=== PATIENT | female | born 1960 | race Caucasian/White ===

== ENCOUNTER → 2019-09-02 | Outpatient (CLI) | payer SELFPAY | PROVIDERS: Family Provider Family Medicine; Visit Provider Family Medicine | DX: M54.9 Dorsalgia, unspecified (principal); G89.29 Other chronic pain | CPT/HCPCS: 72072; 72100 ==

== ENCOUNTER 2020-05-27 00:10 | Inpatient (IN) | payer MEDICAID, SELFPAY ==
[2020-05-27] VITALS (86 sets, daily range): BP systolic 54–178; BP diastolic 25–129; PULSE 88–132; RESP 14–26; TEMP 36.1–38.9; O2SAT 76–99; BMI 36.6
--- NOTE | 2020-05-27 | XACV_ITS ---
Exam Room: [facility] Ht: 165 cm Wt: 100 kg BSA: 2.18 m2 Gender: Female : 1960 Any Known Allergies: Other Exam Priority: Routine Procedure(s): Procedure Description: Diagnostic procedure Procedure Description: Right Heart Catheterization Procedure Description: Miscellaneous Procedure Description: pVAD Conclusions 1. 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 CPT code 3. :20850 4. Right groin approach was adopted 5. to perform right heart cath and to place Impella device for persistent resistant cardiogenic shock failed to improve on more than 3 pressors and inotropics. Severe LV dysfunction with left ventricle ejection fraction estimated around 15 to 20%. 6. Right heart cathRA 13 mmHgRV 42/4PA mean 25 mm 14 Yemeni Impella peel-away sheath was exchanged with 6 Yemeni right femoral sheath, after crossing aortic valve through right common femoral approach with 0.035 wire into the LV with the help of pigtail catheter wire was exchanged with Impella 0.18 wire was used to insert 3.5 Impella CP device. Good cardiac output was confirmed around 3.2 L. MAP improved to 90 immediately. Patient tolerated procedure well and transferred to ICU after securing the site of insertion. Right groin venous sheath was kept in place for central line. No complication noted at the end of the procedure. 7. . Recommendations * Usual post cath and Impella care. Diagnostic RX Recommendation: medical therapy and/or counseling Pressures Phase:Rest AO : ( 26 ) @ 8:32:00 AM -3 / -8 ( -6 ) @ 9:03:00 AM LV : 120 / -1 / @ 8:56:00 AM 120 / 0 / @ 8:56:00 AM RV : 42 / 4 / @ 8:36:00 AM PA : 29 / ( 24 ) @ 8:34:00 AM 29 / 23 ( 25 ) @ 8:35:00 AM RA : a wave = v wave = mean = 13 @ 8:37:00 AM a wave = v wave = mean = -5 @ 8:43:00 AM O2 Content Phase:Rest PA : O2 Content O2: 62.0 @ 8:32:00 AM Saturations Phase:Rest AO : 95 @ 8:56:00 AM RA : 63 @ 8:56:00 AM RV : 61 @ 9:03:00 AM PA : 62 @ 8:32:00 AM Cardiac Output Phase:Rest Abbey : 3 @ 8:32:00 AM Abbey Cardiac Index: 2 @ 8:32:00 AM Clinical Evaluation EBL: 5mL-10mL Procedural Details Procedure Consent Obtained. Pre-Procedure Time Out. Identified patient by full name and date of as verbalized by the patient/guarantor. Does the consent match the physician's order: Yes. Accurate & Complete Informed Consent: Yes. Inpatient/Outpatient History & Physical on Chart: N/A Emergent; Informed Consent not obtained due to time critical life threat. If H&P is completed, is and addenduem needed: N/A Emergent; Informed Consent not obtained due to time critical life threat; If yes, is the addendum complete: N/A Emergent; Informed Consent not obtained due to time critical life threat. Visualize and Verify Site with Patient/Guarantor: N/A. Relevant Radiology Images available: Yes. PERRLA. Strong, equal hand adult manager bilaterally. Lungs clear x 5 lobes. Physician notified. Baseline sample Acquired. HR: 113 BPM. 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 Anesthesia arrived to sedate patient. Equipment: 6F - Femoral. Ventilator Settings: TV: 350, FI02: 70, Mode: VC/AC, Rate: 20, PEEP: 12. Physician arrived. Physician scrubbed in. Immediate Pre-Procedure Time Out. Correct Patient: Yes; Correct Procedure: Yes; Correct Site: Yes; Correct Patient Position: Yes; Correct Supplies: Yes; Dried Flammable Prep: Yes; Blood Products Available: No;. Procedure started. Venous access obtained with a micropuncture set. [place] MON catheter inserted. 0.25 glidwire inserted. wire out. catheter out. Oximetry samples were obtained. Normal venous range: 60-85%. Normal arterial range: 95-100%. Pressure measurements obtained. [place] out. hand shot right groin. 6Fr sheath out over wire. 8 fr sheath dialator in. 8 fr out. 10 fr dialator in and removed. 12 fr dialator in and removed. 14FR sheath inserted into right femoral artery. wire in. A 5 kyrgyz Angled Pig catheter in over wire. wire out. exchange wire inserted. wire out. EDP Sample taken: LV 120/-2,19; HR: 110 BPM; SpO2: 95%. catheter out. .018 wire inserted. inserting impella CP over wire. IMPELLA:. .018 wire removed. 14Fr peel away impella sheath inserted. .035 wore inserted to verify placement and then removed. impella sutured into position. Post Procedure: Pulses reassessed and unchanged. PERRLA. Strong, equal hand adult manager bilaterally. No VTE prophylaxis required. Medication's Wasted: Heparin = 1000 units. Total IV fluids: 100 mL. Fluoro: 12:40. Complications: none. Estimated blood loss: 5mL-10mL. Procedure completed. Patient transferred by bed to ICU. vitals (BP) monitored through impella. Post-op diagnosis: RF shock cardiomyopathy impella inserted. Vital chart was stopped. Access Site Site: Right Femoral vein Sheath Size: 6 Fr Hemostasis Success: Unsuccessful Procedure Medications Start: 1:55 PM Stop: 1:55 PM Medication: Heparin Amount: 5000 units Route: I.V. I, the attending physician, have reviewed and verified all procedure medications. Yes, all medications given per verbal order History/Risk Factors Hypertension: No Dyslipidemia: No Peripheral Arterial Disease (PAD): No Myocardial Infarction ([place]): No Obesity: No Renal Disease: No Prior Interventions PCI: No CABG: No Valve Surgery: No Report Signatures Finalized by Myra Powell MD on 06/13/2020 05:06 PM
--- NOTE | 2020-05-27 | XACV_ITS ---
Gender: Female : 1960 Any Known Allergies: Other Exam Priority: Routine Procedure(s): Procedure Description: Diagnostic procedure Procedure Description: Left Heart Catheterization Diagnostic Findings * No significant disease noted in the Left Main, LAD, Circumflex, or RCA coronary arteries. * Coronary angiography shows right dominance. PCI Status: Emergency Conclusions 1. Indication for angiogram: Chest pain syncope ST elevation in the inferior leads#1 Left main normal#2 LAD without any significant disease#3 LCx without significant disease#4 RCA has patent proximal stent rest of the vessel is without significant diseaseLeft ventriculography was consistent with severely depressed LV function 20% with anterior apical and inferoapical wall akinesis suggestive of stress-induced cardiomyopathy Takotsubo picture. 2. No significant disease noted in the Left Main, LAD, Circumflex, or RCA coronary arteries. 3. The basal posterior, basal septum, anterobasal, inferobasal marrufo are hypokinetic. 4. The apex, mid posterior, mid septum, anterolateral, mid inferior marrufo are akinetic. 5. Severe left ventricular systolic dysfunction. Ejection fraction of 20%. Recommendations * 1-Return to inpatient for close monitoring and routine cath care 2-Risk factor modification for secondary prevention 3-Statin and aspirin 81 mg life--long, if tolerated 4-Patient was pre-loaded with 600 mg of Plavix, continue Plavix 75mg p.o. daily for at least one year. We will assess at the end of one year again to continue if further or not 5-Continue optimal medical management, if patient does not improve blood pressure advised consider mechanical support 6-Follow up with Dr. Galo in four weeks and your primary care in 10 days. 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 Physician scrubbed in. Identified patient by full name and date of as verbalized by the patient/guarantor. Does the consent match the physician's order: N/A Emergent. Accurate & Complete Informed Consent: N/A Emergent; Informed Consent not obtained due to time critical life threat. Procedure started. right groin was prepped with chloroprep then draped in the usual sterile fashion. Lidocaine 1% infiltrated to the right groin. Arterial access obtained with micropuncture set. A 6 uruguayan JR4 Guide catheter in over wire. Multiple views taken of right coronary artery. Guide removed. CRD 6FR XB 3 GUIDE inserted over the wire. Multiple views of the left coronary system performed. Baseline sample Acquired. HR: 110 BPM. ABG sample taken. Catheter out. A 5 uruguayan Straight Pig catheter in over wire. EDP Sample taken: LV 83/16,31; HR: 112 BPM; SpO2: 85%. LV gram performed in ALVA @ 10 mL/second for a total of 30 mL. EDP Sample taken: LV 82/22,35; HR: 99 BPM; SpO2: 85%. Pullback taken: LV Off; AO Off; Mean: , Peak to Peak: , SEP: ; HR: 109 BPM; SpO2: 85%. Catheter out. A Suture was successful obtaining hemostatsis at the Right Femoral artery insertion site. Arterial sheath flushed and connected to tranducer and pressure bag with heparinized saline. PCI Indication: STEMI. Post-op diagnosis: STEMI. Current diagnosis: STEMI. Complications: NA. Estimated blood loss: 5mL-10mL. Procedure completed. Patient transferred by bed to ICU. [facility] Clinical Fraility Score: 3: Managing Well. Wool Hat Flanger Indications: ACS <= 24 hours. Chest Pain Symptom Assessment: Atypical Angina. Cardiovascular Instability: No. Vital chart was stopped. Access Site Site: Right Femoral artery Sheath Size: 6 Fr Hemostasis Method: Suture Hemostasis Success: Successful Procedure Medications Start: 3:30 AM Stop: 3:30 AM Medication: Heparin Amount: 68122 units Route: I.V. I, the attending physician, have reviewed and verified all procedure medications. Yes, all medications given per verbal order History/Risk Factors Hypertension: No Dyslipidemia: No Peripheral Arterial Disease (PAD): No Myocardial Infarction ([place]): No Obesity: No Renal Disease: No Prior Interventions PCI: No CABG: No Valve Surgery: No Report Signatures Finalized by Myra Powell MD on 06/08/2020 02:06 PM
--- NOTE | 2020-05-27 00:25 | ED_ITS ---
Documented by User: MARIA ELENA Espinosa 05/27/20 00:48 HPI - Fall General: Chief Complaint: Syncope Stated Complaint: FALL Time Seen by Provider: 05/27/20 00:14 History of Present Illness: HPI Narrative: Patient is a 59-year-old female who comes to the ED via EMS after having a fall. Patient was in the bathroom sitting on the toilet having a bowel movement and then woke up on the floor. EMS was called to patient's address to transport here to ED. EMS said patient had a red pruritic rash all over her body when they arrived. They gave patient some Zofran and 50 mg of Benadryl to treat rash before arriving to ED. EMS said that nobody at the house was able to speak to patient's previous health and mental conditions. Patient was currently taking amoxicillin for unknown reason. Review of Systems Narrative: Unable to get review of symptoms due to patient's mental status. [facility] ED PFSH: Medical History (Updated 05/27/20 @ 18:02 by Teresa Gibbs) Atherosclerotic cardiovascular disease CAD (coronary artery disease) COPD (chronic obstructive pulmonary disease) Hyperlipemia Hypertension Morbid obesity SOB (shortness of breath) COPD Surgical History Stented coronary artery PCI right coronary artery 2008 Family History Mother CAD (coronary artery disease) Mother had a coronary artery bypass surgery. Father Stroke Father had a CVA in the 60s Other Diabetes Social History Smoking and tobacco status: current every day smoker Alcohol intake: never Substance/Drug Use: never Household members: family Housing: House Physical Exam HENMT: FACE & SINUS: ecchymosis on the left periorbital and edema on the left periorbital Eye: PERIORBITAL: periorbital findings abnormal positive left periorbital swelling (left) and periorbital ecchymosis (left eye) Resp: COMMON NORMALS: normal respiratory effort, No retractions and No use of accessory muscles AUSCULTATION: wheezes expiratory wheezes and throughout Cardio: COMMON NORMALS: regular rate, regular rhythm, S1 normal heart sound present, S2 normal heart sound present, No gallops present (Cardio), No clicks present (Cardio), No murmurs present (Cardio) and Peripheral pulses 2+ throughout RATE: regular rate RHYTHM: regular rhythm HEART SOUNDS: S1 normal heart sound present and S2 normal heart sound present PERIPHERAL P ULSES: Peripheral pulses 2+ throughout Neuro: CAROL COMA SCALE: document GCS findings Carol coma scale eye opening: None Carol coma scale verbal response: Sounds Carol coma scale motor response: Obey commands [place] coma scale total score: 9 Course Vital Signs: Vital signs: Vital Signs Temperature 102.0 F H 05/27/20 17:00 Pulse Rate 99 05/27/20 17:00 Respiratory Rate 20 H 05/27/20 15:19 Blood Pressure 80/58 05/27/20 17:00 Pulse Oximetry 97 05/27/20 17:00 MDM - Fall MDM Narrative: Medical decision making narrative: Patient is a 59-year-old female is brought into the ED via EMS after having a fall. Upon exam patient's GCS score is 9. She does not open her eyes, obeys commands, only makes sounds. she has some left periorbital edema and ecchymosis. Due to patient's condition I discussed patient case with Dr. Gibbs and he will be taking over care of patient. I ordered all initial lab and imaging work-up. Lab Data: Labs: Lab Results 05/26/20 05/27/20 05/27/20 Range/Units 03:35 01:05 01:40 WBC 14.3 H (4.0-10.0) 10^3/ uL RBC 5.47 H (4.1-5.3) 10^6/u L Hgb 16.2 H (11.5-15.3) g/dL Hct 53.2 H (37.0-47.0) % MCV 97.3 (81-99) fL MCH 29.6 (28.0-34.0) pg MCHC 30.5 (30.0-36.0) g/dL RDW 13.9 (12.1-15.1) % Plt Count 335 (130-400) 10^3/c mm MPV 11.3 H (7.4-10.4) fL Neut % (Auto) 75.7 % Lymph % (Auto) 19.6 % Routt % (Auto) 3.7 % Eos % (Auto) 0.3 % Baso % (Auto) 0.3 % Neut # (Auto) 10.82 H (1.8-7.7) 10^3/u L Lymph # (Auto) 2.8 (0.8-4.8) 10^3/u L Routt # (Auto) 0.5 (0.2-0.9) 10^3/u L Eos # (Auto) 0.0 (0.0-0.8) 10^3/u L Baso # (Auto) 0.0 (0.0-0.1) 10^3/u L Nucleated RBC % (a uto) 0 % Nucleated RBCs # 0.0 /100WBC PT (12.1-14.9) SECO NDS INR (0.8-1.2) APTT (23.9-36.7) SECO NDS Specimen Type Arterial Arterial Sample Site Femoral, right Brachial, left ABG pH 7.20 L 7.31 L (7.35-7.45) ABG pCO2 66.3 H* 45.0 (35-45) mmHg ABG pO2 59.8 L 72.2 L (80.0-100.0) mmH g ABG HCO3 25.8 22.5 (22-26) mmol/L ABG O2 Saturation 83.0 94.2 ABG Base Excess -3.7 L -4.0 L (-2.0-2.0) mmol/ L Jerry Test N/a N/a A-a O2 Gradient 1.3 L 2.9 L (5-10) mmHg Hematocrit 43.4 48.7 H (37-47) % Hgb O2 Saturation 81.3 L 90.2 L (95-100) % Carboxyhemoglobin 1.9 3.6 (0.4-20.1) %THgb Methemoglobin 0.2 L 0.7 (0.4-1.5) % Total Hemoglobin 14.1 15.9 (12-16) g/dL Sodium 147.0 H 144.0 H (131-143) mmol/L Potassium 3.1 L 3.7 (3.5-5.0) mmol/L Glucose 314.0 H 204.0 H (70-115) mg/dL Ionized Calcium 1.0 L 1.3 (1.1-1.4) mmol/L O2 Delivery Device Ambu Nc O2 Liters/Min 3.0 % FiO2 % Specimen Drawn By Feeder Worker Power Unit Operator ASHLEY Molina Blood Gas Notified Time Chloride (98-107) mmol/L Carbon Dioxide (22-29) mmol/L Anion Gap (5-19) BUN (6-20) mg/dL Creatinine (0.5-0.9) mg/dL GFR Calculation (90-130) mL/min POC Glucose (70-110) mg/dL Calculated Osmolal ity (285-295) mOsm/k g Lactic Acid (0.5-2.2) mmol/L Calcium (8.5-10.5) mg/dL Magnesium (1.7-2.3) mg/dL Total Bilirubin (0.15-1.2) mg/dL AST (0-32) U/L ALT (0-33) U/L Alkaline Phosphata se (35-105) IU/L Troponin T Baselin e (0-10) ng/L NT-Pro-B Natriuret Pep (0-125) pg/mL Total Protein (6.6-8.7) g/dL Albumin (3.5-5.2) g/dL Globulin (1.3-4.6) g/dL Lipase (13-60) U/L Ethyl Alcohol (0-10) mg/dL Serum Ketones (Negative) 05/27/20 05/27/20 05/27/20 Range/Units 01:40 01:40 01:40 WBC (4.0-10.0) 10^3/ uL RBC (4.1-5.3) 10^6/u L Hgb (11.5-15.3) g/dL Hct (37.0-47.0) % MCV (81-99) fL MCH (28.0-34.0) pg MCHC (30.0-36.0) g/dL RDW (12.1-15.1) % Plt Count (130-400) 10^3/c mm MPV (7.4-10.4) fL Neut % (Auto) % Lymph % (Auto) % Routt % (Auto) % Eos % (Auto) % Baso % (Auto) % Neut # (Auto) (1.8-7.7) 10^3/u L Lymph # (Auto) (0.8-4.8) 10^3/u L Routt # (Auto) (0.2-0.9) 10^3/u L Eos # (Auto) (0.0-0.8) 10^3/u L Baso # (Auto) (0.0-0.1) 10^3/u L Nucleated RBC % (a uto) % Nucleated RBCs # /100WBC PT 12.80 (12.1-14.9) SECO NDS INR 0.94 (0.8-1.2) APTT 26.5 (23.9-36.7) SECO NDS Specimen Type Sample Site ABG pH (7.35-7.45) ABG pCO2 (35-45) mmHg ABG pO2 (80.0-100.0) mmH g ABG HCO3 (22-26) mmol/L ABG O2 Saturation ABG Base Excess (-2.0-2.0) mmol/ L Jerry Test A-a O2 Gradient (5-10) mmHg Hematocrit (37-47) % Hgb O2 Saturation (95-100) % Carboxyhemoglobin (0.4-20.1) %THgb Methemoglobin (0.4-1.5) % Total Hemoglobin (12-16) g/dL Sodium 145 (131-143) mmol/L Potassium 4.1 (3.5-5.0) mmol/L Glucose 200 H (70-115) mg/dL Ionized Calcium (1.1-1.4) mmol/L O2 Delivery Device O2 Liters/Min % FiO2 % Specimen Drawn By Feeder Worker Power Unit Operator ID Blood Gas Notified Time Chloride 103 (98-107) mmol/L Carbon Dioxide 23 (22-29) mmol/L Anion Gap 23.1 H (5-19) BUN 16 (6-20) mg/dL Creatinine 1.3 H (0.5-0.9) mg/dL GFR Calculation 41.9 L (90-130) mL/min POC Glucose (70-110) mg/dL Calculated Osmolal ity 307 H (285-295) mOsm/k g Lactic Acid (0.5-2.2) mmol/L Calcium 10.0 (8.5-10.5) mg/dL Magnesium 2.3 (1.7-2.3) mg/dL Total Bilirubin 0.3 (0.15-1.2) mg/dL AST 72 H (0-32) U/L ALT 51 H (0-33) U/L Alkaline Phosphata se 78 (35-105) IU/L Troponin T Baselin e 99 H (0-10) ng/L NT-Pro-B Natriuret Pep 92 (0-125) pg/mL Total Protein 6.7 (6.6-8.7) g/dL Albumin 4.0 (3.5-5.2) g/dL Globulin 2.7 (1.3-4.6) g/dL Lipase 18 (13-60) U/L Ethyl Alcohol < 10 (0-10) mg/dL Serum Ketones Negative (Negative) 05/27/20 05/27/20 05/27/20 Range/Units 01:40 03:13 03:34 WBC (4.0-10.0) 10^3/ uL RBC (4.1-5.3) 10^6/u L Hgb (11.5-15.3) g/dL Hct (37.0-47.0) % MCV (81-99) fL MCH (28.0-34.0) pg MCHC (30.0-36.0) g/dL RDW (12.1-15.1) % Plt Count (130-400) 10^3/c mm MPV (7.4-10.4) fL Neut % (Auto) % Lymph % (Auto) % Routt % (Auto) % Eos % (Auto) % Baso % (Auto) % Neut # (Auto) (1.8-7.7) 10^3/u L Lymph # (Auto) (0.8-4.8) 10^3/u L Routt # (Auto) (0.2-0.9) 10^3/u L Eos # (Auto) (0.0-0.8) 10^3/u L Baso # (Auto) (0.0-0.1) 10^3/u L Nucleated RBC % (a uto) % Nucleated RBCs # /100WBC PT (12.1-14.9) SECO NDS INR (0.8-1.2) APTT (23.9-36.7) SECO NDS Specimen Type Arterial Sample Site Right femoral ABG pH 7.19 L (7.35-7.45) ABG pCO2 66.3 H* (35-45) mmHg ABG pO2 59.8 L (80.0-100.0) mmH g ABG HCO3 1.9 L (22-26) mmol/L ABG O2 Saturation ABG Base Excess -3.7 L (-2.0-2.0) mmol/ L Jerry Test N/a A-a O2 Gradient (5-10) mmHg Hematocrit 43.4 (37-47) % Hgb O2 Saturation (95-100) % Carboxyhemoglobin (0.4-20.1) %THgb Methemoglobin (0.4-1.5) % Total Hemoglobin (12-16) g/dL Sodium (131-143) mmol/L Potassium (3.5-5.0) mmol/L Glucose (70-115) mg/dL Ionized Calcium (1.1-1.4) mmol/L O2 Delivery Device Ambu O2 Liters/Min % FiO2 100.0 % Specimen Drawn By [facility] Feeder Worker Power Unit Operator ID Blood Gas Notified Time 0410 Chloride (98-107) mmol/L Carbon Dioxide (22-29) mmol/L Anion Gap (5-19) BUN (6-20) mg/dL Creatinine (0.5-0.9) mg/dL GFR Calculation (90-130) mL/min POC Glucose 147 (70-110) mg/dL Calculated Osmolal ity (285-295) mOsm/k g Lactic Acid 6.4 H* (0.5-2.2) mmol/L Calcium (8.5-10.5) mg/dL Magnesium (1.7-2.3) mg/dL Total Bilirubin (0.15-1.2) mg/dL AST (0-32) U/L ALT (0-33) U/L Alkaline Phosphata se (35-105) IU/L Troponin T Baselin e (0-10) ng/L NT-Pro-B Natriuret Pep (0-125) pg/mL Total Protein (6.6-8.7) g/dL Albumin (3.5-5.2) g/dL Globulin (1.3-4.6) g/dL Lipase (13-60) U/L Ethyl Alcohol (0-10) mg/dL Serum Ketones (Negative) Discharge Plan Discharge Patient Disposition: Admitted As Inpatient Admit Provider: Myra Powell Clinical Impression: Cardiopulmonary arrest with successful resuscitation STEMI (ST elevation myocardial infarction) Qualifiers: Involved coronary artery: unspecified coronary artery Qualified Code(s): I21.3 - ST elevation (STEMI) myocardial infarction of unspecified site Anaphylaxis Qualifiers: Encounter type: initial encounter Qualified Code(s): T78.2XXA - Anaphylactic shock, unspecified, initial encounter Condition: Stable Interventions: ED Discharge Assessment Last Done: 05/27/20 07:31 ED Charges Last Done: 05/27/20 07:31 Discharge Date/Time: 05/27/20 03:45 Sign Out Sign Out Data: Patient Sign Out occurred on 05/27/20 at 00:51. Patient's care was discussed, and care was transferred from to Teresa Gibbs. 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 of Care Code ED Corporate Development Manager for Chg Fwd Exam Detailed Documented by User: Teresa Gibbs 05/27/20 18:05 HPI - Fall General: Chief Complaint: Syncope Stated Complaint: FALL Time Seen by Provider: 05/27/20 00:14 [facility] ED PFSH: Medical History (Updated 05/27/20 @ 18:02 by Teresa Gibbs) Atherosclerotic cardiovascular disease CAD (coronary artery disease) COPD (chronic obstructive pulmonary disease) Hyperlipemia Hypertension Morbid obesity SOB (shortness of breath) COPD Surgical History Stented coronary artery PCI right coronary artery 2008 Family History Mother CAD (coronary artery disease) Mother had a coronary artery bypass surgery. Father Stroke Father had a CVA in the 60s Other Diabetes Social History Smoking and tobacco status: current every day smoker Alcohol intake: never Substance/Drug Use: never Household members: family Housing: House Course Vital Signs: Vital signs: Vital Signs Temperature 102.0 F H 05/27/20 17:00 Pulse Rate 99 05/27/20 17:00 Respiratory Rate 20 H 05/27/20 15:19 Blood Pressure 80/58 05/27/20 17:00 Pulse Oximetry 97 05/27/20 17:00 MDM - Fall MDM Narrative: Medical decision making narrative: 0030 -patient turned over to me from MARIA ELENA Espinosa. Please see his note for his history, physical exam and medical decision-making notes. It is unclear what made the patient have a syncopal spell on the toilet but when EMS arrived she was diffusely red but they did not report any wheezing. Apparently the patient was given 50 of Benadryl and 1 of Ativan. Upon my assessment of the patient she is lethargic, agitated and is not cooperative. It is unclear what could be causing the patient's altered mental status. This could be an anaphylactic reaction, head bleed, acute coronary syndrome, intra-abdominal problem such as ruptured AAA. At this time I have another acutely ill patient in the ER Dr. Carrion has been contacted to come evaluate the patient as well. 0222 -patient had been intubated for anaphylaxis. Please see Dr. Carrion's note. Nurses have noticed a rhythm change and summoned me to the room. EKG shows inferior and lateral ST elevation AK. STEMI alert was called. 0240 - Dr. Powell here to evaluate the patient. He agrees with going ahead with a head CT prior to going to the Delivery Lead to be certain there is no intracranial hemorrhage. 0300 -patient had brief cardiac arrest here in the ER. Please see code note for details. Spontaneous pulse was obtained and the patient was transferred directly to the Delivery Lead. Lab Data: Attestation: I reviewed the patient's lab results. Labs: Lab Results 05/26/20 05/27/20 05/27/20 Range/Units 03:35 01:05 01:40 WBC 14.3 H (4.0-10.0) 10^3/ uL RBC 5.47 H (4.1-5.3) 10^6/u L Hgb 16.2 H (11.5-15.3) g/dL Hct 53.2 H (37.0-47.0) % MCV 97.3 (81-99) fL MCH 29.6 (28.0-34.0) pg MCHC 30.5 (30.0-36.0) g/dL RDW 13.9 (12.1-15.1) % Plt Count 335 (130-400) 10^3/c mm MPV 11.3 H (7.4-10.4) fL Neut % (Auto) 75.7 % Lymph % (Auto) 19.6 % Routt % (Auto) 3.7 % Eos % (Auto) 0.3 % Baso % (Auto) 0.3 % Neut # (Auto) 10.82 H (1.8-7.7) 10^3/u L Lymph # (Auto) 2.8 (0.8-4.8) 10^3/u L Routt # (Auto) 0.5 (0.2-0.9) 10^3/u L Eos # (Auto) 0.0 (0.0-0.8) 10^3/u L Baso # (Auto) 0.0 (0.0-0.1) 10^3/u L Nucleated RBC % (a uto) 0 % Nucleated RBCs # 0.0 /100WBC PT (12.1-14.9) SECO NDS INR (0.8-1.2) APTT (23.9-36.7) SECO NDS Specimen Type Arterial Arterial Sample Site Femoral, right Brachial, left ABG pH 7.20 L 7.31 L (7.35-7.45) ABG pCO2 66.3 H* 45.0 (35-45) mmHg ABG pO2 59.8 L 72.2 L (80.0-100.0) mmH g ABG HCO3 25.8 22.5 (22-26) mmol/L ABG O2 Saturation 83.0 94.2 ABG Base Excess -3.7 L -4.0 L (-2.0-2.0) mmol/ L Jerry Test N/a N/a A-a O2 Gradient 1.3 L 2.9 L (5-10) mmHg Hematocrit 43.4 48.7 H (37-47) % Hgb O2 Saturation 81.3 L 90.2 L (95-100) % Carboxyhemoglobin 1.9 3.6 (0.4-20.1) %THgb Methemoglobin 0.2 L 0.7 (0.4-1.5) % Total Hemoglobin 14.1 15.9 (12-16) g/dL Sodium 147.0 H 144.0 H (131-143) mmol/L Potassium 3.1 L 3.7 (3.5-5.0) mmol/L Glucose 314.0 H 204.0 H (70-115) mg/dL Ionized Calcium 1.0 L 1.3 (1.1-1.4) mmol/L O2 Delivery Device Ambu Nc O2 Liters/Min 3.0 % FiO2 % Specimen Drawn By Feeder Worker Power Unit Operator ASHLEY Molina Blood Gas Notified Time Chloride (98-107) mmol/L Carbon Dioxide (22-29) mmol/L Anion Gap (5-19) BUN (6-20) mg/dL Creatinine (0.5-0.9) mg/dL GFR Calculation (90-130) mL/min POC Glucose (70-110) mg/dL Calculated Osmolal ity (285-295) mOsm/k g Lactic Acid (0.5-2.2) mmol/L Calcium (8.5-10.5) mg/dL Magnesium (1.7-2.3) mg/dL Total Bilirubin (0.15-1.2) mg/dL AST (0-32) U/L ALT (0-33) U/L Alkaline Phosphata se (35-105) IU/L Troponin T Baselin e (0-10) ng/L NT-Pro-B Natriuret Pep (0-125) pg/mL Total Protein (6.6-8.7) g/dL Albumin (3.5-5.2) g/dL Globulin (1.3-4.6) g/dL Lipase (13-60) U/L Ethyl Alcohol (0-10) mg/dL Serum Ketones (Negative) 05/27/20 05/27/20 05/27/20 Range/Units 01:40 01:40 01:40 WBC (4.0-10.0) 10^3/ uL RBC (4.1-5.3) 10^6/u L Hgb (11.5-15.3) g/dL Hct (37.0-47.0) % MCV (81-99) fL MCH (28.0-34.0) pg MCHC (30.0-36.0) g/dL RDW (12.1-15.1) % Plt Count (130-400) 10^3/c mm MPV (7.4-10.4) fL Neut % (Auto) % Lymph % (Auto) % Routt % (Auto) % Eos % (Auto) % Baso % (Auto) % Neut # (Auto) (1.8-7.7) 10^3/u L Lymph # (Auto) (0.8-4.8) 10^3/u L Routt # (Auto) (0.2-0.9) 10^3/u L Eos # (Auto) (0.0-0.8) 10^3/u L Baso # (Auto) (0.0-0.1) 10^3/u L Nucleated RBC % (a uto) % Nucleated RBCs # /100WBC PT 12.80 (12.1-14.9) SECO NDS INR 0.94 (0.8-1.2) APTT 26.5 (23.9-36.7) SECO NDS Specimen Type Sample Site ABG pH (7.35-7.45) ABG pCO2 (35-45) mmHg ABG pO2 (80.0-100.0) mmH g ABG HCO3 (22-26) mmol/L ABG O2 Saturation ABG Base Excess (-2.0-2.0) mmol/ L Jerry Test A-a O2 Gradient (5-10) mmHg Hematocrit (37-47) % Hgb O2 Saturation (95-100) % Carboxyhemoglobin (0.4-20.1) %THgb Methemoglobin (0.4-1.5) % Total Hemoglobin (12-16) g/dL Sodium 145 (131-143) mmol/L Potassium 4.1 (3.5-5.0) mmol/L Glucose 200 H (70-115) mg/dL Ionized Calcium (1.1-1.4) mmol/L O2 Delivery Device O2 Liters/Min % FiO2 % Specimen Drawn By Feeder Worker Power Unit Operator ID Blood Gas Notified Time Chloride 103 (98-107) mmol/L Carbon Dioxide 23 (22-29) mmol/L Anion Gap 23.1 H (5-19) BUN 16 (6-20) mg/dL Creatinine 1.3 H (0.5-0.9) mg/dL GFR Calculation 41.9 L (90-130) mL/min POC Glucose (70-110) mg/dL Calculated Osmolal ity 307 H (285-295) mOsm/k g Lactic Acid (0.5-2.2) mmol/L Calcium 10.0 (8.5-10.5) mg/dL Magnesium 2.3 (1.7-2.3) mg/dL Total Bilirubin 0.3 (0.15-1.2) mg/dL AST 72 H (0-32) U/L ALT 51 H (0-33) U/L Alkaline Phosphata se 78 (35-105) IU/L Troponin T Baselin e 99 H (0-10) ng/L NT-Pro-B Natriuret Pep 92 (0-125) pg/mL Total Protein 6.7 (6.6-8.7) g/dL Albumin 4.0 (3.5-5.2) g/dL Globulin 2.7 (1.3-4.6) g/dL Lipase 18 (13-60) U/L Ethyl Alcohol < 10 (0-10) mg/dL Serum Ketones Negative (Negative) 05/27/20 05/27/20 05/27/20 Range/Units 01:40 03:13 03:34 WBC (4.0-10.0) 10^3/ uL RBC (4.1-5.3) 10^6/u L Hgb (11.5-15.3) g/dL Hct (37.0-47.0) % MCV (81-99) fL MCH (28.0-34.0) pg MCHC (30.0-36.0) g/dL RDW (12.1-15.1) % Plt Count (130-400) 10^3/c mm MPV (7.4-10.4) fL Neut % (Auto) % Lymph % (Auto) % Routt % (Auto) % Eos % (Auto) % Baso % (Auto) % Neut # (Auto) (1.8-7.7) 10^3/u L Lymph # (Auto) (0.8-4.8) 10^3/u L Routt # (Auto) (0.2-0.9) 10^3/u L Eos # (Auto) (0.0-0.8) 10^3/u L Baso # (Auto) (0.0-0.1) 10^3/u L Nucleated RBC % (a uto) % Nucleated RBCs # /100WBC PT (12.1-14.9) SECO NDS INR (0.8-1.2) APTT (23.9-36.7) SECO NDS Specimen Type Arterial Sample Site Right femoral ABG pH 7.19 L (7.35-7.45) ABG pCO2 66.3 H* (35-45) mmHg ABG pO2 59.8 L (80.0-100.0) mmH g ABG HCO3 1.9 L (22-26) mmol/L ABG O2 Saturation ABG Base Excess -3.7 L (-2.0-2.0) mmol/ L Jerry Test N/a A-a O2 Gradient (5-10) mmHg Hematocrit 43.4 (37-47) % Hgb O2 Saturation (95-100) % Carboxyhemoglobin (0.4-20.1) %THgb Methemoglobin (0.4-1.5) % Total Hemoglobin (12-16) g/dL Sodium (131-143) mmol/L Potassium (3.5-5.0) mmol/L Glucose (70-115) mg/dL Ionized Calcium (1.1-1.4) mmol/L O2 Delivery Device Ambu O2 Liters/Min % FiO2 100.0 % Specimen Drawn By [facility] Feeder Worker Power Unit Operator ID Blood Gas Notified Time 0410 Chloride (98-107) mmol/L Carbon Dioxide (22-29) mmol/L Anion Gap (5-19) BUN (6-20) mg/dL Creatinine (0.5-0.9) mg/dL GFR Calculation (90-130) mL/min POC Glucose 147 (70-110) mg/dL Calculated Osmolal ity (285-295) mOsm/k g Lactic Acid 6.4 H* (0.5-2.2) mmol/L Calcium (8.5-10.5) mg/dL Magnesium (1.7-2.3) mg/dL Total Bilirubin (0.15-1.2) mg/dL AST (0-32) U/L ALT (0-33) U/L Alkaline Phosphata se (35-105) IU/L Troponin T Baselin e (0-10) ng/L NT-Pro-B Natriuret Pep (0-125) pg/mL Total Protein (6.6-8.7) g/dL Albumin (3.5-5.2) g/dL Globulin (1.3-4.6) g/dL Lipase (13-60) U/L Ethyl Alcohol (0-10) mg/dL Serum Ketones (Negative) EKG Data^: EKG 1: Attestation: I personally reviewed and interpreted this EKG as follows: EKG interpretation date: 05/27/20 EKG interpretation time: 02:22 Interpretation: Sinus tachycardia at 112 beats a minute, no blocks, normal intervals, ST elevation 2, 3, aVF, V3 through V6. This elation and in 1 as well. Discharge Plan Discharge Patient Disposition: Admitted As Inpatient Admit Provider: Myra Powell Clinical Impression: Cardiopulmonary arrest with successful resuscitation STEMI (ST elevation myocardial infarction) Qualifiers: Involved coronary artery: unspecified coronary artery Qualified Code(s): I21.3 - ST elevation (STEMI) myocardial infarction of unspecified site Anaphylaxis Qualifiers: Encounter type: initial encounter Qualified Code(s): T78.2XXA - Anaphylactic shock, unspecified, initial encounter Condition: Stable Interventions: ED Discharge Assessment Last Done: 05/27/20 07:31 ED Charges Last Done: 05/27/20 07:31 Discharge Date/Time: 05/27/20 03:45 Sign Out Sign Out Data: Patient Sign Out occurred on 05/27/20 at 00:51. Patient's care was discussed, and care was transferred from to Teresa Gibbs. 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 of Care Code ED Corporate Development Manager for Herb Fwd Exam Detailed
--- NOTE | 2020-05-27 00:31 | XR_ITS ---
WS: [id number] Portable AP supine chest, 05/27/2020, 0113 hours. Clinical Data: syncope Comparison: Portable chest, 06/30/2019. Findings: No nodules, masses or effusions are seen. The heart is normal. The pulmonary vascularity is not increased. No pneumonia or pneumothorax is seen. The right diaphragm is slightly elevated. Monit or leads are on the chest wall. XR/XR chest 1V portable [id number] Impression: Negative chest.
[2020-05-27 01:16] LABS: ABG PH Result 7.31 (7.35-7.45); Alveolar-Arterial Oxygen Gradi 2.9 mmHg (5-10); Arterial Blood Gas Hematocrit 48.7 % (37-47); Blood Gas Operator Identificat HARKR; Blood Gas Sample Site Brachial, left; Blood Gas Sample Type Arterial; Carboxyhemoglobin 3.6 %THgb (0.4-20.1); HCO3 ABG 22.5 mmol/L (22-26); HGB O2 Sat 90.2 % (95-100); Ionized Calcium Level - ABG 1.3 mmol/L (1.1-1.4); Methemoglobin 0.7 % (0.4-1.5); Oxygen Device NC; Oxygen Saturation ABG 94.2; PO2 ABG 72.2 mmHg (80.0-100.0); Potassium Level - ABG 3.7 mmol/L (3.5-5.0); Total Hemoglobin 15.9 g/dL (12-16)
--- NOTE | 2020-05-27 01:28 | P.HP_ITS ---
Providers/Chief Complaint Chief Complaint: FALL History of Present Illness Viridiana Corral is a 59 year old female who carries history of coronary disease, PCI right coronary artery 2008 came in after one syncopal event. Apparently patient was having a bowel movement when she had the syncopal event. EMS reported that she had pruritic rash for which she was given Zofran and Benadryl. (She was recently started on amoxicillin). ER physician notified me about the patient when he was intubating another patient who was critical. I evaluated the patient at the bedside, she was arousable to verbal commands, was able to tell me that her PCP started her on amoxicillin and she has been taking that and only 3 tablets are left. Today she was sitting with her friend at the computer when she went to the bathroom to have a bowel movement. Her friend noticed a loud thump sound when he checked Ms. Corral was unconscious on the floor. She was not complaining of chest pain, EMS was called. She had pruritic rash all over her body, skin was blanchable, she was given above-mentioned medications. On arrival to the ER she was not not cooperative for any work-up, she was put on BiPAP. Soon after BiPAP usage she started experiencing emesis, decision was made to intubate her. I intubated the patient at the bedside in ER, etomidate 20 mg was given along pleuritic agent, she was hyperoxygenated, glide scope was used to visualize vocal cords, she had pharyngeal, epiglottic swelling with a lot of upper airway secretions, endotracheal tube 7.5 was passed on first attempt without difficulty after visualization of vocal cords. End-tidal CO2 detected, bilateral breath sounds detected, post intubation she was saturating 94 to 95%, normal hemodynamics. Post intubation EKG was obtained while we are waiting for portable chest x-ray, which showed ST segment elevation NC, STEMI alert was called. I have tried to call her son who has not returned my call. corporate planner notified. Review of Systems General: Reports: ROS unobtainable due to endotracheal tube Medications/Allergies Home Medications Medication Instructions Recorded Confirmed Last Taken Type aspirin 81 mg tablet,delayed 81 mg PO QDAY 09/24/19 09/24/19 Unknown History release atorvastatin 40 mg tablet 40 mg PO QDAY 30 Days #30 tab 09/24/19 09/24/19 Unknown Rx garlic PO DAILY 09/24/19 09/24/19 Unknown History herbal complex no.174 450 mg mg PO DAILY cap 09/24/19 09/24/19 Unknown History capsule isosorbide mononitrate 30 mg 30 mg PO QAM 09/24/19 Unknown History tablet,extended release 24 hr lisinopril 5 mg tablet 5 mg PO QDAY 09/24/19 Unknown History multivitamin 1 tab PO QAM 09/24/19 09/24/19 Unknown History nitroglycerin 0.4 mg sublingual 0.4 mg SUBLINGUAL Q5M PRN 09/24/19 09/24/19 Unkn own History tablet omega-3 acid ethyl esters 1 gram 1 cap PO QDAY 09/24/19 09/24/19 Unknown History capsule red yeast rice 600 mg capsule 1,200 mg PO QDAY 09/24/19 09/24/19 Unknown History Allergies Allergy/AdvReac Type Severity Reaction Status Date / Time amoxicillin Allergy ALGY-Rash Verified 05/27/20 00:25 shellfish derived Allergy swelling Verified 05/27/20 00:25 watermelon Allergy swelling Verified 05/27/20 00:25 PFSH Acute PFSH: Medical History Atherosclerotic cardiovascular disease COPD (chronic obstructive pulmonary disease) Hyperlipemia Hypertension Morbid obesity SOB (shortness of breath) COPD Surgical History Stented coronary artery PCI right coronary artery 2008 Family History Mother CAD (coronary artery disease) Mother had a coronary artery bypass surgery. Father Stroke Father had a CVA in the 60s Other Diabetes Social History Smoking and tobacco status: current every day smoker Alcohol intake: never Substance/Drug Use: never Household members: family Housing: House Vitals/I&O/Wt Last Vital Signs Temp 97.9 F 05/27/20 00:11 Pulse 88 05/27/20 00:47 Resp 24 H 05/27/20 00:47 BP 136/94 05/27/20 00:47 Pulse Ox 94 05/27/20 00:47 Weight last 48 hrs Weight 99.79 kg Physical Exam Narrative: EXAM NARRATIVE: Morbidly obese female Experiencing active emesis Intubated and sedated with propofol Diffuse pruritic morbilliform rash, Patient was keeping her eyes closed, verbally redirectable, noncooperative Abdomen distended Multiple skin excoriation all over extremities, extremely dry skin GCS 11-12 Patient was able to tell me about her antibiotics and brief description about today's event, she was moving all upper extremities, no facial asymmetry, Diffuse swelling of her face including eyes and ears Gleidoscope also revealed pharyngeal edema Assisted breath sounds, upper airway resonance Data : 05/27/20 01:40 05/27/20 01:40 A&P Assessment and plan (1) Syncope and collapse: Status: Acute (2) STEMI (ST elevation myocardial infarction): Status: Acute (3) High anion gap metabolic acidosis: Status: Acute (4) Amoxicillin-induced allergic rash: Status: Acute Additional A&P Information Syncopal event due to STEMI Inferior lead ST segment elevation NC She has history of bare-metal stent placement in RCA Troponin 99 Hemodynamically stable, currently intubated and sedated for airway protection due to decreased consciousness and active emesis Would initiate therapeutic dose of Lovenox, aspirin, Plavix and high-dose statins, corporate planner notified by the ER physician Anaphylactic reaction due to amoxicillin She was not hypotensive on arrival, she was given Benadryl, and steroids Diffuse edema of face, periorbital edema, pharyngeal edema noted during intubation, swollen tongue I would add Benadryl, corticosteroids and famotidine Currently intubated and sedated Respiratory failure requiring mechanical ventilation for airway protection due to decreased consciousness and active emesis Endotracheal tube 7.5 secured at lip by 24 cm, bilateral breath sounds post intubation no complications, hemodynamically stable, saturating well, PRVC vent High anion gap metabolic acidosis due to lactic acidemia Secondary to STEMI, hemodynamically stable, no active cardiogenic shock or anaphylactic shock observed We will keep her on normal saline and keep Levophed on standby if needed in ICU Dental infection Patient was taking amoxicillin for her dental infection, chlorhexidine mouthwash, Protonix 40 IV daily Would use clindamycin for now GLENYS mildly fluid overloaded, high transaminases Would avoid diuretics for now, Follow creatinine on daily BMP, Suspecting cardiorenal etiology Full code N.p.o. No need of DVT prophylaxis currently on therapeutic dose of Lovenox Procedures Intubation Time out performed: Yes Sedative: etomidate Paralytic: vecuronium Laryngoscope: fiber optic video scope ET tube size: 7.5 Tube secured depth (cm): 24 Tube secured location: lips Tube placement confirmation: visualized tube passing through cords Patient tolerated procedure: well Intubation complications: none Attestations Medical Necessity Statement*: Is being seen in the hospital course more than 2 midnights currently need ICU intubated and sedated, STEMI alert Time Spent in Patient Care: (>than 50% of time spent in counselling and/or direct pt care on unit) . 90mins Critical Care Time: Critical Care Time (min): 35 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 of Care Code Acute Head Men'S Golf Coach for Herb Fwd Diagnoses Syncope and collapse R55 STEMI (ST elevation myocardial infarction) I21.3 High anion gap metabolic acidosis E87.2 Amoxicillin-induced allergic rash L27.0; T36.0X5A
[2020-05-27] MEDS: famotidine 20 mg/2 mL INJ 40 MG IVP (01:54)
[2020-05-27 01:57] LABS: Ketone (Acetest) Serum Negative (Negative)
[2020-05-27 01:58] LABS: Basophils % 0.3 %; Eosinophils % 0.3 %; Hematocrit 53.2 % (37.0-47.0); Hemoglobin 16.2 g/dL (11.5-15.3); Lymphocytes # 2.8 10^3/uL (0.8-4.8); Lymphocytes % 19.6 %; Mean Corpuscular HGB Conc 30.5 g/dL (30.0-36.0); Mean Corpuscular Hemoglobin 29.6 pg (28.0-34.0); Mean Corpuscular Volume 97.3 fL (81-99); Mean Platelet Volume 11.3 fL (7.4-10.4); Monocytes # 0.5 10^3/uL (0.2-0.9); Monocytes % 3.7 %; Neutrophils # 10.82 10^3/uL (1.8-7.7); Neutrophils % 75.7 %; Nucleated Red Blood Cells % 0 %; Platelet Count 335 10^3/cmm (130-400); Red Blood Count 5.47 10^6/uL (4.1-5.3); Red Cell Distribution Width 13.9 % (12.1-15.1); White Blood Count 14.3 10^3/uL (4.0-10.0)
[2020-05-27] MEDS: ondansetron 2 mg/ML SDV 2 mL 4 MG IVP (02:01)
[2020-05-27 02:03] LABS: INR 0.94 (0.8-1.2)
[2020-05-27 02:04] LABS: Partial Thromboplastin Time 26.5 SECONDS (23.9-36.7)
[2020-05-27] MEDS: vecuronium 10 mg SDV IVP (02:12)
[2020-05-27] MEDS: succinylcholine 20 mg/mL SDV 10mL 100 MG IVP (02:12)
[2020-05-27 02:13] LABS: Troponin(5th) Baseline 99 ng/L (0-10)
--- NOTE | 2020-05-27 02:13 | PC.NURSE ---
INTUBATED PT AT 0206. ET SIZE 7.5 AND 24 AT THE LIP.
[2020-05-27 02:20] LABS: Lactic Sepsis W/Reflex 6.4 mmol/L (0.5-2.2)
[2020-05-27 02:23] LABS: Alanine Aminotransferase 51 U/L (0-33); Alcohol Level < 10 mg/dL (0-10); Alkaline Phosphatase 78 IU/L (35-105); Anion Gap 23.1 (5-19); Aspartate Amino Transferase 72 U/L (0-32); Blood Urea Nitrogen 16 mg/dL (6-20); Carbon Dioxide 23 mmol/L (22-29); Chloride 103 mmol/L (98-107); Globulin 2.7 g/dL (1.3-4.6); Glomerular Filtration Rate 41.9 mL/min (90-130); Glucose 200 mg/dL (65-115); Lipase 18 U/L (13-60); Magnesium 2.3 mg/dL (1.7-2.3); NT Pro B Type Natriuretic Pept 92 pg/mL (0-125); Osmolality Calculated 307 mOsm/kg (285-295); Potassium 4.1 mmol/L (3.5-5.1); Sodium 145 mmol/L (136-145); Total Bilirubin 0.3 mg/dL (0.15-1.2); Total Protein 6.7 g/dL (6.6-8.7)
--- NOTE | 2020-05-27 02:29 | ECG_ITS ---
[facility] Test Date: 2020-05-27 Pat Name: Viridiana Corral Department: Room: ICU10 Gender: Female Gear Hobber: : 1960 Requested By: Telly Malone Order Number: [id number] Tim MD: Jodie Cardenas M.D. Measurements Intervals [place] Rate: 112 P: 66 MS: 194 QRS: 62 QRSD: 110 T: 81 QT: 329 QTc: 450 Interpretive Statements SINUS TACHYCARDIA LOW QRS VOLTAGE IN PRECORDIAL LEADS MODERATE INTRAVENTRICULAR CONDUCTION DELAY ST ELEVATION, CONSIDER INFERIOR INJURY MARKED ST ELEVATION, CONSIDER ANTEROLATERAL INJURY ACUTE NC Compared to ECG 07/01/2019 14:07:21 Low QRS voltage now present Intraventricular conduction delay now present ST (T wave) deviation now present Myocardial infarct finding now present Sinus bradycardia no longer present Electronically Signed On 05-27-2020 17:15:52 CDT by Jodie Cardenas M.D. [id number]
--- NOTE | 2020-05-27 02:52 | PM.ACPR ---
Procedure/Consent Time out: Time Out Performed: Yes Consent: Consent for Procedure: Emergency procedure Acute Procedures Epistaxis Control: Time out performed: Yes Intubation: Time out performed: Yes Sedative: etomidate Paralytic: vecuronium Laryngoscope: fiber optic video scope ET tube size: 7.5 Tube secured depth (cm): 24 Tube secured location: lips Tube placement confirmation: visualized tube passing through cords Patient tolerated procedure: well Intubation complications: none
--- NOTE | 2020-05-27 02:55 | PM.CONSULT ---
Providers/Reason For Consult Consulting Physican/Specialty*: Cardiology Reason for Consult*: ST elevation NC, shock, cardiac arrest History of Present Illness History of Present Illness Viridiana Corral is a 59 year old female who passed out on a toilet her friend called EMS on arrival they found her to be agitated given Ativan. In the emergency room she was intubated for airway protection as she was fighting and trying to throw up. She did not give any significant history source of history is as per EMS and ER staff. There was also concern regarding anaphylaxis for which she was given Solu-Medrol Pepcid and Benadryl. Since she passed out and was on floor she is going to get CT of the head. Twelve-lead EKG initially did not show any significant ST changes but second EKG was showing inferolateral ST elevation. Initial troponin was in 90s. ST elevation NC was alerted. When I arrived and saw the patient she was intubated and sedated on propofol. Patient had brief episode of V. fib followed by asystole. CPR was performed sinus rhythm was restored. Patient was immediately taken to the Embedded Software Manager. In route she had brief episode of V. fib she was given amiodarone during process of CPR while we were about to shock patient resumed sinus rhythm. She was taken to the Embedded Software Manager emergent left heart cath was performed which showed no significant stenosis of coronary artery. Left ventriculogram was performed which was consistent with severely depressed LV function with estimated ejection fraction of 20% with severe global hypokinesis consistent with stress-induced cardiomyopathy (Takotsubo). Patient was started on Levophed for cardiogenic shock. LVEDP was measured at 35 mmHg. Review of Systems General: Reports: ROS unobtainable due to endotracheal tube Narrative: Unable to get review of symptoms due to patient's mental status. Eyes: Denies: photophobia All/Imm: Denies: acute wheezing Meds/Allergies Home Medications and Allergies Home Medications Medication Instructions Recorded Confirmed Last Taken Type aspirin 81 mg tablet,delayed 81 mg PO DAILY 09/24/19 05/27/20 Unknown History release atorvastatin 40 mg tablet 40 mg PO QDAY 30 Days #30 tab 09/24/19 05/27/20 Unknown Rx herbal complex no.174 450 mg 450 mg PO DAILY cap 09/24/19 05/27/20 Unknown History capsule isosorbide mononitrate 30 mg 30 mg PO QAM 09/24/19 05/27/20 Unknown History tablet,extended release 24 hr lisinopril 5 mg tablet 5 mg PO DAILY 09/24/19 05/27/20 Unknown History multivitamin 1 tab PO QAM 09/24/19 05/27/20 Unknown History nitroglycerin 0.4 mg sublingual 0.4 mg SUBLINGUAL Q5M PRN 09/24/19 05/27/20 Unknown History tablet omega-3 acid ethyl esters 1 gram 1 cap PO DAILY 09/24/19 05/27/20 Unknown History capsule red yeast rice 600 mg capsule 1,200 mg PO DAILY 09/24/19 05/27/20 Unknown History garlic 100 mg PO DAILY 05/27/20 05/27/20 Unknown History Allergies Allergy/AdvReac Type Severity Reaction Status Date / Time amoxicillin Allergy ALGY-Rash Verified 05/27/20 00:25 shellfish derived Allergy swelling Verified 05/27/20 00:25 watermelon Allergy swelling Verified 05/27/20 00:25 PFSH Acute PFSH: Medical History (Updated 05/27/20 @ 19:25 by Chava Benjamin MD) Atherosclerotic cardiovascular disease CAD (coronary artery disease) COPD (chronic obstructive pulmonary disease) Hyperlipemia Hypertension Morbid obesity SOB (shortness of breath) COPD Surgical History Stented coronary artery PCI right coronary artery 2008 Family History Mother CAD (coronary artery disease) Mother had a coronary artery bypass surgery. Father Stroke Father had a CVA in the 60s Other Diabetes Social History Smoking and tobacco status: current every day smoker Alcohol intake: never Substance/Drug Use: never Household members: family Housing: House Vitals/I&O/Wt Last Vital Signs Temp 97.9 F 05/27/20 00:11 Pulse 88 05/27/20 00:47 Resp 14 05/27/20 02:24 BP 136/94 05/27/20 00:47 Pulse Ox 94 05/27/20 00:47 Weight last 48 hrs Weight 220 lb Physical Exam Narrative: EXAM NARRATIVE: GENERAL: Patient is sedated and intubated. NECK: No jugular vein distension. [] HEENT: No cyanosis. No icterus. No pallor. [] HEART: Regular S1 and S2. No murmur, rub or gallop. [] LUNGS: Decreased breath sound bilaterally. [] ABDOMEN: Soft, nontender and nondistended. Positive bowel sounds. No guarding, rebound or tenderness. [] CENTRAL NERVOUS SYSTEM: Grossly nonfocal. [] EXTREMITIES: Lower extremities with edema bilaterally. A&P Assessment and plan (1) Cardiogenic shock: Secondary to stress-induced cardiomyopathy/acute coronary syndrome. We will start patient on pressors. Cannot rule out anaphylaxis therefore she will be continued treating for anaphylaxis Status: Acute (2) Cardiac arrest: Brief be V. fib aborted with amiodarone and CPR. Patient was about to be defibrillated however she converted into sinus rhythm. Most likely due to underlying cardiomyopathy. Continue amiodarone Status: Acute (3) Hyperlipemia: Continue statin Status: Acute Qualifiers: Hyperlipidemia type: mixed hyperlipidemia Qualified Code(s): E78.2 - Mixed hyperlipidemia (4) CAD (coronary artery disease): History of right coronary artery stent continue current regimen Status: Acute Qualifiers: Associated angina: without angina Coronary Disease-Associated Artery/Lesion type: [place] artery [place] vs. transplanted heart: [place] heart Qualified Code(s): I25.10 - Atherosclerotic heart disease of [place] coronary artery without angina pectoris (5) Syncope and collapse: Most likely secondary to cardiac arrest Status: Acute (6) COPD (chronic obstructive pulmonary disease): Intubated, treatment as per medicine Status: Acute Qualifiers: COPD type: chronic bronchitis (7) Cardiomyopathy in disease classified elsewhere: Patient has severely depressed LV function. She appeared to be tachycardic I will start patient on pressor if required may will add dobutamine for now I will avoid it because of tachycardia. I will try to diurese her with IV Lasix once systolic blood pressure is above 100. She is intubated with mixed picture of pulmonary edema and COPD exacerbation. She will be covered with antibiotics at the same time we will try to diurese her as well. She will be ruled out for COVID Status: Acute Consult Attestations Medical Necessity Statement: Patient is critically ill. Prognosis guarded she will be admitted to ICU. I am expecting her stay to cross more than 2 midnights. 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 of Care Code New Pt Acute Barman for Chg Fwd Patient Type New History Comprehensive Exam Comprehensive Medical Decision Making High Complexity Diagnoses Cardiogenic shock R57.0 Cardiac arrest I46.9 Hyperlipemia E78.2 Hyperlipidemia type: mixed hyperlipidemia CAD (coronary artery disease) I25.10 Associated angina: without angina Coronary Disease-Associated Artery/Lesion type: [place] artery [place] vs. transplanted heart: [place] heart Syncope and collapse R55 COPD (chronic obstructive pulmonary disease) J44.9 COPD type: chronic bronchitis Cardiomyopathy in disease classified elsewhere I43
[2020-05-27 03:16] LABS: Glucose Point of Care 147 mg/dL (70-110)
--- NOTE | 2020-05-27 03:35 | XR_ITS ---
WS: [id number] Portable AP supine chest, 05/27/2020, 0225 hours Clinical Data: Post intubation Comparison: Portable chest, 05/27/2020, 0113 hours. Findings: The endotracheal tube has been inserted but the tip is only 1 cm above the judd. There is a nasogastric tube which appears to end within the stomach. There is a patchy opacity in the left gisela ng and minimal opacity in the right lung which may be secondary to poor expansion of the lungs. Monit or leads are on the chest wall. XR/XR chest 1V portable [id number] Impression: 1. Endotracheal tube only 1 cm above the judd. 2. Endogastric tube appears to end in the fundus of the stomach. 3. Poor expansion of the lungs leads to bilateral interstitial opacities.
[2020-05-27 03:41] LABS: Reflex Lactate Order REFLEX LACTIC ORDERD
--- NOTE | 2020-05-27 04:00 | PC.NURSE ---
Admit Note Arrived to unit from tailings dam laborer at this time. Pt is intubated, skin is dusky and gunderson in color. Pt is non-responsive to painful stimuli. PERRL, size 4. Distant heart sounds auscultated, Sinus tachycardia with continued ST elevation on bedside monitor. 6fr sheath remains in place with pressure bag into right groin, arterial line to transducer to assess hemodynamics. Site asymptomatic. Radial pulses weak and thready. Bilateral pedal pulses faint to doppler and intermittent. Skin is cool to touch with > [address] Powell at bedside.
[2020-05-27] MEDS: FUROsemide 10 mg/mL SDV 4mL 40 MG IVP ×2 (04:23→08:51)
--- NOTE | 2020-05-27 04:52 | PC.NURSE ---
upon arrival to ED unit, pt GCS of 10, unable to open eyes or speak. Pt reactive to stimuli only. STEEL ENGRAVER notified of diminished GCS. Pt has a roommate/friend ariving to ED shortly after pt ED arrival. Pt's friend Cameron, states pt was took one dose of amoxicillin around 2100 in the evening and went to the bathroom and heard a noisy thump . When he went to check on her, he found her on the floor of the bathroom. He attempted to move her and when he was unable to called 911. Pt having expiratory wheezing, tachypneic @ 24-28x per min, redness, swelling and skin blanching throughout face, arms, torso and legs. Dr notified of pt's diminished LOC. Upon Dr evaluation, pt acuity level increased with orders obtained for Bipap. After approx 10min of Bipap tx, pt began to vomit approx 500cc of clear emesis noted. Pt suctioned, airway clear of obvious emesis. RSI ordered. Dr Carrion intubated pt without difficulties. OG inserted. During grajeda insertion, ST elevation noted on air sampling and monitoring. 12 lead ECG obtained, Dr Gibbs confirmed anterior wall [place]. Code STEMI called @0219. Prior to pt transfer to flower shop laborer/designer, pt went to v-fib. Compressions started, Code blue called. ROSC achieved. Pt transported to flower shop laborer/designer by Cath team
[2020-05-27] MEDS: clindamycin 300 MG/50 ML PREMIX 100 MG IV (04:58)
[2020-05-27 05:15] LABS: Basophils # 0.1 10^3/uL (0.0-0.1); Basophils % 0.4 %; Eosinophils % 0.1 %; Hematocrit 50.3 % (37.0-47.0); Hemoglobin 14.8 g/dL (11.5-15.3); Lymphocytes # 2.5 10^3/uL (0.8-4.8); Lymphocytes % 13.7 %; Mean Corpuscular HGB Conc 29.4 g/dL (30.0-36.0); Mean Platelet Volume 11.8 fL (7.4-10.4); Monocytes # 1.1 10^3/uL (0.2-0.9); Monocytes % 5.9 %; Neutrophils # 14.16 10^3/uL (1.8-7.7); Neutrophils % 79.2 %; Nucleated Red Blood Cells % 0.1 %; Platelet Count 302 10^3/cmm (130-400); Red Blood Count 4.93 10^6/uL (4.1-5.3); Red Cell Distribution Width 14.1 % (12.1-15.1); White Blood Count 17.9 10^3/uL (4.0-10.0)
[2020-05-27 05:28] LABS: Alveolar-Arterial Oxygen Gradi 1.3 mmHg (5-10); Arterial Blood Gas Hematocrit 43.4 % (37-47); Base Excess ABG -3.7 mmol/L (-2.0-2.0); Blood Gas Sample Site Femoral, right; Blood Gas Sample Type Arterial; Carboxyhemoglobin 1.9 %THgb (0.4-20.1); HCO3 ABG 25.8 mmol/L (22-26); HGB O2 Sat 81.3 % (95-100); Methemoglobin 0.2 % (0.4-1.5); Oxygen Device AMBU; PO2 ABG 59.8 mmHg (80.0-100.0); Potassium Level - ABG 3.1 mmol/L (3.5-5.0); Total Hemoglobin 14.1 g/dL (12-16)
--- NOTE | 2020-05-27 05:30 | PC.NURSE ---
Central Line Dr. Carrion notified of poor peripheral vascular access. Dr. Carrion placed central line into right IJ. Consent not obtained due to emergent nature.
[2020-05-27 05:34] LABS: Lactic Acid level (Lactate) 7.4 mmol/L (0.5-2.2)
[2020-05-27 05:41] LABS: ABG PCO2 66.3 mmHg (35-45); ABG PH Result 7.19 (7.35-7.45); Base Excess ABG -3.7 mmol/L (-2.0-2.0); HCO3 ABG 1.9 mmol/L (22-26); PO2 ABG 59.8 mmHg (80.0-100.0)
[2020-05-27 05:42] LABS: Arterial Blood Gas Hematocrit 43.4 % (37-47); Blood Gas Sample Site RIGHT FEMORAL; Blood Gas Sample Type ARTERIAL; Oxygen Device AMBU
[2020-05-27 05:59] LABS: Bilirubin Urine Neg (Negative); Blood Urine 3+ (Negative); Glucose Urine UA 1+ (Normal); Ketones Urine Negative (Negative); Nitrate Urine Negative (Negative); Protein Urine 1+ (Negative); Urine Appearance Clear (CLEAR); Urine Color Yellow (Yellow); pH Urine 8 (5-7)
[2020-05-27 06:00] LABS: Bacteria Urine 1+ /hpf; Leukocyte Esterase Urine Negative (Negative); RBC Urine 0-4 /hpf (0-2); Squamous Epithelial Cell Urine 0-4 /hpf (0-5); Sulfosalicylic Acid Urine Negative (Negative); Urobilinogen Urine Norm (Negative); WBC Urine 0-4 /hpf (0-5)
[2020-05-27 06:04] LABS: Amphetamines Screen Urine Negative (Negative); Barbiturates Screen Urine Negative (Negative); Benzodiazepines Screen Urine Positive (Negative); Cocaine Screen Urine Negative (Negative); Opiate Screen Urine Negative (Negative); PCP Screen Urine Negative (Negative); THC Screen Urine Negative (Negative)
--- NOTE | 2020-05-27 06:06 | XRR_ITS ---
PROCEDURE INFORMATION: Exam: XR Chest, 1 View Exam date and time: 05/27/2020 6:07 AM Age: 59 years old Clinical indication: Device placement; Ett placement (vent status); Patient HX: Central line placement, et tube placement, og tube placement TECHNIQUE: Imaging protocol: XR of the chest Views: 1 view. COMPARISON: CR XR chest 1V portable [id number] 05/27/2020 2:25 AM FINDINGS: Tubes, catheters and devices: Interval retraction of the ET tube with its tip now about 2.9 cm above the judd. Continued extension of the enteric tube below the diaphragm with its tip not included. Interval appearance of the right IJ catheter with its tip at the cavoatrial junction. Lungs: Interval moderate worsening of the patchy airspace opacities in the right lung, but decrease in the patchy stranding and slight airspace disease in the left lung. Pleural space: Still no apparent pneumothorax. Still no visible pleural fluid. Heart/Mediastinum: Mild cardiomegaly still likely. Bones/joints: No suggestion of interval acute bony disease. Other findings: Interval extrinsic structure over the mediastinum obscuring some detail. XR/XR chest 1V portable [id number] IMPRESSION: 1. Interval retraction of the ET tube into good position. Interval appearance of the right IJ catheter with its tip at the cavoatrial junction. Tip of the enteric tube still below the diaphragm. 2. Interval prominent worsening of the patchy airspace disease in the right lung. Interval improvement of the left lung disease. 3. Mild cardiomegaly still likely.
--- NOTE | 2020-05-27 06:27 | PM.ACPR ---
Procedure/Consent Time out: Time Out Performed: Yes Consent: Consent for Procedure: Emergency procedure Procedure Narrative: Right internal jugular central line placement Patient was sedated on propofol Internal jugular vein located via ultrasound After sterile dressing and prep needle was inserted internal jugular vein, AT was trace via ultrasound, flush of blood noticed in the syringe, Seldinger technique used to place triple-lumen catheter over guidewire, guidewire retracted in presence of 2 nurses in the ICU, all ports had good venous return, Sterile dressing applied Chest x-ray confirmed placement of central line After the procedure she developed a small swelling around the insertion site, we applied pressure for about 5 to 10 minutes for possible hematoma, there is no progression of swelling, no change in hemodynamics Acute Procedures Epistaxis Control: Time out performed: Yes
[2020-05-27 06:28] LABS: Urine Random Sodium 109 mmol/L
[2020-05-27] MEDS: propofol 1,000 MG/100 ML INJ 3 MG IV ×2 (06:28→17:16)
--- NOTE | 2020-05-27 06:29 | ECG_ITS ---
[facility] Test Date: 2020-05-27 Pat Name: Viridiana Corral Department: Room: ICU10 Gender: Female Rvda Master Certified Rv Technician: : 1960 Requested By: Telly Malone Order Number: [id number] Tim MD: Jodie Cardenas M.D. Measurements Intervals [place] Rate: 109 P: -7 [place]: 181 QRS: 2 QRSD: 129 T: 105 QT: 350 QTc: 472 Interpretive Statements SINUS TACHYCARDIA ANTEROLATERAL MYOCARDIAL INFARCTION [40+ ms Q WAVE IN I/aVL/V3-V6], PROBABLY RECENT ST ELEVATION, CONSIDER INFERIOR INJURY [MARKED ST ELEVATION W/O NORMALLY INFLECTED T WAVE IN II/aVF] ACUTE AR Compared to ECG 05/27/2020 02:22:14 Intraventricular conduction delay no longer present Myocardial infarct finding still present ST (T wave) deviation still present Electronically Signed On 05-27-2020 20:35:50 CDT by Jodie Cardenas M.D. [id number]
[2020-05-27 06:36] LABS: Arterial Blood Gas Hematocrit 48.7 % (37-47); Base Excess ABG -7.3 mmol/L (-2.0-2.0); Blood Gas Operator Identificat JB; Blood Gas Sample Type Arterial; Blood Gas Tidal Volume 0.35; HCO3 ABG 22.3 mmol/L (22-26); Oxygen Device VENT
[2020-05-27 06:38] LABS: ABG PCO2 60.5 mmHg (35-45); ABG PH Result 7.17 (7.35-7.45)
[2020-05-27 06:48] LABS: Partial Thromboplastin Time > 250.0 SECONDS (23.9-36.7)
[2020-05-27 07:24] LABS: D Dimer 12.14 ug/mIFEU (0-0.59)
[2020-05-27 07:33] LABS: Alanine Aminotransferase 69 U/L (0-33); Albumin Level 3.4 g/dL (3.5-5.2); Alkaline Phosphatase 68 IU/L (35-105); Anion Gap 23.6 (5-19); Aspartate Amino Transferase 104 U/L (0-32); Blood Urea Nitrogen 17 mg/dL (6-20); Calcium 8.1 mg/dL (8.5-10.5); Carbon Dioxide 20 mmol/L (22-29); Chloride 105 mmol/L (98-107); Globulin 3.4 g/dL (1.3-4.6); Glomerular Filtration Rate 50.8 mL/min (90-130); Glucose 286 mg/dL (65-115); Osmolality Calculated 312 mOsm/kg (285-295); Potassium 3.6 mmol/L (3.5-5.1); Sodium 145 mmol/L (136-145); Thyroid Stimulating Hormone 1.02 uIU/mL (0.27-4.20); Total Bilirubin 0.5 mg/dL (0.15-1.2); Total Protein 6.8 g/dL (6.6-8.7)
[2020-05-27 07:39] LABS: SARS Covid-2 Antigen Negative (Negative)
[2020-05-27 07:44] LABS: Troponin 5 6HR 1024 ng/L (0-10); Troponin 5 6HR Delta 925 ng/L (0-12)
[2020-05-27] MEDS: aspirin 81 mg EC Tablet PO (08:36)
[2020-05-27] MEDS: ALPRAZolam 0.25 mg Tablet PO (08:36)
[2020-05-27] MEDS: atorvastatin 40 mg Tablet 80 MG NG-TUBE (08:36)
[2020-05-27] MEDS: pantoprazole 40 mg SDV IVP (08:37)
[2020-05-27] MEDS: famotidine 20 mg/2 mL INJ IVP (08:37)
--- NOTE | 2020-05-27 09:17 | W.PM.OPSUD ---
Surgery/Procedure H&P Update DATE OF PROCEDURE: May 27, 2020 DATE H&P PERFORMED: 05/27/20 H&P UPDATE INFORMATION: I have reviewed H&P completed within last 30 days, I have examined patient prior to procedure and No changes to prior documentation PREOP DIAGNOSIS: Critical limb ischemia PATIENT REASSESSED PRIOR TO SEDATION, WITH NO CHANGE NOTED: Yes PHYSICAL EXAM: alert, oriented x 3, clear to auscultation bilaterally and regular rate & rhythm AIRWAY EVAL/ANESTHESIA PLAN: ASA II, Risks, benefits & alternatives of sedation and/or procedure discussed and Patient agrees to continue as planned
[2020-05-27] MEDS: acetaminophen 325 mg Tablet 650 MG PO ×2 (09:20→17:50)
[2020-05-27] MEDS: DOBUTamine drip 500 MG/250 ML PREMIX 16.8 MG IV (09:22)
[2020-05-27] MEDS: dexmedetomidine 400 MCG in sodium chloride 0.9% (100 ml) 100 ML 10.4 MCG IV (09:43)
[2020-05-27 11:05] LABS: ABG PCO2 41.5 mmHg (35-45); ABG PH Result 7.27 (7.35-7.45); Alveolar-Arterial Oxygen Gradi 56.1 mmHg (5-10); Arterial Blood Gas Hematocrit 39.7 % (37-47); Base Excess ABG -7.8 mmol/L (-2.0-2.0); Blood Gas Operator Identificat CAK; Blood Gas Sample Site ARTLINE; Blood Gas Sample Type Arterial; Blood Gas Tidal Volume 0.35; Carboxyhemoglobin 0.8 %THgb (0.4-20.1); HCO3 ABG 18.8 mmol/L (22-26); HGB O2 Sat 94.7 % (95-100); Oxygen Device VENT; Oxygen Saturation ABG 96.4; PO2 ABG 85.9 mmHg (80.0-100.0); Potassium Level - ABG 3.4 mmol/L (3.5-5.0); Total Hemoglobin 12.9 g/dL (12-16)
[2020-05-27] MEDS: doxycycline 100 MG in sodium chloride 0.9% (plus) 100 ML IV ×2 (11:05→22:37)
[2020-05-27 11:06] LABS: ABG PCO2 66.3 mmHg (35-45)
[2020-05-27] MEDS: hydrocortisone 100 mg/2 mL SDV IVP (11:26)
[2020-05-27 11:28] LABS: Glucose Point of Care 210 mg/dL (70-110)
--- NOTE | 2020-05-27 11:28 | USCV_ITS ---
Viridiana Corrla Age: 59 Gender: F : 1960 Exam Date: 05/27/2020 11:55 Ordering Phys: Myra Powell MD Technologist: Kimberly Ferraro [place] [facility] [place]: PRE PROCEDURE Risk Factors: Previous Vascular Surgery: RIGHT LEFT BP: 94.00 / 64.00 BP: / Waveform Velocity (cm/s) Velocity (cm/s) Waveform Biphasic 135.7 Iliac Prox 99.5 Biphasic Biphasic 122.2 Iliac Mid 110.0 Biphasic Biphasic 96.5 Iliac Distal 113.5 Biphasic Biphasic 107.1 AIR TUBE RELEASER 90.8 Biphasic Biphasic 84.5 SFA Prox 61.1 Biphasic Biphasic 64.9 SFA Mid 62.9 Triphasic Biphasic SFA Dist Biphasic 53.6 82.1 Biphasic 47.2 POP 66.4 Biphasic Biphasic 32.4 BOTTLE CLEANER 37.0 Biphasic Biphasic 32.5 DPA 37.0 Biphasic 0.6 EDMAR 0.4 FINDINGS RT DPT 55 RT BOTTLE CLEANER 60 LT DPA 40 UNABLE TO DO LT BOTTLE CLEANER Mild diffuse plaques in the iliac and femoral arteries bilaterally Abnormal resting ABIs bilaterally CONCLUSIONS Abnormal resting EDMAR on the right side, suggestive of moderate peripheral artery disease Abnormal resting EDMAR on the left side, suggestive of severe peripheral artery disease. Technically somewhat difficult study Dr Michoacano Galo MD [facility] (Electronically Signed) Final Date: 27 May 2020 19:47 S
--- NOTE | 2020-05-27 11:28 | USCV_ITS ---
Ellis Viridiana Age: 59 Gender: F : 1960 Exam Date: 05/27/2020 11:39 Ordering Phys: Myra Powell MD Technologist: Kimberly Ferraro Exam Location: [facility] – [place] Indication: MN BP: 90 / 65 HR: 112 Rhythm: Sinus Technical Quality: Adequate MEASUREMENTS (Male / Female) Normal Values 2D ECHO LV Diastolic Diameter PLAX 3.6 cm 4.2 - 5.9 / 3.9 - 5.3 cm LV Systolic Diameter PLAX 3.2 cm LV Chamber Size 3.2 cm IVS Diastolic Thickness 1.0 cm 0.6 - 1.0 / 0.6 - 0.9 cm IVS Systolic Thickness 1.3 cm LVPW Diastolic Thickness 1.3 cm 0.6 - 1.0 / 0.6 - 0.9 cm LVPW Systolic Thickness 1.4 cm RV Chamber Size 2.7 cm LVOT Diameter 2.0 cm LV Ejection Fraction 2D Teich 25.0 % LV Ejection Fraction MOD 2C -13.9 % LV Ejection Fraction 2C AL -10.5 % LA Diameter 3.5 cm LA Width 2.3 cm LA Height 4.8 cm RA Width 2.8 cm RA Height 4.4 cm Aorta at Sinotubular Diameter 3.0 cm M-MODE LV Diastolic Diameter MM 5.4 cm 4.2 - 5.9 / 3.9 - 5.3 cm LV Systolic Diameter MM 3.7 cm LV Ejection Fraction MM Teich 58.5 % IVS Diastolic Thickness MM 1.2 cm 0.6 - 1.0 / 0.6 - 0.9 cm IVS Systolic Thickness MM 1.7 cm LVPW Diastolic Thickness MM 1.2 cm 0.6 - 1.0 / 0.6 - 0.9 cm LVPW Systolic Thickness MM 1.6 cm RV Diastolic Diameter MM 1.1 cm Aortic Annulus Diameter 3.3 cm LA Ao Ratio MM 1.1 MV E Point Septal Separation 0.5 cm FINDINGS Left Ventricle Normal left ventricular cavity size. Severely decreased left ventricular systolic function. Global left ventricular hypokinesis with ballooning of apex consistent with stress- induced cardiomyopathy. [place] appears to be akinetic. Left ventricular ejection fraction is estimated at 20 %. Right Ventricle Right Atrium Left Atrium Mitral Valve Aortic Valve Tricuspid Valve Pulmonic Valve Pericardium Aorta CONCLUSIONS 1-Normal left ventricular cavity size. Severely decreased left ventricular systolic function. Global left ventricular hypokinesis with ballooning of apex consistent with stress- induced cardiomyopathy. [place] appears to be akinetic. Left ventricular ejection fraction is estimated at 20 %. 2-There appeared to be opening and closing of the valve without significant stenosis however due to absence of Doppler data cannot comment on his regurgitation. 3-There is no pericardial effusion. 5-Right atrial pressure is around 5 mm of mercury. 6-when compared to the prior echocardiogram dated July 01, 2019 there appeared to be worsening of left ventricle ejection fraction from normal 65% to severely depressed 20% now . Myra Powell MD (Electronically Signed) Final Date: 27 May 2020 19:15 S
--- NOTE | 2020-05-27 11:43 | PM.PN ---
Subjective Subjective: Interval history: Patient continues to remain in shock despite of 3 pressors. Systolic blood pressure around 70s to 80s. She opens her eyes appear to be agitated. She continues to be intubated x-ray chest suspicious for possible aspiration as well. LV gram was consistent with severely depressed LV function of stress-induced cardiomyopathy ejection fraction around 10 to 15% with spontaneous contrast. Vitals/I&O/Wt Last Vital Signs Temp 99.2 F 05/27/20 08:00 Pulse 119 H 05/27/20 08:00 Resp 23 H 05/27/20 10:57 BP 92/66 05/27/20 08:00 Pulse Ox 93 05/27/20 08:00 05/26/20 05/27/20 05/27/20 22:59 06:59 14:59 Intake Total 94.646 / 94.646 Output Total 550 / 550 45 / 45 Balance -550 / -550 49.646 / 49.646 Weight last 48 hrs Weight 220 lb Physical Exam Narrative: EXAM NARRATIVE: GENERAL: Patient is sedated and intubated. NECK: No jugular vein distension. HEENT: No cyanosis. No icterus. No pallor. HEART: Regular S1 and S2. No murmur, rub or gallop. LUNGS: Decreased breath sound bilaterally. ABDOMEN: Soft, nontender and nondistended. Positive bowel sounds. No guarding, rebound or tenderness. CENTRAL NERVOUS SYSTEM: Grossly nonfocal. EXTREMITIES: Lower extremities with edema bilaterally. Const: COMMON NORMALS: alert Resp: COMMON NORMALS: clear to auscultation bilaterally AUSCULTATION: clear to auscultation bilaterally Neuro: SENSORIUM/ORIENTATION: Yes alert Data : 05/27/20 04:25 05/27/20 06:30 Micro: Microbiology 05/27/20 08:20 Gram Stain - Final Sputum - Endotracheal Tube Aspirate 05/27/20 04:25 Blood Culture - Preliminary Blood SPECIMEN COLLECTED A&P Assessment and plan (1) Cardiogenic shock: Mixed picture of cardiogenic and septic shock. Despite of multiple (Levophed, vasopressin, dobutamine) pressors on max dose systolic blood pressure remains within 70s to 80s. Urine output has deteriorated. She is on broad-spectrum antibiotics lactic has increased to 7.0 worsened from 6. At this point we will consider mechanical support such as Impala. I have detailed discussion with Dr. Larsen primary attending and patient's son. Patient's son has been explained by myself in detail all risk benefit and alternative for the procedure over the phone in the presence of Dr. Larsen. Patient has been explained regarding complication from the Impala such as leg ischemia leading to amputation in case of peripheral vascular disease, arrhythmia, stroke, cardiac tamponade, bleed, vascular complication requiring surgery and an extreme case scenarios . Patient son understood it and would like to proceed with it. Status: Acute (2) Cardiac arrest: No more VT noted. Continue to monitor Status: Acute (3) Hyperlipemia: Continue statin Status: Acute Qualifiers: Hyperlipidemia type: mixed hyperlipidemia Qualified Code(s): E78.2 - Mixed hyperlipidemia (4) CAD (coronary artery disease): No significant coronary arteries stenosis noted on the left heart cath. Severely depressed LV function 10 to 15% with severely depressed anterior apical and inferior akinetic marrufo consistent with more of stress-induced cardiomyopathy picture. Consider mechanical support since she has failed to recover over pressor therapy Status: Acute Qualifiers: Coronary Disease-Associated Artery/Lesion type: [place] artery [place] vs. transplanted heart: [place] heart Associated angina: without angina Qualified Code(s): I25.10 - Atherosclerotic heart disease of [place] coronary artery without angina pectoris (5) Syncope and collapse: Most likely secondary to cardiac arrest Status: Acute (6) COPD (chronic obstructive pulmonary disease): Intubated, treatment as per medicine Status: Acute Qualifiers: COPD type: chronic bronchitis (7) Cardiomyopathy in disease classified elsewhere: Severely depressed LV function due to stress-induced cardiomyopathy as above. Despite of multiple pressors patient remained hypotensive and in shock. We will proceed with mechanical support with Impala CP. Status: Acute (8) Sepsis: Treatment as per medicine. Status: Acute Attestations Medical Necessity Statement*: Requires continuation of hospitalization for above defined care. 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 of Care Code Established Pt Acute Refueling Ramp Supervisor for Herb Apple Patient Type Established History Comprehensive Exam Comprehensive Medical Decision Making High Complexity Diagnoses Cardiogenic shock R57.0 Cardiac arrest I46.9 Hyperlipemia E78.2 Hyperlipidemia type: mixed hyperlipidemia CAD (coronary artery disease) I25.10 Coronary Disease-Associated Artery/Lesion type: [place] artery [place] vs. transplanted heart: [place] heart Associated angina: without angina Syncope and collapse R55 COPD (chronic obstructive pulmonary disease) J44.9 COPD type: chronic bronchitis Cardiomyopathy in disease classified elsewhere I43 Sepsis A41.9
--- NOTE | 2020-05-27 12:13 | PC.NURSE ---
Critical lactic acid result received from lab and relayed to primary nurse,
--- NOTE | 2020-05-27 12:56 | W.PM.OPSUD ---
Surgery/Procedure H&P Update DATE OF PROCEDURE: May 27, 2020 DATE H&P PERFORMED: 05/27/20 H&P UPDATE INFORMATION: I have examined patient prior to procedure PREOP DIAGNOSIS: Worsening of shock despite of multiple pressors AIRWAY EVAL/ANESTHESIA PLAN: ASA II, Risks, benefits & alternatives of sedation and/or procedure discussed and Patient agrees to continue as planned ADDITIONAL INFORMATION: See anesthesia note. All risk benefit and alternative for the procedure including detailed explanation for complication such as stroke vascular complication arrhythmia bleeding was explained to patient's son by myself over the phone twice. He is in agreement and would like to proceed with Impella placement.
--- NOTE | 2020-05-27 13:00 | PC.NURSE ---
syrup machine laborer staff on floor to take pt for IMpella placement
--- NOTE | 2020-05-27 13:33 | ANES.PREANE2 ---
Pre-Anesthetic Assessment Pre-Anesthetic Assessment: Height/Weight: Height 1.65 m Weight 99.79 kg Temp Pulse Resp BP Pulse Ox 100.1 F H 106 H 26 H 87/65 96 05/27/20 09:00 05/27/20 12:45 05/27/20 12:38 05/27/20 12:45 05/27/20 12:45 Preop Diagnosis: Worsening of shock despite of multiple pressors Proposed Procedure: impella placement Familial anesthetic complications: unkown Exam: Additional Exam Findings (including area of procedure): inbuated on multiple pressors, coarse breaths ounds Pulmonary: Pulmonary: COPD CV/HEM: CV/HEM: CAD and AR Comments: probable takasubo's s/p arrest X2, w/ EF of 10% on multiple pressors Anesthetic Plan: ASA status: 4 Anesthesia: Nurse-admin mod sedation Other: This patient will not tolerate propofol/anesthetics Risk of > 500 ml blood loss (7ml/kg in children): No Meds/Allergies Current Medications: Current Medications Generic Name Dose Route Start Last Admin Trade Name Freq PRN Reason Stop Dose Admin Acetaminophen 650 mg 05/27/20 04:05 05/27/20 09:20 Tylenol PO 650 mg Q6H PRN Administration MILD PAIN Alprazolam 0.25 mg 05/27/20 04:05 05/27/20 08:36 Xanax PO 0.25 mg TID PRN Administration ANXIETY Aspirin 81 mg 05/27/20 09:00 05/27/20 08:36 Aspirin Ec PO 81 mg DAILY DESTINY Administration Atorvastatin Calci um 80 mg 05/27/20 09:00 05/27/20 08:36 Lipitor NG-TUBE 80 mg DAILY DESTINY Administration Chlorhexidine Gluc jose 15 ml 05/27/20 09:00 05/27/20 08:38 Perigard MUCOUS MEM Not Given DAILY DESTINY Famotidine 20 mg 05/27/20 09:00 05/27/20 08:37 Pepcid Inj IVP 20 mg DAILY DESTINY Administration Propofol 1,000 mg in 100 m ls @ 0 mls/hr 05/27/20 02:15 05/27/20 08:56 Diprivan IV 0 mcg/kg/min .Q0M DESTINY 0 mls/hr Titration Protocol Per Protocol Amiodarone HCl 900 mg/ 518 mls @ 17.267 mls/hr 05/27/20 03:30 05/27/20 04:23 Dextrose/ IV Misce llaneous IV 0.5 mg/min Supplies CONT DESTINY 17.3 mls/hr Administration 0.5 MG/MIN Norepinephrine Bit artrate 4 mg 254 mls @ 0 mls/h r 05/27/20 03:45 05/27/20 12:29 / Dextrose IV Infused .Q0M DESTINY Titration Protocol Per Protocol Imipenem/Cilastati n Sodium 500 100 mls @ 200 mls /hr 05/27/20 08:00 05/27/20 08:35 mg/ Sodium Chlor cecilio IV 200 mls/hr Q6H DESTINY Administration Protocol Dobutamine HCl/Dex trose 500 mg in 250 mls @ 0 mls/hr 05/27/20 09:15 05/27/20 09:22 Dobutamine Drip IV 16.8 mls/hr .Q0M DESTINY Administration Protocol Per Protocol Dexmedetomidine HC l 400 mcg/ 104 mls @ 0 mls/h r 05/27/20 09:15 05/27/20 12:33 Sodium Chloride IV 0.7 mcg/kg/hr .Q0M DESTINY 18.2 mls/hr Titration Protocol Per Protocol Doxycycline Hyclat e 100 mg/ 100 mls @ 100 mls /hr 05/27/20 10:00 05/27/20 11:05 Sodium Chloride IV 100 mls/hr Q12H DESTINY Administration Protocol Vancomycin HCl 1,5 00 mg/ 250 mls @ 166.667 mls/hr 05/27/20 10:00 05/27/20 11:05 Sodium Chloride IV 166.7 mls/hr Q18H DESTINY Administration Pantoprazole Sodiu m 40 mg 05/27/20 09:00 05/27/20 08:37 Protonix IVP 40 mg DAILY DESTINY Administration PFSH Anesthesia PFSH: Medical History (Updated 05/27/20 @ 12:00 by Myra Powell MD) Atherosclerotic cardiovascular disease CAD (coronary artery disease) COPD (chronic obstructive pulmonary disease) Hyperlipemia Hypertension Morbid obesity SOB (shortness of breath) COPD Surgical History Stented coronary artery PCI right coronary artery 2008 Family History Mother CAD (coronary artery disease) Mother had a coronary artery bypass surgery. Father Stroke Father had a CVA in the 60s Other Diabetes Social History Smoking and tobacco status: current every day smoker Alcohol intake: never Substance/Drug Use: never Household members: family Housing: House Data Anesthesia CBC & Chem 7: 05/27/20 04:25 05/27/20 06:30 Other Labs: Laboratory Results - last 48 hr 05/26/20 05/27/20 05/27/20 03:35 01:05 01:40 WBC 14.3 H RBC 5.47 H Hgb 16.2 H Hct 53.2 H MCV 97.3 MCH 29.6 MCHC 30.5 RDW 13.9 Plt Count 335 MPV 11.3 H Neut % (Auto) 75.7 Lymph % (Auto) 19.6 [place] % (Auto) 3.7 Eos % (Auto) 0.3 Baso % (Auto) 0.3 Neut # (Auto) 10.82 H Lymph # (Auto) 2.8 [place] # (Auto) 0.5 Eos # (Auto) 0.0 Baso # (Auto) 0.0 Nucleated RBC % (auto) 0 Nucleated RBCs # 0.0 PT INR APTT D-Dimer Specimen Type Arterial Arterial Sample Site Femoral, right Brachial, left ABG pH 7.20 L 7.31 L ABG pCO2 66.3 H* 45.0 ABG pO2 59.8 L 72.2 L ABG HCO3 25.8 22.5 ABG O2 Saturation 83.0 94.2 ABG Base Excess -3.7 L -4.0 L Jerry Test N/a N/a A-a O2 Gradient 1.3 L 2.9 L Hematocrit 43.4 48.7 H Hgb O2 Saturation 81.3 L 90.2 L Carboxyhemoglobin 1.9 3.6 Methemoglobin 0.2 L 0.7 Total Hemoglobin 14.1 15.9 Sodium 147.0 H 144.0 H Potassium 3.1 L 3.7 Glucose 314.0 H 204.0 H Ionized Calcium 1.0 L 1.3 O2 Delivery Device Ambu Nc O2 Liters/Min 3.0 FiO2 Tidal Volume PEEP Specimen Drawn By Stationary Engineer ID alva Molina Blood Gas Notified Time Chloride Carbon Dioxide Anion Gap BUN Creatinine GFR Calculation POC Glucose Calculated Osmolality Lactic Acid Lactic Acid (Sepsis) Lactate Calcium Magnesium Total Bilirubin AST ALT Alkaline Phosphatase Troponin T Baseline Troponin T 120 Minute Delta Troponin T Troponin T Hi Sens 6Hr Troponin T Hi Sens 6Hr Delta NT-Pro-B Natriuret Pep Total Protein Albumin Globulin Lipase TSH Urine Color Urine Appearance Urine pH Ur Specific [place] Urine Protein Urine Glucose (UA) Urine Ketones Urine Blood Urine Nitrate Urine Bilirubin Prot Sulfosalicylic Acd Urine Urobilinogen Ur Leukocyte Esterase Urine RBC Urine WBC Ur Squamous Epith Cells Amorphous Sediment Urine Bacteria Ur Random Sodium Urine Opiates Screen Ur Barbiturates Screen Ur Phencyclidine Scrn Ur Amphetamines Screen U Benzodiazepines Scrn Urine Cocaine Screen U Marijuana (THC) Screen Ethyl Alcohol Serum Ketones SARS-CoV-2 Ag (Rapid) 05/27/20 05/27/20 05/27/20 01:40 01:40 01:40 WBC RBC Hgb Hct MCV MCH MCHC RDW Plt Count MPV Neut % (Auto) Lymph % (Auto) [place] % (Auto) Eos % (Auto) Baso % (Auto) Neut # (Auto) Lymph # (Auto) [place] # (Auto) Eos # (Auto) Baso # (Auto) Nucleated RBC % (auto) Nucleated RBCs # PT 12.80 INR 0.94 APTT 26.5 D-Dimer Specimen Type Sample Site ABG pH ABG pCO2 ABG pO2 ABG HCO3 ABG O2 Saturation ABG Base Excess Jerry Test A-a O2 Gradient Hematocrit Hgb O2 Saturation Carboxyhemoglobin Methemoglobin Total Hemoglobin Sodium 145 Potassium 4.1 Glucose 200 H Ionized Calcium O2 Delivery Device O2 Liters/Min FiO2 Tidal Volume PEEP Specimen Drawn By Stationary Engineer ID Blood Gas Notified Time Chloride 103 Carbon Dioxide 23 Anion Gap 23.1 H BUN 16 Creatinine 1.3 H GFR Calculation 41.9 L POC Glucose Calculated Osmolality 307 H Lactic Acid Lactic Acid (Sepsis) Lactate Calcium 10.0 Magnesium 2.3 Total Bilirubin 0.3 AST 72 H ALT 51 H Alkaline Phosphatase 78 Troponin T Baseline 99 H Troponin T 120 Minute Delta Troponin T Troponin T Hi Sens 6Hr Troponin T Hi Sens 6Hr Delta NT-Pro-B Natriuret Pep 92 Total Protein 6.7 Albumin 4.0 Globulin 2.7 Lipase 18 TSH Urine Color Urine Appearance Urine pH Ur Specific [place] Urine Protein Urine Glucose (UA) Urine Ketones Urine Blood Urine Nitrate Urine Bilirubin Prot Sulfosalicylic Acd Urine Urobilinogen Ur Leukocyte Esterase Urine RBC Urine WBC Ur Squamous Epith Cells Amorphous Sediment Urine Bacteria Ur Random Sodium Urine Opiates Screen Ur Barbiturates Screen Ur Phencyclidine Scrn Ur Amphetamines Screen U Benzodiazepines Scrn Urine Cocaine Screen U Marijuana (THC) Screen Ethyl Alcohol < 10 Serum Ketones Negative SARS-CoV-2 Ag (Rapid) 05/27/20 05/27/20 05/27/20 01:40 03:13 03:34 WBC RBC Hgb Hct MCV MCH MCHC RDW Plt Count MPV Neut % (Auto) Lymph % (Auto) [place] % (Auto) Eos % (Auto) Baso % (Auto) Neut # (Auto) Lymph # (Auto) [place] # (Auto) Eos # (Auto) Baso # (Auto) Nucleated RBC % (auto) Nucleated RBCs # PT INR APTT D-Dimer Specimen Type Arterial Sample Site Right femoral ABG pH 7.19 L ABG pCO2 66.3 H* ABG pO2 59.8 L ABG HCO3 1.9 L ABG O2 Saturation ABG Base Excess -3.7 L Jerry Test N/a A-a O2 Gradient Hematocrit 43.4 Hgb O2 Saturation Carboxyhemoglobin Methemoglobin Total Hemoglobin Sodium Potassium Glucose Ionized Calcium O2 Delivery Device Ambu O2 Liters/Min FiO2 100.0 Tidal Volume PEEP Specimen Drawn By Tasha Stationary Engineer ID Kh Blood Gas Notified Time 0410 Chloride Carbon Dioxide Anion Gap BUN Creatinine GFR Calculation POC Glucose 147 Calculated Osmolality Lactic Acid 6.4 H* Lactic Acid (Sepsis) Lactate Calcium Magnesium Total Bilirubin AST ALT Alkaline Phosphatase Troponin T Baseline Troponin T 120 Minute Delta Troponin T Troponin T Hi Sens 6Hr Troponin T Hi Sens 6Hr Delta NT-Pro-B Natriuret Pep Total Protein Albumin Globulin Lipase TSH Urine Color Urine Appearance Urine pH Ur Specific [place] Urine Protein Urine Glucose (UA) Urine Ketones Urine Blood Urine Nitrate Urine Bilirubin Prot Sulfosalicylic Acd Urine Urobilinogen Ur Leukocyte Esterase Urine RBC Urine WBC Ur Squamous Epith Cells Amorphous Sediment Urine Bacteria Ur Random Sodium Urine Opiates Screen Ur Barbiturates Screen Ur Phencyclidine Scrn Ur Amphetamines Screen U Benzodiazepines Scrn Urine Cocaine Screen U Marijuana (THC) Screen Ethyl Alcohol Serum Ketones SARS-CoV-2 Ag (Rapid) 05/27/20 05/27/20 05/27/20 04:22 04:25 04:25 WBC RBC Hgb Hct MCV MCH MCHC RDW Plt Count MPV Neut % (Auto) Lymph % (Auto) [place] % (Auto) Eos % (Auto) Baso % (Auto) Neut # (Auto) Lymph # (Auto) [place] # (Auto) Eos # (Auto) Baso # (Auto) Nucleated RBC % (auto) Nucleated RBCs # PT INR APTT D-Dimer Specimen Type Sample Site ABG pH ABG pCO2 ABG pO2 ABG HCO3 ABG O2 Saturation ABG Base Excess Jerry Test A-a O2 Gradient Hematocrit Hgb O2 Saturation Carboxyhemoglobin Methemoglobin Total Hemoglobin Sodium Potassium Glucose Ionized Calcium O2 Delivery Device O2 Liters/Min FiO2 Tidal Volume PEEP Specimen Drawn By Stationary Engineer ID Blood Gas Notified Time Chloride Carbon Dioxide Anion Gap BUN Creatinine GFR Calculation POC Glucose 210 Calculated Osmolality Lactic Acid Lactic Acid (Sepsis) 7.4 H* Lactate Calcium Magnesium Total Bilirubin AST ALT Alkaline Phosphatase Troponin T Baseline Troponin T 120 Minute Cancelled Delta Troponin T Cancelled Troponin T Hi Sens 6Hr Troponin T Hi Sens 6Hr Delta NT-Pro-B Natriuret Pep Total Protein Albumin Globulin Lipase TSH Urine Color Urine Appearance Urine pH Ur Specific [place] Urine Protein Urine Glucose (UA) Urine Ketones Urine Blood Urine Nitrate Urine Bilirubin Prot Sulfosalicylic Acd Urine Urobilinogen Ur Leukocyte Esterase Urine RBC Urine WBC Ur Squamous Epith Cells Amorphous Sediment Urine Bacteria Ur Random Sodium Urine Opiates Screen Ur Barbiturates Screen Ur Phencyclidine Scrn Ur Amphetamines Screen U Benzodiazepines Scrn Urine Cocaine Screen U Marijuana (THC) Screen Ethyl Alcohol Serum Ketones SARS-CoV-2 Ag (Rapid) 05/27/20 05/27/20 05/27/20 04:25 04:25 04:25 WBC 17.9 H RBC 4.93 Hgb 14.8 Hct 50.3 H MCV 102.0 H MCH 30.0 MCHC 29.4 L RDW 14.1 Plt Count 302 MPV 11.8 H Neut % (Auto) 79.2 Lymph % (Auto) 13.7 [place] % (Auto) 5.9 Eos % (Auto) 0.1 Baso % (Auto) 0.4 Neut # (Auto) 14.16 H Lymph # (Auto) 2.5 [place] # (Auto) 1.1 H Eos # (Auto) 0.0 Baso # (Auto) 0.1 Nucleated RBC % (auto) 0.1 Nucleated RBCs # 0.0 PT INR APTT D-Dimer Specimen Type Sample Site ABG pH ABG pCO2 ABG pO2 ABG HCO3 ABG O2 Saturation ABG Base Excess Jerry Test A-a O2 Gradient Hematocrit Hgb O2 Saturation Carboxyhemoglobin Methemoglobin Total Hemoglobin Sodium Cancelled Potassium Cancelled Glucose Cancelled Ionized Calcium O2 Delivery Device O2 Liters/Min FiO2 Tidal Volume PEEP Specimen Drawn By Stationary Engineer ID Blood Gas Notified Time Chloride Cancelled Carbon Dioxide Cancelled Anion Gap Cancelled BUN Cancelled Creatinine Cancelled GFR Calculation Cancelled POC Glucose Calculated Osmolality Cancelled Lactic Acid Lactic Acid (Sepsis) Lactate Calcium Cancelled Magnesium Total Bilirubin Cancelled AST Cancelled ALT Cancelled Alkaline Phosphatase Cancelled Troponin T Baseline Troponin T 120 Minute Delta Troponin T Troponin T Hi Sens 6Hr Troponin T Hi Sens 6Hr Delta NT-Pro-B Natriuret Pep Total Protein Cancelled Albumin Cancelled Globulin Cancelled Lipase TSH Cancelled Urine Color Urine Appearance Urine pH Ur Specific [place] Urine Protein Urine Glucose (UA) Urine Ketones Urine Blood Urine Nitrate Urine Bilirubin Prot Sulfosalicylic Acd Urine Urobilinogen Ur Leukocyte Esterase Urine RBC Urine WBC Ur Squamous Epith Cells Amorphous Sediment Urine Bacteria Ur Random Sodium Urine Opiates Screen Ur Barbiturates Screen Ur Phencyclidine Scrn Ur Amphetamines Screen U Benzodiazepines Scrn Urine Cocaine Screen U Marijuana (THC) Screen Ethyl Alcohol Serum Ketones SARS-CoV-2 Ag (Rapid) 05/27/20 05/27/20 05/27/20 04:25 04:25 04:25 WBC RBC Hgb Hct MCV MCH MCHC RDW Plt Count MPV Neut % (Auto) Lymph % (Auto) [place] % (Auto) Eos % (Auto) Baso % (Auto) Neut # (Auto) Lymph # (Auto) [place] # (Auto) Eos # (Auto) Baso # (Auto) Nucleated RBC % (auto) Nucleated RBCs # PT INR APTT > 250.0 H* D D-Dimer Specimen Type Sample Site ABG pH ABG pCO2 ABG pO2 ABG HCO3 ABG O2 Saturation ABG Base Excess Jerry Test A-a O2 Gradient Hematocrit Hgb O2 Saturation Carboxyhemoglobin Methemoglobin Total Hemoglobin Sodium Potassium Glucose Ionized Calcium O2 Delivery Device O2 Liters/Min FiO2 Tidal Volume PEEP Specimen Drawn By Stationary Engineer ID Blood Gas Notified Time Chloride Carbon Dioxide Anion Gap BUN Creatinine GFR Calculation POC Glucose Calculated Osmolality Lactic Acid Lactic Acid (Sepsis) Lactate Calcium Magnesium Total Bilirubin AST ALT Alkaline Phosphatase Troponin T Baseline Troponin T 120 Minute Delta Troponin T Troponin T Hi Sens 6Hr Troponin T Hi Sens 6Hr Delta NT-Pro-B Natriuret Pep Total Protein Albumin Globulin Lipase TSH Urine Color Yellow Urine Appearance Clear Urine pH 8 H Ur Specific [place] 1.010 Urine Protein 1+ H Urine Glucose (UA) 1+ Urine Ketones Negative Urine Blood 3+ H Urine Nitrate Negative Urine Bilirubin Neg Prot Sulfosalicylic Acd Negative Urine Urobilinogen Norm Ur Leukocyte Esterase Negative Urine RBC 0-4 H Urine WBC 0-4 H Ur Squamous Epith Cells 0-4 H Amorphous Sediment Not Reportable Urine Bacteria 1+ H Ur Random Sodium 109 Urine Opiates Screen Negative Ur Barbiturates Screen Negative Ur Phencyclidine Scrn Negative Ur Amphetamines Screen Negative U Benzodiazepines Scrn Positive H Urine Cocaine Screen Negative U Marijuana (THC) Screen Negative Ethyl Alcohol Serum Ketones SARS-CoV-2 Ag (Rapid) 05/27/20 05/27/20 05/27/20 06:22 06:30 06:30 WBC RBC Hgb Hct MCV MCH MCHC RDW Plt Count MPV Neut % (Auto) Lymph % (Auto) [place] % (Auto) Eos % (Auto) Baso % (Auto) Neut # (Auto) Lymph # (Auto) [place] # (Auto) Eos # (Auto) Baso # (Auto) Nucleated RBC % (auto) Nucleated RBCs # PT INR APTT D-Dimer Specimen Type Arterial Sample Site Not Reportable ABG pH 7.17 L* ABG pCO2 60.5 H* ABG pO2 82.0 ABG HCO3 22.3 ABG O2 Saturation ABG Base Excess -7.3 L Jerry Test N/a A-a O2 Gradient Hematocrit 48.7 H Hgb O2 Saturation Carboxyhemoglobin Methemoglobin Total Hemoglobin Sodium 145 Potassium 3.6 Glucose 286 H Ionized Calcium O2 Delivery Device Vent O2 Liters/Min FiO2 100.0 Tidal Volume 0.35 PEEP 15.0 Specimen Drawn By Stationary Engineer ID Andreas Blood Gas Notified Time Chloride 105 Carbon Dioxide 20 L Anion Gap 23.6 H BUN 17 Creatinine 1.1 H GFR Calculation 50.8 L POC Glucose Calculated Osmolality 312 H Lactic Acid Lactic Acid (Sepsis) Lactate Calcium 8.1 L Magnesium Total Bilirubin 0.5 AST 104 H ALT 69 H Alkaline Phosphatase 68 Troponin T Baseline Troponin T 120 Minute Delta Troponin T Troponin T Hi Sens 6Hr 1024 H Troponin T Hi Sens 6Hr Delta 925 H* NT-Pro-B Natriuret Pep Total Protein 6.8 Albumin 3.4 L Globulin 3.4 Lipase TSH 1.02 Urine Color Urine Appearance Urine pH Ur Specific [place] Urine Protein Urine Glucose (UA) Urine Ketones Urine Blood Urine Nitrate Urine Bilirubin Prot Sulfosalicylic Acd Urine Urobilinogen Ur Leukocyte Esterase Urine RBC Urine WBC Ur Squamous Epith Cells Amorphous Sediment Urine Bacteria Ur Random Sodium Urine Opiates Screen Ur Barbiturates Screen Ur Phencyclidine Scrn Ur Amphetamines Screen U Benzodiazepines Scrn Urine Cocaine Screen U Marijuana (THC) Screen Ethyl Alcohol Serum Ketones SARS-CoV-2 Ag (Rapid) 05/27/20 05/27/20 05/27/20 06:30 06:44 10:53 WBC RBC Hgb Hct MCV MCH MCHC RDW Plt Count MPV Neut % (Auto) Lymph % (Auto) [place] % (Auto) Eos % (Auto) Baso % (Auto) Neut # (Auto) Lymph # (Auto) [place] # (Auto) Eos # (Auto) Baso # (Auto) Nucleated RBC % (auto) Nucleated RBCs # PT INR APTT D-Dimer 12.14 H Specimen Type Arterial Sample Site Artline ABG pH 7.27 L ABG pCO2 41.5 ABG pO2 85.9 ABG HCO3 18.8 L ABG O2 Saturation 96.4 ABG Base Excess -7.8 L Jerry Test N/a A-a O2 Gradient 56.1 H Hematocrit 39.7 Hgb O2 Saturation 94.7 L Carboxyhemoglobin 0.8 Methemoglobin 1.0 Total Hemoglobin 12.9 Sodium 145.0 H Potassium 3.4 L Glucose 213.0 H Ionized Calcium 1.0 L O2 Delivery Device Vent O2 Liters/Min FiO2 80.0 Tidal Volume 0.35 PEEP 12.0 Specimen Drawn By Stationary Engineer ID Cak Blood Gas Notified Time Chloride Carbon Dioxide Anion Gap BUN Creatinine GFR Calculation POC Glucose Calculated Osmolality Lactic Acid Lactic Acid (Sepsis) Lactate Calcium Magnesium Total Bilirubin AST ALT Alkaline Phosphatase Troponin T Baseline Troponin T 120 Minute Delta Troponin T Troponin T Hi Sens 6Hr Troponin T Hi Sens 6Hr Delta NT-Pro-B Natriuret Pep Total Protein Albumin Globulin Lipase TSH Urine Color Urine Appearance Urine pH Ur Specific [place] Urine Protein Urine Glucose (UA) Urine Ketones Urine Blood Urine Nitrate Urine Bilirubin Prot Sulfosalicylic Acd Urine Urobilinogen Ur Leukocyte Esterase Urine RBC Urine WBC Ur Squamous Epith Cells Amorphous Sediment Urine Bacteria Ur Random Sodium Urine Opiates Screen Ur Barbiturates Screen Ur Phencyclidine Scrn Ur Amphetamines Screen U Benzodiazepines Scrn Urine Cocaine Screen U Marijuana (THC) Screen Ethyl Alcohol Serum Ketones SARS-CoV-2 Ag (Rapid) Negative 05/27/20 11:23 WBC RBC Hgb Hct MCV MCH MCHC RDW Plt Count MPV Neut % (Auto) Lymph % (Auto) [place] % (Auto) Eos % (Auto) Baso % (Auto) Neut # (Auto) Lymph # (Auto) [place] # (Auto) Eos # (Auto) Baso # (Auto) Nucleated RBC % (auto) Nucleated RBCs # PT INR APTT D-Dimer Specimen Type Sample Site ABG pH ABG pCO2 ABG pO2 ABG HCO3 ABG O2 Saturation ABG Base Excess Jerry Test A-a O2 Gradient Hematocrit Hgb O2 Saturation Carboxyhemoglobin Methemoglobin Total Hemoglobin Sodium Potassium Glucose Ionized Calcium O2 Delivery Device O2 Liters/Min FiO2 Tidal Volume PEEP Specimen Drawn By Stationary Engineer ID Blood Gas Notified Time Chloride Carbon Dioxide Anion Gap BUN Creatinine GFR Calculation POC Glucose Calculated Osmolality Lactic Acid Lactic Acid (Sepsis) Lactate 7.0 H* Calcium Magnesium Total Bilirubin AST ALT Alkaline Phosphatase Troponin T Baseline Troponin T 120 Minute Delta Troponin T Troponin T Hi Sens 6Hr Troponin T Hi Sens 6Hr Delta NT-Pro-B Natriuret Pep Total Protein Albumin Globulin Lipase TSH Urine Color Urine Appearance Urine pH Ur Specific [place] Urine Protein Urine Glucose (UA) Urine Ketones Urine Blood Urine Nitrate Urine Bilirubin Prot Sulfosalicylic Acd Urine Urobilinogen Ur Leukocyte Esterase Urine RBC Urine WBC Ur Squamous Epith Cells Amorphous Sediment Urine Bacteria Ur Random Sodium Urine Opiates Screen Ur Barbiturates Screen Ur Phencyclidine Scrn Ur Amphetamines Screen U Benzodiazepines Scrn Urine Cocaine Screen U Marijuana (THC) Screen Ethyl Alcohol Serum Ketones SARS-CoV-2 Ag (Rapid) Micro: Microbiology 05/27/20 08:20 Gram Stain - Final Sputum - Endotracheal Tube Aspirate 05/27/20 04:25 Blood Culture - Preliminary Blood SPECIMEN COLLECTED Cardiac Studies: No Data to Display
--- NOTE | 2020-05-27 13:35 | PC.NURSE ---
0910-Pt continues to have low BP, Dr Powell on floor, asked him about BP and new order for Lasix. New orders received, Precedex hung. 1000-Call put into Dr. Powell do to BP not improving, [place] added on. 1100-BP continues to be low. new order to decrease Dobutamine and get pt ready for Impella placement.
--- NOTE | 2020-05-27 15:49 | USCV_ITS ---
Viridiana Corral Age: 59 Gender: F : 1960 Exam Date: 05/27/2020 16:00 Ordering Phys: Chava Benjamin MD Technologist: Jasmeet Bui [place]am Location[place] [facility] [place] Indication: DEVICE PLACEMENT BP: / HR: Rhythm: Sinus Technical Quality: Adequate MEASUREMENTS (Male / Female) Normal Values FINDINGS Left Ventricle Normal left ventricular cavity size. Severely decreased left ventricular systolic function. Left ventricular ejection fraction is estimated at 20 %. There appeared to be global severely hypokinesis and akinesis of left ventricle anterior posterior inferior lateral and apical wall. Impella catheter is sitting in a normal position in the left ventricle through aortic valve. Right Ventricle Right Atrium Left Atrium Mitral Valve Aortic Valve Mild aortic valve calcification. No aortic valve stenosis. Tricuspid Valve Pulmonic Valve Pericardium Aorta CONCLUSIONS Limited echo performed after Impala placement for refractory shock. 1-Normal left ventricular cavity size. Severely decreased left ventricular systolic function. Left ventricular ejection fraction is estimated at 20 %. There appeared to be global severely hypokinesis and akinesis of left ventricle anterior posterior inferior lateral and apical wall. Impella catheter is sitting in a normal position in the left ventricle through aortic valve. 2-There is no pericardial effusion. 3-When compared to the prior echocardiogram performed 05/27/2020 there appeared to be Impella catheter sitting in a normal position in the left ventricle now Myra Powell MD (Electronically Signed) Final Date: 27 May 2020 19:21 S
[2020-05-27 15:52] LABS: ABG PCO2 36.4 mmHg (35-45); Blood Gas Allen Test Pos; Blood Gas Sample Type Arterial; Methemoglobin 0.9 % (0.4-1.5); Oxygen Device VENT
--- NOTE | 2020-05-27 15:58 | P.PN_ITS ---
Subjective Subjective: Interval history: In the last 24-hour, is rapidly declined. Post initial resuscitation in the ER wherein she was intubated and a central line was placed by the hospitalist tonguer. As per the last cardiology note she Patient had brief episode of V. fib followed by asystole. CPR was performed sinus rhythm was restored. Patient was immediately taken to the Employee Benefits Specialist. In route she had brief episode of V. fib she was given amiodarone during process of CPR while about to shock patient resumed the sinus rhythm. Cardiac cath is suggestive of stress cardiomyopathy with clean coronaries. Since this morning patient has required 3 pressors which includes dobutamine, vasopressin, and Levophed. Chest x-ray has progressively worsened likely suggestive aspiration pneumonia progressively deteriorating to septic shock/complicated by cardiogenic shock.Patient was taken to the Employee Benefits Specialist for Impella placement. She is also on ventilator support requiring high PEEP ( 12- 15) and high FiO2 90%. We have covered her with imipenem, vancomycin, doxycycline. Next of kin has been notified. He understands the critical illness of her mother. Vitals/I&O/Wt Last Vital Signs Temp 100.1 F H 05/27/20 09:00 Pulse 106 H 05/27/20 12:45 Resp 20 H 05/27/20 15:19 BP 87/65 05/27/20 12:45 Pulse Ox 96 05/27/20 12:45 05/27/20 05/27/20 05/27/20 06:59 14:59 22:59 Intake Total 301.973 / 301.973 102.76 / 404.733 Output Total 550 / 550 145 / 145 Balance -550 / -550 156.973 / 156.973 102.76 / 259.733 Weight last 48 hrs Weight 99.79 kg Physical Exam Narrative: EXAM NARRATIVE: Currently intubated and sedated. HENMT: COMMON NORMALS: normocephalic and atraumatic HEAD & SCALP: normocephalic and atraumatic Chest: COMMONS NORMALS: normal inspection of the chest Resp: OTHER: Coarse breath sound bilateral. Air entry bilaterally decreased. Basal crepitus appreciated. Cardio: COMMON NORMALS: regular rate, regular rhythm, S1 normal heart sound present, S2 normal heart sound present, No gallops present (Cardio), No murmurs present (Cardio), No rub (Cardio) and Peripheral pulses 2+ throughout RATE: regular rate RHYTHM: regular rhythm HEART SOUNDS: S1 normal heart sound present and S2 normal heart sound present PERIPHERAL PULSES: Peripheral pulses 2+ throughout GI: COMMON NORMALS: Normal to inspection, nondistended, normoactive bowel sounds present, Soft to palpation, non-tender, No hepatosplenomegaly present and no masses AUSCULTATION: Yes normoactive bowel sounds PALPATION: Yes Soft to palpation and Yes No hepatosplenomegaly present RECTAL EXAM: deferred Extremity: COMMON NORMALS: no clubbing, cyanosis or edema and no pedal edema Data : 05/27/20 04:25 05/27/20 06:30 Micro: Microbiology 05/27/20 08:20 Gram Stain - Final Sputum - Endotracheal Tube Aspirate 05/27/20 04:25 Blood Culture - Preliminary Blood SPECIMEN COLLECTED A&P Assessment and plan (1) Septic shock: Post initial resuscitation in the ER wherein she was intubated and a central line was placed by the hospitalist tonguer. As per the last cardiology note she Patient had brief episode of V. fib followed by asystole. CPR was performed sinus rhythm was restored. Patient was immediately taken to the Employee Benefits Specialist. In route she had brief episode of V. fib she was given amiodarone during process of CPR while about to shock patient resumed the sinus rhythm. Cardiac cath is suggestive of stress cardiomyopathy with clean coronaries. Since this morning patient has required 3 pressors which includes dobutamine, vasopressin, and Levophed. Chest x-ray has progressively worsened likely suggestive aspiration pneumonia progressively deteriorating to septic shock/complicated by cardiogenic shock.Patient was taken to the Employee Benefits Specialist for Impella placement. She is also on ventilator support requiring high PEEP ( 12- 15) and high FiO2 90%. We have covered her with imipenem, vancomycin, doxycycline. She is on stress dose hydrocortisone. Next of kin has been notified. He understands the critical illness of her mother. Status: Acute (2) Cardiogenic shock: Currently on Impella. Along with vasopressors. We will clinically assess for the need of Lasix permitting blood pressure. Status: Acute (3) Aspiration pneumonia: Currently on broad-spectrum anti-biotics. 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 Currently she is on aspirin and Plavix. Status: Acute Qualifiers: Involved coronary artery: unspecified coronary artery Qualified Code(s): I21.3 - ST elevation (STEMI) myocardial infarction of unspecified site (6) Anaphylaxis: Has responded to Solu-Medrol and famotidine. Status: Acute Qualifiers: Encounter type: initial encounter Qualified Code(s): T78.2XXA - Anaphylactic shock, unspecified, initial encounter (7) Amoxicillin-induced allergic rash: Has responded to Solu-Medrol and famotidine. Status: Acute (8) Hypertension: Currently hypotensive. Status: Acute Qualifiers: Hypertension type: essential hypertension Qualified Code(s): I10 - Essential (primary) hypertension (9) High anion gap metabolic acidosis: Secondary to sepsis. Management as 1 Status: Acute (10) COPD (chronic obstructive pulmonary disease): As needed nebs. Status: Acute Qualifiers: COPD type: chronic bronchitis (11) Stress-induced cardiomyopathy: Once She is stable. We will start her on ELIZABETH inhibitor as well beta- choco. Status: Acute Additional A&P Information DVT PPX: On Heparin GI prophylaxis: On famotidine. Prognosis: Poor 2D Echo: 1-Normal left ventricular cavity size. Severely decreased left ventricular systolic function. Global left ventricular hypokinesis with ballooning of apex consistent with stress- induced cardiomyopathy. [place] appears to be akinetic. Left ventricular ejection fraction is estimated at 20 %. 2-There appeared to be opening and closing of the valve without significant stenosis however due to absence of Doppler data cannot comment on his regurgitation. 3-There is no pericardial effusion. 5-Right atrial pressure is around 5 mm of mercury. 6-when compared to the prior echocardiogram dated July 01, 2019 there appeared to be worsening of left ventricle ejection fraction from normal 65% to severely depressed 20% now . Attestations Medical Necessity Statement*: Patient needs to be in hospital for the management septic shock, complicated by cardiogenic shock. 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 of Care Code Acute Equipment Or Machinery Cleaner for [facility] Maggie Diagnoses Septic shock A41.9; R65.21 Cardiogenic shock R57.0 Aspiration pneumonia J69.0 Cardiopulmonary arrest with successful resuscitation I46.9 STEMI (ST elevation myocardial infarction) I21.3 Involved coronary artery: unspecified coronary artery Anaphylaxis T78.2XXA Encounter type: initial encounter Amoxicillin-induced allergic rash L27.0; T36.0X5A Hypertension I10 Hypertension type: essential hypertension High anion gap metabolic acidosis E87.2 COPD (chronic obstructive pulmonary disease) J44.9 COPD type: chronic bronchitis Stress-induced cardiomyopathy I51.81
--- NOTE | 2020-05-27 15:58 | PC.NURSE ---
staff decreasing levaphed without difficulty. Order from Dr. Benjamin to go ahead and stop Dobutamine. At that time BP dropped to 63/38 map of 38. Dobutamine restarted. BP recovered nicely. 98/82 map 69. Stat Echo ordered to check placement. Placement was good. Dr. Powell notified.
[2020-05-27 16:25] LABS: Blood Gas Operator Identificat ED; Blood Gas Sample Site Radial, left
[2020-05-27 16:48] LABS: Base Excess ABG -2.1 mmol/L (-2.0-2.0); HCO3 ABG 22.3 mmol/L (22-26); PO2 ABG 96.2 mmHg (80.0-100.0)
[2020-05-27 16:49] LABS: Oxygen Saturation ABG 98.4
[2020-05-27 16:51] LABS: Alveolar-Arterial Oxygen Gradi 345.6 mmHg (5-10)
[2020-05-27 16:52] LABS: Carboxyhemoglobin 0.7 %THgb (0.4-20.1); HGB O2 Sat 96.8 % (95-100)
[2020-05-27 17:00] LABS: Partial Thromboplastin Time 82.8 SECONDS (23.9-36.7)
[2020-05-27] MEDS: hydrocortisone 100 mg/2 mL SDV 50 MG IVP ×2 (17:16→23:05)
--- NOTE | 2020-05-27 18:18 | PC.NURSE ---
Impella settings 106/96(99) flow at 3.3 motor current 810/684 purge flow 10.
--- NOTE | 2020-05-27 18:46 | PC.NURSE ---
Impella settings flow 3.3, 95/83(87), motor 812/694 purge 10.0
--- NOTE | 2020-05-27 19:15 | PC.NURSE ---
Impella settings: P-8 84/70(77), Impella flow 3.4
--- NOTE | 2020-05-27 20:41 | PC.NURSE ---
1949 - Urine light pink in color, P level decreased to P-7 on Impella. Flushed Impella line with NS x 10 seconds. 1999 - Impella Charting: Impella Flow 3.2L/min (limits = max 3.7 min 2.6) Purge Flow: 9.7 mL/hr Purge Pressure: 516 mmHg Placement Signal: 85/69 (74) Motor Current: 740/631 (676) P-level: P-7 Cath Placement: 88 cm at hubb
--- NOTE | 2020-05-27 21:07 | PC.NURSE ---
2100 - Impella Charting: Impella Flow 3.1L/min (limits = max 3.7 min 2.6) Purge Flow: 9.7 mL/hr Purge Pressure: 496 mmHg Placement Signal: 92/76 (81) Motor Current: 743/622 (670) P-level: P-7 Cath Placement: 88 cm at hubb
[2020-05-27 21:10] LABS: Partial Thromboplastin Time 40.2 SECONDS (23.9-36.7)
[2020-05-27] MEDS: dexmedetomidine 400 MCG in sodium chloride 0.9% (100 ml) 100 ML 18.2 MCG IV (21:19)
[2020-05-27] MEDS: heparin drip 25,000 UNIT/500 ML PREMIX 20 UNIT IV (22:25)
--- NOTE | 2020-05-27 23:13 | PC.NURSE ---
2150 - PTT 40.2, notified Dr. Powell of PTT level outside of required range of 50-70 for impella. Order given to start heparin drip per [facility] protocol with no bolus.
[2020-05-27] MEDS: propofol 1,000 MG/100 ML INJ 13.2 MG IV (23:45)
[2020-05-28] VITALS (81 sets, daily range): BP systolic 76–109; BP diastolic 63–88; PULSE 74–98; RESP 16; TEMP 37.9–38.8; O2SAT 94–100
--- NOTE | 2020-05-28 00:08 | PC.NURSE ---
2330 - Knee Immobilizer placed to right leg and right leg restraint removed.
[2020-05-28] MEDS: dexmedetomidine 400 MCG in sodium chloride 0.9% (100 ml) 100 ML 18.2 MCG IV ×3 (03:17→15:30)
[2020-05-28] MEDS: DOBUTamine drip 500 MG/250 ML PREMIX IV (03:17)
[2020-05-28 04:54] LABS: Basophils % 0.2 %; Hematocrit 38.6 % (37.0-47.0); Hemoglobin 12.2 g/dL (11.5-15.3); Lymphocytes # 1.2 10^3/uL (0.8-4.8); Lymphocytes % 7.2 %; Mean Corpuscular HGB Conc 31.6 g/dL (30.0-36.0); Mean Corpuscular Hemoglobin 29.8 pg (28.0-34.0); Mean Corpuscular Volume 94.4 fL (81-99); Mean Platelet Volume 11.3 fL (7.4-10.4); Monocytes # 0.9 10^3/uL (0.2-0.9); Monocytes % 5.3 %; Neutrophils # 14.66 10^3/uL (1.8-7.7); Neutrophils % 86.9 %; Nucleated Red Blood Cells % 0 %; Platelet Count 209 10^3/cmm (130-400); Red Blood Count 4.09 10^6/uL (4.1-5.3); Red Cell Distribution Width 14.6 % (12.1-15.1); White Blood Count 16.9 10^3/uL (4.0-10.0)
[2020-05-28] MEDS: hydrocortisone 100 mg/2 mL SDV 50 MG IVP ×4 (05:01→22:57)
[2020-05-28 05:13] LABS: Blood Urea Nitrogen 22 mg/dL (6-20); Calcium 7.8 mg/dL (8.5-10.5); Carbon Dioxide 26 mmol/L (22-29); Chloride 107 mmol/L (98-107); Glomerular Filtration Rate 50.8 mL/min (90-130); Glucose 169 mg/dL (65-115); Osmolality Calculated 301 mOsm/kg (285-295); Sodium 142 mmol/L (136-145)
[2020-05-28 05:38] LABS: ABG PCO2 36.1 mmHg (35-45); ABG PH Result 7.47 (7.35-7.45); Arterial Blood Gas Hematocrit 41.8 % (37-47); Base Excess ABG 2.7 mmol/L (-2.0-2.0); Blood Gas Allen Test Pos; Blood Gas Operator Identificat Anonymous; Blood Gas Sample Type Arterial; HCO3 ABG 26.2 mmol/L (22-26); PO2 ABG 64.8 mmHg (80.0-100.0)
[2020-05-28 06:11] LABS: Partial Thromboplastin Time 153.2 SECONDS (23.9-36.7)
--- NOTE | 2020-05-28 07:37 | PC.RESP ---
Smoking Cessation and Pulmonary Rehab information sent to patient.
--- NOTE | 2020-05-28 07:38 | ANE.PACU2 ---
Inpatient post-anesthesia follow up: Airway intact: No Vital signs: Temperature 100.9 F Pulse Rate [Apical ] 93 Pulse Rate 91 Respiratory Rate 16 Blood Pressure [Le ft Arm] 136/94 Blood Pressure 93/79 Pulse Oximetry 97 Oxygen Delivery Me thod Mechanical Ventila tion Oxygen Flow Rate 15 Fraction of Inspir ed Oxygen 50 Hydration adequate: Yes Nausea and vomiting: No Pain level: 1 Mental status: Altered Additional Comments: intubated sedated on pressors w/ impella
[2020-05-28] MEDS: sodium chloride 0.9% 1,000 ML 100 ML IV (08:08)
--- NOTE | 2020-05-28 08:35 | XR_ITS ---
WS: [id number] Portable AP semiupright chest, 05/28/2020 Clinical Data: Aspiration PNA and Septic Shock Comparison: Portable chest, 05/27/2020 Findings: The endotracheal tube appears to enter the right main stem bronchus and needs to be retreat ed approximately 4 cm. The nasogastric tube appears to be within the stomach. The right internal jugu lar venous catheter ends in the superior vena cava. Monitor leads are on the chest wall. The heart re yefri enlarged. The patchy opacity in the right lung has cleared and probably represents clearing of pulmonary edema. The pulmonary vascularity is not increased. No pneumonia or pneumothorax is seen. XR/XR chest 1V portable [id number] Impression: 1. Endotracheal tube probably enters right mainstem bronchus and needs to be re treated. 2. Clearing of right pulmonary opacity. 3. Satisfactory position of right internal internal jugular venous catheter and nasogastric tube. 4. Beatris, the ICU nurse was contacted about the position of the endotracheal tube and changing its position.
[2020-05-28] MEDS: aspirin 81 mg EC Tablet PO (09:30)
[2020-05-28] MEDS: chlorhexidine gluconate 0.12% Btl 473 mL 15 ML MUCOUS MEM (09:30)
[2020-05-28] MEDS: famotidine 20 mg/2 mL INJ IVP (09:30)
[2020-05-28] MEDS: atorvastatin 40 mg Tablet 80 MG NG-TUBE (09:30)
[2020-05-28] MEDS: doxycycline 100 MG in sodium chloride 0.9% (plus) 100 ML IV ×2 (09:33→21:50)
--- NOTE | 2020-05-28 09:37 | P.PN_ITS ---
Subjective Subjective: Interval history: Patient remains intubated and sedated on mechanical ventilation and Impella. Current GCS of sedation 11 T. She continues to remain on dobutamine drip at a low dose. ~Labs reviewed, vitals: Reviewed Medications: Reviewed: Yes Vitals/I&O/Wt Last Vital Signs Temp 100.9 F H 05/28/20 08:30 Pulse 93 05/28/20 08:30 Resp 16 05/28/20 08:39 BP 97/70 05/28/20 08:30 Pulse Ox 97 05/28/20 08:30 05/27/20 05/28/20 05/28/20 22:59 06:59 14:59 Intake Total 613.285 / 1365.258 992.718 / 2357.976 Output Total 1355 / 1500 800 / 2300 195 / 195 Balance -741.715 / -134.742 192.718 / 57.976 -195 / -195 Weight last 48 hrs Weight 99.79 kg Physical Exam Narrative: EXAM NARRATIVE: Intubated and sedated. HENMT: COMMON NORMALS: normocephalic and atraumatic HEAD & SCALP: normocephalic and atraumatic Eye: COMMON NORMALS: no scleral icterus GENERAL EYE: appearance normal, both eyes and all related structures Chest: COMMONS NORMALS: normal inspection of the chest Resp: COMMON NORMALS: clear to auscultation bilaterally EFFORT & INSPECTION: Yes symmetric chest movement AUSCULTATION: clear to auscultation bilaterally Cardio: COMMON NORMALS: regular rate, regular rhythm, S1 normal heart sound present, S2 normal heart sound present, No gallops present (Cardio), No murmurs present (Cardio), No rub (Cardio) and Peripheral pulses 2+ throughout RATE: regular rate RHYTHM: regular rhythm HEART SOUNDS: S1 normal heart sound present and S2 normal heart sound present PERIPHERAL PULSES: Peripheral pulses 2+ throughout GI: COMMON NORMALS: Normal to inspection, nondistended, normoactive bowel sounds present, Soft to palpation, non-tender, No hepatosplenomegaly present and no masses AUSCULTATION: Yes normoactive bowel sounds PALPATION: Yes Soft to palpation and Yes No hepatosplenomegaly present RECTAL EXAM: deferred Extremity: COMMON NORMALS: no clubbing, cyanosis or edema and no pedal edema Urinary Catheter Management^: Gandhi: Cath Placed During This Visit: no Reason for Continuing Indwelling Catheter: Accurate Measurement of Urinary Output in Critically Ill Patients Data : 05/28/20 04:37 05/28/20 04:37 Micro: Microbiology 05/27/20 04:25 Blood Culture - Preliminary Blood NEGATIVE TO DATE 05/27/20 08:20 Gram Stain - Final Sputum - Endotracheal Tube Aspirate A&P Assessment and plan (1) Septic shock: Post initial resuscitation in the ER wherein she was intubated and a central line was placed by the hospitalist conductor symphonic orchestra. As per the last cardiology note she Patient had brief episode of V. fib followed by asystole. CPR was performed sinus rhythm was restored. Patient was immediately taken to the User Acceptance Tester. In route she had brief episode of V. fib she was given amiodarone during process of CPR while about to shock patient resumed the sinus rhythm. Cardiac cath is suggestive of stress cardiomyopathy with clean coronaries. Since this morning patient has required 3 pressors which includes dobutamine, vasopressin, and Levophed. Chest x-ray has progressively worsened likely sug gestive aspiration pneumonia progressively deteriorating to septic shock/complicated by cardiogenic shock.Patient was taken to the User Acceptance Tester for Impella placement. She is also on ventilator support requiring high PEEP ( 12- 15) and high FiO2 90%. We have covered her with imipenem, vancomycin, doxycycl ine. She is on stress dose hydrocortisone. Next of kin has been notified. He understands the critical illness of her mother. Status: Acute (2) Cardiogenic shock: Currently on Impella. On low-dose dobutamine Levophed along with vasopressin has been turned of. Status: Acute (3) Aspiration pneumonia: Currently on broad-spectrum anti-biotics. 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 Currently she is on aspirin and Plavix. Status: Acute Qualifiers: Involved coronary artery: unspecified coronary artery Qualified Code(s): I21.3 - ST elevation (STEMI) myocardial infarction of unspecified site (6) Anaphylaxis: Has responded to Solu-Medrol and famotidine. Status: Acute Qualifiers: Encounter type: initial encounter Qualified Code(s): T78.2XXA - Anaphylactic shock, unspecified, initial encounter (7) Amoxicillin-induced allergic rash: Has responded to Solu-Medrol and famotidine. Status: Acute (8) Hypertension: Currently hypotensive. Status: Acute Qualifiers: Hypertension type: essential hypertension Qualified Code(s): I10 - Essential (primary) hypertension (9) High anion gap metabolic acidosis: Secondary to sepsis. Management as 1 Status: Acute (10) COPD (chronic obstructive pulmonary disease): As needed nebs. Status: Acute Qualifiers: COPD type: chronic bronchitis (11) Stress-induced cardiomyopathy: Once She is stable. We will start her on ELIZABETH inhibitor as well beta- choco. Status: Acute Additional A&P Information DVT PPX: On Heparin GI prophylaxis: On on Protonix 40 mg IV daily. Prognosis: Poor 2D Echo: 1-Normal left ventricular cavity size. Severely decreased left ventricular systolic function. Global left ventricular hypokinesis with ballooning of apex consistent with stress- induced cardiomyopathy. [place] appears to be akinetic. Left ventricular ejection fraction is estimated at 20 %. 2-There appeared to be opening and closing of the valve without significant stenosis however due to absence of Doppler data cannot comment on his regurgitation. 3-There is no pericardial effusion. 5-Right atrial pressure is around 5 mm of mercury. 6-when compared to the prior echocardiogram dated July 01, 2019 there appeared to be worsening of left ventricle ejection fraction from normal 65% to severely depressed 20% now . arterial duplex LE BI : Abnormal resting EDMAR on the right side, suggestive of moderate peripheral artery disease Abnormal resting EDMAR on the left side, suggestive of severe peripheral artery disease. Technically somewhat difficult study Attestations Medical Necessity Statement*: Patient needs to be in hospital for management septic shock/cardiogenic shock. 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 of Care Code Acute Floorman for [facility] Fwd Exam Detailed Diagnoses Septic shock A41.9; R65.21 Cardiogenic shock R57.0 Aspiration pneumonia J69.0 Cardiopulmonary arrest with successful resuscitation I46.9 STEMI (ST elevation myocardial infarction) I21.3 Involved coronary artery: unspecified coronary artery Anaphylaxis T78.2XXA Encounter type: initial encounter Amoxicillin-induced allergic rash L27.0; T36.0X5A Hypertension I10 Hypertension type: essential hypertension High anion gap metabolic acidosis E87.2 COPD (chronic obstructive pulmonary disease) J44.9 COPD type: chronic bronchitis Stress-induced cardiomyopathy I51.81
[2020-05-28] MEDS: FUROsemide 10 mg/mL SDV 4mL 40 MG IVP (09:39)
[2020-05-28] MEDS: clopidogrel 75 mg Tablet PO (09:40)
[2020-05-28] MEDS: propofol 1,000 MG/100 ML INJ 13.2 MG IV (10:47)
[2020-05-28 10:51] LABS: Partial Thromboplastin Time 49.3 SECONDS (23.9-36.7)
[2020-05-28 10:57] LABS: Lactic Sepsis W/Reflex 2.7 mmol/L (0.5-2.2)
[2020-05-28 10:58] LABS: Magnesium 1.8 mg/dL (1.7-2.3)
[2020-05-28 11:09] LABS: Lactate Dehydrogenase 1076 U/L (135-214)
[2020-05-28] MEDS: acetaminophen 325 mg Tablet 650 MG PO (12:19)
[2020-05-28 12:21] LABS: Reflex Lactate Order REFLEX LACTIC ORDERD
[2020-05-28] MEDS: magnesium sulfate premix 2 GM/50 ML PIGGYBACK IV (13:19)
[2020-05-28 13:53] LABS: Partial Thromboplastin Time 53.7 SECONDS (23.9-36.7)
[2020-05-28 13:56] LABS: Lactic Acid level (Lactate) 1.9 mmol/L (0.5-2.2)
[2020-05-28 15:58] LABS: Osmolality Urine 404 mOsm/kg (50-1200)
[2020-05-28 15:58] LABS: Osmolality Serum 312 mOsm/kg (278-305)
[2020-05-28] MEDS: propofol 1,000 MG/100 ML INJ 12 MG IV (17:52)
--- NOTE | 2020-05-28 17:59 | P.PN_ITS ---
Subjective Subjective: Interval history: Status post Impella placement for refractory shock. Steadily she has improved as we were able to taper off Levophed and vasopressin. We will continuing her on dobutamine. Patient had episode of brief tachycardia last night with short burst of A. fib she was started back on amiodarone. Remained stable. Medications: Reviewed: Yes Vitals/I&O/Wt Last Vital Signs Temp 101.6 F H 05/28/20 17:30 Pulse 88 05/28/20 17:30 Resp 16 05/28/20 17:30 BP 92/72 05/28/20 17:30 Pulse Ox 97 05/28/20 17:30 05/28/20 05/28/20 05/28/20 06:59 14:59 22:59 Intake Total 992.718 / 2357.976 615.955 / 615.955 255.883 / 871.838 Output Total 800 / 2300 1350 / 1350 175 / 1525 Balance 192.718 / 57.976 -734.045 / -734.045 80.883 / -653.162 Weight last 48 hrs Weight 220 lb Physical Exam 2 Narrative: EXAM NARRATIVE: GENERAL: Patient is sedated and intubated. NECK: No jugular vein distension. HEENT: No cyanosis. No icterus. No pallor. HEART: Regular S1 and S2. No murmur, rub or gallop. LUNGS: Decreased breath sound bilaterally. ABDOMEN: Soft, nontender and nondistended. Positive bowel sounds. No guarding, rebound or tenderness. CENTRAL NERVOUS SYSTEM: Cannot assess completely due to sedation EXTREMITIES: Lower extremities with edema bilaterally. Const: COMMON NORMALS: alert Resp: COMMON NORMALS: clear to auscultation bilaterally AUSCULTATION: clear to auscultation bilaterally Neuro: SENSORIUM/ORIENTATION: Yes alert Urinary Catheter Management^: Gandhi: Cath Placed During This Visit: no Reason for Continuing Indwelling Catheter: Accurate Measurement of Urinary Output in Critically Ill Patients Data : 05/28/20 04:37 05/28/20 04:37 Micro: Microbiology 05/28/20 13:25 Blood Culture - Preliminary Blood SPECIMEN COLLECTED 05/28/20 13:33 Blood Culture - Preliminary Blood SPECIMEN COLLECTED 05/27/20 08:20 Gram Stain - Final Sputum - Endotracheal Tube Aspirate Sputum Culture - Preliminary 05/27/20 04:25 Blood Culture - Preliminary Blood NEGATIVE TO DATE A&P Assessment and plan (1) Cardiogenic shock: Continues to be on mechanical support of Impella, LDH showed slight increase we will continue to monitor. She has been taper off to pressors. Keep map above 65. Patient has good bilateral pulses both feet and legs looks good without any vascular compromise. Status: Acute (2) Cardiac arrest: No more bradycardia noted Status: Acute (3) Hyperlipemia: Continue statin Status: Acute Qualifiers: Hyperlipidemia type: mixed hyperlipidemia Qualified Code(s): E78.2 - Mixed hyperlipidemia (4) CAD (coronary artery disease): Stress-induced cardiomyopathy at this time patient has history of coronary artery disease continue current regimen. Continue Plavix aspirin statin. Once weaned off pressor I may will start Status: Acute Qualifiers: Coronary Disease-Associated Artery/Lesion type: [place] artery [place] vs. transplanted heart: [place] heart Associated angina: without angina Qualified Code(s): I25.10 - Atherosclerotic heart disease of [place] coronary artery without angina pectoris (5) Syncope and collapse: Most likely secondary to cardiac arrest Status: Acute (6) COPD (chronic obstructive pulmonary disease): Intubated, treatment as per medicine Status: Acute Qualifiers: COPD type: chronic bronchitis (7) Cardiomyopathy in disease classified elsewhere: Patient has severely depressed LV function. IV Lasix 40 mg twice daily given. Continue to monitor urine output Status: Acute (8) Sepsis: Continue antibiotics Status: Acute Attestations Medical Necessity Statement*: Patient require continuation hospitalization for above defined care. 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 of Care Code Established Pt Acute Child Advocate for [facility] Patient Type Established History Comprehensive Exam Comprehensive Medical Decision Making High Complexity Diagnoses Cardiogenic shock R57.0 Cardiac arrest I46.9 Hyperlipemia E78.2 Hyperlipidemia type: mixed hyperlipidemia CAD (coronary artery disease) I25.10 Coronary Disease-Associated Artery/Lesion type: [place] artery [place] vs. transplanted heart: [place] heart Associated angina: without angina Syncope and collapse R55 COPD (chronic obstructive pulmonary disease) J44.9 COPD type: chronic bronchitis Cardiomyopathy in disease classified elsewhere I43 Sepsis A41.9 Time Spent (min) 30
[2020-05-28 18:33] LABS: Magnesium 2.5 mg/dL (1.7-2.3)
[2020-05-28 18:36] LABS: Partial Thromboplastin Time 81.2 SECONDS (23.9-36.7)
[2020-05-28 18:51] LABS: Lactate Dehydrogenase 1150 U/L (135-214)
--- NOTE | 2020-05-28 19:18 | PC.NURSE ---
1899 - Notified Dr. Powell of current LDH of 1150. States I am ok with that, just give the rep a call and make sure this is expected . Called Tatyana Leon Rep, notified of Dr. Powell's concerns of LDH continuing to elevate with current level 1150 but urine is clear and not pink or red. Julio reported that that should not be a concern unless the urine starts to turn pink or red. P-level remains at P-7.
[2020-05-28 22:25] LABS: Vancomycin Trough 12.4 ug/mL (10-15)
[2020-05-28] MEDS: dexmedetomidine 400 MCG in sodium chloride 0.9% (100 ml) 100 ML 15.6 MCG IV (22:34)
[2020-05-28 23:37] LABS: Partial Thromboplastin Time 86.3 SECONDS (23.9-36.7)
[2020-05-29] VITALS (102 sets, daily range): BP systolic 79–108; BP diastolic 61–81; PULSE 60–84; RESP 14–16; TEMP 36.2–38.2; O2SAT 95–100
[2020-05-29] MEDS: propofol 1,000 MG/100 ML INJ 12 MG IV ×3 (01:52→17:35)
[2020-05-29 04:09] LABS: Platelet Count 160 10^3/cmm (130-400)
[2020-05-29] MEDS: hydrocortisone 100 mg/2 mL SDV 50 MG IVP ×3 (04:49→13:57)
--- NOTE | 2020-05-29 05:05 | PC.NURSE ---
Hands becoming swollen and rings very tight on fingers. Removed 4 rings from fingers, all 4 rings tarneshed in color. 1 ring has purple colored stone, 1 ring has black colored stone, 1 ring has clear colored stone, 1 ring has dark blue colored stone. Rings placed in bag with patient label on it and placed in patients chart.
[2020-05-29 05:45] LABS: Basophils % 0.2 %; Hematocrit 36.9 % (37.0-47.0); Hemoglobin 11.4 g/dL (11.5-15.3); Lymphocytes # 1.6 10^3/uL (0.8-4.8); Lymphocytes % 8.7 %; Mean Corpuscular HGB Conc 30.9 g/dL (30.0-36.0); Mean Corpuscular Hemoglobin 29.5 pg (28.0-34.0); Mean Corpuscular Volume 95.3 fL (81-99); Monocytes # 0.8 10^3/uL (0.2-0.9); Monocytes % 4.6 %; Neutrophils # 15.54 10^3/uL (1.8-7.7); Neutrophils % 85.9 %; Nucleated Red Blood Cells % 0 %; Platelet Count 170 10^3/cmm (130-400); Red Blood Count 3.87 10^6/uL (4.1-5.3); White Blood Count 18.1 10^3/uL (4.0-10.0)
[2020-05-29 05:53] LABS: Alanine Aminotransferase 44 U/L (0-33); Albumin Level 2.9 g/dL (3.5-5.2); Alkaline Phosphatase 45 IU/L (35-105); Aspartate Amino Transferase 118 U/L (0-32); Blood Urea Nitrogen 21 mg/dL (6-20); Calcium 7.8 mg/dL (8.5-10.5); Carbon Dioxide 25 mmol/L (22-29); Chloride 108 mmol/L (98-107); Globulin 2.4 g/dL (1.3-4.6); Glomerular Filtration Rate 56.7 mL/min (90-130); Glucose 151 mg/dL (65-115); Magnesium 2.3 mg/dL (1.7-2.3); Osmolality Calculated 300 mOsm/kg (285-295); Sodium 142 mmol/L (136-145); Total Bilirubin 0.7 mg/dL (0.15-1.2); Total Protein 5.3 g/dL (6.6-8.7)
[2020-05-29 06:07] LABS: Lactate Dehydrogenase 1029 U/L (135-214)
[2020-05-29] MEDS: dexmedetomidine 400 MCG in sodium chloride 0.9% (100 ml) 100 ML 7.8 MCG IV (06:44)
[2020-05-29] MEDS: sodium chloride 0.9% 1,000 ML 100 ML IV (08:30)
[2020-05-29] MEDS: aspirin 81 mg EC Tablet PO (09:29)
[2020-05-29] MEDS: clopidogrel 75 mg Tablet PO (09:29)
[2020-05-29] MEDS: atorvastatin 40 mg Tablet 80 MG NG-TUBE (09:29)
[2020-05-29] MEDS: pantoprazole 40 mg SDV IVP (09:29)
[2020-05-29] MEDS: chlorhexidine gluconate 0.12% Btl 473 mL 15 ML MUCOUS MEM (09:30)
[2020-05-29] MEDS: doxycycline 100 MG in sodium chloride 0.9% (plus) 100 ML IV ×2 (10:09→21:50)
--- NOTE | 2020-05-29 10:51 | XRR_ITS ---
PROCEDURE INFORMATION: Exam: XR Chest, 1 View Exam date and time: 05/29/2020 10:52 AM Age: 59 years old Clinical indication: Shortness of breath; Additional info: Pna TECHNIQUE: Imaging protocol: XR of the chest Views: 1 view. COMPARISON: OR XR chest 1V portable [id number] 05/28/2020 8:55 AM FINDINGS: The thorax is partially obscured by overlying EKG leads and patch. Tubes, catheters and devices: Endotracheal tube , feeding tube, and central venous catheter. The endotracheal tube terminates 4.8 cm above the judd. Lungs: Mild interstitial prominence. Poorly defined 12 mm nodular density overlying the left lung base. Pleural space: No significant pleural effusion or pneumothorax. Heart/Mediastinum: Borderline cardiomegaly. Bones/joints: Mild degenerative change. XR/XR chest 1V portable [id number] IMPRESSION: 1. Endotracheal tube , feeding tube, and central venous catheter. The endotracheal tube terminates 4.8 cm above the judd. 2. Additional findings as described above.
--- NOTE | 2020-05-29 10:52 | PC.NURSE ---
Pt starting to run recurrent arrhythmias so Amiodorone was rehung and started at 0.5mg/min. Will continue to monitor.
[2020-05-29 11:15] LABS: Partial Thromboplastin Time 61.5 SECONDS (23.9-36.7)
[2020-05-29 11:40] LABS: ABG PCO2 35.7 mmHg (35-45); ABG PH Result 7.46 (7.35-7.45); Arterial Blood Gas Hematocrit 35.3 % (37-47); Base Excess ABG 1.6 mmol/L (-2.0-2.0); Blood Gas Allen Test Pos; Blood Gas Sample Type Arterial; Carboxyhemoglobin 1.9 %THgb (0.4-20.1); HCO3 ABG 25.3 mmol/L (22-26); HGB O2 Sat 91.7 % (95-100); Ionized Calcium Level - ABG 1.1 mmol/L (1.1-1.4); Methemoglobin 1.1 % (0.4-1.5); Oxygen Saturation ABG 94.4; PO2 ABG 67.3 mmHg (80.0-100.0); Potassium Level - ABG 3.5 mmol/L (3.5-5.0); Total Hemoglobin 11.5 g/dL (12-16)
[2020-05-29 11:42] LABS: Alveolar-Arterial Oxygen Gradi 31.7 mmHg (5-10); Blood Gas Operator Identificat GD; Blood Gas Sample Site Radial, right; Oxygen Device VENT
--- NOTE | 2020-05-29 13:19 | P.PN_ITS ---
Subjective Subjective: Interval history: Patient remain intubated and sedated on mechanical ventilation.Current GCS is : 10T off sedation. She has required minimal dobutamine drip support.And has been off all other pressors support ( Levophed and vasopressin ). Am Xray chest : Shows marked improvement in rt sided patchy air space disease (Currently at PEEP of 12) Am ABG : Ph: 7.46,PCO2: 35,PO2: 67 FIO2: 55% P/F : 122 as compared to P/F : 93 yesterday Labs and Vitals have been reviewed Medications: Reviewed: Yes Vitals/I&O/Wt Last Vital Signs Temp 98.4 F 05/29/20 13:00 Pulse 66 05/29/20 13:15 Resp 14 05/29/20 11:54 BP 94/71 05/29/20 13:15 Pulse Ox 100 05/29/20 13:15 05/28/20 05/29/20 05/29/20 22:59 06:59 14:59 Intake Total 1603.983 / 2219.938 878.093 / 3098.031 102.375 / 102.375 Output Total 496 / 1846 352 / 2198 315 / 315 Balance 1107.983 / 373.938 526.093 / 900.031 -212.625 / -212.625 Physical Exam Narrative: EXAM NARRATIVE: Intubated and sedated.Current GCS is 10 T off sedation. HENMT: COMMON NORMALS: normocephalic, atraumatic, hearing grossly normal bilaterally and external ears normal HEAD & SCALP: normocephalic and atraumatic EXTERNAL EAR: Yes external ears normal Eye: COMMON NORMALS: no scleral icterus GENERAL EYE: appearance normal, both eyes and all related structures Chest: COMMONS NORMALS: normal inspection of the chest CHEST: Yes Symmetrical chest wall rise Resp: EFFORT & INSPECTION: Yes symmetric chest movement AUSCULTATION: other OTHER: B/L Basal Crackles present with B/L occasional ronchii Cardio: COMMON NORMALS: regular rate, regular rhythm, S1 normal heart sound present, S2 normal heart sound present, No gallops present (Cardio), No murmurs present (Cardio), No rub (Cardio) and Peripheral pulses 2+ throughout RATE: regular rate RHYTHM: regular rhythm HEART SOUNDS: S1 normal heart sound present and S2 normal heart sound present PERIPHERAL PULSES: Peripheral pulses 2+ throughout GI: COMMON NORMALS: Normal to inspection, nondistended, normoactive bowel sounds present, Soft to palpation, non-tender, No hepatosplenomegaly present and no masses AUSCULTATION: Yes normoactive bowel sounds PALPATION: Yes Soft to palpation and Yes No hepatosplenomegaly present RECTAL EXAM: deferred Extremity: COMMON NORMALS: no clubbing, cyanosis or edema and no pedal edema Urinary Catheter Management^: Gandhi: Cath Placed During This Visit: no Reason for Continuing Indwelling Catheter: Accurate Measurement of Urinary Output in Critically Ill Patients Data : 05/29/20 03:47 05/29/20 03:41 Micro: Microbiology 05/27/20 08:20 Gram Stain - Final Sputum - Endotracheal Tube Aspirate Sputum Culture - Final 05/28/20 13:30 Urine Culture - Preliminary Urine Catheterized 05/28/20 13:25 Blood Culture - Preliminary Blood SPECIMEN COLLECTED 05/28/20 13:33 Blood Culture - Preliminary Blood SPECIMEN COLLECTED A&P Assessment and plan (1) Respiratory failure: Ac Hypoxic R/F multifactorail ( Aspiration PNA,Cardiogenic shock,Sepsis Shock) : Am Xray chest : Shows marked improvement in rt sided patchy air space disease (Currently at PEEP of 12) Am ABG : Ph: 7.46,PCO2: 35,PO2: 67 FIO2: 55% P/F : 122 as compared to P/F : 93 yesterday. Currently Intubated, sedated , on mechanical ventilation. ( Tv: 400,FIO2:50 %,PEEP:12 R/R: 14) Has Received 40 I.V Lasix today. Continue mechanical ventilation.Continue ABx Status: Acute (2) Septic shock: Post initial resuscitation in the ER wherein she was intubated and a central line was placed by the hospitalist organizational development specialist. As per the last cardiology note she Patient had brief episode of V. fib followed by asystole. CPR was performed sinus rhythm was restored. Patient was immediately taken to the [facility]. In route she had brief episode of V. fib she was given amiodarone during process of CPR while about to shock patient resumed the sinus rhythm. Cardiac cath is suggestive of stress cardiomyopathy with clean coronaries. She has required minimal dobutamine drip support today .And has been off all other pressors support ( Levophed and vasopressin ). Cultres : No growth till this date. Hydrocortisone Deescalation. Continue with imipenem, vancomycin, doxycycline. Status: Acute (3) Cardiogenic shock: Currently on Impella. On low-dose dobutamine Levophed along with vasopressin has been turned of. Good Peripheral circulation.Warm Extremities. Received 40 mg I.V lasix * 1 dose Status: Acute (4) Aspiration pneumonia: Currently on broad-spectrum anti-biotics. Xray chest has shown improvement though she is on PEEP of 12. 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 Currently she is on aspirin and Plavix. Cardiology is on board Status: Acute Qualifiers: Involved coronary artery: unspecified coronary artery Qualified Code(s): I21.3 - ST elevation (STEMI) myocardial infarction of unspecified site (6) Cardiopulmonary arrest with successful resuscitation: Status: Acute (7) Anaphylaxis: Has responded to Solu-Medrol and famotidine. Status: Acute Qualifiers: Encounter type: initial encounter Qualified Code(s): T78.2XXA - Anaphylactic shock, unspecified, initial encounter (8) Amoxicillin-induced allergic rash: Has responded to Solu-Medrol and famotidine. Status: Acute (9) Hypertension: Currently hypotensive. Status: Acute Qualifiers: Hypertension type: essential hypertension Qualified Code(s): I10 - Essential (primary) hypertension (10) High anion gap metabolic acidosis: Secondary to sepsis. Management as 1 Status: Acute (11) COPD (chronic obstructive pulmonary disease): As needed nebs. Status: Acute Qualifiers: COPD type: chronic bronchitis (12) Stress-induced cardiomyopathy: Once She is stable. We will start her on ELIZABETH inhibitor as well beta- choco. Status: Acute Additional A&P Information DVT PPX: On Heparin GI prophylaxis: On on Protonix 40 mg IV daily. Prognosis: Poor 2D Echo: 1-Normal left ventricular cavity size. Severely decreased left ventricular systolic function. Global left ventricular hypokinesis with ballooning of apex consistent with stress- induced cardiomyopathy. [place] appears to be akinetic. Left ventricular ejection fraction is estimated at 20 %. 2-There appeared to be opening and closing of the valve without significant stenosis however due to absence of Doppler data cannot comment on his regurgitation. 3-There is no pericardial effusion. 5-Right atrial pressure is around 5 mm of mercury. 6-when compared to the prior echocardiogram dated July 01, 2019 there appeared to be worsening of left ventricle ejection fraction from normal 65% to severely depressed 20% now . arterial duplex LE BI : Abnormal resting EDMAR on the right side, suggestive of moderate peripheral artery disease Abnormal resting EDMAR on the left side, suggestive of severe peripheral artery disease. Technically somewhat difficult study Attestations Medical Necessity Statement*: Patient needs to be hospital for the management of Ac Respiratory failure 2/2 septic/Cardiogenic shock. 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 of Care Code Acute Veterans Employment Representative for [facility] Fwd Exam Detailed Diagnoses Respiratory failure J96.90 Septic shock A41.9; R65.21 Cardiogenic shock R57.0 Aspiration pneumonia J69.0 STEMI (ST elevation myocardial infarction) I21.3 Involved coronary artery: unspecified coronary artery Cardiopulmonary arrest with successful resuscitation I46.9 Anaphylaxis T78.2XXA Encounter type: initial encounter Amoxicillin-induced allergic rash L27.0; T36.0X5A Hypertension I10 Hypertension type: essential hypertension High anion gap metabolic acidosis E87.2 COPD (chronic obstructive pulmonary disease) J44.9 COPD type: chronic bronchitis Stress-induced cardiomyopathy I51.81
[2020-05-29] MEDS: FUROsemide 10 mg/mL SDV 4mL 40 MG IVP ×3 (13:58→19:04)
--- NOTE | 2020-05-29 14:35 | USCV_ITS ---
Viridiana Corral Age: 59 Gender: F : 1960 Exam Date: 05/29/2020 15:04 Ordering Phys: Myra Powell MD ([email or web address]) Technologist: Michelle Lala Exam Location: [facility] [place] Indication: Check heart function at this point of Impella BP: 99 / 72 HR: 65 Rhythm: Sinus Technical Quality: Technically difficult study MEASUREMENTS (Male / Female) Normal Values 2D ECHO LV Diastolic Diameter PLAX 3.6 cm 4.2 - 5.9 / 3.9 - 5.3 cm LV Systolic Diameter PLAX 2.6 cm IVS Diastolic Thickness 1.5 cm 0.6 - 1.0 / 0.6 - 0.9 cm IVS Systolic Thickness 2.1 cm LVPW Diastolic Thickness 1.5 cm 0.6 - 1.0 / 0.6 - 0.9 cm LVPW Systolic Thickness 1.5 cm LV Ejection Fraction 2D Teich 54.6 % M-MODE LV Diastolic Diameter MM 4.9 cm 4.2 - 5.9 / 3.9 - 5.3 cm LV Systolic Diameter MM 3.9 cm LV Ejection Fraction MM Teich 40.8 % IVS Diastolic Thickness MM 1.2 cm 0.6 - 1.0 / 0.6 - 0.9 cm IVS Systolic Thickness MM 1.3 cm LVPW Diastolic Thickness MM 1.0 cm 0.6 - 1.0 / 0.6 - 0.9 cm LVPW Systolic Thickness MM 1.5 cm FINDINGS Left Ventricle Normal left ventricular cavity size. Severely decreased left ventricular systolic function. There appeared to be mid to distal anterior apical and mid to distal inferior wall severe hypokinesis. Estimated ejection fraction is 25% now. There appeared to be Impala device sitting in normal position across the aortic valve into the left ventricle. Right Ventricle Right Atrium Left Atrium Mitral Valve Aortic Valve Tricuspid Valve Pulmonic Valve Pericardium Aorta CONCLUSIONS Please note that this is a limited echo to assess LV function and position of the Impella device 1-Normal left ventricular cavity size. Severely decreased left ventricular systolic function. There appeared to be mid to distal anterior apical and mid to distal inferior wall severe hypokinesis. Estimated ejection fraction is 25 to 30% now. There appeared to be Impala device sitting in normal position across the aortic valve into the left ventricle. 2-There is no pericardial effusion. 3 When compared to the prior echocardiogram dated 05/27/20, left ventricle ejection fraction has slightly improved from 20 to 30% now. There also appear to be some improvement in cavity squeeze.. Myra Powell MD (Electronically Signed) Final Date: 29 May 2020 18:01 S
--- NOTE | 2020-05-29 16:05 | P.PN_ITS ---
Subjective Subjective: Interval history: Continues to remain stable blood pressure map parameters are improving of almost all the drips. LDH remain around thousand Medications: Reviewed: Yes Vitals/I&O/Wt Last Vital Signs Temp 97.9 F 05/29/20 16:00 Pulse 64 05/29/20 16:00 Resp 14 05/29/20 14:21 BP 99/69 05/29/20 16:00 Pulse Ox 97 05/29/20 16:00 05/29/20 05/29/20 05/29/20 06:59 14:59 22:59 Intake Total 878.093 / 3098.031 202.375 / 202.375 Output Total 352 / 2198 753 / 753 560 / 1313 Balance 526.093 / 900.031 -550.625 / -550.625 -560 / -1110.625 Physical Exam Narrative: EXAM NARRATIVE: GENERAL: Patient is sedated and intubated. NECK: No jugular vein distension. HEENT: No cyanosis. No icterus. No pallor. HEART: Regular S1 and S2. No murmur, rub or gallop. LUNGS: Decreased breath sound bilaterally. ABDOMEN: Soft, nontender and nondistended. Positive bowel sounds. No guarding, rebound or tenderness. CENTRAL NERVOUS SYSTEM: Cannot assess completely due to sedation EXTREMITIES: Lower extremities with edema bilaterally. Good anterior posterior tibial palpable pulses in both feet with normal temperature and color without any sign of ischemia Const: COMMON NORMALS: alert Resp: COMMON NORMALS: clear to auscultation bilaterally AUSCULTATION: clear to auscultation bilaterally Neuro: SENSORIUM/ORIENTATION: Yes alert Urinary Catheter Management^: Gandhi: Cath Placed During This Visit: no Reason for Continuing Indwelling Catheter: Accurate Measurement of Urinary Output in Critically Ill Patients Data : 05/29/20 03:47 05/29/20 03:41 Micro: Microbiology 05/28/20 13:33 Blood Culture - Preliminary Blood NEGATIVE TO DATE 05/28/20 13:25 Blood Culture - Preliminary Blood NEGATIVE TO DATE 05/27/20 08:20 Gram Stain - Final Sputum - Endotracheal Tube Aspirate Sputum Culture - Final 05/28/20 13:30 Urine Culture - Preliminary Urine Catheterized A&P Assessment and plan (1) Cardiogenic shock: Patient is stabilizing slowly hopefully in couple of days heart function will further improve so that we can wean her off of Impella, LDH stable no hematuria or bloody urine noted. Patient is off almost all the drips except very low-dose of dobutamine. Continue aspirin statin Plavix and a nticoagulation. PTT in between 50-70. Status: Acute (2) Cardiac arrest: Stable currently on mechanical device for pressure support. Continue offloading ventricle Status: Acute (3) Hyperlipemia: Continue statin Status: Acute Qualifiers: Hyperlipidemia type: mixed hyperlipidemia Qualified Code(s): E78.2 - Mixed hyperlipidemia (4) CAD (coronary artery disease): Stress-induced cardiomyopathy at this time patient has history of coronary artery disease continue current regimen. Continue Plavix aspirin statin. Currently blood pressure is low will not introduce beta-hcoco. Once blood pressure improves will do that Status: Acute Qualifiers: Coronary Disease-Associated Artery/Lesion type: [place] artery [place] vs. transplanted heart: [place] heart Associated angina: without angina Qualified Code(s): I25.10 - Atherosclerotic heart disease of [place] coronary artery without angina pectoris (5) Syncope and collapse: Most likely secondary to cardiac arrest Status: Acute (6) COPD (chronic obstructive pulmonary disease): Intubated, treatment as per medicine Status: Acute Qualifiers: COPD type: chronic bronchitis (7) Cardiomyopathy in disease classified elsewhere: Continue IV Lasix. I will increase it to 40 mg twice daily. Status: Acute (8) Sepsis: Continue antibiotics Status: Acute Attestations Medical Necessity Statement*: Require continuation hospitalization for above defined care 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 of Care Code Established Pt Acute Medium Cycle Salesperson for g Fwd Patient Type Established History Comprehensive Exam Comprehensive Medical Decision Making High Complexity Diagnoses Cardiogenic shock R57.0 Cardiac arrest I46.9 Hyperlipemia E78.2 Hyperlipidemia type: mixed hyperlipidemia CAD (coronary artery disease) I25.10 Coronary Disease-Associated Artery/Lesion type: [place] artery [place] vs. transplanted heart: [place] heart Associated angina: without angina Syncope and collapse R55 COPD (chronic obstructive pulmonary disease) J44.9 COPD type: chronic bronchitis Cardiomyopathy in disease classified elsewhere I43 Sepsis A41.9
[2020-05-29 16:32] LABS: Partial Thromboplastin Time 38.4 SECONDS (23.9-36.7)
[2020-05-29] MEDS: heparin drip 25,000 UNIT/500 ML PREMIX 12 UNIT IV (17:24)
--- NOTE | 2020-05-29 17:27 | PC.NURSE ---
CVP is 13
--- NOTE | 2020-05-29 19:05 | PC.NURSE ---
Lasix 40mg given IVP at 1345 per A. DULCE Streeter. Forgot to scan dose.
--- NOTE | 2020-05-29 19:38 | PC.NURSE ---
Core temp reading 97.3 per rectal probe. Louis temp 97.1. Temp probe bent, unsure of accuracy. Removed temp probe.
[2020-05-29] MEDS: dexmedetomidine 400 MCG in sodium chloride 0.9% (100 ml) 100 ML 5.2 MCG IV (20:13)
[2020-05-29 22:28] LABS: Partial Thromboplastin Time 74.9 SECONDS (23.9-36.7)
[2020-05-30] VITALS (106 sets, daily range): BP systolic 70–141; BP diastolic 48–110; PULSE 57–178; RESP 14–26; TEMP 36.6–37.5; O2SAT 87–100
[2020-05-30] MEDS: hydrocortisone 100 mg/2 mL SDV 50 MG IVP ×2 (00:22→23:19)
[2020-05-30] MEDS: FUROsemide 10 mg/mL SDV 4mL 40 MG IVP (01:46)
[2020-05-30] MEDS: propofol 1,000 MG/100 ML INJ 15 MG IV (02:34)
[2020-05-30 04:37] LABS: Basophils % 0.2 %; Eosinophils % 0.1 %; Hematocrit 34.7 % (37.0-47.0); Hemoglobin 10.8 g/dL (11.5-15.3); Lymphocytes # 1.2 10^3/uL (0.8-4.8); Mean Corpuscular HGB Conc 31.1 g/dL (30.0-36.0); Mean Corpuscular Hemoglobin 29.8 pg (28.0-34.0); Mean Corpuscular Volume 95.6 fL (81-99); Mean Platelet Volume 11.3 fL (7.4-10.4); Monocytes # 0.7 10^3/uL (0.2-0.9); Monocytes % 4.2 %; Neutrophils # 15.02 10^3/uL (1.8-7.7); Neutrophils % 87.3 %; Nucleated Red Blood Cells % 0.1 %; Platelet Count 150 10^3/cmm (130-400); Red Blood Count 3.63 10^6/uL (4.1-5.3); Red Cell Distribution Width 14.7 % (12.1-15.1); White Blood Count 17.2 10^3/uL (4.0-10.0)
[2020-05-30 04:59] LABS: Partial Thromboplastin Time 90.3 SECONDS (23.9-36.7)
[2020-05-30 05:00] LABS: Alanine Aminotransferase 41 U/L (0-33); Alkaline Phosphatase 45 IU/L (35-105); Anion Gap 14.2 (5-19); Aspartate Amino Transferase 88 U/L (0-32); Blood Urea Nitrogen 25 mg/dL (6-20); Carbon Dioxide 26 mmol/L (22-29); Chloride 105 mmol/L (98-107); Globulin 2.4 g/dL (1.3-4.6); Glomerular Filtration Rate 73.4 mL/min (90-130); Glucose 132 mg/dL (65-115); Lactate Dehydrogenase 979 U/L (135-214); Magnesium 2.1 mg/dL (1.7-2.3); Osmolality Calculated 300 mOsm/kg (285-295); Potassium 3.2 mmol/L (3.5-5.1); Sodium 142 mmol/L (136-145); Total Bilirubin 0.6 mg/dL (0.15-1.2); Total Protein 5.4 g/dL (6.6-8.7)
--- NOTE | 2020-05-30 05:05 | PC.NURSE ---
P-level decreased to 6 due to suction alarms.
[2020-05-30] MEDS: DOBUTamine drip 500 MG/250 ML PREMIX IV (05:20)
[2020-05-30] MEDS: propofol 1,000 MG/100 ML INJ 21 MG IV (07:55)
[2020-05-30] MEDS: potassium chloride premix 40 MEQ/100 ML PREMIX 25 MEQ IV (07:56)
--- NOTE | 2020-05-30 08:18 | PC.NURSE ---
monitoring pt labs noted and small amt of black drainage per ng tube Dr caitlin kaur ordered at this time
--- NOTE | 2020-05-30 08:49 | PC.NURSE ---
converted into afib at this time rate of 177 amiodorone restarted at this time
[2020-05-30] MEDS: metoprolol tartrate 1 mg/1 mL SDV 5 mL 5 MG IV (09:13)
[2020-05-30] MEDS: pantoprazole 40 mg SDV IVP ×2 (09:27→22:54)
[2020-05-30] MEDS: atorvastatin 40 mg Tablet 80 MG NG-TUBE (09:27)
[2020-05-30] MEDS: clopidogrel 75 mg Tablet PO (09:28)
[2020-05-30] MEDS: chlorhexidine gluconate 0.12% Btl 473 mL 15 ML MUCOUS MEM (09:40)
[2020-05-30] MEDS: doxycycline 100 MG in sodium chloride 0.9% (plus) 100 ML IV ×2 (10:17→21:34)
[2020-05-30 10:31] LABS: Partial Thromboplastin Time 53.6 SECONDS (23.9-36.7)
[2020-05-30] MEDS: sodium chloride 0.9% 1,000 ML 100 ML IV (12:37)
[2020-05-30] MEDS: sodium chloride 0.9% 500 ML 999 ML IV ×2 (12:37→16:36)
[2020-05-30] MEDS: propofol 1,000 MG/100 ML INJ 6 MG IV (13:01)
--- NOTE | 2020-05-30 13:17 | XRR_ITS ---
PROCEDURE INFORMATION: Exam: XR Chest, 1 View Exam date and time: 05/30/2020 2:23 PM Age: 59 years old Clinical indication: Device placement; Ett placement (vent status); Additional info: Pna TECHNIQUE: Imaging protocol: XR of the chest Views: 1 view. COMPARISON: CR (CHEST, ) 05/29/2020 10:57 AM FINDINGS: Lungs: Unremarkable. No consolidation. Pleural space: Unremarkable. No pleural effusion. No pneumothorax. Heart/Mediastinum: Unremarkable. No cardiomegaly. Bones/joints: Unremarkable. There is a right central line extending into the right atrium Endotracheal tube is in place 5.8 cm above the judd. The NG tube is in the subdiaphragmatic tissues the distal aspect is not visible. XR/XR chest 1V portable [id number] IMPRESSION: 1. Negative for acute abnormality. 2. Right central line is in the right atrium 3. NG tube is subdiaphragmatic the tip is not visible 4. Endotracheal tube is in position as described
--- NOTE | 2020-05-30 13:23 | PC.NURSE ---
heart rate decreased to rate of 30 restless sx ... oral and et.. amio gtt off
[2020-05-30 13:47] LABS: ABG PCO2 39.2 mmHg (35-45); ABG PH Result 7.43 (7.35-7.45); Alveolar-Arterial Oxygen Gradi 31.2 mmHg (5-10); Arterial Blood Gas Hematocrit 31.5 % (37-47); Base Excess ABG 1.7 mmol/L (-2.0-2.0); Blood Gas Allen Test Pos; Blood Gas Operator Identificat GD; Blood Gas Sample Site Radial, right; Blood Gas Sample Type Arterial; Carboxyhemoglobin 0.9 %THgb (0.4-20.1); HCO3 ABG 26.1 mmol/L (22-26); HGB O2 Sat 92.1 % (95-100); Ionized Calcium Level - ABG 1.1 mmol/L (1.1-1.4); Methemoglobin 0.6 % (0.4-1.5); Oxygen Device VENT; Oxygen Saturation ABG 93.5; PO2 ABG 65.1 mmHg (80.0-100.0); Potassium Level - ABG 3.1 mmol/L (3.5-5.0); Total Hemoglobin 10.3 g/dL (12-16)
--- NOTE | 2020-05-30 14:00 | PM.PN ---
Subjective Subjective: Interval history: Patient remains intubated. She has episode of SVT aborted with amiodarone and Lopressor. He remains on very low dobutamine support. Medications: Reviewed: Yes Vitals/I&O/Wt Last Vital Signs Temp 99.5 F 05/30/20 11:34 Pulse 75 05/30/20 13:30 Resp 15 05/30/20 12:15 BP 83/60 05/30/20 13:30 Pulse Ox 93 05/30/20 13:30 05/29/20 05/30/20 05/30/20 22:59 06:59 14:59 Intake Total 928.943 / 1431.318 377.30 / 3162.003 5760.304 / 1188.304 Output Total 1326 / 2079 1416 / 3495 295 / 295 Balance -397.057 / -647.682 -1038.70 / -1686.382 893.304 / 893.304 Physical Exam Narrative: EXAM NARRATIVE: GENERAL: Patient is sedated and intubated. She moves around when reduce sedation NECK: No jugular vein distension. HEENT: No cyanosis. No icterus. No pallor. HEART: Regular S1 and S2. No murmur, rub or gallop. LUNGS: Decreased breath sound bilaterally. ABDOMEN: Soft, nontender and nondistended. Positive bowel sounds. No guarding, rebound or tenderness. CENTRAL NERVOUS SYSTEM: Cannot assess completely due to sedation EXTREMITIES: Lower extremities with edema bilaterally. Good anterior posterior tibial palpable pulses in both feet with normal temperature and color without any sign of ischemia. Both legs looks good no ischemia no discoloration. Const: COMMON NORMALS: alert Resp: COMMON NORMALS: clear to auscultation bilaterally AUSCULTATION: clear to auscultation bilaterally Neuro: SENSORIUM/ORIENTATION: Yes alert Urinary Catheter Management^: Gandhi: Cath Placed During This Visit: no Reason for Continuing Indwelling Catheter: Accurate Measurement of Urinary Output in Critically Ill Patients Data : 05/30/20 04:14 05/30/20 04:14 Micro: Microbiology 05/28/20 13:30 Urine Culture - Final Urine Catheterized 05/28/20 13:33 Blood Culture - Preliminary Blood NEGATIVE TO DATE 05/28/20 13:25 Blood Culture - Preliminary Blood NEGATIVE TO DATE 05/27/20 08:20 Gram Stain - Final Sputum - Endotracheal Tube Aspirate Sputum Culture - Final A&P Assessment and plan (1) Cardiogenic shock: Patient appeared to be dehydrated as evident by reduced urine output physical examination and Impella increased suction alarm. I will give her a fluid challenge 500 mL followed by 100 mL/h of IV normal saline. Continue rest of the treatment as per medicine Status: Acute (2) Cardiac arrest: Stable. No more episode of VT or V. fib Status: Acute (3) Hyperlipemia: Continue statin Status: Acute Qualifiers: Hyperlipidemia type: mixed hyperlipidemia Qualified Code(s): E78.2 - Mixed hyperlipidemia (4) CAD (coronary artery disease): Stress-induced cardiomyopathy. Once stable more blood pressure wiley we may will put her on ELIZABETH inhibitor and beta-choco. Due to minor GI bleed taken off of Plavix and aspirin Status: Acute Qualifiers: Coronary Disease-Associated Artery/Lesion type: [place] artery [place] vs. transplanted heart: [place] heart Associated angina: without angina Qualified Code(s): I25.10 - Atherosclerotic heart disease of [place] coronary artery without angina pectoris (5) Syncope and collapse: Most likely secondary to cardiac arrest Status: Acute (6) COPD (chronic obstructive pulmonary disease): Intubated, treatment as per medicine Status: Acute Qualifiers: COPD type: chronic bronchitis (7) Cardiomyopathy in disease classified elsewhere: Appear to be dry I will hold diuretics for now Status: Acute (8) Sepsis: Continue antibiotics as per medicine colleagues Status: Acute (9) SVT (supraventricular tachycardia): Status: Acute (10) GI bleed: Hold Plavix aspirin increase Protonix to IV twice daily. Continue to monitor hemoglobin. Will ask for LDH. No hemolysis in the urine noted Status: Acute Attestations Medical Necessity Statement*: Require continuation of hospitalization for above defined care. 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 of Care Code Established Pt Acute Analyst Geochemical Prospecting for [employer] Patient Type Established History Comprehensive Exam Comprehensive Medical Decision Making High Complexity Diagnoses Cardiogenic shock R57.0 Cardiac arrest I46.9 Hyperlipemia E78.2 Hyperlipidemia type: mixed hyperlipidemia CAD (coronary artery disease) I25.10 Coronary Disease-Associated Artery/Lesion type: [place] artery [place] vs. transplanted heart: [place] heart Associated angina: without angina Syncope and collapse R55 COPD (chronic obstructive pulmonary disease) J44.9 COPD type: chronic bronchitis Cardiomyopathy in disease classified elsewhere I43 Sepsis A41.9 SVT (supraventricular tachycardia) I47.1 GI bleed K92.2
[2020-05-30 17:16] LABS: Partial Thromboplastin Time 60.4 SECONDS (23.9-36.7)
--- NOTE | 2020-05-30 17:29 | PM.PN ---
Subjective Subjective: Interval history: Patient continues to be on mechanical ventilation and impella.She had episode of SVT which was aborted with metoprolol tartrate and now on amiodrip. GCS:10T. Vitals and labs have been reviewed. Medications: Reviewed: Yes Vitals/I&O/Wt Last Vital Signs Temp 99.0 F 05/30/20 15:00 Pulse 61 05/30/20 17:00 Resp 15 05/30/20 14:05 BP 86/60 05/30/20 17:00 Pulse Ox 96 05/30/20 17:00 05/30/20 05/30/20 05/30/20 06:59 14:59 22:59 Intake Total 377.30 / 2998.596 1888.304 / 1188.304 636.9 / 1825.204 Output Total 1416 / 3495 320 / 320 115 / 435 Balance -1038.70 / -1686.382 868.304 / 868.304 521.9 / 1390.204 Physical Exam HENMT: COMMON NORMALS: normocephalic and atraumatic HEAD & SCALP: normocephalic and atraumatic Eye: COMMON NORMALS: no scleral icterus GENERAL EYE: appearance normal, both eyes and all related structures Chest: COMMONS NORMALS: normal inspection of the chest Resp: COMMON NORMALS: clear to auscultation bilaterally AUSCULTATION: clear to auscultation bilaterally Cardio: COMMON NORMALS: regular rate, regular rhythm, S1 normal heart sound present, S2 normal heart sound present, No gallops present (Cardio), No murmurs present (Cardio), No rub (Cardio) and Peripheral pulses 2+ throughout RATE: regular rate RHYTHM: regular rhythm HEART SOUNDS: S1 normal heart sound present and S2 normal heart sound present PERIPHERAL PULSES: Peripheral pulses 2+ throughout GI: COMMON NORMALS: Normal to inspection, nondistended, normoactive bowel sounds present, Soft to palpation, non-tender, No hepatosplenomegaly present and no masses AUSCULTATION: Yes normoactive bowel sounds PALPATION: Yes Soft to palpation and Yes No hepatosplenomegaly present RECTAL EXAM: deferred Extremity: COMMON NORMALS: no clubbing, cyanosis or edema and no pedal edema Urinary Catheter Management^: Gandhi: Cath Placed During This Visit: no Reason for Continuing Indwelling Catheter: Accurate Measurement of Urinary Output in Critically Ill Patients Data : 05/30/20 04:14 05/30/20 04:14 Micro: Microbiology 05/28/20 13:30 Urine Culture - Final Urine Catheterized 05/28/20 13:33 Blood Culture - Preliminary Blood NEGATIVE TO DATE 05/28/20 13:25 Blood Culture - Preliminary Blood NEGATIVE TO DATE A&P Assessment and plan (1) Respiratory failure: Ac Hypoxic R/F multifactorail ( Aspiration PNA,Cardiogenic shock,Sepsis Shock) : Am Xray chest : Shows marked improvement in rt sided patchy air space disease (Currently at PEEP of 12) Am ABG : Ph: 7.43,PCO2: 39,PO2: 65 FIO2: 60% P/F : 108 as compared to P/F : 112 yesterday. Currently Intubated, sedated , on mechanical ventilation. ( Tv: 400,FIO2:60 %,PEEP:10 R/R: 14) Lasix was discontinued today as the patient was hypotensive and clinically dehydarted. Continue mechanical ventilation.Continue to monitor ABG and xray chest. Continue ABX. Status: Acute (2) Septic shock: Post initial resuscitation in the ER wherein she was intubated and a central line was placed by the hospitalist hydraulic elevator constructor. As per the last cardiology note she Patient had brief episode of V. fib followed by asystole. CPR was performed sinus rhythm was restored. Patient was immediately taken to the Workers Compensation Consultant. In route she had brief episode of V. fib she was given amiodarone during process of CPR while about to shock patient resumed the sinus rhythm. Cardiac cath is suggestive of stress cardiomyopathy with clean coronaries. She has required minimal dobutamine drip support today .And has been off all other pressors support ( Levophed and vasopressin ). Cultres : No growth till this date. Hydrocortisone Deescalation. Continue with imipenem, vancomycin, doxycycline. Status: Acute (3) Cardiogenic shock: Currently on Impella. On low-dose dobutamine Levophed along with vasopressin has been turned of. Good Peripheral circulation.Warm Extremities. Received 40 mg I.V lasix * 1 dose Status: Acute (4) Aspiration pneumonia: Currently on broad-spectrum anti-biotics. Xray chest has shown improvement though she is on PEEP of 12. Status: Acute (5) SVT (supraventricular tachycardia): A.fib aborted today with Metoprolol tartrate, and now on amio drip. Status: Acute (6) GI bleed: Likely UGIB.N.G Aspirate is coffee ground . H/H Stable.Continue to monitor CBC. On protonix 40 mg I.V Daily. 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 Currently she is on aspirin and Plavix. Cardiology is on board Status: Acute Qualifiers: Involved coronary artery: unspecified coronary artery Qualified Code(s): I21.3 - ST elevation (STEMI) myocardial infarction of unspecified site (8) Cardiopulmonary arrest with successful resuscitation: Status: Acute (9) Hypertension: Currently hypotensive. Status: Acute Qualifiers: Hypertension type: essential hypertension Qualified Code(s): I10 - Essential (primary) hypertension (10) Anaphylaxis: Has responded to Solu-Medrol and famotidine. Status: Acute Qualifiers: Encounter type: initial encounter Qualified Code(s): T78.2XXA - Anaphylactic shock, unspecified, initial encounter (11) Amoxicillin-induced allergic rash: Has responded to Solu-Medrol and famotidine. Status: Acute (12) High anion gap metabolic acidosis: Secondary to sepsis. Management as 1 Status: Acute (13) COPD (chronic obstructive pulmonary disease): As needed nebs. Status: Acute Qualifiers: COPD type: chronic bronchitis (14) Stress-induced cardiomyopathy: Once She is stable. We will start her on ELIZABETH inhibitor as well beta-choco. Status: Acute Additional A&P Information DVT PPX: On Heparin GI prophylaxis: On on Protonix 40 mg IV daily. Prognosis: Poor 2D Echo: 1-Normal left ventricular cavity size. Severely decreased left ventricular systolic function. Global left ventricular hypokinesis with ballooning of apex consistent with stress- induced cardiomyopathy. [place] appears to be akinetic. Left ventricular ejection fraction is estimated at 20 %. 2-There appeared to be opening and closing of the valve without significant stenosis however due to absence of Doppler data cannot comment on his regurgitation. 3-There is no pericardial effusion. 5-Right atrial pressure is around 5 mm of mercury. 6-when compared to the prior echocardiogram dated July 01, 2019 there appeared to be worsening of left ventricle ejection fraction from normal 65% to severely depressed 20% now . arterial duplex LE BI : Abnormal resting EDMAR on the right side, suggestive of moderate peripheral artery disease Abnormal resting EDMAR on the left side, suggestive of severe peripheral artery disease. Technically somewhat difficult study Attestations Medical Necessity Statement*: She needs to stay in hospital for management of Cardiogenic/septic shock 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 of Care Code Acute Integration Engineer for Herb Fwd Diagnoses Respiratory failure J96.90 Septic shock A41.9; R65.21 Cardiogenic shock R57.0 Aspiration pneumonia J69.0 SVT (supraventricular tachycardia) I47.1 GI bleed K92.2 STEMI (ST elevation myocardial infarction) I21.3 Involved coronary artery: unspecified coronary artery Cardiopulmonary arrest with successful resuscitation I46.9 Hypertension I10 Hypertension type: essential hypertension Anaphylaxis T78.2XXA Encounter type: initial encounter Amoxicillin-induced allergic rash L27.0; T36.0X5A High anion gap metabolic acidosis E87.2 COPD (chronic obstructive pulmonary disease) J44.9 COPD type: chronic bronchitis Stress-induced cardiomyopathy I51.81
[2020-05-30] MEDS: propofol 1,000 MG/100 ML INJ 18 MG IV (20:14)
[2020-05-30] MEDS: dexmedetomidine 400 MCG in sodium chloride 0.9% (100 ml) 100 ML 5.2 MCG IV (21:53)
[2020-05-31] VITALS (107 sets, daily range): BP systolic 84–131; BP diastolic 61–104; PULSE 51–77; RESP 14–20; TEMP 36.7–37.4; O2SAT 89–100
[2020-05-31 01:07] LABS: Partial Thromboplastin Time 67.1 SECONDS (23.9-36.7)
[2020-05-31] MEDS: sodium chloride 0.9% 1,000 ML 100 ML IV ×4 (03:10→23:04)
[2020-05-31] MEDS: propofol 1,000 MG/100 ML INJ 21 MG IV ×3 (03:14→11:40)
[2020-05-31 03:47] LABS: Basophils % 0.3 %; Eosinophils # 0.1 10^3/uL (0.0-0.8); Eosinophils % 0.8 %; Hematocrit 31.4 % (37.0-47.0); Hemoglobin 9.6 g/dL (11.5-15.3); Lymphocytes # 1.3 10^3/uL (0.8-4.8); Lymphocytes % 11.1 %; Mean Corpuscular HGB Conc 30.6 g/dL (30.0-36.0); Mean Corpuscular Hemoglobin 29.7 pg (28.0-34.0); Mean Corpuscular Volume 97.2 fL (81-99); Mean Platelet Volume 12.3 fL (7.4-10.4); Monocytes # 0.6 10^3/uL (0.2-0.9); Monocytes % 5.3 %; Neutrophils # 9.65 10^3/uL (1.8-7.7); Neutrophils % 81.2 %; Nucleated Red Blood Cells % 0.3 %; Platelet Count 117 10^3/cmm (130-400); Red Blood Count 3.23 10^6/uL (4.1-5.3); White Blood Count 11.9 10^3/uL (4.0-10.0)
[2020-05-31 04:09] LABS: Anion Gap 11.4 (5-19); Blood Urea Nitrogen 22 mg/dL (6-20); Calcium 7.9 mg/dL (8.5-10.5); Carbon Dioxide 24 mmol/L (22-29); Chloride 109 mmol/L (98-107); Glomerular Filtration Rate 73.4 mL/min (90-130); Glucose 112 mg/dL (65-115); Osmolality Calculated 296 mOsm/kg (285-295); Potassium 3.4 mmol/L (3.5-5.1); Sodium 141 mmol/L (136-145)
[2020-05-31 05:13] LABS: Vancomycin Trough 15.5 ug/mL (10-15)
[2020-05-31 07:20] LABS: Partial Thromboplastin Time 132.4 SECONDS (23.9-36.7)
--- NOTE | 2020-05-31 09:05 | PC.NURSE ---
spoke to Dr. Johnson regarding hypobowel sounds and need for nutrition. States he will speak with cardiology and get back with typewriters functional tester.
[2020-05-31] MEDS: potassium chloride oral liq 20 mEq/15 mL UDC 40 MEQ OG-TUBE (09:31)
[2020-05-31] MEDS: doxycycline 100 MG in sodium chloride 0.9% (plus) 100 ML IV ×2 (09:32→21:12)
[2020-05-31] MEDS: atorvastatin 40 mg Tablet 80 MG NG-TUBE (09:32)
[2020-05-31] MEDS: chlorhexidine gluconate 0.12% Btl 473 mL 15 ML MUCOUS MEM (09:32)
[2020-05-31] MEDS: pantoprazole 40 mg SDV IVP ×2 (09:33→21:13)
--- NOTE | 2020-05-31 09:56 | PC.NURSE ---
Dr. Powell in room assessing pt. Dobutamine stopped and Impella decreased to P4. Will continue to monitor.
--- NOTE | 2020-05-31 11:30 | PM.PN ---
Subjective Subjective: Interval history: Sedated on ventilator. History and physical reviewed. Medications: Reviewed: Yes Vitals/I&O/Wt Last Vital Signs Temp 98.2 F 05/31/20 11:00 Pulse 55 L 05/31/20 11:00 Resp 14 05/31/20 11:09 BP 106/68 05/31/20 11:00 Pulse Ox 97 05/31/20 11:00 05/30/20 05/31/20 05/31/20 22:59 06:59 14:59 Intake Total 979.794 / 2168.098 166.857 / 2334.955 327.807 / 327.807 Output Total 375 / 695 395 / 1090 256 / 256 Balance 604.794 / 1473.098 -228.143 / 1244.955 71.807 / 71.807 Physical Exam Narrative: EXAM NARRATIVE: General exam is a sedated female. Cardiovascular regular rate and rhythm Lungs clear Abdomen is soft, positive bowel sounds, Impella device right groin Extremities no cyanosis clubbing or edema. Palpable pulse right lower extremity Urinary Catheter Management^: Gandhi: Cath Placed During This Visit: no Reason for Continuing Indwelling Catheter: Accurate Measurement of Urinary Output in Critically Ill Patients Data : 05/31/20 03:15 05/31/20 03:15 Micro: Microbiology 05/28/20 13:30 Urine Culture - Final Urine Catheterized A&P Assessment and plan (1) Respiratory failure: Acute hypoxic respiratory failure, multifactorial. Concerns were aspiration, cardiogenic shock, sepsis, anaphylaxis. This required resuscitation in the emergency department, where a brief episode of ventricular fibrillation, asystole and CPR was performed ABG not performed today but appears to be oxygenating well. Continue current ventilator settings, while Impella device is in.. No plans to wean today. Status: Acute (2) Septic shock: Currently off all pressors but is still on dobutamine. Currently on Primaxin, vancomycin, and doxycycline Hydrocortisone was added secondary to profound hypotension and currently at 50 mg IV every 24 hours Status: Acute (3) Cardiogenic shock: Currently on Impella, low-dose dobutamine. Angiogram did not demonstrate flow-limiting coronary stenosis Significant reduction in EF was noted, approximately 20%. Thought to have stress-induced cardiomyopathy Received diuresis with IV Lasix but currently on hold secondary to hypotension Status: Acute (4) Aspiration pneumonia: Continue Primaxin, vancomycin Status: Acute (5) SVT (supraventricular tachycardia): Intermittently with SVT. Has intermittently required metoprolol, amiodarone drip. Cardiology following. Status: Acute (6) GI bleed: Continue Protonix 40 mg IV every 12 hours Plavix discontinued. Still currently on a heparin drip which she is tolerating. Hemoglobin is likely stable considering the fluid she is receiving. Status: Acute (7) STEMI (ST elevation myocardial infarction): Cardiology following. Angiogram did not demonstrate significant coronary plaque. Thought to have stress-induced cardiomyopathy Status: Acute Qualifiers: Involved coronary artery: unspecified coronary artery Qualified Code(s): I21.3 - ST elevation (STEMI) myocardial infarction of unspecified site (8) Cardiopulmonary arrest with successful resuscitation: Status: Acute (9) Hypertension: Status: Acute Qualifiers: Hypertension type: essential hypertension Qualified Code(s): I10 - Essential (primary) hypertension (10) Anaphylaxis: Initially appeared to have anaphylaxis. Currently no signs of anaphylaxis. Still on hydrocortisone for hypotension. Status: Acute Qualifiers: Encounter type: initial encounter Qualified Code(s): T78.2XXA - Anaphylactic shock, unspecified, initial encounter (11) Amoxicillin-induced allergic rash: Resolved Status: Acute (12) High anion gap metabolic acidosis: Secondary to sepsis. Resolved Status: Acute (13) COPD (chronic obstructive pulmonary disease): No evidence of exacerbation Status: Acute Qualifiers: COPD type: chronic bronchitis (14) Stress-induced cardiomyopathy: Consider beta-choco, ELIZABETH inhibitor if blood pressure stabilizes Status: Acute Additional A&P Information Peripheral vascular disease DVT prophylaxis with heparin Full code Attestations Medical Necessity Statement*: Needs continued hospitalization, for close follow-up with respiratory failure requiring ventilatory support, sepsis, cardiogenic shock with markedly low EF. Critical Care Time: 54 minutes of time spent in critical care, reviewing ventilator settings, previous notes, visiting with nursing and subspecialists in this patient with multiple comorbidities with high risk of decompensation. 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 of Care Code Acute Environment Coordinator for Herb Apple Diagnoses Respiratory failure J96.90 Septic shock A41.9; R65.21 Cardiogenic shock R57.0 Aspiration pneumonia J69.0 SVT (supraventricular tachycardia) I47.1 GI bleed K92.2 STEMI (ST elevation myocardial infarction) I21.3 Involved coronary artery: unspecified coronary artery Cardiopulmonary arrest with successful resuscitation I46.9 Hypertension I10 Hypertension type: essential hypertension Anaphylaxis T78.2XXA Encounter type: initial encounter Amoxicillin-induced allergic rash L27.0; T36.0X5A High anion gap metabolic acidosis E87.2 COPD (chronic obstructive pulmonary disease) J44.9 COPD type: chronic bronchitis Stress-induced cardiomyopathy I51.81
--- NOTE | 2020-05-31 12:26 | USCV_ITS ---
Viridiana Corral Age: 59 Gender: F : 1960 Exam Date: 05/31/2020 12:52 Ordering Phys: Myra Powell MD ([email or web address]) Technologist: Jasmeet Bui Exam Location: [facility] [place] Indication: IMPELLA PLACEMENT BP: / HR: Rhythm: Sinus Technical Quality: Fair MEASUREMENTS (Male / Female) Normal Values 2D ECHO LV Diastolic Diameter PLAX 3.8 cm 4.2 - 5.9 / 3.9 - 5.3 cm LV Systolic Diameter PLAX 2.8 cm IVS Diastolic Thickness 1.1 cm 0.6 - 1.0 / 0.6 - 0.9 cm IVS Systolic Thickness 1.4 cm LVPW Diastolic Thickness 1.2 cm 0.6 - 1.0 / 0.6 - 0.9 cm LVPW Systolic Thickness 1.6 cm LV Ejection Fraction 2D Teich 50.8 % LV Ejection Fraction MOD 2C 49.1 % LV Ejection Fraction 2C AL 49.3 % FINDINGS Left Ventricle Normal left ventricular cavity size. Moderately decreased left ventricular systolic function. Global left ventricular hypokinesis with apical akinesis.left ventricular ejection fraction is estimated at 40 %. Right Ventricle Right Atrium Left Atrium Mitral Valve Aortic Valve Tricuspid Valve Pulmonic Valve Pericardium Aorta CONCLUSIONS Please note that this is a limited echo to assess LV function and Impella placement 1-Normal left ventricular cavity size. Moderately decreased left ventricular systolic function. Global left ventricular hypokinesis with apical akinesis.left ventricular ejection fraction is estimated at 40 %. Impella catheter is stitting in normal position across the Aortic valve in to the left ventricle. 2-There is no pericardial effusion. 3-When compared to the prior echocardiogram dated 05/29/2020 left ventricle ejection fraction has improved from severely depressed 25% to moderately reduced 40% now Myra Powell MD (Electronically Signed) Final Date: 01 June 2020 19:37 S
--- NOTE | 2020-05-31 13:35 | PC.NURSE ---
Labs drawn for Heparin drip.
[2020-05-31 14:12] LABS: Partial Thromboplastin Time 50.9 SECONDS (23.9-36.7)
[2020-05-31] MEDS: fentaNYL 50 mcg/mL INJ 2mL 25 MCG IVP ×2 (15:36→21:53)
[2020-05-31] MEDS: magnesium hydroxide 30 mL UDC PO (15:37)
[2020-05-31 16:15] LABS: Hematocrit 30.3 % (37.0-47.0); Hemoglobin 9.1 g/dL (11.5-15.3)
--- NOTE | 2020-05-31 16:19 | PC.NURSE ---
blood noted in OG tube, Dr. sumner Ordered H&H and stated to hold the tube feed for now. Bowels are getting harder to hear so staff administered Milk of Mag a per PRN medication. also aware of this.
--- NOTE | 2020-05-31 16:22 | PC.NURSE ---
Passive ROM performed on bilat arms and feet, also on left leg. Pt tolerated well.
[2020-05-31] MEDS: propofol 1,000 MG/100 ML INJ 18 MG IV (17:22)
[2020-05-31 20:19] LABS: Partial Thromboplastin Time 45.7 SECONDS (23.9-36.7)
[2020-05-31] MEDS: propofol 1,000 MG/100 ML INJ 29.9 MG IV (22:01)
[2020-05-31] MEDS: hydrocortisone 100 mg/2 mL SDV 50 MG IVP (23:03)
[2020-06-01] VITALS (100 sets, daily range): BP systolic 80–136; BP diastolic 43–94; PULSE 49–101; RESP 14–21; TEMP 36.6–37.1; O2SAT 89–100
--- NOTE | 2020-06-01 | XACV_ITS ---
Exam Room: [facility] Ht: 165 cm Wt: 100 kg BSA: 2.18 m2 Gender: Female : 1960 Any Known Allergies: Other Exam Priority: Routine Procedure(s): Procedure Description: Diagnostic procedure Diagnostic Cath Status: Urgent Conclusions 1. Indication for Flight Engineer visit: Removal of Impella device after improvement of refractory cardiogenic shockCPT code:[id number] side-port of the sheath Perclose device was deployed [id number] shutting down Impella following protocol over the wire Impella catheter was taken out of Impella sheath. Both Perclose remain unsuccessful bleeding was noted manual pressure was held for more than an hour. After confirming good hemostasis patient was then transferred back to ICU in a stable vital and condition.. Recommendations * 1-Return to inpatient for close monitoring and routine cath care 2-Risk factor modification for secondary prevention 3-Statin and aspirin 81 mg life--long, if tolerated 4-Continue Plavix 75mg p.o. daily for at least one year. We will assess at the end of one year again to continue if further or not 5-Continue optimal medical management 6-Follow up with Dr. Galo in four weeks and your primary care in 10 days. * a. Diagnostic RX Recommendation: medical therapy and/or counseling Pressures Phase:Rest AO : 129 / 64 ( 85 ) @ 7:49:00 AM 120 / 58 ( 81 ) @ 8:06:00 AM Clinical Evaluation EBL: 40mL-50mL Procedural Details Procedure Consent Obtained. Hemodynamic formulas in Rest were re-calculated based on hemoglobin value from 06/01/2020 8:29:00 AM. Pre-Procedure Time Out. Identified patient by full name and date of as verbalized by the patient/guarantor. Does the consent match the physician's order: Yes. Accurate & Complete Informed Consent: Yes. Inpatient/Outpatient History & Physical on Chart: Yes. If H&P is completed, is and addenduem needed: No; If yes, is the addendum complete: N/A. Visualize and Verify Site with Patient/Guarantor: N/A. Relevant Radiology Images available: N/A. Pre-op teaching completed and patient verbalized understanding. Rep not present. Will wait for Rep to arrive. Procedure postponed at this time. Impella Rep has arrived. We will bring patient to labor standards director soon. Procedure started. Correct patient, site and procedure confirmed by cath team. PERRLA. Strong, equal hand crinkling machine operator bilaterally. Lungs clear x 5 lobes. Patient arrived to labor standards director on a ventilator and will be managed by respiratiory. Physician arrived. Pt arrived with Propofol drip of 21 ml/hr with NS at 50ml/hr. ICU nurse María present for procedure to monitor sedation. bilateral groins was prepped with chloroprep then draped in the usual sterile fashion. Pt arrived with IMPELLA through right groin access with 14 Fr sheath. Pt arrived with grajeda catheter in place. Propofol increased to 24 ml/hr. Physician scrubbed in. Immediate Pre-Procedure Time Out. Correct Patient: Yes; Correct Procedure: Yes; Correct Site: Yes; Correct Patient Position: Yes; Correct Supplies: Yes; Dried Flammable Prep: Yes; Blood Products Available: N/A;. Dr Sorenson scrubbed in to assist. Pt arrived with venous sheath in right groin also. Lidocaine 1% infiltrated to the left groin. Arterial access obtained with micropuncture set. Propofol increased to 27 ml/hr. Wire inserted through Impella sheath on right femoral. Impella pulled back across the valve. Impella Rep turned off Impella. Impella and 14 fr sheath removed over wire. Wire inserted through sheath. Sheath removed over wire. PerClose loaded on wire. Glidewire inserted. Sheath removed over wire. A second PerClose inserted over wire. A third PerClose inserted over wire. Glidewire out. Glidewire inserted. Glidewire out. Manual pressure being held by Dr. Powell. Doppled pulses to right foot. Periodically flushing 4 fr sheath in left femoral to maintain patency. Periodically flushing 4 fr sheath in left femoral to maintain patency. Dr. Sorenson scrubbed out. Side port of sheath attached to Normal Saline flush at KVO to maintain patency. Sheath upsized to a 5 Fr. Physician scrubbed out. A Suture was successful obtaining hemostatsis at the Left Femoral artery insertion site. A Perclose (Ramos) was successful obtaining hemostatsis at the Right Femoral artery insertion site. A Perclose (Valcon) was successful obtaining hemostatsis at the Right Femoral artery insertion site. Sheath(s) sutured into position with 2-0 silk and sterile 4x4's and Op-site applied over the site. No oozing or signs and symptoms of hematoma noted. Post Procedure: Pulses reassessed and unchanged. PERRLA. Strong, equal hand crinkling machine operator bilaterally. No VTE prophylaxis required. Medication's Wasted: Heparin = 1000 units. Post-op diagnosis: Impella removal. Complications: none. Estimated blood loss: 40mL-50mL. Procedure completed. Patient transferred by bed to ICU. Vital chart was stopped. Pt moved from labor standards director table to ICU bed. Pt began bleeding at access site right femoral. Manual pressure being held by Dr Powell. Site redressed. Pt taken to ICU. a. Access Site Site: Left Femoral artery Sheath Size: 4 Fr Hemostasis Method: Suture Hemostasis Success: Successful Site: Right Femoral artery Sheath Size: 7 Fr Hemostasis Method: Perclose (Valcon) Hemostasis Success: Successful Site: Right Femoral artery Sheath Size: 7 Fr Hemostasis Method: Perclose (Ramos) Hemostasis Success: Successful I, the attending physician, have reviewed and verified all procedure medications. Yes, all medications given per verbal order History/Risk Factors Hypertension: No Dyslipidemia: No Peripheral Arterial Disease (PAD): No Myocardial Infarction (PR): No Obesity: No Renal Disease: No Prior Interventions PCI: No CABG: No Valve Surgery: No Report Signatures Finalized by Myra Powell MD on 06/13/2020 05:11 PM
[2020-06-01] MEDS: sodium chloride 0.9% 1,000 ML 100 ML IV ×5 (00:18→15:09)
[2020-06-01] MEDS: propofol 1,000 MG/100 ML INJ 24 MG IV ×3 (01:08→09:55)
[2020-06-01 02:16] LABS: ABG PCO2 44.8 mmHg (35-45); ABG PH Result 7.32 (7.35-7.45); Arterial Blood Gas Hematocrit 33.4 % (37-47); Base Excess ABG -3.1 mmol/L (-2.0-2.0); Blood Gas Allen Test Pos; Blood Gas Sample Type Arterial; Carboxyhemoglobin 0.9 %THgb (0.4-20.1); HGB O2 Sat 84.8 % (95-100); Ionized Calcium Level - ABG 1.2 mmol/L (1.1-1.4); Methemoglobin 1.1 % (0.4-1.5); Oxygen Saturation ABG 86.6; PO2 ABG 55.9 mmHg (80.0-100.0); Potassium Level - ABG 3.9 mmol/L (3.5-5.0); Total Hemoglobin 10.9 g/dL (12-16)
[2020-06-01 02:17] LABS: Blood Gas Sample Site Radial, right; Oxygen Device VENT
[2020-06-01] MEDS: fentaNYL 50 mcg/mL INJ 2mL 25 MCG IVP ×2 (02:27→21:01)
[2020-06-01 04:33] LABS: Partial Thromboplastin Time 59.5 SECONDS (23.9-36.7)
--- NOTE | 2020-06-01 07:00 | XR_ITS ---
WS: [id number] PORTABLE CHEST HISTORY: Follow-up pneumonia COMPARISON: 05/30/2020 RIGHT jugular central line with tip in the distal SVC. Endotracheal tube and nasogastric tubes are in good position. Increasing consolidation in the LEFT lower lung field partially obscuring the LEFT diaphragm. Small L EFT pleural effusion. Cardiac size: Mildly enlarged cardiac silhouette. Mediastinum/Aorta: Normal mediastinum. No osseous abnormality seen. XR/XR chest 1V portable [id number] IMPRESSION: 1. Nasogastric tube and endotracheal tubes are in good position. 2. LEFT lower lobe pneumonia.
[2020-06-01] MEDS: atorvastatin 40 mg Tablet 80 MG NG-TUBE (08:47)
[2020-06-01 08:51] LABS: Basophils # 0.1 10^3/uL (0.0-0.1); Basophils % 0.4 %; Eosinophils # 0.2 10^3/uL (0.0-0.8); Eosinophils % 1.4 %; Hematocrit 30.6 % (37.0-47.0); Lymphocytes # 1.7 10^3/uL (0.8-4.8); Lymphocytes % 13.2 %; Mean Corpuscular HGB Conc 29.4 g/dL (30.0-36.0); Mean Corpuscular Hemoglobin 29.9 pg (28.0-34.0); Mean Corpuscular Volume 101.7 fL (81-99); Mean Platelet Volume 12.4 fL (7.4-10.4); Monocytes # 0.7 10^3/uL (0.2-0.9); Monocytes % 5.9 %; Neutrophils # 9.72 10^3/uL (1.8-7.7); Neutrophils % 77.4 %; Nucleated Red Blood Cells # 0.1 /100WBC; Nucleated Red Blood Cells % 0.5 %; Platelet Count 110 10^3/cmm (130-400); Red Blood Count 3.01 10^6/uL (4.1-5.3); Red Cell Distribution Width 15.5 % (12.1-15.1); White Blood Count 12.6 10^3/uL (4.0-10.0)
[2020-06-01 09:00] LABS: Partial Thromboplastin Time 51.5 SECONDS (23.9-36.7)
[2020-06-01] MEDS: dextrose 5 % 500 ML IV (09:07)
[2020-06-01] MEDS: chlorhexidine gluconate 0.12% Btl 473 mL 15 ML MUCOUS MEM (09:07)
[2020-06-01 09:12] LABS: Alanine Aminotransferase 45 U/L (0-33); Albumin Level 2.6 g/dL (3.5-5.2); Alkaline Phosphatase 41 IU/L (35-105); Anion Gap 10.8 (5-19); Aspartate Amino Transferase 80 U/L (0-32); Blood Urea Nitrogen 16 mg/dL (6-20); Calcium 7.9 mg/dL (8.5-10.5); Carbon Dioxide 22 mmol/L (22-29); Chloride 115 mmol/L (98-107); Globulin 2.4 g/dL (1.3-4.6); Glomerular Filtration Rate 126.3 mL/min (90-130); Glucose 101 mg/dL (65-115); Osmolality Calculated 299 mOsm/kg (285-295); Potassium 3.8 mmol/L (3.5-5.1); Sodium 144 mmol/L (136-145); Total Bilirubin 0.5 mg/dL (0.15-1.2)
--- NOTE | 2020-06-01 09:45 | PC.NURSE ---
Pt BP trending slightly down, systolic remaining in low 100's. HR 48-50, Dr. Powell on floor and aware. labs and chest xray reviewed.
--- NOTE | 2020-06-01 10:37 | PC.NURSE ---
staff called Dr. Powell to let him know that the pt was running 45 consistently. He states to restart Dobutamine at 5 mcg
--- NOTE | 2020-06-01 10:42 | PC.NURSE ---
Heart throwing multiple PVC's decreased Dobutamine to 3 mcg
--- NOTE | 2020-06-01 11:04 | P.PN_ITS ---
Subjective Subjective: Interval history: Viridiana is sedated on the ventilator. Medications: Reviewed: Yes Vitals/I&O/Wt Last Vital Signs Temp 98.6 F 06/01/20 08:00 Pulse 58 L 06/01/20 10:00 Resp 14 06/01/20 09:57 BP 107/66 06/01/20 10:00 Pulse Ox 98 06/01/20 10:00 05/31/20 06/01/20 06/01/20 22:59 06:59 14:59 Intake Total 690.8 / 2395.607 2442.401 / 4838.008 110.40 / 110.40 Output Total 711 / 1087 438 / 1525 82 / 82 Balance -20.2 / 5270.214 9602.401 / 3313.008 28.40 / 28.40 Physical Exam Narrative: EXAM NARRATIVE: General exam is a sedated female. Heart rates are noted to be in the mid 40s Cardiovascular regular rate and rhythm Lungs clear Abdomen is soft, positive bowel sounds, Impella device right groin Extremities no cyanosis clubbing or edema. Palpable pulse right lower extremity Urinary Catheter Management^: Gandhi: Cath Placed During This Visit: no Reason for Continuing Indwelling Catheter: Accurate Measurement of Urinary Output in Critically Ill Patients Data : 06/01/20 08:29 06/01/20 08:29 Micro: Microbiology 05/27/20 04:25 Blood Culture - Final Blood NO GROWTH AFTER 5 DAYS A&P Assessment and plan (1) Respiratory failure: Acute hypoxic respiratory failure, multifactorial. Concerns were aspiration, cardiogenic shock, sepsis, anaphylaxis. This required resuscitation in the emergency department, where a brief episode of ventricular fibrillation, asystole and CPR was performed Reducing PEEP slightly today, after reviewing ABG, vital signs. Hopefully can wean ventilator after Impella device is out. Cardiology is considering removing this today. Status: Acute (2) Septic shock: Currently off all pressors but is still on dobutamine. Currently on Primaxin, vancomycin, and doxycycline Hydrocortisone was added secondary to profound hypotension and currently at 50 mg IV every 24 hours. Continue this currently. Status: Acute (3) Cardiogenic shock: Currently on Impella, low-dose dobutamine. Angiogram did not demonstrate flow-limiting coronary stenosis Significant reduction in EF was noted, approximately 20%. Thought to have stress-induced cardiomyopathy Received diuresis with IV Lasix but currently on hold secondary to hypotension. Cardiology will review and make determination of further Lasix as needed. Re duce IV fluid rate to 50 cc an hour Status: Acute (4) Aspiration pneumonia: Continue Primaxin, vancomycin Status: Acute (5) SVT (supraventricular tachycardia): Intermittently with SVT. Has intermittently required metoprolol, a miodarone drip. Cardiology following. Status: Acute (6) GI bleed: Continue Protonix 40 mg IV every 12 hours Plavix discontinued. Holding heparin, with thought that Impella may be removed today Hemoglobin appears stable today Status: Acute (7) STEMI (ST elevation myocardial infarction): Cardiology following. Angiogram did not demonstrate significant coronary plaque. Thought to have stress-induced cardiomyopathy Status: Acute Qualifiers: Involved coronary artery: unspecified coronary artery Qualified Code(s): I21.3 - ST elevation (STEMI) myocardial infarction of unspecified site (8) Cardiopulmonary arrest with successful resuscitation: Status: Acute (9) Hypertension: Currently borderline hypotensive Status: Acute Qualifiers: Hypertension type: essential hypertension Qualified Code(s): I10 - Essential (primary) hypertension (10) Anaphylaxis: Initially appeared to have anaphylaxis. Currently no signs of anaphylaxis. Still on hydrocortisone for hypotension. Status: Acute Qualifiers: Encounter type: initial encounter Qualified Code(s): T78.2XXA - Anaphylactic shock, unspecified, initial encounter (11) Amoxicillin-induced allergic rash: Resolved Status: Acute (12) High anion gap metabolic acidosis: Secondary to sepsis. Resolved Status: Acute (13) COPD (chronic obstructive pulmonary disease): No evidence of exacerbation Status: Acute Qualifiers: COPD type: chronic bronchitis (14) Stress-induced cardiomyopathy: Consider beta-choco, ELIZABETH inhibitor if blood pressure stabilizes Status: Acute Additional A&P Information Peripheral vascular disease DVT prophylaxis with heparin, but currently on hold with hopes to pull Impella device today. Full code Attestations Medical Necessity Statement*: Needs continued hospitalization, for respiratory failure requiring mechanical ventilation. Time Spent in Patient Care: Greater than 35 minutes Critical Care Time: 42 minutes spent in critical care reviewing ventilator settings, laboratory, examining patient, discussing with nursing and subspecialists overall plan in this critically ill patient with hypotension, anaphylaxis, respiratory failure with high risk of decompensation. 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 of Care Code Acute Patient Relations Coordinator for Herb Apple Diagnoses Respiratory failure J96.90 Septic shock A41.9; R65.21 Cardiogenic shock R57.0 Aspiration pneumonia J69.0 SVT (supraventricular tachycardia) I47.1 GI bleed K92.2 STEMI (ST elevation myocardial infarction) I21.3 Involved coronary artery: unspecified coronary artery Cardiopulmonary arrest with successful resuscitation I46.9 Hypertension I10 Hypertension type: essential hypertension Anaphylaxis T78.2XXA Encounter type: initial encounter Amoxicillin-induced allergic rash L27.0; T36.0X5A High anion gap metabolic acidosis E87.2 COPD (chronic obstructive pulmonary disease) J44.9 COPD type: chronic bronchitis Stress-induced cardiomyopathy I51.81
--- NOTE | 2020-06-01 11:10 | PC.NURSE ---
PT awake, able to wiggle her toes, and answer yes or no questions.
[2020-06-01 13:46] LABS: Basophils # 0.1 10^3/uL (0.0-0.1); Basophils % 0.4 %; Eosinophils # 0.4 10^3/uL (0.0-0.8); Eosinophils % 2.6 %; Hematocrit 29.8 % (37.0-47.0); Hemoglobin 9.1 g/dL (11.5-15.3); Lymphocytes # 2.1 10^3/uL (0.8-4.8); Lymphocytes % 14.7 %; Mean Corpuscular HGB Conc 30.5 g/dL (30.0-36.0); Mean Corpuscular Hemoglobin 29.8 pg (28.0-34.0); Mean Corpuscular Volume 97.7 fL (81-99); Mean Platelet Volume 12.4 fL (7.4-10.4); Monocytes # 0.9 10^3/uL (0.2-0.9); Monocytes % 6.5 %; Neutrophils # 10.59 10^3/uL (1.8-7.7); Neutrophils % 73.4 %; Nucleated Red Blood Cells # 0.1 /100WBC; Nucleated Red Blood Cells % 0.5 %; Platelet Count 126 10^3/cmm (130-400); Red Blood Count 3.05 10^6/uL (4.1-5.3); Red Cell Distribution Width 15.5 % (12.1-15.1); White Blood Count 14.4 10^3/uL (4.0-10.0)
--- NOTE | 2020-06-01 14:42 | PC.NURSE ---
verse writer went with pt to cardiac cath lab radiology technologist to have Impella removed to help maintain vent and sedation. 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
--- NOTE | 2020-06-01 14:58 | PC.NURSE ---
medical writer sitting at bedside with pt as per one on one orders. Instructed by Dr. Powell to sit and bedside and monitor bilat groin sites, keep pt sedated enough for minimal movement or coughing. Will continue to monitor.
[2020-06-01] MEDS: doxycycline 100 MG in sodium chloride 0.9% (plus) 100 ML IV ×2 (15:10→23:01)
[2020-06-01] MEDS: propofol 1,000 MG/100 ML INJ 21 MG IV (15:11)
[2020-06-01] MEDS: pantoprazole 40 mg SDV IVP ×2 (15:12→23:01)
[2020-06-01] MEDS: propofol 1,000 MG/100 ML INJ 26.9 MG IV ×2 (16:59→20:19)
--- NOTE | 2020-06-01 17:59 | PC.NURSE ---
Called Dr Powell to update. REquests that the left art line be pulled at this time and that she continue to be a one on one until approx 2100 this evening.
--- NOTE | 2020-06-01 19:01 | PC.NURSE ---
left Art line pulled. Pressure held for 15 min. will continue to monitor
--- NOTE | 2020-06-01 19:13 | PM.PN ---
Subjective Subjective: Interval history: please note that this is a note from yesterday which I forgot to register. Patient remained stable on vent. Blood pressure has improved she is off of all drips Medications: Reviewed: Yes Vitals/I&O/Wt Last Vital Signs Temp 98.2 F 06/01/20 17:30 Pulse 59 L 06/01/20 18:45 Resp 14 06/01/20 18:44 BP 91/56 06/01/20 18:45 Pulse Ox 96 06/01/20 18:45 06/01/20 06/01/20 06/01/20 06:59 14:59 22:59 Intake Total 2442.401 / 5188.008 2302.333 / 2302.333 37.8 / 2340.133 Output Total 438 / 1525 262 / 262 310 / 572 Balance 2004.401 / 3663.008 2040.333 / 2040.333 -272.2 / 1768.133 Physical Exam Narrative: EXAM NARRATIVE: GENERAL: Patient is sedated and intubated NECK: No jugular vein distension. HEENT: No cyanosis. No icterus. No pallor. HEART: Regular S1 and S2. No murmur, rub or gallop. LUNGS: Clear to auscultate bilaterally. ABDOMEN: Soft, nontender and nondistended. Positive bowel sounds. CENTRAL NERVOUS SYSTEM: Cannot assess due to sedation EXTREMITIES: Lower extremities without edema bilaterally. Pulses palpable in the lower extremities, both dorsalis pedis and posterior tibial. Const: COMMON NORMALS: alert Resp: COMMON NORMALS: clear to auscultation bilaterally AUSCULTATION: clear to auscultation bilaterally Neuro: SENSORIUM/ORIENTATION: Yes alert Urinary Catheter Management^: Gandhi: Cath Placed During This Visit: no Reason for Continuing Indwelling Catheter: Accurate Measurement of Urinary Output in Critically Ill Patients Data : 06/01/20 13:40 06/01/20 08:29 Micro: Microbiology 05/27/20 04:25 Blood Culture - Final Blood NO GROWTH AFTER 5 DAYS A&P Assessment and plan (1) GI bleed: Continue current regimen continue Protonix Status: Acute Qualifiers: Gastritis type: other gastritis (2) SVT (supraventricular tachycardia): stable off amiodarone Status: Acute (3) Stress-induced cardiomyopathy: Stable doing fine from a cardiovascular perspective we will try to wean off Impala. She is off of all drips. Status: Acute (4) Cardiogenic shock: Patient stable on Impella will wean her off Status: Acute (5) CAD (coronary artery disease): Stress-induced cardiomyopathy. Once stable more blood pressure wiley we may will put her on ELIZABETH inhibitor and beta-choco. Due to minor GI bleed taken off of Plavix and aspirin Status: Acute Qualifiers: Coronary Disease-Associated Artery/Lesion type: [place] artery [place] vs. transplanted heart: [place] heart Associated angina: without angina Qualified Code(s): I25.10 - Atherosclerotic heart disease of [place] coronary artery without angina pectoris (6) Syncope and collapse: Most likely secondary to cardiac arrest Status: Acute (7) COPD (chronic obstructive pulmonary disease): Intubated, treatment as per medicine Status: Acute Qualifiers: COPD type: chronic bronchitis Chronic bronchitis type: unspecified Qualified Code(s): J42 - Unspecified chronic bronchitis (8) Cardiomyopathy in disease classified elsewhere: Appear to be dry I will hold diuretics for now Status: Acute (9) Sepsis: Continue antibiotics as per medicine colleagues Status: Acute Qualifiers: Severe sepsis shock status: unspecified Attestations Medical Necessity Statement*: Patient require continuation hospitalization for above defined care. 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 of Care Code Established Pt Acute Personal Caregiver for Bridgettg Fwd Patient Type Established History Comprehensive Exam Comprehensive Medical Decision Making High Complexity Diagnoses GI bleed K92.2 Gastritis type: other gastritis SVT (supraventricular tachycardia) I47.1 Stress-induced cardiomyopathy I51.81 Cardiogenic shock R57.0 CAD (coronary artery disease) I25.10 Coronary Disease-Associated Artery/Lesion type: [place] artery [place] vs. transplanted heart: [place] heart Associated angina: without angina Syncope and collapse R55 COPD (chronic obstructive pulmonary disease) J42 COPD type: chronic bronchitis Chronic bronchitis type: unspecified Cardiomyopathy in disease classified elsewhere I43 Sepsis A41.9 Severe sepsis shock status: unspecified
--- NOTE | 2020-06-01 19:22 | PM.PN ---
Subjective Medications: Reviewed: Yes Vitals/I&O/Wt Last Vital Signs Temp 98.2 F 06/01/20 17:30 Pulse 59 L 06/01/20 18:45 Resp 14 06/01/20 18:44 BP 91/56 06/01/20 18:45 Pulse Ox 96 06/01/20 18:45 06/01/20 06/01/20 06/01/20 06:59 14:59 22:59 Intake Total 2442.401 / 5188.008 2302.333 / 2302.333 37.8 / 2340.133 Output Total 438 / 1525 262 / 262 310 / 572 Balance 2004.401 / 3663.008 2040.333 / 2040.333 -272.2 / 1768.133 Physical Exam Narrative: EXAM NARRATIVE: GENERAL: Patient is sedated and intubated NECK: No jugular vein distension. HEENT: No cyanosis. No icterus. No pallor. HEART: Regular S1 and S2. No murmur, rub or gallop. LUNGS: Clear to auscultate bilaterally. ABDOMEN: Soft, nontender and nondistended. Positive bowel sounds. CENTRAL NERVOUS SYSTEM: Cannot assess due to sedation EXTREMITIES: Lower extremities without edema bilaterally. Pulses palpable in the lower extremities, both dorsalis pedis and posterior tibial. Const: COMMON NORMALS: alert Resp: COMMON NORMALS: clear to auscultation bilaterally AUSCULTATION: clear to auscultation bilaterally Neuro: SENSORIUM/ORIENTATION: Yes alert Urinary Catheter Management^: Gandhi: Cath Placed During This Visit: no Reason for Continuing Indwelling Catheter: Accurate Measurement of Urinary Output in Critically Ill Patients Data : 06/01/20 13:40 06/01/20 08:29 Micro: Microbiology 05/27/20 04:25 Blood Culture - Final Blood NO GROWTH AFTER 5 DAYS A&P Assessment and plan (1) GI bleed: Continue current regimen continue Protonix Status: Acute Qualifiers: Gastritis type: other gastritis (2) SVT (supraventricular tachycardia): stable off amiodarone Status: Acute (3) Stress-induced cardiomyopathy: Impella was weaned off and removed. Currently stable continue to monitor patient had some bleeding issue after the removal of Impella manual compression was performed. Currently stable no hematoma Status: Acute (4) Cardiogenic shock: Resolved Status: Acute (5) CAD (coronary artery disease): Stress-induced cardiomyopathy. will add beta choco and ELIZABETH inhibitor Status: Acute Qualifiers: Coronary Disease-Associated Artery/Lesion type: [place] artery [place] vs. transplanted heart: [place] heart Associated angina: without angina Qualified Code(s): I25.10 - Atherosclerotic heart disease of [place] coronary artery without angina pectoris (6) Syncope and collapse: Most likely secondary to cardiac arrest Status: Acute (7) COPD (chronic obstructive pulmonary disease): Intubated, treatment as per medicine Status: Acute Qualifiers: COPD type: chronic bronchitis Chronic bronchitis type: unspecified Qualified Code(s): J42 - Unspecified chronic bronchitis (8) Cardiomyopathy in disease classified elsewhere: continue to improve Status: Acute (9) Sepsis: Continue antibiotics as per medicine colleagues Status: Acute Qualifiers: Severe sepsis shock status: unspecified Attestations Medical Necessity Statement*: Patient require continuation hospitalization for above defined care. 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 of Care Code Established Pt Acute Pet Care Assistant for Bridgettg Fwd Patient Type Established History Detailed Exam Detailed Medical Decision Making Moderate Complexity Diagnoses GI bleed K92.2 Gastritis type: other gastritis SVT (supraventricular tachycardia) I47.1 Stress-induced cardiomyopathy I51.81 Cardiogenic shock R57.0 CAD (coronary artery disease) I25.10 Coronary Disease-Associated Artery/Lesion type: [place] artery [place] vs. transplanted heart: habemat[place]l heart Associated angina: without angina Syncope and collapse R55 COPD (chronic obstructive pulmonary disease) J42 COPD type: chronic bronchitis Chronic bronchitis type: unspecified Cardiomyopathy in disease classified elsewhere I43 Sepsis A41.9 Severe sepsis shock status: unspecified
[2020-06-01 21:08] LABS: Hematocrit 27.7 % (37.0-47.0); Hemoglobin 8.2 g/dL (11.5-15.3)
--- NOTE | 2020-06-01 21:32 | PC.NURSE ---
Contacted Dr. Powell re: hypotension, bradycardia. Order for vasopressin and either dopamine or dobutamine received. Stat H&H ordered to monitor for acute blood loss from sheath removal.
--- NOTE | 2020-06-01 21:34 | PC.NURSE ---
Dr. Powell notified re: H&H results, order for 1U PRBC to be transfused.
[2020-06-01] MEDS: propofol 1,000 MG/100 ML INJ 29.9 MG IV (23:42)
[2020-06-02] VITALS (103 sets, daily range): BP systolic 84–146; BP diastolic 51–83; PULSE 45–93; RESP 14–25; TEMP 36.3–37.6; O2SAT 91–100
[2020-06-02] MEDS: hydrocortisone 100 mg/2 mL SDV 50 MG IVP ×2 (01:06→23:02)
[2020-06-02] MEDS: sodium chloride 0.9% (100 ml) 100 ML 150 ML (01:07)
--- NOTE | 2020-06-02 01:59 | PC.PHAR ---
Patient is significantly improved. Ejection fraction is increased and creatinine clearance has gone from 54.52 to 141.75. Vancomycin dosage is increased from 1500mg IVPB every 18 hours to 1250mg IVPB every 8 hours to produce a predicted trough level of 16.46 (population based pharmacokinetic analysis). We will continually closely monitor Vancomycin trough levels with a goal of trough levels between 15 and 20. A trough level has been ordered to be obtained by the lab before the third 1250mg IVPB every 8 hour dose.
[2020-06-02] MEDS: propofol 1,000 MG/100 ML INJ 26.9 MG IV ×4 (02:46→21:27)
[2020-06-02 03:37] LABS: Basophils # 0.1 10^3/uL (0.0-0.1); Basophils % 0.4 %; Eosinophils # 0.4 10^3/uL (0.0-0.8); Eosinophils % 3.5 %; Hematocrit 30.4 % (37.0-47.0); Hemoglobin 9.3 g/dL (11.5-15.3); Mean Corpuscular HGB Conc 30.6 g/dL (30.0-36.0); Mean Corpuscular Hemoglobin 29.6 pg (28.0-34.0); Mean Corpuscular Volume 96.8 fL (81-99); Mean Platelet Volume 12.1 fL (7.4-10.4); Monocytes # 0.7 10^3/uL (0.2-0.9); Monocytes % 5.8 %; Neutrophils # 9.21 10^3/uL (1.8-7.7); Neutrophils % 79.6 %; Nucleated Red Blood Cells # 0.1 /100WBC; Nucleated Red Blood Cells % 0.4 %; Platelet Count 105 10^3/cmm (130-400); Red Blood Count 3.14 10^6/uL (4.1-5.3); Red Cell Distribution Width 16.2 % (12.1-15.1); White Blood Count 11.6 10^3/uL (4.0-10.0)
[2020-06-02 04:01] LABS: Alanine Aminotransferase 47 U/L (0-33); Albumin Level 2.5 g/dL (3.5-5.2); Alkaline Phosphatase 39 IU/L (35-105); Anion Gap 10.4 (5-19); Aspartate Amino Transferase 77 U/L (0-32); Blood Urea Nitrogen 14 mg/dL (6-20); Calcium 7.9 mg/dL (8.5-10.5); Carbon Dioxide 22 mmol/L (22-29); Chloride 116 mmol/L (98-107); Globulin 2.1 g/dL (1.3-4.6); Glomerular Filtration Rate 102.3 mL/min (90-130); Glucose 92 mg/dL (65-115); Magnesium 2.1 mg/dL (1.7-2.3); Osmolality Calculated 300 mOsm/kg (285-295); Potassium 3.4 mmol/L (3.5-5.1); Sodium 145 mmol/L (136-145); Total Bilirubin 0.6 mg/dL (0.15-1.2); Total Protein 4.6 g/dL (6.6-8.7)
--- NOTE | 2020-06-02 06:04 | PC.NURSE ---
Contacted Dr. Powell re: AM labs, morning medication (imdur). Order received for 40 K+ IVPB, 1 unit PRBC, and to hold imdur AM dose.
[2020-06-02] MEDS: potassium chloride premix 40 MEQ/100 ML PREMIX 25 MEQ IV (06:19)
[2020-06-02] MEDS: sodium chloride 0.9% (100 ml) 100 ML 25 ML (06:44)
--- NOTE | 2020-06-02 07:50 | XRR_ITS ---
PROCEDURE INFORMATION: Exam: XR Chest, 1 View Exam date and time: 06/02/2020 8:13 AM Age: 59 years old Clinical indication: Condition or disease; Lung condition and disease; Respiratory failure; Status not specified; Additional info: Resp failure TECHNIQUE: Imaging protocol: XR of the chest Views: 1 view. COMPARISON: CR XR chest 1V portable [id number] 06/01/2020 5:43 AM FINDINGS: The thorax is partially obscured by overlying EKG leads. Tubes, catheters and devices: Endotracheal tube, feeding tube, and central venous catheter. The endotracheal tube terminates 2.2 cm above the judd. Lungs: Worsening left basilar airspace/pleural disease without obscuration of the left hemidiaphragm. Mild right suprahilar airspace disease. Heart/Mediastinum: Borderline cardiomegaly. Bones/joints: Unremarkable. XR/XR chest 1V portable [id number] IMPRESSION: 1. Worsening left basilar airspace/pleural disease without obscuration of the left hemidiaphragm. 2. Mild right suprahilar airspace disease.
[2020-06-02 08:20] LABS: ABG PCO2 30.5 mmHg (35-45); ABG PH Result 7.43 (7.35-7.45); Arterial Blood Gas Hematocrit 32.5 % (37-47); Base Excess ABG -3.1 mmol/L (-2.0-2.0); Blood Gas Allen Test Pos; Blood Gas Operator Identificat CAK; Blood Gas Sample Site Brachial, left; Blood Gas Sample Type Arterial; HCO3 ABG 20.4 mmol/L (22-26); Oxygen Device VENT
[2020-06-02] MEDS: aspirin 81 mg EC Tablet PO (08:39)
[2020-06-02] MEDS: FUROsemide 10 mg/mL SDV 4mL 40 MG IVP ×2 (08:39→21:17)
[2020-06-02] MEDS: atorvastatin 40 mg Tablet 80 MG NG-TUBE (08:39)
[2020-06-02] MEDS: clopidogrel 75 mg Tablet PO (08:39)
[2020-06-02] MEDS: chlorhexidine gluconate 0.12% Btl 473 mL 15 ML MUCOUS MEM (09:23)
--- NOTE | 2020-06-02 09:41 | PC.NURSE ---
left femoral vein sheath pulled. light pressure held do to the perclosures that were put in yesterday and this line being venous. 2x2 dresssing applied and covered with tegaderm. Staff at bedside monitoring at this time.
[2020-06-02] MEDS: doxycycline 100 MG in sodium chloride 0.9% (plus) 100 ML IV (10:00)
[2020-06-02] MEDS: pantoprazole 40 mg SDV IVP ×2 (10:02→21:17)
[2020-06-02 12:30] LABS: Basophils # 0.1 10^3/uL (0.0-0.1); Basophils % 0.6 %; Eosinophils # 0.3 10^3/uL (0.0-0.8); Eosinophils % 2.5 %; Hematocrit 34.7 % (37.0-47.0); Hemoglobin 10.9 g/dL (11.5-15.3); Lymphocytes # 1.8 10^3/uL (0.8-4.8); Lymphocytes % 13.5 %; Mean Corpuscular HGB Conc 31.4 g/dL (30.0-36.0); Mean Corpuscular Hemoglobin 29.1 pg (28.0-34.0); Mean Corpuscular Volume 92.8 fL (81-99); Mean Platelet Volume 12.4 fL (7.4-10.4); Monocytes # 0.7 10^3/uL (0.2-0.9); Monocytes % 5.2 %; Neutrophils # 9.93 10^3/uL (1.8-7.7); Neutrophils % 75.7 %; Nucleated Red Blood Cells # 0.1 /100WBC; Nucleated Red Blood Cells % 0.6 %; Platelet Count 112 10^3/cmm (130-400); Red Blood Count 3.74 10^6/uL (4.1-5.3); White Blood Count 13.1 10^3/uL (4.0-10.0)
[2020-06-02 12:50] LABS: Anion Gap 10.6 (5-19); Blood Urea Nitrogen 14 mg/dL (6-20); Calcium 8.3 mg/dL (8.5-10.5); Carbon Dioxide 23 mmol/L (22-29); Chloride 115 mmol/L (98-107); Glomerular Filtration Rate 102.3 mL/min (90-130); Glucose 94 mg/dL (65-115); Osmolality Calculated 300 mOsm/kg (285-295); Potassium 3.6 mmol/L (3.5-5.1); Sodium 145 mmol/L (136-145)
--- NOTE | 2020-06-02 13:05 | USCV_ITS ---
Viridiana Corral Age: 59 Gender: F : 1960 Exam Date: 06/02/2020 13:48 Ordering Phys: Myra Powell MD ([email or web address]) Technologist: Richa Back Exam Location: [facility] [place] Indication: PULSES DIMINISHED, TOES DISCOLORED Risk Factors: Previous Vascular Surgery: RIGHT LEFT Waveform Velocity (cm/s) Velocity (cm/s) Waveform Iliac Prox 216.5 140.7 165.5 Iliac Mid 131.5 161.6 Iliac Distal 135.4 69.2 BOARDING SPECIALIST 140.7 80.3 SFA Prox 90.7 65.3 SFA Mid 98.6 89.3 SFA Dist 63.3 Biphasic 55.2 POP 60.6 Biphasic 16.3 SALVAGE CUTTER 61.5 Biphasic 38.1 DPA 46.1 0.9 EDMAR 0.9 FINDINGS right DPA 140, right SALVAGE CUTTER 138 left DPA 118, left SALVAGE CUTTER 98 Borderline low resting EDMAR of 0.9 bilaterally CONCLUSIONS Borderline low EDMAR, suggestive of peripheral artery disease involving the distal vessels, possibly mild Dr Michoacano Galo MD FACC (Electronically Signed) Final Date: 03 June 2020 15:09 S
--- NOTE | 2020-06-02 14:06 | PC.NURSE ---
Started sedation vacation. gradually reduced propofol to zero. Patient is appears to be resting comfortably, can follow command of squeezing fingers. Reorientated patient to place, time, and situation.
--- NOTE | 2020-06-02 14:31 | P.PN_ITS ---
Subjective Subjective: Interval history: Viridiana is sedated on the ventilator. Cardiology pulled her Impella yesterday, and she had some bleeding. Secondary to concerns for this and lower hemoglobin and blood pressure she was transfused 1 unit of blood. Sedation has been lessened and she is moving her extremities. Medications: Reviewed: Yes Vitals/I&O/Wt Last Vital Signs Temp 97.7 F 06/02/20 12:00 Pulse 75 06/02/20 14:15 Resp 23 H 06/02/20 13:02 BP 124/75 06/02/20 14:15 Pulse Ox 93 06/02/20 14:15 06/01/20 06/02/20 06/02/20 22:59 06:59 14:59 Intake Total 427.467 / 2729.800 722.820 / 3452.620 300 / 300 Output Total 860 / 1122 345 / 1467 3280 / 3280 Balance -432.533 / 1607.800 377.820 / 1985.620 -2980 / -2980 Physical Exam Narrative: EXAM NARRATIVE: General exam intubated female, who tries to open her eyes to verbal stimuli Cardiovascular regular rate and rhythm Lungs clear Abdomen is soft, positive bowel sound Extremities no cyanosis clubbing. Extremities cool. Arterial ultrasound being done at the instruction of cardiology. Urinary Catheter Management^: Gandhi: Cath Placed During This Visit: no Reason for Continuing Indwelling Catheter: Accurate Measurement of Urinary Output in Critically Ill Patients Data : 06/02/20 12:15 06/02/20 12:15 Micro: Microbiology 05/28/20 13:33 Blood Culture - Final Blood NO GROWTH AFTER 5 DAYS 05/28/20 13:25 Blood Culture - Final Blood NO GROWTH AFTER 5 DAYS A&P Assessment and plan (1) Respiratory failure: Acute hypoxic respiratory failure, multifactorial. Concerns were aspiration, cardiogenic shock, sepsis, anaphylaxis. This required resuscitation in the emergency department, where a brief episode of ventricular fibrillation, asystole and CPR was performed She has getting quite a bit of fluid and up from admission. I ordered 40 mg of Lasix IV, following her unit of blood and she has had a good response. Discontinue IV fluids All of the above, in hopes that she can be extubated tomorrow Status: Acute (2) Septic shock: Currently on Primaxin, vancomycin, and doxycycline. Discontinue doxycycline Hydrocortisone was added secondary to profound hypotension and currently at 50 mg IV every 24 hours. Continue this currently until she is extubated Status: Acute (3) Cardiogenic shock: Significantly improved. Impella has been discontinued Angiogram did not demonstrate flow-limiting coronary stenosis Significant reduction in EF was noted, approximately 20%. Thought to have stress-induced cardiomyopathy Discontinue IV fluids Lasix 40 mg IV today following blood transfusion Status: Acute (4) Aspiration pneumonia: Continue Primaxin, vancomycin Status: Acute (5) SVT (supraventricular tachycardia): Intermittently with SVT. Has intermittently required metoprolol, amiodarone drip. Cardiology following. Status: Acute (6) GI bleed: Continue Protonix 40 mg IV every 12 hours Plavix and aspirin have been restarted No significant GI bleeding currently Trophic feeds initiated Status: Acute Qualifiers: Gastritis type: other gastritis (7) STEMI (ST elevation myocardial infarction): Cardiology following. Angiogram did not demonstrate significant coronary plaque. Thought to have stress-induced cardiomyopathy Status: Acute Qualifiers: Involved coronary artery: unspecified coronary artery Qualified Code(s): I21.3 - ST elevation (STEMI) myocardial infarction of unspecified site (8) Cardiopulmonary arrest with successful resuscitation: Status: Acute (9) Hypertension: Blood pressure now improved. Hypotension has resolved. Status: Acute Qualifiers: Hypertension type: essential hypertension Qualified Code(s): I10 - Essential (primary) hypertension (10) Anaphylaxis: Initially appeared to have anaphylaxis. Currently no signs of anaphylaxis. Still on hydrocortisone for hypotension. Status: Acute Qualifiers: Encounter type: initial encounter Qualified Code(s): T78.2XXA - Anaphylactic shock, unspecified, initial encounter (11) Amoxicillin-induced allergic rash: Resolved Status: Acute (12) High anion gap metabolic acidosis: Secondary to sepsis. Resolved Status: Acute (13) COPD (chronic obstructive pulmonary disease): No evidence of exacerbation Status: Acute Qualifiers: COPD type: chronic bronchitis Chronic bronchitis type: unspecified Qualified Code(s): J42 - Unspecified chronic bronchitis (14) Stress-induced cardiomyopathy: Consider beta-choco, ELIZABETH inhibitor if blood pressure stabilizes Status: Acute Additional A&P Information Acute postoperative blood loss associated with removal of Impella and groin lines. She was transfused 1 unit packed red blood cells peripheral vascular disease DVT prophylaxis held secondary to GI bleeding. SCDs not placed secondary to concern of vascular blood flow to feet Full code Attestations Medical Necessity Statement*: Needs continued hospital stay in this intubated patient requiring mechanical ventilation Critical Care Time: 36 minutes spent in critical care time at bedside discussing patient with subspecialist, nursing, examining patient, reviewing lab in this patient with respiratory failure, pneumonia, anaphylaxis, acute blood loss with high risk of decompensation/morbidity and mortality 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 of Care Code Acute Guardian Ad Litem for g Fwd Diagnoses Respiratory failure J96.90 Septic shock A41.9; R65.21 Cardiogenic shock R57.0 Aspiration pneumonia J69.0 SVT (supraventricular tachycardia) I47.1 GI bleed K92.2 Gastritis type: other gastritis STEMI (ST elevation myocardial infarction) I21.3 Involved coronary artery: unspecified coronary artery Cardiopulmonary arrest with successful resuscitation I46.9 Hypertension I10 Hypertension type: essential hypertension Anaphylaxis T78.2XXA Encounter type: initial encounter Amoxicillin-induced allergic rash L27.0; T36.0X5A High anion gap metabolic acidosis E87.2 COPD (chronic obstructive pulmonary disease) J42 COPD type: chronic bronchitis Chronic bronchitis type: unspecified Stress-induced cardiomyopathy I51.81
--- NOTE | 2020-06-02 16:53 | PC.NURSE ---
Late note - At 1400 changed patients linens and provided bed bath. Redressed left and right femoral line puncture sites.
--- NOTE | 2020-06-02 18:09 | PM.PN ---
Subjective Subjective: Interval history: Continues to improve. Status post 2 packed red blood cell transfusion due to GI bleed and groin bleed. IV Lasix was given after that she diuresed well. Medications: Reviewed: Yes Vitals/I&O/Wt Last Vital Signs Temp 99.2 F 06/02/20 16:00 Pulse 63 06/02/20 17:15 Resp 14 06/02/20 16:00 BP 127/70 06/02/20 17:15 Pulse Ox 96 06/02/20 17:15 06/02/20 06/02/20 06/02/20 06:59 14:59 22:59 Intake Total 722.820 / 3452.620 550 / 550 100 / 650 Output Total 345 / 1467 3280 / 3280 460 / 3740 Balance 377.820 / 1985.620 -2730 / -2730 -360 / -3090 Physical Exam Narrative: EXAM NARRATIVE: GENERAL: Patient is sedated NECK: No jugular vein distension. HEENT: No cyanosis. No icterus. No pallor. HEART: Regular S1 and S2. No murmur, rub or gallop. LUNGS: Clear to auscultate bilaterally. ABDOMEN: Soft, nontender and nondistended. Positive bowel sounds. CENTRAL NERVOUS SYSTEM: sedated EXTREMITIES: Lower extremities without edema bilaterally.Right groin looks bruised but no hematoma,good dopplerable pulses in both feet Const: COMMON NORMALS: alert Resp: COMMON NORMALS: clear to auscultation bilaterally AUSCULTATION: clear to auscultation bilaterally Neuro: SENSORIUM/ORIENTATION: Yes alert Urinary Catheter Management^: Gandhi: Cath Placed During This Visit: no Reason for Continuing Indwelling Catheter: Accurate Measurement of Urinary Output in Critically Ill Patients Data : 06/02/20 12:15 06/02/20 12:15 Micro: Microbiology 05/28/20 13:33 Blood Culture - Final Blood NO GROWTH AFTER 5 DAYS 05/28/20 13:25 Blood Culture - Final Blood NO GROWTH AFTER 5 DAYS A&P Assessment and plan (1) GI bleed: Post transfusion stable now , continue medication Status: Acute Qualifiers: Gastritis type: other gastritis (2) SVT (supraventricular tachycardia): Resolved Status: Acute (3) Stress-induced cardiomyopathy: Patient is off Impella and all the drips. Blood pressure is stable. Overall heart function has improved as per echocardiogram. I will add beta-choco but due to bradycardia we will hold for it. We will continue to diurese her with IV Lasix. Status: Acute (4) Cardiogenic shock: Resolved, will plan to extubate tomorrow Status: Acute (5) CAD (coronary artery disease): stable continue meds Status: Acute Qualifiers: Coronary Disease-Associated Artery/Lesion type: [place] artery [place] vs. transplanted heart: [place] heart Associated angina: without angina Qualified Code(s): I25.10 - Atherosclerotic heart disease of [place] coronary artery without angina pectoris (6) Syncope and collapse: Most likely secondary to cardiac arrest Status: Acute (7) COPD (chronic obstructive pulmonary disease): Intubated, treatment as per medicine Status: Acute Qualifiers: COPD type: chronic bronchitis Chronic bronchitis type: unspecified Qualified Code(s): J42 - Unspecified chronic bronchitis (8) Cardiomyopathy in disease classified elsewhere: Appear to be dry I will hold diuretics for now Status: Acute (9) Sepsis: Resolved continue meds Status: Acute Qualifiers: Severe sepsis shock status: unspecified (10) GI bleed: Status: Acute Attestations Medical Necessity Statement*: Require continuation hospitalization for above defined care 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 of Care Code Established 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 transplanted heart: [place] heart Associated angina: without angina Syncope and collapse R55 COPD (chronic obstructive pulmonary disease) J42 COPD type: chronic bronchitis Chronic bronchitis type: unspecified Cardiomyopathy in disease classified elsewhere I43 Sepsis A41.9 Severe sepsis shock status: unspecified GI bleed K92.2
--- NOTE | 2020-06-02 18:58 | PC.NURSE ---
Nurse change central line dressing for right IJ. cleansed with chloraprep, central lline dressing kit used. Site was asymptomatic.
[2020-06-02] MEDS: potassium chloride oral liq 20 mEq/15 mL UDC 40 MEQ PO (21:16)
[2020-06-03] VITALS (63 sets, daily range): BP systolic 85–166; BP diastolic 25–85; PULSE 56–84; RESP 14–27; TEMP 37.2–37.8; O2SAT 88–100
[2020-06-03] MEDS: propofol 1,000 MG/100 ML INJ 26.9 MG IV ×2 (01:14→04:33)
[2020-06-03 02:54] LABS: Vancomycin Trough 32.8 ug/mL (10-15)
--- NOTE | 2020-06-03 03:01 | PC.PHAR ---
Vancomycin trough is 32.8. Hold Vancomycin and repeat trough level in 24 hours.
--- NOTE | 2020-06-03 03:04 | PC.PHAR ---
Vancomycin trough is 32.8. Hold and repeat trough in 24 hours.
[2020-06-03 04:15] LABS: Basophils # 0.1 10^3/uL (0.0-0.1); Basophils % 0.6 %; Eosinophils # 0.3 10^3/uL (0.0-0.8); Eosinophils % 2.5 %; Hematocrit 34.7 % (37.0-47.0); Lymphocytes # 0.9 10^3/uL (0.8-4.8); Lymphocytes % 7.5 %; Mean Corpuscular HGB Conc 31.7 g/dL (30.0-36.0); Mean Corpuscular Hemoglobin 29.2 pg (28.0-34.0); Mean Platelet Volume 12.7 fL (7.4-10.4); Monocytes # 0.6 10^3/uL (0.2-0.9); Monocytes % 5.3 %; Neutrophils # 10.08 10^3/uL (1.8-7.7); Neutrophils % 82.5 %; Nucleated Red Blood Cells # 0.1 /100WBC; Nucleated Red Blood Cells % 0.4 %; Platelet Count 131 10^3/cmm (130-400); Red Blood Count 3.77 10^6/uL (4.1-5.3); Red Cell Distribution Width 17.4 % (12.1-15.1); White Blood Count 12.2 10^3/uL (4.0-10.0)
[2020-06-03 04:47] LABS: Alanine Aminotransferase 46 U/L (0-33); Albumin Level 2.6 g/dL (3.5-5.2); Alkaline Phosphatase 55 IU/L (35-105); Anion Gap 10.7 (5-19); Aspartate Amino Transferase 89 U/L (0-32); Blood Urea Nitrogen 14 mg/dL (6-20); Calcium 8.4 mg/dL (8.5-10.5); Carbon Dioxide 24 mmol/L (22-29); Chloride 115 mmol/L (98-107); Creatinine Clr Calc Pharmacy 101.2478; Globulin 2.3 g/dL (1.3-4.6); Glomerular Filtration Rate 85.6 mL/min (90-130); Glucose 131 mg/dL (65-115); Osmolality Calculated 304 mOsm/kg (285-295); Potassium 3.7 mmol/L (3.5-5.1); Sodium 146 mmol/L (136-145); Total Bilirubin 0.5 mg/dL (0.15-1.2); Total Protein 4.9 g/dL (6.6-8.7)
[2020-06-03 06:15] LABS: ABG PH Result 7.46 (7.35-7.45); HCO3 ABG 2.7 mmol/L (22-26)
[2020-06-03 06:16] LABS: Arterial Blood Gas Hematocrit 34.5 % (37-47); Blood Gas Drawn By VOSSA; Oxygen Device VENT
--- NOTE | 2020-06-03 07:00 | XR_ITS ---
WS: [id number] Portable AP upright chest, 06/03/2020 Clinical Data: Respiratory failure Comparison: Normal chest, 06/02/2020 Findings: The endotracheal tube, nasogastric tube and right internal jugular venous catheter remain i n the same position. The heart is enlarged. There are bilateral patchy opacities in both lungs which probably represent atelectasis and/or minimal pneumonia. No nodules or masses are seen. The pulmonary vascularity is not increased. Monitor leads are on the chest wall. XR/XR chest 1V portable [id number] Impression: No change from yesterday's chest x-ray.
[2020-06-03] MEDS: propofol 1,000 MG/100 ML INJ 21 MG IV (07:30)
[2020-06-03] MEDS: aspirin 81 mg EC Tablet PO (08:53)
[2020-06-03] MEDS: FUROsemide 10 mg/mL SDV 2mL 20 MG IVP (08:53)
[2020-06-03] MEDS: pantoprazole 40 mg SDV IVP ×2 (08:53→21:07)
[2020-06-03] MEDS: clopidogrel 75 mg Tablet PO (08:54)
[2020-06-03] MEDS: atorvastatin 40 mg Tablet 80 MG NG-TUBE (08:54)
[2020-06-03] MEDS: chlorhexidine gluconate 0.12% Btl 473 mL 15 ML MUCOUS MEM (08:55)
[2020-06-03 10:19] LABS: Blood Gas Operator Identificat Anonymous; Blood Gas Sample Type CalVer
[2020-06-03 10:20] LABS: ABG PCO2 37.2 mmHg (35-45)
--- NOTE | 2020-06-03 11:43 | PC.PT ---
Physical therapy note: Therapy attempted examinaton but patient was still on hold via physicians request via intubation. I attempted examination prior to 10:20 AM and she was still intubated.
--- NOTE | 2020-06-03 12:02 | P.PN_ITS ---
Subjective Subjective: Interval history: Patient remains intubated but stable Medications: Reviewed: Yes Vitals/I&O/Wt Last Vital Signs Temp 99.2 F 06/03/20 07:00 Pulse 57 L 06/03/20 11:45 Resp 19 H 06/03/20 10:08 BP 138/67 06/03/20 11:45 Pulse Ox 96 06/03/20 11:45 06/02/20 06/03/20 06/03/20 22:59 06:59 14:59 Intake Total 369.768 / 919.768 289.218 / 1208.986 107.355 / 107.355 Output Total 660 / 3940 3250 / 7190 1000 / 1000 Balance -290.232 / -3020.232 -2960.782 / -5981.014 -892.645 / -892.645 Physical Exam Narrative: EXAM NARRATIVE: GENERAL: Patient is sedated NECK: No jugular vein distension. HEENT: No cyanosis. No icterus. No pallor. HEART: Regular S1 and S2. No murmur, rub or gallop. LUNGS: Clear to auscultate bilaterally. ABDOMEN: Soft, nontender and nondistended. Positive bowel sounds. CENTRAL NERVOUS SYSTEM: sedated EXTREMITIES: Lower extremities without edema bilaterally.Right groin looks bruised but no hematoma,good dopplerable pulses in both feet Const: COMMON NORMALS: alert Resp: COMMON NORMALS: clear to auscultation bilaterally AUSCULTATION: clear to auscultation bilaterally Neuro: SENSORIUM/ORIENTATION: Yes alert Urinary Catheter Management^: Gandhi: Cath Placed During This Visit: no Reason for Continuing Indwelling Catheter: Accurate Measurement of Urinary Output in Critically Ill Patients Data : 06/03/20 03:50 06/03/20 03:50 Micro: Microbiology 05/28/20 13:33 Blood Culture - Final Blood NO GROWTH AFTER 5 DAYS 05/28/20 13:25 Blood Culture - Final Blood NO GROWTH AFTER 5 DAYS A&P Assessment and plan (1) GI bleed: Stable. Continue current regimen Status: Acute Qualifiers: Gastritis type: other gastritis (2) SVT (supraventricular tachycardia): Resolved Status: Acute (3) Stress-induced cardiomyopathy: Off mechanical support. Continue current regimen will add beta-choco once more stable blood pressure wiley. Continue rest of the medicine aspirin Plavix is on hold because of GI bleed. Anticoagulation is on hold because of GI bleed we will slowly resume it Status: Acute (4) Cardiogenic shock: Resolve planning to extubate today. Status: Acute (5) CAD (coronary artery disease): stable continue meds Status: Acute Qualifiers: Coronary Disease-Associated Artery/Lesion type: [place] artery [place] vs. transplanted heart: [place] heart Associated angina: without angina Qualified Code(s): I25.10 - Atherosclerotic heart disease of [place] coronary artery without angina pectoris (6) Syncope and collapse: Most likely secondary to cardiac arrest Status: Acute (7) COPD (chronic obstructive pulmonary disease): Intubated, treatment as per medicine Status: Acute Qualifiers: COPD type: chronic bronchitis Chronic bronchitis type: unspecified Qualified Code(s): J42 - Unspecified chronic bronchitis (8) Cardiomyopathy in disease classified elsewhere: Appear to be euvolemic. Status: Acute (9) Sepsis: Resolved continue meds Status: Acute Qualifiers: Severe sepsis shock status: unspecified Attestations Medical Necessity Statement*: Require continuation hospitalization for above defined care. 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 transplanted heart: [place] heart Associated angina: without angina Syncope and collapse R55 COPD (chronic obstructive pulmonary disease) J42 COPD type: chronic bronchitis Chronic bronchitis type: unspecified Cardiomyopathy in disease classified elsewhere I43 Sepsis A41.9 Severe sepsis shock status: unspecified
--- NOTE | 2020-06-03 13:55 | P.PN_ITS ---
Subjective Subjective: Interval history: Sedated on ventilator. No events noted overnight. Medications: Reviewed: Yes Vitals/I&O/Wt Last Vital Signs Temp 99.2 F 06/03/20 07:00 Pulse 65 06/03/20 13:00 Resp 16 06/03/20 12:55 BP 127/78 06/03/20 13:00 Pulse Ox 93 06/03/20 13:00 06/02/20 06/03/20 06/03/20 22:59 06:59 14:59 Intake Total 369.768 / 919.768 289.218 / 1208.986 107.355 / 107.355 Output Total 660 / 3940 3250 / 7190 1000 / 1000 Balance -290.232 / -3020.232 -2960.782 / -5981.014 -892.645 / -892.645 Physical Exam Narrative: EXAM NARRATIVE: General exam intubated female, sedated Cardiovascular regular rate and rhythm Lungs clear Abdomen is soft, positive bowel sound Extremities no cyanosis clubbing. Extremities cool. Urinary Catheter Management^: Gandhi: Cath Placed During This Visit: no Reason for Continuing Indwelling Catheter: Accurate Measurement of Urinary Output in Critically Ill Patients Data : 06/03/20 03:50 06/03/20 03:50 Micro: Microbiology 05/28/20 13:33 Blood Culture - Final Blood NO GROWTH AFTER 5 DAYS 05/28/20 13:25 Blood Culture - Final Blood NO GROWTH AFTER 5 DAYS Other data: I personally reviewed her chest x-ray which demonstrates bibasilar atelectasis or infiltrate. A&P Assessment and plan (1) Respiratory failure: Acute hypoxic respiratory failure, multifactorial. Concerns were aspiration, cardiogenic shock, sepsis, anaphylaxis. This required resuscitation in the emergency department, where a brief episode of ventricular fibrillation, asystole and CPR was performed She is diuresed nicely. Pressure support trial today, and hopefully extubate Status: Acute (2) Septic shock: Currently on Primaxin, vancomycin Hydrocortisone was added secondary to profound hypotension and currently at 50 mg IV every 24 hours. Continue this currently until she is extubated Status: Acute (3) Cardiogenic shock: Significantly improved. Impella has been discontinued Angiogram did not demonstrate flow-limiting coronary stenosis Significant reduction in EF was noted, approximately 20%. Thought to have stress-induced cardiomyopathy. This appears to have improved on follow-up echocardiogram Holding fluids Lasix 20 mg IV today to hopefully facilitate extubation Status: Acute (4) Aspiration pneumonia: Continue Primaxin, vancomycin Status: Acute (5) SVT (supraventricular tachycardia): Intermittently with SVT. Has intermittently required metoprolol, amiodarone drip. Cardiology following. Status: Acute (6) GI bleed: Continue Protonix 40 mg IV every 12 hours Plavix and aspirin have been restarted No significant GI bleeding currently Trophic feeds initiated, but holding pending possible extubation Status: Acute Qualifiers: Gastritis type: other gastritis (7) STEMI (ST elevation myocardial infarction): Cardiology following. Angiogram did not demonstrate significant coronary plaque. Thought to have stress-induced cardiomyopathy Status: Acute Qualifiers: Involved coronary artery: unspecified coronary artery Qualified Code(s): I21.3 - ST elevation (STEMI) myocardial infarction of unspecified site (8) Cardiopulmonary arrest with successful resuscitation: Status: Acute (9) Hypertension: Blood pressure now improved. Hypotension has resolved. Status: Acute Qualifiers: Hypertension type: essential hypertension Qualified Code(s): I10 - Essential (primary) hypertension (10) Anaphylaxis: Initially appeared to have anaphylaxis. Currently no signs of anaphylaxis. Still on hydrocortisone for hypotension. Status: Acute Qualifiers: Encounter type: initial encounter Qualified Code(s): T78.2XXA - Anaphylactic shock, unspecified, initial encounter (11) Amoxicillin-induced allergic rash: Resolved Status: Acute (12) High anion gap metabolic acidosis: Secondary to sepsis. Resolved Status: Acute (13) COPD (chronic obstructive pulmonary disease): No evidence of exacerbation Status: Acute Qualifiers: COPD type: chronic bronchitis Chronic bronchitis type: unspecified Qualified Code(s): J42 - Unspecified chronic bronchitis (14) Stress-induced cardiomyopathy: Consider beta-choco, ELIZABETH inhibitor if blood pressure stabilizes Status: Acute Additional A&P Information Acute postoperative blood loss associated with removal of Impella and groin lines. She was transfused 1 unit packed red blood cells June 02. Hemoglobin is very stable currently at 11 Peripheral vascular disease DVT prophylaxis held secondary to GI bleeding. SCDs not placed secondary to concern of vascular blood flow to feet Full code Attestations Medical Necessity Statement*: Needs continued hospitalization for IV antibiotics secondary to pneumonia, and ICU stay secondary to respiratory failure requiring mechanical ventilation Critical Care Time: 36 minutes spent in critical care time at bedside assessing ventilator settings, possible extubation today, IV antibiotics, discussion with nurse, examination of the patient, review of laboratory in this patient with high risk of morbidity and mortality and worsening condition. 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 Respiratory failure J96.90 Septic shock A41.9; R65.21 Cardiogenic shock R57.0 Aspiration pneumonia J69.0 SVT (supraventricular tachycardia) I47.1 GI bleed K92.2 Gastritis type: other gastritis STEMI (ST elevation myocardial infarction) I21.3 Involved coronary artery: unspecified coronary artery Cardiopulmonary arrest with successful resuscitation I46.9 Hypertension I10 Hypertension type: essential hypertension Anaphylaxis T78.2XXA Encounter type: initial encounter Amoxicillin-induced allergic rash L27.0; T36.0X5A High anion gap metabolic acidosis E87.2 COPD (chronic obstructive pulmonary disease) J42 COPD type: chronic bronchitis Chronic bronchitis type: unspecified Stress-induced cardiomyopathy I51.81
--- NOTE | 2020-06-03 14:39 | PC.OT ---
OT EVALUATION HELD PATIENT IS STILL SEDATED ON VENTILATOR. WILL ATTEMPT AGAIN AT A LATER TIME.
--- NOTE | 2020-06-03 19:02 | PC.NURSE ---
Pt extubated at 14:47 and placed on oxygen via nasal cannula @ 3L/min. No complications noted; pt tolerated procedure well. Pt asked for a Narciso Yello to drink about 15 minutes later; Dr. Johnson approved her for ice chips while she is sitting completely upright, and if she tolerates the ice chips w/o signs of aspiration, she may be advanced to clear liquids. Pt verbalized understanding. Son came to visit this afternoon; all of his questions were answered.
[2020-06-03] MEDS: acetaminophen 325 mg Tablet 650 MG PO (21:07)
[2020-06-04] VITALS (27 sets, daily range): BP systolic 101–160; BP diastolic 48–91; PULSE 55–87; RESP 16–40; TEMP 36.7–37.1; O2SAT 90–100
[2020-06-04] MEDS: hydrocortisone 100 mg/2 mL SDV 50 MG IVP (01:01)
[2020-06-04 02:13] LABS: Basophils # 0.1 10^3/uL (0.0-0.1); Basophils % 0.6 %; Eosinophils # 0.3 10^3/uL (0.0-0.8); Eosinophils % 3.3 %; Hematocrit 35.2 % (37.0-47.0); Hemoglobin 10.8 g/dL (11.5-15.3); Lymphocytes # 1.2 10^3/uL (0.8-4.8); Lymphocytes % 11.9 %; Mean Corpuscular HGB Conc 30.7 g/dL (30.0-36.0); Mean Corpuscular Volume 94.4 fL (81-99); Monocytes # 0.8 10^3/uL (0.2-0.9); Monocytes % 7.4 %; Neutrophils # 7.82 10^3/uL (1.8-7.7); Neutrophils % 75.8 %; Nucleated Red Blood Cells % 0 %; Platelet Count 166 10^3/cmm (130-400); Red Blood Count 3.73 10^6/uL (4.1-5.3); Red Cell Distribution Width 17.2 % (12.1-15.1); White Blood Count 10.3 10^3/uL (4.0-10.0)
[2020-06-04] MEDS: acetaminophen 325 mg Tablet 650 MG PO ×2 (02:25→17:15)
[2020-06-04 02:39] LABS: Alanine Aminotransferase 44 U/L (0-33); Albumin Level 2.8 g/dL (3.5-5.2); Alkaline Phosphatase 54 IU/L (35-105); Anion Gap 9.4 (5-19); Aspartate Amino Transferase 65 U/L (0-32); Blood Urea Nitrogen 14 mg/dL (6-20); Calcium 8.2 mg/dL (8.5-10.5); Carbon Dioxide 28 mmol/L (22-29); Chloride 111 mmol/L (98-107); Globulin 2.3 g/dL (1.3-4.6); Glomerular Filtration Rate 102.3 mL/min (90-130); Glucose 113 mg/dL (65-115); Osmolality Calculated 301 mOsm/kg (285-295); Potassium 3.4 mmol/L (3.5-5.1); Sodium 145 mmol/L (136-145); Total Bilirubin 0.6 mg/dL (0.15-1.2); Total Protein 5.1 g/dL (6.6-8.7)
[2020-06-04 02:58] LABS: Vancomycin Trough 11.7 ug/mL (10-15)
[2020-06-04 05:05] LABS: Phosphorus 3.8 mg/dL (2.5-4.5)
[2020-06-04] MEDS: isosorbide mononitrate ER 30 mg Tablet PO (06:04)
[2020-06-04] MEDS: potassium chloride ER 10 mEq Tablet 40 MEQ PO ×2 (06:04→13:02)
--- NOTE | 2020-06-04 08:32 | CT_ITS ---
WS: [id number] CT HEAD TECHNIQUE: Noncontrast CT of the head obtained from the skullbase to the vertex. CLINICAL INFORMATION: confusion COMPARISON: None. DLP: 769.[address] scans at [facility] use at least one of these dose optimization techniques: automat ed exposure control; mA and/or kV adjustment per patient size (includes targeted exams where dose is matched to clinical indication); or iterative reconstruction. FINDINGS: No evidence of intracranial hemorrhage or mass effect. Ventricular system and basal cisterns are vaz nt. Mild small vessel changes with moderate parenchymal volume loss. Tiny chronic lacunar infarct rig ht thalamus. No extra-axial fluid collections. No evidence of mass or mass effect. Normal clark-white differentiation. Small amount of fluid in the sphenoid sinus. Mastoid air cells are well aerated. CT/CT head wo con* [id number] IMPRESSION: 1. No evidence of intracranial hemorrhage or mass effect. 2. Mild small vessel changes. Moderate parenchymal volume loss. 3. Small amount of fluid in the sphenoid sinus. 4. No acute intracranial findings.
[2020-06-04] MEDS: aspirin 81 mg EC Tablet PO (09:06)
[2020-06-04] MEDS: atorvastatin 40 mg Tablet 80 MG NG-TUBE (09:06)
[2020-06-04] MEDS: pantoprazole 40 mg SDV IVP (09:06)
[2020-06-04] MEDS: clopidogrel 75 mg Tablet PO (09:06)
[2020-06-04] MEDS: FUROsemide 10 mg/mL SDV 4mL 40 MG IVP (09:06)
--- NOTE | 2020-06-04 15:13 | PM.PN ---
Subjective Subjective: Interval history: Viridiana reports she is doing okay. She seems somewhat slow to respond however. CIWA complaints. Medications: Reviewed: Yes Vitals/I&O/Wt Last Vital Signs Temp 98.2 F 06/04/20 07:00 Pulse 87 06/04/20 13:00 Resp 40 H 06/04/20 13:00 BP 114/74 06/04/20 13:00 Pulse Ox 100 06/04/20 13:00 06/04/20 06/04/20 06/04/20 06:59 14:59 22:59 Intake Total 100 / 008.224 2142 / 1590 Output Total 750 / 2200 1550 / 1550 Balance -650 / -1631.145 40 / 40 Physical Exam Narrative: EXAM NARRATIVE: General exam awake, on 2 L of oxygen Cardiovascular regular rate and rhythm Lungs clear Abdomen is soft, positive bowel sound Extremities no cyanosis clubbing. Extremities cool. 1+ edema Urinary Catheter Management^: Gandhi: Cath Placed During This Visit: no Reason for Continuing Indwelling Catheter: Accurate Measurement of Urinary Output in Critically Ill Patients Data : 06/04/20 02:10 06/04/20 02:10 A&P Assessment and plan (1) Respiratory failure: Extubated June 03. Appears to be doing well. Acute hypoxic respiratory failure, multifactorial. Concerns were aspiration, cardiogenic shock, sepsis, anaphylaxis. This required resuscitation in the emergency department, where a brief episode of ventricular fibrillation, asystole and CPR was performed Status: Acute (2) Septic shock: Currently on Primaxin, vancomycin Status: Acute (3) Cardiogenic shock: Significantly improved. Impella has been discontinued Angiogram did not demonstrate flow-limiting coronary stenosis Significant reduction in EF was noted, approximately 20%. Thought to have stress-induced cardiomyopathy. This appears to have improved on follow-up echocardiogram Holding fluids Lasix 40 mg IV this morning secondary to fluid overload Status: Acute (4) Aspiration pneumonia: Continue Primaxin, vancomycin Check MRSA PCR. If negative consider de-escalating antibiotics to Primaxin alone Status: Acute (5) SVT (supraventricular tachycardia): Intermittently with SVT. Has intermittently required metoprolol, amiodarone drip. Cardiology following. Status: Acute (6) GI bleed: Changed to Protonix by mouth Plavix and aspirin have been restarted No significant GI bleeding currently Taking p.o. Status: Acute Qualifiers: Gastritis type: other gastritis (7) STEMI (ST elevation myocardial infarction): Cardiology following. Angiogram did not demonstrate significant coronary plaque. Thought to have stress-induced cardiomyopathy Status: Acute Qualifiers: Involved coronary artery: unspecified coronary artery Qualified Code(s): I21.3 - ST elevation (STEMI) myocardial infarction of unspecified site (8) Cardiopulmonary arrest with successful resuscitation: Status: Acute (9) Hypertension: Blood pressure now improved. Hypotension has resolved. Status: Acute Qualifiers: Hypertension type: essential hypertension Qualified Code(s): I10 - Essential (primary) hypertension (10) Anaphylaxis: Initially appeared to have anaphylaxis. Currently no signs of anaphylaxis. Steroids have been discontinued Status: Acute Qualifiers: Encounter type: initial encounter Qualified Code(s): T78.2XXA - Anaphylactic shock, unspecified, initial encounter (11) Amoxicillin-induced allergic rash: Resolved Status: Acute (12) High anion gap metabolic acidosis: Secondary to sepsis. Resolved Status: Acute (13) COPD (chronic obstructive pulmonary disease): No evidence of exacerbation Status: Acute Qualifiers: COPD type: chronic bronchitis Chronic bronchitis type: unspecified Qualified Code(s): J42 - Unspecified chronic bronchitis (14) Stress-induced cardiomyopathy: Consider beta-choco, ELIZABETH inhibitor if blood pressure stabilizes Status: Acute Additional A&P Information Mild hypokalemia, supplement Acute postoperative blood loss associated with removal of Impella and groin lines. She was transfused 1 unit packed red blood cells June 02. Hemoglobin is very stable currently. Peripheral vascular disease DVT prophylaxis held secondary to GI bleeding. At this point she appears stable and will resume DVT prophylaxis, heparin subcutaneous Full code May transfer to [facility] May need rehabilitation PT evaluation Attestations Medical Necessity Statement*: To need hospital stay for IV antibiotics secondary to aspiration pneumonitis, treatment of cardiomyopathy, etc. 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 Respiratory failure J96.90 Septic shock A41.9; R65.21 Cardiogenic shock R57.0 Aspiration pneumonia J69.0 SVT (supraventricular tachycardia) I47.1 GI bleed K92.2 Gastritis type: other gastritis STEMI (ST elevation myocardial infarction) I21.3 Involved coronary artery: unspecified coronary artery Cardiopulmonary arrest with successful resuscitation I46.9 Hypertension I10 Hypertension type: essential hypertension Anaphylaxis T78.2XXA Encounter type: initial encounter Amoxicillin-induced allergic rash L27.0; T36.0X5A High anion gap metabolic acidosis E87.2 COPD (chronic obstructive pulmonary disease) J42 COPD type: chronic bronchitis Chronic bronchitis type: unspecified Stress-induced cardiomyopathy I51.81
[2020-06-04] MEDS: heparin 5,000 unit/mL INJ 1 mL 5000 UNIT SUBCUT (17:04)
--- NOTE | 2020-06-04 17:44 | PM.PN ---
Subjective Subjective: Interval history: Patient was extubated. She is sitting by bedside and eating breakfast. She has done much better. Medications: Reviewed: Yes Vitals/I&O/Wt Last Vital Signs Temp 98.2 F 06/04/20 07:00 Pulse 76 06/04/20 17:00 Resp 28 H 06/04/20 17:00 BP 127/70 06/04/20 17:00 Pulse Ox 90 06/04/20 17:00 06/04/20 06/04/20 06/04/20 06:59 14:59 22:59 Intake Total 100 / 003.828 8830 / 1690 500 / 2190 Output Total 750 / 2200 1550 / 1550 500 / 2050 Balance -650 / -1631.145 140 / 140 0 / 140 Physical Exam Narrative: EXAM NARRATIVE: GENERAL: Patient is alert, awake and oriented x3. NECK: No jugular vein distension. HEENT: No cyanosis. No icterus. No pallor. HEART: Regular S1 and S2. No murmur, rub or gallop. LUNGS: Clear to auscultate bilaterally. ABDOMEN: Soft, nontender and nondistended. Positive bowel sounds. No guarding, rebound or tenderness. CENTRAL NERVOUS SYSTEM: Grossly nonfocal. EXTREMITIES: Lower extremities with 1+ edema bilaterally. Const: COMMON NORMALS: alert Resp: COMMON NORMALS: clear to auscultation bilaterally AUSCULTATION: clear to auscultation bilaterally Neuro: SENSORIUM/ORIENTATION: Yes alert Urinary Catheter Management^: Gandhi: Cath Placed During This Visit: no Reason for Continuing Indwelling Catheter: Accurate Measurement of Urinary Output in Critically Ill Patients Data : 06/04/20 02:10 06/04/20 02:10 A&P Assessment and plan (1) Stress-induced cardiomyopathy: I will optimize medicine I will start patient on Coreg and ELIZABETH inhibitor. Aspirin is on hold due to GI bleed. Status: Acute (2) Cardiogenic shock: Resolved Status: Acute (3) CAD (coronary artery disease): Stable doing fine from a coronary disease perspective history of stents in the RCA. Since he is out of shock and extubated we will slowly put her back current meds. Status: Acute Qualifiers: Coronary Disease-Associated Artery/Lesion type: [place] artery [place] vs. transplanted heart: [place] heart Associated angina: without angina Qualified Code(s): I25.10 - Atherosclerotic heart disease of [place] coronary artery without angina pectoris (4) Syncope and collapse: Most likely secondary to cardiac arrest Status: Acute (5) COPD (chronic obstructive pulmonary disease): Intubated, treatment as per medicine Status: Acute Qualifiers: COPD type: chronic bronchitis Chronic bronchitis type: unspecified Qualified Code(s): J42 - Unspecified chronic bronchitis (6) Sepsis: Resolved continue meds as per medicine Status: Acute Qualifiers: Severe sepsis shock status: unspecified Severe sepsis acute organ dysfunction type: acute respiratory failure (7) GI bleed: Resolved. Continue Protonix Status: Acute Qualifiers: Gastritis type: other gastritis (8) SVT (supraventricular tachycardia): Resolved Status: Acute Attestations Medical Necessity Statement*: Require continuation hospitalization for above defined care. 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 transplanted heart: [place] heart Associated angina: without angina Syncope and collapse R55 COPD (chronic obstructive pulmonary disease) J42 COPD type: chronic bronchitis Chronic bronchitis type: unspecified Sepsis A41.9 Severe sepsis shock status: unspecified Severe sepsis acute organ dysfunction type: acute respiratory failure GI bleed K92.2 Gastritis type: other gastritis SVT (supraventricular tachycardia) I47.1
--- NOTE | 2020-06-04 18:56 | PC.NURSE ---
Pt had a good day overall. She remains alert and oriented x4. She worked with PT and OT this morning and sat in the chair all day. She is tolerating a cardiac soft diet. She was given Tylenol for a headache this afternoon, for which she verbalized some relief. She is now on room air. Her son came to visit during visiting hours. She was transferred to [facility] room 112-1. Report given to receiving nurse; all questions answered. She requires 2 staff members to assist her while transferring from bed to chair.
[2020-06-04] MEDS: carvedilol 3.125 mg Tablet PO (19:30)
[2020-06-04] MEDS: pantoprazole DR 40 mg Tablet PO (20:34)
[2020-06-05] VITALS (15 sets, daily range): BP systolic 105–133; BP diastolic 57–75; PULSE 56–74; RESP 16–25; TEMP 36.6–37.2; O2SAT 91–99
[2020-06-05 02:31] LABS: ABG PCO2 53.8 mmHg (35-45); ABG PH Result 7.37 (7.35-7.45); Arterial Blood Gas Hematocrit 31.9 % (37-47); Base Excess ABG 4.4 mmol/L (-2.0-2.0); Blood Gas Operator Identificat HARKR; Blood Gas Sample Site Brachial, left; Blood Gas Sample Type Arterial; HCO3 ABG 30.7 mmol/L (22-26); Oxygen Device NC; PO2 ABG 86.4 mmHg (80.0-100.0)
[2020-06-05] MEDS: heparin 5,000 unit/mL INJ 1 mL 5000 UNIT SUBCUT ×2 (03:05→16:13)
[2020-06-05] MEDS: acetaminophen 325 mg Tablet 650 MG PO ×2 (03:15→11:09)
[2020-06-05] MEDS: ipratropium-albuterol 3 mL Neb INHALATION ×3 (03:25→15:04)
[2020-06-05 04:31] LABS: Basophils # 0.1 10^3/uL (0.0-0.1); Basophils % 0.8 %; Eosinophils # 0.4 10^3/uL (0.0-0.8); Eosinophils % 4.9 %; Hematocrit 31.8 % (37.0-47.0); Hemoglobin 9.7 g/dL (11.5-15.3); Lymphocytes # 1.6 10^3/uL (0.8-4.8); Lymphocytes % 19.4 %; Mean Corpuscular HGB Conc 30.5 g/dL (30.0-36.0); Mean Corpuscular Hemoglobin 29.2 pg (28.0-34.0); Mean Corpuscular Volume 95.8 fL (81-99); Mean Platelet Volume 12.2 fL (7.4-10.4); Monocytes # 0.6 10^3/uL (0.2-0.9); Monocytes % 7.2 %; Neutrophils # 5.57 10^3/uL (1.8-7.7); Neutrophils % 67.1 %; Nucleated Red Blood Cells % 0 %; Platelet Count 177 10^3/cmm (130-400); Red Blood Count 3.32 10^6/uL (4.1-5.3); Red Cell Distribution Width 16.7 % (12.1-15.1); White Blood Count 8.3 10^3/uL (4.0-10.0)
[2020-06-05 05:05] LABS: Anion Gap 8.8 (5-19); Blood Urea Nitrogen 15 mg/dL (6-20); Calcium 8.6 mg/dL (8.5-10.5); Carbon Dioxide 29 mmol/L (22-29); Chloride 112 mmol/L (98-107); Glomerular Filtration Rate 126.3 mL/min (90-130); Glucose 103 mg/dL (65-115); Osmolality Calculated 303 mOsm/kg (285-295); Potassium 3.8 mmol/L (3.5-5.1); Sodium 146 mmol/L (136-145)
[2020-06-05] MEDS: isosorbide mononitrate ER 30 mg Tablet PO (06:25)
[2020-06-05] MEDS: aspirin 81 mg EC Tablet PO (08:32)
[2020-06-05] MEDS: pantoprazole DR 40 mg Tablet PO ×2 (08:32→18:34)
[2020-06-05] MEDS: atorvastatin 40 mg Tablet 80 MG NG-TUBE (08:32)
[2020-06-05] MEDS: lisinopril 2.5 mg Tablet PO (08:32)
[2020-06-05] MEDS: clopidogrel 75 mg Tablet PO (08:32)
[2020-06-05] MEDS: carvedilol 3.125 mg Tablet PO ×2 (08:32→18:34)
--- NOTE | 2020-06-05 12:10 | PM.PN ---
Subjective Subjective: Interval history: Viridiana reports she is doing okay. No specific concerns today. Acknowledges she is weak and needs rehabilitation. Medications: Reviewed: Yes Vitals/I&O/Wt Last Vital Signs Temp 97.8 F 06/05/20 10:51 Pulse 71 06/05/20 10:51 Resp 24 H 06/05/20 10:51 BP 117/59 06/05/20 10:51 Pulse Ox 92 06/05/20 10:51 06/04/20 06/05/20 06/05/20 22:59 06:59 14:59 Intake Total 840 / 2530 100 / 2630 460 / 460 Output Total 500 / 2050 275 / 2325 Balance 340 / 480 -175 / 305 460 / 460 Physical Exam Narrative: EXAM NARRATIVE: General exam awake, on 2 L of oxygen Cardiovascular regular rate and rhythm Lungs clear Abdomen is soft, positive bowel sound Extremities no cyanosis clubbing. Extremities cool. Trace edema Urinary Catheter Management^: Gandhi: Cath Placed During This Visit: no Reason for Continuing Indwelling Catheter: Accurate Measurement of Urinary Output in Critically Ill Patients Data : 06/05/20 04:15 06/05/20 04:15 Micro: Microbiology 06/04/20 16:43 MRSA Culture - Final Nose A&P Assessment and plan (1) Respiratory failure: Extubated June 03. Appears to be doing well. Acute hypoxic respiratory failure, multifactorial. Concerns were aspiration, cardiogenic shock, sepsis, anaphylaxis. This required resuscitation in the emergency department, where a brief episode of ventricular fibrillation, asystole and CPR was performed Status: Acute (2) Septic shock: Currently on Primaxin, vancomycin MRSA PCR negative so we will discontinue vancomycin Status: Acute (3) Cardiogenic shock: Significantly improved. Impella has been discontinued Angiogram did not demonstrate flow-limiting coronary stenosis Significant reduction in EF was noted, approximately 20%. Thought to have stress-induced cardiomyopathy. This appears to have improved on follow-up echocardiogram Holding fluids Heart failure compensated currently. No plans for Lasix today Beta-choco and ELIZABETH inhibitor initiated by cardiology Status: Acute (4) Aspiration pneumonia: Continue Primaxin, vancomycin Discontinue vancomycin as MRSA PCR negative Status: Acute (5) SVT (supraventricular tachycardia): Intermittently with SVT. Has intermittently required metoprolol, amiodarone drip. Cardiology following. Status: Acute (6) GI bleed: Changed to Protonix by mouth Plavix, aspirin has been restarted No significant GI bleeding currently Taking p.o. Status: Acute Qualifiers: Gastritis type: other gastritis (7) STEMI (ST elevation myocardial infarction): Cardiology following. Angiogram did not demonstrate significant coronary plaque. Thought to have stress-induced cardiomyopathy Status: Acute Qualifiers: Involved coronary artery: unspecified coronary artery Qualified Code(s): I21.3 - ST elevation (STEMI) myocardial infarction of unspecified site (8) Cardiopulmonary arrest with successful resuscitation: Status: Acute (9) Hypertension: Blood pressure now improved. Hypotension has resolved. Status: Acute Qualifiers: Hypertension type: essential hypertension Qualified Code(s): I10 - Essential (primary) hypertension (10) Anaphylaxis: Initially appeared to have anaphylaxis. Currently no signs of anaphylaxis. Steroids have been discontinued Status: Acute Qualifiers: Encounter type: initial encounter Qualified Code(s): T78.2XXA - Anaphylactic shock, unspecified, initial encounter (11) Amoxicillin-induced allergic rash: Resolved Status: Acute (12) High anion gap metabolic acidosis: Secondary to sepsis. Resolved Status: Acute (13) COPD (chronic obstructive pulmonary disease): No evidence of exacerbation Status: Acute Qualifiers: COPD type: chronic bronchitis Chronic bronchitis type: unspecified Qualified Code(s): J42 - Unspecified chronic bronchitis (14) Stress-induced cardiomyopathy: Beta-choco and ELIZABETH inhibitor have been initiated Status: Acute Additional A&P Information Mild hypokalemia, resolved Acute postoperative blood loss associated with removal of Impella and groin lines. She was transfused 1 unit packed red blood cells June 02. Hemoglobin is stable currently. Peripheral vascular disease Heparin subcutaneous for DVT prophylaxis Full code Continue physical therapy Will need rehabilitation Laboratory holiday tomorrow Attestations Medical Necessity Statement*: Needs continued hospitalization for IV antibiotics secondary to pneumonia, adjustment of medications for cardiomyopathy. 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 of Care Code Acute Certified Histologic Technician for [facility] Diagnoses Respiratory failure J96.90 Septic shock A41.9; R65.21 Cardiogenic shock R57.0 Aspiration pneumonia J69.0 SVT (supraventricular tachycardia) I47.1 GI bleed K92.2 Gastritis type: other gastritis STEMI (ST elevation myocardial infarction) I21.3 Involved coronary artery: unspecified coronary artery Cardiopulmonary arrest with successful resuscitation I46.9 Hypertension I10 Hypertension type: essential hypertension Anaphylaxis T78.2XXA Encounter type: initial encounter Amoxicillin-induced allergic rash L27.0; T36.0X5A High anion gap metabolic acidosis E87.2 COPD (chronic obstructive pulmonary disease) J42 COPD type: chronic bronchitis Chronic bronchitis type: unspecified Stress-induced cardiomyopathy I51.81
--- NOTE | 2020-06-05 16:47 | PM.PN ---
Subjective Subjective: Interval history: Patient is doing well. Denies any complaints of shortness of breath or palpitations. Says at times feels pain in the ribs. Vitals/I&O/Wt Last Vital Signs Temp 97.9 F 06/05/20 14:48 Pulse 61 06/05/20 16:25 Resp 20 H 06/05/20 15:05 BP 119/63 06/05/20 14:48 Pulse Ox 96 06/05/20 16:25 06/05/20 06/05/20 06/05/20 06:59 14:59 22:59 Intake Total 100 / 2630 800 / 800 Output Total 275 / 2325 Balance -175 / 305 800 / 800 Physical Exam Narrative: EXAM NARRATIVE: GENERAL: Patient is alert, awake and oriented x3. NECK: No jugular vein distension. HEENT: No cyanosis. No icterus. No pallor. HEART: Regular S1 and S2. No murmur, rub or gallop. LUNGS: Clear to auscultate bilaterally. ABDOMEN: Soft, nontender and nondistended. Positive bowel sounds. No guarding, rebound or tenderness. CENTRAL NERVOUS SYSTEM: Grossly nonfocal. EXTREMITIES: Lower extremities with 1+ edema bilaterally. Const COMMON NORMALS: alert Resp COMMON NORMALS: clear to auscultation bilaterally AUSCULTATION: clear to auscultation bilaterally Neuro SENSORIUM/ORIENTATION: Yes alert Urinary Catheter Management^: Gandhi: Cath Placed During This Visit: no Reason for Continuing Indwelling Catheter: Accurate Measurement of Urinary Output in Critically Ill Patients Data : 06/05/20 04:15 06/05/20 04:15 Micro: Microbiology 06/04/20 16:43 MRSA Culture - Final Nose A&P Assessment and plan (1) Stress-induced cardiomyopathy: Patient started on Coreg and ELIZABETH inhibitor. Can uptitrate lisinopril to 5 mg daily. Continue aspirin. Status: Acute (2) Cardiogenic shock: Resolved Status: Acute (3) CAD (coronary artery disease): Stable doing fine from a coronary disease perspective history of stents in the RCA. Since he is out of shock and extubated we will slowly put her back current meds. Status: Acute Qualifiers: Coronary Disease-Associated Artery/Lesion type: [place] artery [place] vs. transplanted heart: [place] heart Associated angina: without angina Qualified Code(s): I25.10 - Atherosclerotic heart disease of [place] coronary artery without angina pectoris (4) Syncope and collapse: Most likely secondary to cardiac arrest Status: Acute (5) COPD (chronic obstructive pulmonary disease): Intubated, treatment as per medicine Status: Acute Qualifiers: COPD type: chronic bronchitis Chronic bronchitis type: unspecified Qualified Code(s): J42 - Unspecified chronic bronchitis (6) Sepsis: Resolved continue meds as per medicine Status: Acute Qualifiers: Severe sepsis acute organ dysfunction type: acute respiratory failure Severe sepsis shock status: unspecified (7) GI bleed: Resolved. Continue Protonix Status: Acute Qualifiers: Gastritis type: other gastritis (8) SVT (supraventricular tachycardia): Resolved Status: Acute Attestations Medical Necessity Statement*: Care expected to cross 2 midnights. 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 transplanted heart: [place] heart Associated angina: without angina Syncope and collapse R55 COPD (chronic obstructive pulmonary disease) J42 COPD type: chronic bronchitis Chronic bronchitis type: unspecified Sepsis A41.9 Severe sepsis acute organ dysfunction type: acute respiratory failure Severe sepsis shock status: unspecified GI bleed K92.2 Gastritis type: other gastritis SVT (supraventricular tachycardia) I47.1
[2020-06-06] VITALS (11 sets, daily range): BP systolic 109–140; BP diastolic 56–79; PULSE 52–68; RESP 12–21; TEMP 36.5–37.1; O2SAT 94–99
[2020-06-06] MEDS: heparin 5,000 unit/mL INJ 1 mL 5000 UNIT SUBCUT ×2 (02:44→15:43)
--- NOTE | 2020-06-06 03:02 | PC.NURSE ---
Patient does not like to wear bipap at night, but nursing staff educated patient on the importance of complying with bipap machine to prevent CO2 levels from rising. Patient has wore bipap all of the night so far but stated at breakfast time im taking this off. Patient has a grajeda in place and it is draining dark tea colored urine. Patient also is receiving IV antibiotics and has a central IJ line in place; dressing is dry and intact. Continue care.
[2020-06-06] MEDS: isosorbide mononitrate ER 30 mg Tablet PO (05:18)
--- NOTE | 2020-06-06 05:48 | PC.NURSE ---
Patient up in high fowlers position watching TV at this time. Patient did wear bipap mask all night until apporximately 0540. Patient educated on the importance of using incentive spirometer to decrease chances of more infection and increase lung capacity. Patient trying to use spirometer at this time. Continue care.
--- NOTE | 2020-06-06 05:50 | PC.NURSE ---
Patient does present with a productive cough, but patient is to weak to properly expel phlegm, but maintains O2 saturations on O2 NC or bipap. Patient is much more alert and talkative so far thus shift, and is aware of surroundings and situations. Gandhi is in place and draining tea colored urine. Continue care.
--- NOTE | 2020-06-06 07:22 | PC.NURSE ---
Initial Rounding Pt is alert, awake, oriented. On 3 L/min NC. spo2 of 93-97%.
[2020-06-06] MEDS: pantoprazole DR 40 mg Tablet PO ×2 (08:05→17:26)
[2020-06-06] MEDS: lisinopril 2.5 mg Tablet PO (08:05)
[2020-06-06] MEDS: atorvastatin 40 mg Tablet 80 MG NG-TUBE (08:05)
[2020-06-06] MEDS: carvedilol 3.125 mg Tablet PO ×2 (08:05→17:26)
[2020-06-06] MEDS: clopidogrel 75 mg Tablet PO (08:05)
[2020-06-06] MEDS: aspirin 81 mg EC Tablet PO (08:05)
--- NOTE | 2020-06-06 08:09 | PC.NURSE ---
pressure sore on left buttock Assisted pt to transfer with 2 person assist from bed to chair. Noted pressure sore like skin tears on left buttock. Pt verbalizes, I had that sore in my bottom before i came in. Dr. Johnson at bedside and is aware.
[2020-06-06] MEDS: ipratropium-albuterol 3 mL Neb INHALATION ×2 (10:35→20:37)
--- NOTE | 2020-06-06 10:48 | PM.PN ---
Subjective Subjective: Interval history: Patient is doing well. Denies any complaints of chest pain or shortness of breath. She is sitting in the chair today. Vitals/I&O/Wt Last Vital Signs Temp 97.7 F 06/06/20 07:00 Pulse 68 06/06/20 10:40 Resp 18 06/06/20 10:35 BP 109/61 06/06/20 07:00 Pulse Ox 97 06/06/20 10:35 06/05/20 06/06/20 06/06/20 22:59 06:59 14:59 Intake Total 130 / 1030 100 / 1130 360 / 360 Output Total 550 / 550 500 / 1050 Balance -420 / 480 -400 / 80 360 / 360 Physical Exam Narrative: EXAM NARRATIVE: GENERAL: Patient is alert, awake and oriented x3. NECK: No jugular vein distension. HEENT: No cyanosis. No icterus. No pallor. HEART: Regular S1 and S2. No murmur, rub or gallop. LUNGS: Clear to auscultate bilaterally. ABDOMEN: Soft, nontender and nondistended. Positive bowel sounds. No guarding, rebound or tenderness. CENTRAL NERVOUS SYSTEM: Grossly nonfocal. EXTREMITIES: Lower extremities with 1+ edema bilaterally. Const COMMON NORMALS: alert Resp COMMON NORMALS: clear to auscultation bilaterally AUSCULTATION: clear to auscultation bilaterally Neuro SENSORIUM/ORIENTATION: Yes alert Urinary Catheter Management^: Gandhi: Cath Placed During This Visit: no Reason for Continuing Indwelling Catheter: Acute Urinary Retention or Obstruction Data : 06/05/20 04:15 06/05/20 04:15 Micro: Microbiology 06/04/20 16:43 MRSA Culture - Final Nose A&P Assessment and plan (1) Stress-induced cardiomyopathy: Patient started on Coreg and ELIZABETH inhibitor. Can uptitrate lisinopril to 5 mg daily. Continue aspirin and plavix. Patient is stable to be discharged from cardiology standpoint with follow up with Dr Galo as outpatient. Status: Acute (2) Cardiogenic shock: Resolved Status: Acute (3) CAD (coronary artery disease): Stable doing fine from a coronary disease perspective history of stents in the RCA. Since he is out of shock and extubated we will slowly put her back current meds. Status: Acute Qualifiers: Coronary Disease-Associated Artery/Lesion type: [place] artery [place] vs. transplanted heart: [place] heart Associated angina: without angina Qualified Code(s): I25.10 - Atherosclerotic heart disease of [place] coronary artery without angina pectoris (4) Syncope and collapse: Most likely secondary to cardiac arrest Status: Acute (5) COPD (chronic obstructive pulmonary disease): Intubated, treatment as per medicine Status: Acute Qualifiers: COPD type: chronic bronchitis Chronic bronchitis type: unspecified Qualified Code(s): J42 - Unspecified chronic bronchitis (6) Sepsis: Resolved continue meds as per medicine Status: Acute Qualifiers: Severe sepsis acute organ dysfunction type: acute respiratory failure Severe sepsis shock status: unspecified (7) GI bleed: Resolved. 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 transplanted heart: [place] heart Associated angina: without angina Syncope and collapse R55 COPD (chronic obstructive pulmonary disease) J42 COPD type: chronic bronchitis Chronic bronchitis type: unspecified Sepsis A41.9 Severe sepsis acute organ dysfunction type: acute respiratory failure Severe sepsis shock status: unspecified GI bleed K92.2 Gastritis type: other gastritis SVT (supraventricular tachycardia) I47.1
--- NOTE | 2020-06-06 12:41 | PM.PN ---
Subjective Subjective: Interval history: Viridiana reports she is doing okay. She is very weak and acknowledges this. Medications: Reviewed: Yes Vitals/I&O/Wt Last Vital Signs Temp 97.9 F 06/06/20 10:50 Pulse 64 06/06/20 10:50 Resp 20 H 06/06/20 10:50 BP 126/56 06/06/20 10:50 Pulse Ox 97 06/06/20 10:50 06/05/20 06/06/20 06/06/20 22:59 06:59 14:59 Intake Total 130 / 1030 100 / 1130 700 / 700 Output Total 550 / 550 500 / 1050 500 / 500 Balance -420 / 480 -400 / 80 200 / 200 Physical Exam Narrative: EXAM NARRATIVE: General exam no apparent distress Cardiovascular regular rate and rhythm Lungs few bilateral wheezes Abdomen is soft, positive bowel sound Extremities no cyanosis clubbing. Extremities cool. Trace edema Urinary Catheter Management^: Gandhi: Cath Placed During This Visit: yes, but has since been removed by the nurse Reason for Continuing Indwelling Catheter: Decision to DC Catheter Date Urinary Catheter Removed: 06/06/20 Time Urinary Catheter Discontinued: 12:00 Data : 06/05/20 04:15 06/05/20 04:15 Micro: Microbiology 06/04/20 16:43 MRSA Culture - Final Nose A&P Assessment and plan (1) Respiratory failure: Extubated June 03. Appears to be doing well. Acute hypoxic respiratory failure, multifactorial. Concerns were aspiration, cardiogenic shock, sepsis, anaphylaxis. This required resuscitation in the emergency department, where a brief episode of ventricular fibrillation, asystole and CPR was performed Status: Acute (2) Septic shock: She has completed an adequate course of IV antibiotics. Discontinue Primaxin today. MRSA PCR negative so vancomycin was discontinued Status: Acute (3) Cardiogenic shock: Significantly improved. Impella has been discontinued Angiogram did not demonstrate flow-limiting coronary stenosis Significant reduction in EF was noted, approximately 20%. Thought to have stress-induced cardiomyopathy. This appears to have improved on follow-up echocardiogram Holding fluids Heart failure compensated currently. Continue to monitor for need for diuretic Beta-choco and ELIZABETH inhibitor initiated by cardiology Her cumulative ins and outs are balanced over her hospital stay. Status: Acute (4) Aspiration pneumonia: She has completed an adequate oral course of IV antibiotics. Discontinue Primaxin today. Status: Acute (5) SVT (supraventricular tachycardia): Intermittently with SVT. Had intermittently required metoprolol, amiodarone drip. Cardiology following. No recent episodes Status: Acute (6) GI bleed: Changed to Protonix by mouth Plavix, aspirin has been restarted No significant GI bleeding currently Taking p.o. Status: Acute Qualifiers: Gastritis type: other gastritis (7) STEMI (ST elevation myocardial infarction): Cardiology following. Angiogram did not demonstrate significant coronary plaque. Thought to have stress-induced cardiomyopathy Status: Acute Qualifiers: Involved coronary artery: unspecified coronary artery Qualified Code(s): I21.3 - ST elevation (STEMI) myocardial infarction of unspecified site (8) Cardiopulmonary arrest with successful resuscitation: Status: Acute (9) Hypertension: Blood pressure now improved. Hypotension has resolved. Status: Acute Qualifiers: Hypertension type: essential hypertension Qualified Code(s): I10 - Essential (primary) hypertension (10) Anaphylaxis: Initially appeared to have anaphylaxis. Currently no signs of anaphylaxis. Steroids have been discontinued Status: Acute Qualifiers: Encounter type: initial encounter Qualified Code(s): T78.2XXA - Anaphylactic shock, unspecified, initial encounter (11) Amoxicillin-induced allergic rash: Resolved Status: Acute (12) High anion gap metabolic acidosis: Secondary to sepsis. Resolved Status: Acute (13) COPD (chronic obstructive pulmonary disease): Some wheezing noted today. Continue pulmonary toilet. Status: Acute Qualifiers: COPD type: chronic bronchitis Chronic bronchitis type: unspecified Qualified Code(s): J42 - Unspecified chronic bronchitis (14) Stress-induced cardiomyopathy: Beta-choco and ELIZABETH inhibitor have been initiated Status: Acute Additional A&P Information Mild hypokalemia, resolved Acute postoperative blood loss associated with removal of Impella and groin lines. She was transfused 1 unit packed red blood cells June 02. Hemoglobin is stable currently. Peripheral vascular disease Heparin subcutaneous for DVT prophylaxis Full code Continue physical therapy Will need rehabilitation. 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 Diagnoses Respiratory failure J96.90 Septic shock A41.9; R65.21 Cardiogenic shock R57.0 Aspiration pneumonia J69.0 SVT (supraventricular tachycardia) I47.1 GI bleed K92.2 Gastritis type: other gastritis STEMI (ST elevation myocardial infarction) I21.3 Involved coronary artery: unspecified coronary artery Cardiopulmonary arrest with successful resuscitation I46.9 Hypertension I10 Hypertension type: essential hypertension Anaphylaxis T78.2XXA Encounter type: initial encounter Amoxicillin-induced allergic rash L27.0; T36.0X5A High anion gap metabolic acidosis E87.2 COPD (chronic obstructive pulmonary disease) J42 COPD type: chronic bronchitis Chronic bronchitis type: unspecified Stress-induced cardiomyopathy I51.81
--- NOTE | 2020-06-06 13:00 | PC.NURSE ---
Pt sat in the chair from 8 am to 1 pm. Tolerated the activity well. Then decided to go back to bed.
--- NOTE | 2020-06-06 13:11 | PC.NURSE ---
Pt assisted transfer from BSC to bed Pt had 1 lg BM and voided post grajeda catheter removal. Pt transferred fairly from bsc to bed w/ use of walker and w/ 2 person standby assist. Assisted pt back in bed. HOB 30degrees. repositioned pt on her right side.
[2020-06-06] MEDS: acetaminophen 325 mg Tablet 650 MG PO (13:19)
[2020-06-06] MEDS: capsaicin 0.025% cream 60 gm 1 APPLIC TOPICAL (13:25)
--- NOTE | 2020-06-06 13:48 | PC.NURSE ---
Spo2 of 95% on 3 L/min per nasal cannula
--- NOTE | 2020-06-06 15:08 | PC.NURSE ---
Pt is alert, awake, oriented spo2-95% on 1.5 L/min NC
--- NOTE | 2020-06-06 21:57 | PC.NURSE ---
PT RESTING IN BED ON BIPAP. PT DENIES PAIN. WILL CONTINUE TO MONITOR.
[2020-06-07] VITALS (12 sets, daily range): BP systolic 112–155; BP diastolic 54–87; PULSE 52–74; RESP 14–23; TEMP 36.5–36.7; O2SAT 91–98
[2020-06-07] MEDS: acetaminophen 325 mg Tablet 650 MG PO ×4 (01:51→22:57)
[2020-06-07] MEDS: ipratropium-albuterol 3 mL Neb INHALATION ×4 (02:26→20:30)
[2020-06-07] MEDS: heparin 5,000 unit/mL INJ 1 mL 5000 UNIT SUBCUT ×2 (04:04→16:03)
[2020-06-07 04:12] LABS: Basophils # 0.1 10^3/uL (0.0-0.1); Basophils % 0.7 %; Eosinophils # 0.4 10^3/uL (0.0-0.8); Eosinophils % 4.2 %; Hematocrit 33.5 % (37.0-47.0); Lymphocytes # 1.7 10^3/uL (0.8-4.8); Lymphocytes % 20.4 %; Mean Corpuscular HGB Conc 29.9 g/dL (30.0-36.0); Mean Corpuscular Hemoglobin 29.2 pg (28.0-34.0); Mean Platelet Volume 12.1 fL (7.4-10.4); Monocytes # 0.6 10^3/uL (0.2-0.9); Monocytes % 7.2 %; Neutrophils # 5.58 10^3/uL (1.8-7.7); Neutrophils % 67.1 %; Nucleated Red Blood Cells % 0 %; Platelet Count 183 10^3/cmm (130-400); Red Blood Count 3.42 10^6/uL (4.1-5.3); Red Cell Distribution Width 15.7 % (12.1-15.1); White Blood Count 8.3 10^3/uL (4.0-10.0)
[2020-06-07 04:34] LABS: Alanine Aminotransferase 27 U/L (0-33); Albumin Level 2.7 g/dL (3.5-5.2); Alkaline Phosphatase 59 IU/L (35-105); Aspartate Amino Transferase 34 U/L (0-32); Blood Urea Nitrogen 12 mg/dL (6-20); Calcium 8.9 mg/dL (8.5-10.5); Carbon Dioxide 29 mmol/L (22-29); Chloride 108 mmol/L (98-107); Globulin 2.6 g/dL (1.3-4.6); Glomerular Filtration Rate 126.3 mL/min (90-130); Glucose 104 mg/dL (65-115); Osmolality Calculated 298 mOsm/kg (285-295); Sodium 144 mmol/L (136-145); Total Bilirubin 0.5 mg/dL (0.15-1.2); Total Protein 5.3 g/dL (6.6-8.7)
[2020-06-07 04:41] LABS: Anion Gap 10.9 (5-19); Potassium 3.9 mmol/L (3.5-5.1)
[2020-06-07] MEDS: isosorbide mononitrate ER 30 mg Tablet PO (05:48)
--- NOTE | 2020-06-07 07:00 | XR_ITS ---
WS: [id number] Portable AP supine chest, 06/07/2020 Clinical Data: follow-up respiratory failure, pneumonia Comparison: Portable chest, 06/03/2020. Findings: The bilateral patchy opacities have diminished and there is a small residual. The heart is slightly enlarged. The endotracheal tube and enteric tube have been removed. The right internal jugul ar venous catheter remains. No pneumonia or pneumothorax is present. The aortic arch and descending a juanpablo show tortuosity. There is a monitor lead over the upper abdomen. XR/XR chest 1V portable [id number] Impression: 1. Significant clearing of bilateral patchy opacities. 2. Removal of endotracheal tube and enteric tube. 3. Cardiomegaly and atherosclerosis.
[2020-06-07] MEDS: aspirin 81 mg EC Tablet PO (08:02)
[2020-06-07] MEDS: carvedilol 3.125 mg Tablet PO ×2 (08:02→18:58)
[2020-06-07] MEDS: atorvastatin 40 mg Tablet 80 MG NG-TUBE (08:02)
[2020-06-07] MEDS: clopidogrel 75 mg Tablet PO (08:03)
[2020-06-07] MEDS: pantoprazole DR 40 mg Tablet PO ×2 (08:03→18:58)
[2020-06-07] MEDS: lisinopril 2.5 mg Tablet PO (08:03)
--- NOTE | 2020-06-07 18:35 | P.PN_ITS ---
Subjective Subjective: Interval history: She says she is doing all right, but does get sore in her ribs, especially when she is turned/repositioned at night. Has been trying to work with incentive spirometry. Working with PT and OT. Feels that her legs are swollen. Requests that she will ask a family member to bring in some nail clippers for her fingernails to be trimmed. Vitals/I&O/Wt Last Vital Signs Temp 98.0 F 06/07/20 10:43 Pulse 63 06/07/20 16:16 Resp 23 H 06/07/20 16:16 BP 124/73 06/07/20 16:16 Pulse Ox 91 06/07/20 16:16 06/07/20 06/07/20 06/07/20 06:59 14:59 22:59 Intake Total 120 / 1180 238 / 238 240 / 478 Output Total 400 / 1550 Balance -280 / -370 238 / 238 240 / 478 Physical Exam Const: COMMON NORMALS: no acute distress and patient oriented x3 NUTRITIONAL APPEARANCE: obese OTHER: Son is at bedside, visiting her. HENMT: COMMON NORMALS: oropharynx normal Neck/C-Spine: COMMON NORMALS: no JVD Resp: COMMON NORMALS: normal respiratory effort and clear to auscultation bilaterally AUSCULTATION: clear to auscultation bilaterally Cardio: COMMON NORMALS: no JVD, regular rhythm, S1 normal heart sound present, S2 normal heart sound present and No murmurs present (Cardio) RHYTHM: regular rhythm HEART SOUNDS: S1 normal heart sound present and S2 normal heart sound present GI: COMMON NORMALS: Normal to inspection, nondistended, normoactive bowel sounds present, Soft to palpation and non-tender PALPATION: Yes Soft to palpation Extremity: COMMON NORMALS: no joint enlargement GENERAL: Yes edema (Mostly nonpitting edema, trace pitting edema.) Neuro: COMMON NORMALS: patient oriented x3 and moves all extremities Skin: COMMON NORMALS: no rashes or lesions noted GENERAL SKIN EXAM: no rashes or lesions noted Urinary Catheter Management^: Gandhi: Cath Placed During This Visit: yes, but has since been removed by the nurse Reason for Continuing Indwelling Catheter: Decision to DC Catheter Date Urinary Catheter Removed: 06/06/20 Time Urinary Catheter Discontinued: 12:00 Data : 06/07/20 03:43 06/07/20 03:43 A&P Assessment and plan (1) Respiratory failure: She is doing all right. Gets sore with deep breaths and repositioning from chest wall pain. Will try lidocaine patch. She understands that requires repositioning to prevent pressure sores, will communicate if this can be done gently. Continue incentive furniture. PT, OT. Extubated June 03. Appears to be doing well. Acute hypoxic respiratory failure, multifactorial. Concerns were aspiration, cardiogenic shock, sepsis, anaphylaxis. This required resuscitation in the emergency department, where a brief episode of ventricular fibrillation, asystole and CPR was performed Care coordination working on discharge planning. Status: Acute (2) Stress-induced cardiomyopathy: Beta-choco and ELIZABETH inhibitor have been initiated. Lisinopril dose was increased to 5 mg. Continue aspirin and Plavix. Okay for discharge from cardiology perspective, follow-up with Dr. Galo in office. Status: Acute (3) Septic shock: She has completed an adequate course of IV antibiotics. Primaxin was discontinued. MRSA PCR negative, vancomycin was discontinued Status: Acute (4) Cardiogenic shock: Significantly improved. Transiently with Impella support Angiogram did not demonstrate flow-limiting coronary stenosis Significant reduction in EF was noted, approximately 20%. Thought to have stress-induced cardiomyopathy. This appears to have improved on follow-up echo cardiogram Holding fluids Heart failure compensated currently. Continue to monitor for need for diuretic Beta-choco and ELIZABETH inhibitor initiated by cardiology Her cumulative ins and outs are balanced over her hospital stay. Status: Acute (5) Aspiration pneumonia: She has completed an adequate oral course of IV antibiotics. Primaxin was discontinued. Status: Acute (6) SVT (supraventricular tachycardia): Intermittently with SVT. Had intermittently required metoprolol, amiodarone drip. Cardiology following. No recent episodes Status: Acute (7) GI bleed: Changed to Protonix by mouth Plavix, aspirin has been restarted No significant GI bleeding currently Taking p.o. Status: Acute Qualifiers: Gastritis type: other gastritis (8) STEMI (ST elevation myocardial infarction): Cardiology following. Angiogram did not demonstrate significant coronary plaque. Thought to have stress-induced cardiomyopathy Status: Acute Qualifiers: Involved coronary artery: unspecified coronary artery Qualified Code(s): I21.3 - ST elevation (STEMI) myocardial infarction of unspecified site (9) Cardiopulmonary arrest with successful resuscitation: Status: Acute (10) Hypertension: Blood pressure now improved. Hypotension has resolved. Status: Acute Qualifiers: Hypertension type: essential hypertension Qualified Code(s): I10 - Essential (primary) hypertension (11) Anaphylaxis: Initially appeared to have anaphylaxis. Resolved. Steroids have been discontinued Status: Acute Qualifiers: Encounter type: initial encounter Qualified Code(s): T78.2XXA - Anaphylactic shock, unspecified, initial encounter (12) Amoxicillin-induced allergic rash: Resolved Status: Acute (13) High anion gap metabolic acidosis: Secondary to sepsis. Resolved Status: Acute (14) COPD (chronic obstructive pulmonary disease): No wheezing. Continue pulmonary toilet. Breathing treatments. Status: Acute Qualifiers: COPD type: chronic bronchitis Chronic bronchitis type: unspecified Qualified Code(s): J42 - Unspecified chronic bronchitis Additional A&P Information Mild hypokalemia, resolved Acute postoperative blood loss associated with removal of Impella and groin lines. She was transfused 1 unit packed red blood cells June 02. Hemoglobin is stable currently. Peripheral vascular disease Heparin subcutaneous for DVT prophylaxis Full code Continue physical therapy Will need rehabilitation. Discharge planning is working on this Attestations Medical Necessity Statement*: Continue admission for assessment following cardiogenic shock, stress-induced cardiomyopathy, after anaphylactic shock, chest wall pain after CPR, disposition arrangements for placement for rehabilitation. 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 of Care Code Acute Military Education Coordinator for [facility] Diagnoses Respiratory failure J96.90 Stress-induced cardiomyopathy I51.81 Septic shock A41.9; R65.21 Cardiogenic shock R57.0 Aspiration pneumonia J69.0 SVT (supraventricular tachycardia) I47.1 GI bleed K92.2 Gastritis type: other gastritis STEMI (ST elevation myocardial infarction) I21.3 Involved coronary artery: unspecified coronary artery Cardiopulmonary arrest with successful resuscitation I46.9 Hypertension I10 Hypertension type: essential hypertension Anaphylaxis T78.2XXA Encounter type: initial encounter Amoxicillin-induced allergic rash L27.0; T36.0X5A High anion gap metabolic acidosis E87.2 COPD (chronic obstructive pulmonary disease) J42 COPD type: chronic bronchitis Chronic bronchitis type: unspecified
[2020-06-07] MEDS: lidocaine 5% Patch 1 PATCH TOPICAL (21:00)
[2020-06-07] MEDS: capsaicin 0.025% cream 60 gm 1 APPLIC TOPICAL (23:01)
--- NOTE | 2020-06-07 23:48 | PM.PN ---
Subjective Subjective: Interval history: Patient is doing well. No chest pain, shortness of breath or palpitations. Medications: Reviewed: Yes Vitals/I&O/Wt Last Vital Signs Temp 97.9 F 06/07/20 20:10 Pulse 53 L 06/07/20 20:30 Resp 20 H 06/07/20 20:10 BP 155/87 06/07/20 20:10 Pulse Ox 95 06/07/20 20:30 06/07/20 06/07/20 06/08/20 14:59 22:59 06:59 Intake Total 238 / 238 610 / 848 Output Total Balance 238 / 238 609 / 847 Physical Exam Narrative: EXAM NARRATIVE: GENERAL: Patient is alert, awake and oriented x3. NECK: No jugular vein distension. HEENT: No cyanosis. No icterus. No pallor. HEART: Regular S1 and S2. No murmur, rub or gallop. LUNGS: Clear to auscultate bilaterally. ABDOMEN: Soft, nontender and nondistended. Positive bowel sounds. No guarding, rebound or tenderness. CENTRAL NERVOUS SYSTEM: Grossly nonfocal. EXTREMITIES: Lower extremities with 1+ edema bilaterally. Const COMMON NORMALS: alert Resp COMMON NORMALS: clear to auscultation bilaterally AUSCULTATION: clear to auscultation bilaterally Neuro SENSORIUM/ORIENTATION: Yes alert Urinary Catheter Management^: Gandhi: Cath Placed During This Visit: yes, but has since been removed by the nurse Reason for Continuing Indwelling Catheter: Decision to DC Catheter Date Urinary Catheter Removed: 06/06/20 Time Urinary Catheter Discontinued: 12:00 Data : 06/07/20 03:43 06/07/20 03:43 A&P Assessment and plan (1) Stress-induced cardiomyopathy: Patient started on Coreg and ELIZABETH inhibitor. Continue aspirin and plavix. Patient is stable to be discharged from cardiology standpoint with follow up with Dr Galo as outpatient. Status: Acute (2) Cardiogenic shock: Resolved Status: Acute (3) CAD (coronary artery disease): Stable doing fine from a coronary disease perspective history of stents in the RCA. Since he is out of shock and extubated we will slowly put her back current meds. Status: Acute Qualifiers: Coronary Disease-Associated Artery/Lesion type: [place] artery [place] vs. transplanted heart: [place] heart Associated angina: without angina Qualified Code(s): I25.10 - Atherosclerotic heart disease of [place] coronary artery without angina pectoris (4) Syncope and collapse: Most likely secondary to cardiac arrest Status: Acute (5) COPD (chronic obstructive pulmonary disease): Intubated, treatment as per medicine Status: Acute Qualifiers: COPD type: chronic bronchitis Chronic bronchitis type: unspecified Qualified Code(s): J42 - Unspecified chronic bronchitis (6) Sepsis: Resolved continue meds as per medicine Status: Acute Qualifiers: Severe sepsis acute organ dysfunction type: acute respiratory failure Severe sepsis shock status: unspecified (7) GI bleed: Resolved. Continue Protonix Status: Acute Qualifiers: Gastritis type: other gastritis (8) SVT (supraventricular tachycardia): Resolved Status: Acute Attestations Medical Necessity Statement*: Care expected to cross 2 midnights. 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 of Care Code Acute Shaft Sinker for [facility] Diagnoses Stress-induced cardiomyopathy I51.81 Cardiogenic shock R57.0 CAD (coronary artery disease) I25.10 Coronary Disease-Associated Artery/Lesion type: [place] artery [place] vs. transplanted heart: [place] heart Associated angina: without angina Syncope and collapse R55 COPD (chronic obstructive pulmonary disease) J42 COPD type: chronic bronchitis Chronic bronchitis type: unspecified Sepsis A41.9 Severe sepsis acute organ dysfunction type: acute respiratory failure Severe sepsis shock status: unspecified GI bleed K92.2 Gastritis type: other gastritis SVT (supraventricular tachycardia) I47.1
[2020-06-08] VITALS (12 sets, daily range): BP systolic 122–167; BP diastolic 70–95; PULSE 59–83; RESP 16–26; TEMP 36.3–36.8; O2SAT 89–96
[2020-06-08] MEDS: ipratropium-albuterol 3 mL Neb INHALATION ×3 (02:27→20:58)
[2020-06-08] MEDS: heparin 5,000 unit/mL INJ 1 mL 5000 UNIT SUBCUT ×2 (03:00→16:11)
[2020-06-08] MEDS: isosorbide mononitrate ER 30 mg Tablet PO (05:30)
--- NOTE | 2020-06-08 07:00 | PC.NURSE ---
pt resting in bed. assessment performed. pt then wanted to use restroom. assisted to bed side commode with stand by assist. urinated, and wanted to go back to bed. pt transferred self back to bed and was sitting up waiting for breakfast to come. call light within reach, will continue to monitor.
--- NOTE | 2020-06-08 08:30 | PC.NURSE ---
pt assisted to bedside commode. expressed concern of it burning when she pees. dr notified. orders put in for urinalysis. call light within reach. will continue to monitor.
[2020-06-08] MEDS: carvedilol 3.125 mg Tablet PO ×2 (08:56→17:16)
[2020-06-08] MEDS: pantoprazole DR 40 mg Tablet PO ×2 (08:56→17:16)
[2020-06-08] MEDS: aspirin 81 mg EC Tablet PO (08:56)
[2020-06-08] MEDS: lisinopril 2.5 mg Tablet PO (08:56)
[2020-06-08] MEDS: clopidogrel 75 mg Tablet PO (08:56)
[2020-06-08] MEDS: lidocaine 5% Patch 1 PATCH TOPICAL (08:57)
--- NOTE | 2020-06-08 09:44 | PC.CHAP ---
Pastoral Care Encounter/Spiritual Assessment Type of Contact [] Declined washing machine repairer visit [] Patient/Family/Request visit [] Outpatient visit [] Follow-up visit [] Physician referral [] Code/Alert [x] Routine visit [] Staff referral [] Actively dying [] Patient sleeping [] Family support [] [] Out of room [] Palliative care [] [] Receiving care in room [] Pre-surgical visit [] Trauma [] Long length of stay [] ICU visit [] Other: Relational/Emotional Strength [x] Patient feels connected with others/family/visitors/staff [] Distress [] Loneliness/isolation [] Abandonment Spirituality of Patient [] Person of Aura [] Attends Anabaptist of their Aura [] Believes in Prayer [] Reads Bible or Temple materials [] There are Spiritual issues to be addressed Deliverer Pharmacy Interventions [x] Prayer [x] Active listening [x] Non-anxious presence [x] Spiritual/emotional support [] Crisis/trauma care [] Spiritual counseling [] Bereavement support [] Provided bereavement packet [] Provided Bible/devotional materials [] Provided toy/stuffed animal, coloring book to patient or family member [] Provided Communion [] Anointing/[place] [] Salvation [x] Completed spiritual assessment [] Other: Impact on Illness or Injury [] Angry [] Fearful [] Anxious [] Often cries [] Exhaustion [] Unable to work [] Unable to attend episcopalian [] Unable to walk/stand [] Unable to read [] Unable to drive [] Unable to eat/drink [] Unable to sleep [] Unable to be with family [] Patient intubated [] Other: Summary patient not feeling uplifted. Son visits. broken ribs- Time spent with patient 15 min
[2020-06-08 15:01] LABS: Add Urine Microscopic? YES; Bilirubin Urine Neg (Negative); Blood Urine 3+ (Negative); Glucose Urine UA Norm (Normal); Ketones Urine Negative (Negative); Leukocyte Esterase Urine Trace (Negative); Nitrate Urine Negative (Negative); Protein Urine Neg (Negative); Specific Gravity, Urine 1.015 (1.005-1.030); Urine Appearance Hazy (CLEAR); Urine Color Yellow (Yellow); Urobilinogen Urine Norm (Negative); pH Urine 7 (5-7)
[2020-06-08 15:04] LABS: Add Urine Culture? Yes; Bacteria Urine 1+ /hpf; RBC Urine 40-50 /hpf (0-2); Transitional Epi Cells Urine 0-4 /hpf
[2020-06-08] MEDS: acetaminophen 325 mg Tablet 650 MG PO (17:15)
--- NOTE | 2020-06-08 20:00 | PC.NURSE ---
pt sat in chair most of the afternoon. ot worked with pt. pt tranferred to bedside commode with stand by assisted. after supper pt transferred self bed with stand by assist. call light within reach, will continue to monitor.
--- NOTE | 2020-06-08 20:46 | PM.PN ---
Subjective Subjective: Interval history: She is doing all right today. Working with physical and occupational therapy. To the nurse reported having some burning with urination. Vitals/I&O/Wt Last Vital Signs Temp 98.2 F 06/08/20 17:00 Pulse 65 06/08/20 20:43 Resp 17 06/08/20 20:43 BP 122/70 06/08/20 20:43 Pulse Ox 96 06/08/20 20:43 06/08/20 06/08/20 06/08/20 06:59 14:59 22:59 Intake Total 585 / 585 240 / 825 Output Total 500 / 500 700 / 1200 Balance 85 / 85 -460 / -375 Physical Exam Const: COMMON NORMALS: no acute distress and patient oriented x3 NUTRITIONAL APPEARANCE: obese OTHER: Sitting up in chair. Working with PT. Conversant. In good spirits. HENMT: COMMON NORMALS: oropharynx normal Neck/C-Spine: COMMON NORMALS: no JVD Resp: COMMON NORMALS: normal respiratory effort and clear to auscultation bilaterally AUSCULTATION: clear to auscultation bilaterally Cardio: COMMON NORMALS: no JVD, regular rhythm, S1 normal heart sound present, S2 normal heart sound present and No murmurs present (Cardio) RHYTHM: regular rhythm HEART SOUNDS: S1 normal heart sound present and S2 normal heart sound present GI: COMMON NORMALS: Normal to inspection, nondistended, normoactive bowel sounds present, Soft to palpation and non-tender PALPATION: Yes Soft to palpation Extremity: COMMON NORMALS: no joint enlargement GENERAL: Yes edema (Mostly nonpitting edema, trace pitting edema.) Neuro: COMMON NORMALS: patient oriented x3 and moves all extremities Skin: COMMON NORMALS: no rashes or lesions noted GENERAL SKIN EXAM: no rashes or lesions noted Urinary Catheter Management^: Gandhi: Cath Placed During This Visit: yes, but has since been removed by the nurse Reason for Continuing Indwelling Catheter: Decision to DC Catheter Date Urinary Catheter Removed: 06/06/20 Time Urinary Catheter Discontinued: 12:00 Data : 06/07/20 03:43 06/07/20 03:43 A&P Assessment and plan (1) Respiratory failure: Stable oxygenation. At night wears BiPAP, does say her mouth gets somewhat dry. Otherwise no changes, making some slow but steady progress with PT and OT. Still having pain in her rib cage with repositioning. Will try lidocaine patch still for today, otherwise if not effective may discontinue. Encouraged her again to use incentive spirometer. Continue PT, OT. Extubated June 03. Appears to be doing well. Continue attempts to mobilize. Acute hypoxic respiratory failure, multifactorial. Concerns were aspiration, cardiogenic shock, sepsis, anaphylaxis. This required resuscitation in the emergency department, where a brief episode of ventricular fibrillation, asystole and CPR was performed Care coordination working on discharge planning and placement for rehabilitation. Status: Acute (2) Stress-induced cardiomyopathy: Beta-choco and ELIAZBETH inhibitor have been initiated. Lisinopril dose was increased to 5 mg. Continue aspirin and Plavix. Okay for discharge from cardiology perspective, follow-up with Dr. Galo in office. Status: Acute (3) Septic shock: She has completed an adequate course of IV antibiotics. Primaxin was discontinued. MRSA PCR negative, vancomycin was discontinued Status: Acute (4) Cardiogenic shock: Significantly improved. Transiently with Impella support Angiogram did not demonstrate flow-limiting coronary stenosis Significant reduction in EF was noted, approximately 20%. Thought to have stress-induced cardiomyopathy. This appears to have improved on follow-up echocardiogram Holding fluids Heart failure compensated currently. Continue to monitor for need for diuretic Beta-choco and ELIZABETH inhibitor initiated by cardiology Her cumulative ins and outs are balanced over her hospital stay. Status: Acute (5) Aspiration pneumonia: She has completed an adequate oral course of IV antibiotics. Primaxin was discontinued. Status: Acute (6) SVT (supraventricular tachycardia): Intermittently with SVT. Had intermittently required metoprolol, amiodarone drip. Cardiology following. No recent episodes Status: Acute (7) GI bleed: Changed to Protonix by mouth Plavix, aspirin has been restarted No significant GI bleeding currently Taking p.o. Status: Acute Qualifiers: Gastritis type: other gastritis (8) STEMI (ST elevation myocardial infarction): Cardiology following. Angiogram did not demonstrate significant coronary plaque. Thought to have stress-induced cardiomyopathy Status: Acute Qualifiers: Involved coronary artery: unspecified coronary artery Qualified Code(s): I21.3 - ST elevation (STEMI) myocardial infarction of unspecified site (9) Cardiopulmonary arrest with successful resuscitation: Status: Acute (10) Hypertension: Blood pressure now improved. Hypotension has resolved. Status: Acute Qualifiers: Hypertension type: essential hypertension Qualified Code(s): I10 - Essential (primary) hypertension (11) Anaphylaxis: Initially appeared to have anaphylaxis. Resolved. Steroids have been discontinued Status: Acute Qualifiers: Encounter type: initial encounter Qualified Code(s): T78.2XXA - Anaphylactic shock, unspecified, initial encounter (12) Amoxicillin-induced allergic rash: Resolved Status: Acute (13) High anion gap metabolic acidosis: Secondary to sepsis. Resolved Status: Acute (14) COPD (chronic obstructive pulmonary disease): No wheezing. Continue pulmonary toilet. Breathing treatments. Status: Acute Qualifiers: COPD type: chronic bronchitis Chronic bronchitis type: unspecified Qualified Code(s): J42 - Unspecified chronic bronchitis Additional A&P Information Mild hypokalemia, resolved Acute postoperative blood loss associated with removal of Impella and groin lines. She was transfused 1 unit packed red blood cells June 02. Hemoglobin is stable currently. Peripheral vascular disease Heparin subcutaneous for DVT prophylaxis Full code Continue physical therapy Will need rehabilitation. Discharge planning is working on this Attestations Medical Necessity Statement*: Continue assessment and care following cardiac arrest, cardiomyopathy, septic shock, pneumonia, with other comorbidities, requiring extensive rehabilitation. Disposition arrangements. 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 of Care Code Acute Search Marketing Specialist for [facility] Diagnoses Respiratory failure J96.90 Stress-induced cardiomyopathy I51.81 Septic shock A41.9; R65.21 Cardiogenic shock R57.0 Aspiration pneumonia J69.0 SVT (supraventricular tachycardia) I47.1 GI bleed K92.2 Gastritis type: other gastritis STEMI (ST elevation myocardial infarction) I21.3 Involved coronary artery: unspecified coronary artery Cardiopulmonary arrest with successful resuscitation I46.9 Hypertension I10 Hypertension type: essential hypertension Anaphylaxis T78.2XXA Encounter type: initial encounter Amoxicillin-induced allergic rash L27.0; T36.0X5A High anion gap metabolic acidosis E87.2 COPD (chronic obstructive pulmonary disease) J42 COPD type: chronic bronchitis Chronic bronchitis type: unspecified
[2020-06-08] MEDS: atorvastatin 40 mg Tablet 80 MG PO (20:47)
--- NOTE | 2020-06-08 21:10 | PC.NURSE ---
Patient has no complaints at this time. Patient was assisted to bedside commode and back to bed. Patient is currently on Bipap. Will monitor.
[2020-06-09] VITALS (15 sets, daily range): BP systolic 127–157; BP diastolic 73–93; PULSE 50–78; RESP 14–20; TEMP 36.4–37.1; O2SAT 91–100
[2020-06-09] MEDS: heparin 5,000 unit/mL INJ 1 mL 5000 UNIT SUBCUT ×2 (03:12→14:46)
[2020-06-09] MEDS: ipratropium-albuterol 3 mL Neb INHALATION ×4 (03:40→21:45)
[2020-06-09] MEDS: isosorbide mononitrate ER 30 mg Tablet PO (04:54)
--- NOTE | 2020-06-09 05:01 | PC.NURSE ---
Patient wore Bipap for most of the night. Patient has no complaints at this time and is currently on 2L NC. Patient was assisted to BSC several times throughout night with standy-by assist.
[2020-06-09] MEDS: lidocaine 5% Patch 1 PATCH TOPICAL (09:05)
[2020-06-09] MEDS: clopidogrel 75 mg Tablet PO (09:06)
[2020-06-09] MEDS: pantoprazole DR 40 mg Tablet PO ×2 (09:06→17:50)
[2020-06-09] MEDS: lisinopril 2.5 mg Tablet PO (09:06)
[2020-06-09] MEDS: carvedilol 3.125 mg Tablet PO ×2 (09:06→17:50)
[2020-06-09] MEDS: aspirin 81 mg EC Tablet PO (09:06)
[2020-06-09] MEDS: acetaminophen 325 mg Tablet 650 MG PO (12:15)
--- NOTE | 2020-06-09 19:38 | P.PN_ITS ---
Subjective Subjective: Interval history: Says she is doing well. Working on filling out some paperwork. Has been working with OT and PT. Vitals/I&O/Wt Last Vital Signs Temp 98.3 F 06/09/20 15:50 Pulse 63 06/09/20 15:50 Resp 18 06/09/20 15:50 BP 157/93 06/09/20 15:50 Pulse Ox 94 06/09/20 15:50 06/09/20 06/09/20 06/09/20 06:59 14:59 22:59 Intake Total 400 / 1225 720 / 720 480 / 1200 Output Total 800 / 800 Balance 400 / 25 -80 / -80 480 / 400 Physical Exam Const: COMMON NORMALS: no acute distress and patient oriented x3 N UTRITIONAL APPEARANCE: obese OTHER: Sitting up in chair. Working with PT. Conversant. In good spirits. HENMT: COMMON NORMALS: oropharynx normal Neck/C-Spine: COMMON NORMALS: no JVD Resp: COMMON NORMALS: normal respiratory effort and clear to auscultation bilaterally AUSCULTATION: clear to auscultation bilaterally Cardio: COMMON NORMALS: no JVD, regular rhythm, S1 normal heart sound present, S2 normal heart sound present and No murmurs present (Cardio) RHYTHM: regular rhythm HEART SOUNDS: S1 normal heart sound present and S2 normal heart sound present GI: COMMON NORMALS: Normal to inspection, nondistended, normoactive bowel sounds present, Soft to palpation and non-tender PALPATION: Yes Soft to palpation Extremity: COMMON NORMALS: no joint enlargement GENERAL: Yes edema (Unchanged. Mostly nonpitting edema, trace pitting edema.) Neuro: COMMON NORMALS: patient oriented x3 and moves all extremities Skin: COMMON NORMALS: no rashes or lesions noted GENERAL SKIN EXAM: no rashes or lesions noted Urinary Catheter Management^: Gandhi: Cath Placed During This Visit: yes, but has since been removed by the nurse Reason for Continuing Indwelling Catheter: Decision to DC Catheter Date Urinary Catheter Removed: 06/06/20 Time Urinary Catheter Discontinued: 12:00 Data : 06/07/20 03:43 06/07/20 03:43 Micro: Microbiology 06/08/20 14:04 Urine Culture - Preliminary Urine,Clean Catch Gram Negative Rods Gram Negative Rods#2 A&P Assessment and plan (1) Respiratory failure: Stable oxygenation on 2 L nasal cannula. At night wears BiPAP, does say her mouth gets somewhat dry. Otherwise no changes, making some slow but steady progress with PT and OT. Still having pain in her rib cage with repositioning, but this appears to be improving. Try lidocaine patch. Encouraged her again to use incentive spirometer. Continue PT, OT. Extubated June 03. Appears to be doing well. Continue attempts to mobilize. Acute hypoxic respiratory failure, multifactorial. Concerns were aspiration, ca rdiogenic shock, sepsis, anaphylaxis. This required resuscitation in the emergency department, where a brief episode of ventricular fibrillation, asystole and CPR was performed Care coordination working on discharge planning and placement for rehabilitation. At home she sleeps on a mattress on the floor. He would be difficult for her to try to rise to get up to a walker. Discussed with case coordination. Continue placement at times. Continue working with PT and OT. Status: Acute (2) Stress-induced cardiomyopathy: She appears to be compensated. Does have some trace pitting edema, but mostly nonpitting in the lower extremity. Oxygenation has been stable. Beta-choco and ELIZABETH inhibitor have been initiated. Lisinopril dose was increased to 5 mg. Continue aspirin and Plavix. Okay for discharge from cardiology perspective, follow-up with Dr. Galo in office. Status: Acute (3) Septic shock: She has completed an adequate course of IV antibiotics. Primaxin was discontinued. MRSA PCR negative, vancomycin was discontinued Status: Acute (4) Cardiogenic shock: Significantly improved. Transiently with Impella support Angiogram did not demonstrate flow-limiting coronary stenosis Significant reduction in EF was noted, approximately 20%. Thought to have stress-induced cardiomyopathy. This appears to have improved on follow-up echocardiogram Holding fluids Heart failure compensated currently. Continue to monitor for need for diuretic Beta-choco and ELIZABETH inhibitor initiated by cardiology Her cumulative ins and outs are balanced over her hospital stay. Status: Acute (5) Aspiration pneumonia: She has completed an adequate oral course of IV antibiotics. Primaxin was discontinued. Status: Acute (6) SVT (supraventricular tachycardia): Intermittently with SVT. Had intermittently required metoprolol, amiodarone drip. Cardiology following. No recent episodes Status: Acute (7) GI bleed: Changed to Protonix by mouth Plavix, aspirin has been restarted No significant GI bleeding currently Taking p.o. Status: Acute Qualifiers: Gastritis type: other gastritis (8) STEMI (ST elevation myocardial infarction): Cardiology following. Angiogram did not demonstrate significant coronary plaque. Thought to have stress-induced cardiomyopathy Status: Acute Qualifiers: Involved coronary artery: unspecified coronary artery Qualified Code (s): I21.3 - ST elevation (STEMI) myocardial infarction of unspecified site (9) Cardiopulmonary arrest with successful resuscitation: Status: Acute (10) Hypertension: Blood pressure now improved. Hypotension has resolved. Status: Acute Qualifiers: Hypertension type: essential hypertension Qualified Code(s): I10 - Essential (primary) hypertension (11) Anaphylaxis: Initially appeared to have anaphylaxis. Resolved. Steroids have been discontinued Status: Acute Qualifiers: Encounter type: initial encounter Qualified Code(s): T78.2XXA - Anaphylactic shock, unspecified, initial encounter (12) Amoxicillin-induced allergic rash: Resolved Status: Acute (13) High anion gap metabolic acidosis: Secondary to sepsis. Resolved Status: Acute (14) COPD (chronic obstructive pulmonary disease): No wheezing. Continue pulmonary toilet. Breathing treatments. Status: Acute Qualifiers: COPD type: chronic bronchitis Chronic bronchitis type: unspecified Qualified Code(s): J42 - Unspecified chronic bronchitis Additional A&P Information Mild hypokalemia, resolved Acute postoperative blood loss associated with removal of Impella and groin lines. She was transfused 1 unit packed red blood cells June 02. Hemoglobin is stable currently. Peripheral vascular disease Heparin subcutaneous for DVT prophylaxis Full code Continue physical therapy Will need rehabilitation. Discharge planning is working on this Attestations Medical Necessity Statement*: Continue admission for optimization and monitoring following cardiopulmonary arrest, with cardiomyopathy. Disposition arrangements. 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 of Care Code Acute Advertising Display Rotator for [facility] Fwd Diagnoses Respiratory failure J96.90 Stress-induced cardiomyopathy I51.81 Septic shock A41.9; R65.21 Cardiogenic shock R57.0 Aspiration pneumonia J69.0 SVT (supraventricular tachycardia) I47.1 GI bleed K92.2 Gastritis type: other gastritis STEMI (ST elevation myocardial infarction) I21.3 Involved coronary artery: unspecified coronary artery Cardiopulmonary arrest with successful resuscitation I46.9 Hypertension I10 Hypertension type: essential hypertension Anaphylaxis T78.2XXA Encounter type: initial encounter Amoxicillin-induced allergic rash L27.0; T36.0X5A High anion gap metabolic acidosis E87.2 COPD (chronic obstructive pulmonary disease) J42 COPD type: chronic bronchitis Chronic bronchitis type: unspecified
[2020-06-09] MEDS: atorvastatin 40 mg Tablet 80 MG PO (21:18)
--- NOTE | 2020-06-09 22:37 | PC.NURSE ---
Patient has no complaints at this time. Patient is currently on Bipap. Will monitor.
[2020-06-10] VITALS (16 sets, daily range): BP systolic 119–149; BP diastolic 71–96; PULSE 52–102; RESP 14–25; TEMP 36.3–37.1; O2SAT 90–98
--- NOTE | 2020-06-10 00:36 | ECG_ITS ---
[facility] Test Date: 2020-06-10 Pat Name: Viridiana Corral Department: Room: 112 Gender: Female Investigations Director: : [id number] Requested By: Oz Hebert Order Number: [id number] Meeta MD: Michoacano Galo M.D. Measurements Intervals [place] Rate: 57 P: 15 [place]: 224 QRS: 33 QRSD: 110 T: 192 QT: 471 QTc: 461 Interpretive Statements SINUS BRADYCARDIA WITH FIRST DEGREE AV BLOCK POSSIBLE ANTERIOR MYOCARDIAL INFARCTION [30 ms Q WAVE IN V3/V4, OR R < 0.2 mV IN V4], OF INDETERMINATE AGE MODERATE T-WAVE ABNORMALITY, CONSIDER LATERAL ISCHEMIA [-0.1+ mV T WAVE IN I/aVL/V5/V6] MODERATE T-WAVE ABNORMALITY, CONSIDER INFERIOR ISCHEMIA [-0.1+ mV T WAVE IN II/aVF] Compared to ECG 05/27/2020 06:23:38 First degree AV block now present T-wave abnormality now present Possible ischemia now present Sinus tachycardia no longer present ST (T wave) deviation no longer present Myocardial infarct finding still present Electronically Signed On 06-10-2020 21:33:53 CDT by Michoacano Galo M.D. [id number]
--- NOTE | 2020-06-10 00:49 | PC.NURSE ---
Patient complaints of pain in rib/chest area. Patient was educated that we would get an EKG and give her nitro. Patient states I don't want nitro, I want Tylenol, it's not my heart, it's my lungs and ribs. Patient is refusing nitro. EKG will still be taken and PRN Tylenol will be given per patient request.
[2020-06-10] MEDS: acetaminophen 325 mg Tablet 650 MG PO ×2 (00:51→13:54)
--- NOTE | 2020-06-10 00:53 | PC.NURSE ---
Patient states When I get to coughing my ribs and lungs hurt.
--- NOTE | 2020-06-10 02:49 | PC.NURSE ---
Patient appears to be resting comfortably with eyes closed. Will monitor.
[2020-06-10] MEDS: heparin 5,000 unit/mL INJ 1 mL 5000 UNIT SUBCUT ×2 (02:54→16:35)
[2020-06-10] MEDS: ipratropium-albuterol 3 mL Neb INHALATION ×4 (03:25→21:48)
[2020-06-10] MEDS: isosorbide mononitrate ER 30 mg Tablet PO (04:45)
--- NOTE | 2020-06-10 06:00 | PC.NURSE ---
Patient has been assisted to the bedside commode several times throughout the night. Patient has no complaints at this time.
[2020-06-10] MEDS: lisinopril 2.5 mg Tablet PO (08:47)
[2020-06-10] MEDS: aspirin 81 mg EC Tablet PO (08:47)
[2020-06-10] MEDS: pantoprazole DR 40 mg Tablet PO ×2 (08:47→18:00)
[2020-06-10] MEDS: clopidogrel 75 mg Tablet PO (08:47)
[2020-06-10] MEDS: carvedilol 3.125 mg Tablet PO ×2 (08:47→18:00)
[2020-06-10] MEDS: lidocaine 5% Patch 1 PATCH TOPICAL (08:47)
--- NOTE | 2020-06-10 20:08 | P.PN_ITS ---
Subjective Subjective: Interval history: Denies any chest pain or pressure. Denies any shortness of breath at rest, and continues to work and improve with therapy. Today was prior to announce that she walked out all the way past the nursing station and return to hold awaiting her bed without a break. That is probably about 40 feet (she estimated to be about 80). Chest wall pain continue to improve. Vitals/I&O/Wt Last Vital Signs Temp 98.0 F 06/10/20 19:21 Pulse 70 06/10/20 19:21 Resp 18 06/10/20 19:21 BP 146/87 06/10/20 19:21 Pulse Ox 95 06/10/20 19:21 06/10/20 06/10/20 06/10/20 06:59 14:59 22:59 Intake Total 150 / 1350 360 / 360 240 / 600 Balance 150 / 550 360 / 360 240 / 600 Physical Exam Const: COMMON NORMALS: no acute distress and patient oriented x3 NUTRITIONAL APPEARANCE: obese OTHER: Sitting up in chair. Working with PT. Conversant. In good spirits. HENMT: COMMON NORMALS: oropharynx normal Neck/C-Spine: COMMON NORMALS: no JVD Resp: COMMON NORMALS: normal respiratory effort and clear to auscultation bilaterally AUSCULTATION: clear to auscultation bilaterally Cardio: COMMON NORMALS: no JVD, regular rhythm, S1 normal heart sound present, S2 normal heart sound present and No murmurs present (Cardio) RHYTHM: regular rhythm HEART SOUNDS: S1 normal heart sound present and S2 normal heart sound present GI: COMMON NORMALS: Normal to inspection, nondistended, normoactive bowel sounds present, Soft to palpation and non-tender PALPATION: Yes Soft to palpation Extremity: COMMON NORMALS: no joint enlargement GENERAL: Yes edema (Unchanged. Mostly nonpitting edema, trace pitting edema.) Neuro: COMMON NORMALS: patient oriented x3 and moves all extremities Skin: COMMON NORMALS: no rashes or lesions noted GENERAL SKIN EXAM: no rashes or lesions noted Urinary Catheter Management^: Gandhi: Cath Placed During This Visit: yes, but has since been removed by the nurse Reason for Continuing Indwelling Catheter: Decision to DC Catheter Date Urinary Catheter Removed: 06/06/20 Time Urinary Catheter Discontinued: 12:00 Data : 06/07/20 03:43 06/07/20 03:43 Micro: Microbiology 06/08/20 14:04 Urine Culture - Final Urine,Clean Catch Klebsiella pneumoniae Proteus mirabilis A&P Assessment and plan (1) Respiratory failure: Is continuing to improve, occasionally coming down to room air. Today walked out past nursing station. Stable oxygenation on 2 L nasal cannula. At night wears BiPAP, does say her mariano th gets somewhat dry. Otherwise no changes, making some slow but steady progress with PT and OT. Still having pain in her rib cage with repositioning, but this appears to be improving. Try lidocaine patch. Encouraged her again to use incentive spirometer. Continue PT, OT. Extubated June 03. Appears to be doing well. Continue attempts to mobilize. Acute hypoxic respiratory failure, multifactorial. Concerns were aspiration, cardiogenic shock, sepsis, anaphylaxis. This required resuscitation in the emergency department, where a brief episode of ventricular fibrillation, asystole and CPR was performed As she has been improving care coordination is working on setting up home health for her so she may return home as she is preferring at this time. States that the mattress at home is at least 3 feet tall (at least as high as the hospital bed currently). She is going to get a walker from her friend. Status: Acute (2) Stress-induced cardiomyopathy: She appears to be compensated. Does have some trace pitting edema, but mostly nonpitting in the lower extremity. Oxygenation has been stable. Beta-choco and ELIZABETH inhibitor have been initiated. Lisinopril dose was increased to 5 mg. Continue aspirin and Plavix. Okay for discharge from cardiology perspective, follow-up with Dr. Galo in office. Status: Acute (3) Septic shock: She has completed an adequate course of IV antibiotics. Primaxin was discontinued. MRSA PCR negative, vancomycin was discontinued Status: Acute (4) Cardiogenic shock: Significantly improved. Transiently with Impella support Angiogram did not demonstrate flow-limiting coronary stenosis Significant reduction in EF was noted, approximately 20%. Thought to have stress-induced cardiomyopathy. This appears to have improved on follow-up echocardiogram Holding fluids Heart failure compensated currently. Continue to monitor for need for diuretic Beta-choco and ELIZABETH inhibitor initiated by cardiology Her cumulative ins and outs are balanced over her hospital stay. Status: Acute (5) Aspiration pneumonia: She has completed an adequate oral course of IV antibiotics. Primaxin was discontinued. Status: Acute (6) SVT (supraventricular tachycardia): Intermittently with SVT. Had intermittently required metoprolol, am iodarone drip. Cardiology following. No recent episodes Status: Acute (7) GI bleed: Changed to Protonix by mouth Plavix, aspirin has been restarted No significant GI bleeding currently Taking p.o. Status: Acute Qualifiers: Gastritis type: other gastritis (8) STEMI (ST elevation myocardial infarction): Cardiology following. Angiogram did not demonstrate significant coronary plaque. Thought to have stress-induced cardiomyopathy Status: Acute Qualifiers: Involved coronary artery: unspecified coronary artery Qualified Code(s): I21.3 - ST elevation (STEMI) myocardial infarction of unspecified site (9) Cardiopulmonary arrest with successful resuscitation: Status: Acute (10) Hypertension: Blood pressure now improved. Hypotension has resolved. Status: Acute Qualifiers: Hypertension type: essential hypertension Qualified Code(s): I10 - Essential (primary) hypertension (11) Anaphylaxis: Initially appeared to have anaphylaxis. Resolved. Steroids have been discontinued Status: Acute Qualifiers: Encounter type: initial encounter Qualified Code(s): T78.2XXA - Anaphylactic shock, unspecified, initial encounter (12) Amoxicillin-induced allergic rash: Resolved Status: Acute (13) High anion gap metabolic acidosis: Secondary to sepsis. Resolved Status: Acute (14) COPD (chronic obstructive pulmonary disease): No wheezing. Continue pulmonary toilet. Breathing treatments. Status: Acute Qualifiers: COPD type: chronic bronchitis Chronic bronchitis type: unspecified Qualified Code(s): J42 - Unspecified chronic bronchitis Additional A&P Information Mild hypokalemia, resolved Acute postoperative blood loss associated with removal of Impella and groin lines. She was transfused 1 unit packed red blood cells June 02. Hemoglobin is stable currently. Peripheral vascular disease Heparin subcutaneous for DVT prophylaxis Full code Attestations Medical Necessity Statement*: Continue weaning off oxygen monitoring following cardiac arrest, with cardiomyopathy, disposition arrangements. 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 [employer] Diagnoses Respiratory failure J96.90 Stress-induced cardiomyopathy I51.81 Septic shock A41.9; R65.21 Cardiogenic shock R57.0 Aspiration pneumonia J69.0 SVT (supraventricular tachycardia) I47.1 GI bleed K92.2 Gastritis type: other gastritis STEMI (ST elevation myocardial infarction) I21.3 Involved coronary artery: unspecified coronary artery Cardiopulmonary arrest with successful resuscitation I46.9 Hypertension I10 Hypertension type: essential hypertension Anaphylaxis T78.2XXA Encounter type: initial encounter Amoxicillin-induced allergic rash L27.0; T36.0X5A High anion gap metabolic acidosis E87.2 COPD (chronic obstructive pulmonary disease) J42 COPD type: chronic bronchitis Chronic bronchitis type: unspecified
[2020-06-10] MEDS: atorvastatin 40 mg Tablet 80 MG PO (21:16)
--- NOTE | 2020-06-10 22:13 | PC.NURSE ---
Patient assisted to bedside commode and back to bed. Patient is currently on Bipap. Will monitor.
[2020-06-11] VITALS (9 sets, daily range): BP systolic 128–155; BP diastolic 68–92; PULSE 51–80; RESP 16–23; TEMP 36.4–36.8; O2SAT 90–99
[2020-06-11] MEDS: heparin 5,000 unit/mL INJ 1 mL 5000 UNIT SUBCUT ×2 (02:57→15:45)
[2020-06-11] MEDS: acetaminophen 325 mg Tablet 650 MG PO (03:35)
[2020-06-11] MEDS: isosorbide mononitrate ER 30 mg Tablet PO (05:58)
--- NOTE | 2020-06-11 07:30 | PC.NURSE ---
pt resting quietly. no s/s of acute distress noted. call light with in reach. will continue to monitor and provide support and safety.
[2020-06-11] MEDS: ipratropium-albuterol 3 mL Neb INHALATION ×2 (08:29→15:13)
[2020-06-11] MEDS: lidocaine 5% Patch 1 PATCH TOPICAL (08:31)
[2020-06-11] MEDS: lisinopril 2.5 mg Tablet PO (08:32)
[2020-06-11] MEDS: aspirin 81 mg EC Tablet PO (08:32)
[2020-06-11] MEDS: pantoprazole DR 40 mg Tablet PO (08:32)
[2020-06-11] MEDS: carvedilol 3.125 mg Tablet PO (08:32)
[2020-06-11] MEDS: clopidogrel 75 mg Tablet PO (08:32)
--- NOTE | 2020-06-11 10:00 | PC.NURSE ---
pt sitting up on side of bed, no s/s of acute distress noted. call light with in reach, will continue to monitor and provide support and safety.
--- NOTE | 2020-06-11 11:00 | PC.NURSE ---
physical therapy at bedside. pt ambulates with p[place]ra with walker. no acute distress noted.
--- NOTE | 2020-06-11 13:29 | PM.DCS ---
Discharge Providers Date of Admission: 05/27/20 04:00 Date of Discharge: June 11, 2020 Attending Provider at Admission: Myra Powell MD Attending Provider at Discharge: Oz Hebert Diagnoses at Discharge Discharge Diagnosis (1) Respiratory failure: Status: Acute (2) Stress-induced cardiomyopathy: Status: Acute (3) Septic shock: Status: Acute (4) Cardiogenic shock: Status: Acute (5) Aspiration pneumonia: Status: Acute (6) SVT (supraventricular tachycardia): Status: Acute (7) GI bleed: Status: Acute Qualifiers: Gastritis type: other gastritis (8) STEMI (ST elevation myocardial infarction): Status: Acute Qualifiers: Involved coronary artery: unspecified coronary artery Qualified Code(s): I21.3 - ST elevation (STEMI) myocardial infarction of unspecified site (9) Cardiopulmonary arrest with successful resuscitation: Status: Acute (10) Hypertension: Status: Acute Qualifiers: Hypertension type: essential hypertension Qualified Code(s): I10 - Essential (primary) hypertension (11) Anaphylaxis: Status: Acute Qualifiers: Encounter type: initial encounter Qualified Code(s): T78.2XXA - Anaphylactic shock, unspecified, initial encounter (12) Amoxicillin-induced allergic rash: Status: Acute (13) High anion gap metabolic acidosis: Status: Acute (14) COPD (chronic obstructive pulmonary disease): Status: Acute Qualifiers: COPD type: chronic bronchitis Chronic bronchitis type: unspecified Qualified Code(s): J42 - Unspecified chronic bronchitis Reason for Visit Reason for Visit: FALL Hospital Course Discharge Summary: 59-year-old lady with history of CAD, stenting, COPD, HTN, HLD, morbid obesity, recently due to dental infection was started on amoxicillin, at home prior to admission suffered an episode of syncope while on the toilet, was noted to have a rash. In ER somewhat lethargic with noted vomiting, was intubated for airway protection. With noted troponin elevation concerning for STEMI was started on medical treatment for STEMI. Cardiology was consulted. Due to suspected anaphylactic reaction was given steroids, Benadryl, famotidine. During intubation was noted to have edema of face, periorbital edema, pharyngeal edema including swollen tongue. On presentation also with noted acute kidney injury. Mild fluid overload. Antibiotic was switched to clindamycin for dental infection. She subsequently had a brief episode of V. fib followed by a systole. Received CPR. Achieved ROSC. Was started on amiodarone due to again recurrent brief episode of V. fib. No significant coronary artery disease was found on angiographic evaluation. Left ventriculogram showed severely decreased ejection fraction of 20% with severe global hypokinesis secondary to stress-induced cardiomyopathy (Takotsubo). She required pressor support with up to 3 pressors due to shock. EF assessed to be around 10-15%. Received broad-spectrum antibiotics with imipenem, vancomycin, doxycycline for sepsis, aspiration pneumonia. Received stress dose steroids. Due to severe cardiogenic shock received temporary support with Impella device. With this was able to wean down pressors, dobutamine. Weaned off Impella device, subsequently dobutamine. Due to noted GI bleeding we will started on twice daily PPI. Plavix was temporarily held. This had resolved, subsequently tolerating antiplatelet medication as well. She weaned off sedation well with good recovery of her faculties and motor function, but profoundly deconditioned. Extubated uneventfully. Completed antibiotic course for infection and these have been discontinued. She has been working with physical therapy and Occupational Therapy. Has been improving in terms of functioning, and has been walking increasing distances with a walker. Given she has been improving, and it has not been possible to set [facility] she is elected to instead return home. She will have a visit by home health to reassess how she is doing arranged by case coordination. She is assessed for oxygen requirement on discharge, although for the most part has weaned down and has been ambulating without oxygen. Heart failure has remained compensated. Once she is out of acute episode of illness please consider referral for additional assessment of GI bleeding given smoking history to rule out any underlying malignancy. She is encouraged to return for follow-up visit with dentistry for dental infection, avoid amoxicillin. She is referred for follow-up with cardiology with regards to cardiomyopathy. Please assist her with quitting smoking. Physical Exam Const: COMMON NORMALS: no acute distress and patient oriented x3 NUTRITIONAL APPEARANCE: obese OTHER: Sitting up in bed. In good spirits. Requesting to go home. HENMT: COMMON NORMALS: oropharynx normal Neck/C-Spine: COMMON NORMALS: no JVD Resp: COMMON NORMALS: normal respiratory effort and clear to auscultation bilaterally AUSCULTATION: clear to auscultation bilaterally Cardio: COMMON NORMALS: no JVD, regular rhythm, S1 normal heart sound present, S2 normal heart sound present and No murmurs present (Cardio) RHYTHM: regular rhythm HEART SOUNDS: S1 normal heart sound present and S2 normal heart sound present GI: COMMON NORMALS: Normal to inspection, nondistended, normoactive bowel sounds present, Soft to palpation and non-tender PALPATION: Yes Soft to palpation Extremity: COMMON NORMALS: no joint enlargement GENERAL: Yes edema (Unchanged. Mostly nonpitting edema, trace pitting edema.) Neuro: COMMON NORMALS: patient oriented x3 and moves all extremities Skin: COMMON NORMALS: no rashes or lesions noted GENERAL SKIN EXAM: no rashes or lesions noted Urinary Catheter Management^: Gandhi: Cath Placed During This Visit: yes, but has since been removed by the nurse Reason for Continuing Indwelling Catheter: Decision to DC Catheter Date Urinary Catheter Removed: 06/06/20 Time Urinary Catheter Discontinued: 12:00 Discharge Data Data Completed and Pending: Completed Studies During Hospitalization Category Date Time Status CT head wo con* 7 0450 Routine Cat Scan 06/04/20 08:32 Completed PLANNER SCHEDULER request for service Routin e Exams 05/27/20 Completed XR chest 1V celso ble [id number] Routine Exams 06/01/20 07:00 Completed XR chest 1V celso ble [id number] Routine Exams 06/02/20 07:50 Completed XR chest 1V celso ble [id number] Routine Exams 06/03/20 07:00 Completed XR chest 1V celso ble [id number] Routine Exams 06/07/20 07:00 Completed XR chest 1V celso ble [id number] Stat Exams 05/27/20 00:31 Completed XR chest 1V celso ble [id number] Stat Exams 05/27/20 03:35 Completed XR chest 1V celso ble [id number] Stat Exams 05/27/20 06:06 Completed XR chest 1V celso ble [id number] Stat Exams 05/28/20 08:35 Completed XR chest 1V celso ble [id number] Stat Exams 05/29/20 10:51 Completed XR chest 1V celso ble 74099 Stat Exams 05/30/20 13:17 [place] [id number] Rout ine Ultrasound 06/02/20 13:05 [place] [id number] Stat Ultrasound 05/27/20 11:28 Completed CV echo limited 9 3308 Stat Ultrasound 05/27/20 11:28 Completed CV echo limited 9 3308 Stat Ultrasound 05/27/20 15:49 Completed US echo limited [ CV echo limited 93 308] Routine Ultrasound 05/29/20 14:35 Completed US echo limited [ CV echo limited 93 308] Routine Ultrasound 05/31/20 12:26 Completed Pending at discharge Category Date Time Status PLANNER SCHEDULER request for service Routin e Exams 05/27/20 Taken PLANNER SCHEDULER request for service Routin e Exams 06/01/20 Taken ABG ONLY [Arteria l Blood Gas W/O Co ox] Routine Lab 05/28/20 05:27 Results Arterial Blood Ga s W/O Coox AM LABS Lab 06/01/20 04:00 Ordered Vitals: Last Vital Signs Temp 98.2 F 06/11/20 11:39 Pulse 75 06/11/20 11:39 Resp 20 H 06/11/20 11:39 BP 155/87 06/11/20 11:39 Pulse Ox 96 06/11/20 11:39 Discharge Plan Discharge Patient Disposition: Home Condition: Stable Prescriptions: New clopidogrel 75 mg Tablet 75 mg PO DAILY Qty: 30 RF: 0 carvedilol 3.125 mg Tablet 3.125 mg PO BID Qty: 60 RF: 0 pantoprazole 40 mg Tablet,Delayed Release (Dr/Ec) 40 mg PO BID Qty: 60 RF: 0 Continued isosorbide mononitrate 30 mg tablet extended release 24 hr 30 mg PO QAM RF: 0 lisinopril 5 mg tablet 5 mg PO DAILY RF: 0 nitroglycerin [Nitrostat] 0.4 mg tablet, sublingual 0.4 mg SUBLINGUAL Q5M PRN (Reason: Chest Pain) RF: 0 aspirin 81 mg tablet,delayed release (DR/EC) 81 mg PO DAILY RF: 0 multivitamin [Multiple Vitamins] Tablet 1 tab PO QAM RF: 0 omega-3 acid ethyl esters [Lovaza] 1 gram capsule 1 cap PO DAILY RF: 0 Changed Lipitor 40 mg tablet 80 mg PO QDAY 30 Days Qty: 30 RF: 5 Discontinued red yeast rice 600 mg capsule 1,200 mg PO DAILY RF: 0 Echinacea and Goldenseal 450 mg capsule 450 mg PO DAILY RF: 0 garlic 100 mg Tablet 100 mg PO DAILY RF: 0 Discharge Orders: Discharge Order (Routine); Ordered 06/11/20 Ordered By: Oz Hebert Referrals: Your, PCP [Other] Michoacano Galo MD [Physician] - (You will have a Cardiology appointment with Iraj within 6 weeks. [facility] will be calling you with an appointment date and time. Call them if you don't hear from them by Sunday. ) BREA LU FNP [Referring] - 06/17/20 9:30 am (You have a follow up appointment with Brea Lu on June 17, at 9:30am. If you have any questions or concerns please call the office. ) Lilliana Babb MD [Hospitalist] - 4-7 days (You will have a follow up with Dr. Babb soon. Please call the office if you don't hear from them by Sunday please call the office. ) Carlene Armando FNP [Nurse Practitioner] - 1 week (You will have a hospital follow up with Carlene Armando at [facility] within one week. They should be calling you with an appointment date and time. If you don't hear from them by Sunday, please call the office. ) Discharge Diet: Cardiac and Soft Mechanical Discharge Activity: Increase activity as tolerated and As per PT/OT instructions Patient Instructions: Carvedilol (By mouth), Clopidogrel (By mouth), Pantoprazole (By mouth), Myocardial Infarction (DC), Aspiration Pneumonia (GEN), Post Heart Attack Stoplight Activity Restrictions/Additional Instructions: Avoid amoxicillin. For now which will hold additional supplements apart from prescribed medications. Please follow-up with dentistry with regards to prior infection in your tooth. Please stop smoking as this risks of progression of coronary disease, heart attack, stroke and other complications, as well as worsening of COPD, leading to worsening of your respiratory condition, disability and . Please never smoked anywhere near oxygen as it is also a severe fire hazard risking airway cruz and . Please follow-up with your primary care doctor and vice president quality assurance regarding coronary artery disease, cardiomyopathy with heart failure. Please avoid any NSAIDs like ibuprofen, Aleve, etc. to reduce risk of gastrointestinal bleeding. Please discuss consideration of additional evaluation of GI bleeding with endoscopy with your primary care doctor to ensure resolution of bleeding, and to follow-up to exclude any malignant causes. If you experience any lightheadedness, fainting, any chest pain or pressure, any shortness of breath, fever, bleeding, any other abnormal symptoms, please seek medical attention immediately. 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 [employer] Fwd Exam Comprehensive Diagnoses Respiratory failure J96.90 Stress-induced cardiomyopathy I51.81 Septic shock A41.9; R65.21 Cardiogenic shock R57.0 Aspiration pneumonia J69.0 SVT (supraventricular tachycardia) I47.1 GI bleed K92.2 Gastritis type: other gastritis STEMI (ST elevation myocardial infarction) I21.3 Involved coronary artery: unspecified coronary artery Cardiopulmonary arrest with successful resuscitation I46.9 Hypertension I10 Hypertension type: essential hypertension Anaphylaxis T78.2XXA Encounter type: initial encounter Amoxicillin-induced allergic rash L27.0; T36.0X5A High anion gap metabolic acidosis E87.2 COPD (chronic obstructive pulmonary disease) J42 COPD type: chronic bronchitis Chronic bronchitis type: unspecified
--- NOTE | 2020-06-11 14:41 | PC.CHAP ---
Pastoral Care Encounter/Spiritual Assessment Type of Contact [] Declined sign language teacher visit [] Patient/Family/Request visit [] Outpatient visit [] Follow-up visit [] Physician referral [] Code/Alert [x] Routine visit [] Staff referral [] Actively dying [] Patient sleeping [] Family support [] [] Out of room [] Palliative care [] [] Receiving care in room [] Pre-surgical visit [] Trauma [x] Long length of stay [] ICU visit [] Other: Relational/Emotional Strength [x] Patient feels connected with others/family/visitors/staff [] Distress [x] Loneliness/isolation [] Abandonment Spirituality of Patient [x] Person of Aura [] Attends Taoism of their Aura [x] Believes in Prayer [] Reads Bible or Protestant materials [] There are Spiritual issues to be addressed Crystal Report Developer Interventions [x] Prayer [x] Active listening [x] Non-anxious presence [x] Spiritual/emotional support [] Crisis/trauma care [] Spiritual counseling [] Bereavement support [] Provided bereavement packet [] Provided Bible/devotional materials [] Provided toy/stuffed animal, coloring book to patient or family member [] Provided Communion [] Anointing/[place] [] Salvation [x] Completed spiritual assessment [] Other: Impact on Illness or Injury [] Angry [] Fearful [x] Anxious [] Often cries [] Exhaustion [x] Unable to work [] Unable to attend rastafarian [] Unable to walk/stand [] Unable to read [] Unable to drive [] Unable to eat/drink [] Unable to sleep [x] Unable to be with family [] Patient intubated [] Other: Summary Patient stated she was anxious to go home. Visited about her medical issues and prayed with her. Patient visited by Crystal Report Developer Bandar Goodson. Time spent with patient 25 minutes
--- NOTE | 2020-06-11 14:45 | PC.NURSE ---
resp at bedside for o2 evaluation. ambulating in [place]. no s/s of acute distress noted.
--- NOTE | 2020-06-11 15:34 | PC.NURSE ---
pt being d/c'd home. pt on phone calling for ride/clothes.
== END 2020-06-11 18:05 | disposition home or self-care (01) | DRG 853 ==
LOC: ER 02:51 → CCL 03:21 → ICU 04:14 → CSU 06-04 18:26
PROVIDERS: Emergency Medicine; Hospitalist; Internal Medicine; Physician Assistant; Admitting Provider Internal Medicine Cardiovascular Disease; Visit Provider Internal Medicine
PROC: 02HA3RZ Insertion of Short-term External Heart Assist System into Heart, Percutaneous Approach (ICD-10-PCS; principal; 2020-05-27 02:30)
PROC: 02PA3RZ Removal of Short-term External Heart Assist System from Heart, Percutaneous Approach (ICD-10-PCS; principal; 2020-06-01 08:30)
DX: A41.9 Sepsis, unspecified organism (principal); I21.3 ST elevation (STEMI) myocardial infarction of unspecified site; R57.0 Cardiogenic shock; J69.0 Pneumonitis due to inhalation of food and vomit; R65.21 Severe sepsis with septic shock; I46.9 Cardiac arrest, cause unspecified; J96.01 Acute respiratory failure with hypoxia; I51.81 Takotsubo syndrome; I47.1 Supraventricular tachycardia; K92.2 Gastrointestinal hemorrhage, unspecified; E87.2 Acidosis; T78.2XXA Anaphylactic shock, unspecified, initial encounter; N17.9 Acute kidney failure, unspecified; D62 Acute posthemorrhagic anemia; J44.9 Chronic obstructive pulmonary disease, unspecified; I10 Essential (primary) hypertension; Y69 Unspecified misadventure during surgical and medical care; Y92.230 Patient room in hospital as the place of occurrence of the external cause; E78.5 Hyperlipidemia, unspecified; E66.01 Morbid (severe) obesity due to excess calories; I25.10 Atherosclerotic heart disease of native coronary artery without angina pectoris; Z95.5 Presence of coronary angioplasty implant and graft; Z68.36 Body mass index [BMI] 36.0-36.9, adult; T36.0X5A Adverse effect of penicillins, initial encounter; K04.7 Periapical abscess without sinus; Y92.009 Unspecified place in unspecified non-institutional (private) residence as the place of occurrence of the external cause; Z79.82 Long term (current) use of aspirin; E87.6 Hypokalemia; I73.9 Peripheral vascular disease, unspecified; F17.210 Nicotine dependence, cigarettes, uncomplicated
CPT/HCPCS: 12345; 33975; 33992; 36415; 36416; 36430; 36592; 36600; 51702; 70450; 71045; 80048; 80051; 80053; 80202; 80306; 80307; 81001; 82009; 82803; 82810; 82962; 83605; 83615; 83690; 83735; 83880; 83930; 83935; 83986; 84100; 84300; 84443; 84484; 85014; 85018; 85025; 85049; 85378; 85610; 85730; 86850; 86900; 86920; 87040; 87070; 87077; 87086; 87186; 87205; 87426; 87641; 93005; 93306; 93308; 93451; 93452; 93925; 94002; 94003; 94640; 94660; 94799; 96372; 96375; 97110; 97116; 97162; 97166; 97530; 97535; 99281; A4570; C1751; C1760; C1769; C1887; C1894; C9113; J0153; J0171; J0282; J0330; J0743; J1250; J1644; J1720; J1940; J2250; J2405; J2704; J2930; J3010; J3370; J3475; J3480; J3490; J7030; J7040; J7050; J7060; P9016; Q9967

== ENCOUNTER → 2020-06-21 11:08 | Outpatient (BNVA) | payer MEDICAID, SELFPAY | PROVIDERS: PCP Nurse Practitioner Family; Visit Provider Nurse Practitioner Family | DX: I51.81 Takotsubo syndrome (principal); Z09 Encounter for follow-up examination after completed treatment for conditions other than malignant neoplasm | CPT/HCPCS: 80048 ==

== ENCOUNTER 2020-08-16 14:09 | Outpatient (CLI) | payer MEDICAID, SELFPAY ==
--- NOTE | 2020-08-16 14:15 | USCV_ITS ---
Viridiana Corral Age: 59 Gender: F : 1960 Exam Date: 08/16/2020 14:53 Ordering Phys: Michoacano Galo MD ([email or web address]) Technologist: Jasmeet Bui Exam Location: [facility] [place] Indication: OTHER CHEST PAIN BP: 135 / 75 HR: 76 Rhythm: Sinus Technical Quality: Fair MEASUREMENTS (Male / Female) Normal Values 2D ECHO LV Diastolic Diameter PLAX 4.2 cm 4.2 - 5.9 / 3.9 - 5.3 cm LV Systolic Diameter PLAX 2.8 cm IVS Diastolic Thickness 1.5 cm 0.6 - 1.0 / 0.6 - 0.9 cm IVS Systolic Thickness 2.3 cm LVPW Diastolic Thickness 1.7 cm 0.6 - 1.0 / 0.6 - 0.9 cm LVPW Systolic Thickness 2.1 cm LVOT Diameter 2.0 cm LV Ejection Fraction 2D Teich 61.9 % LV Ejection Fraction MOD 2C 59.8 % LV Ejection Fraction 2C AL 60.3 % LA Diameter 3.4 cm LA Width 2.8 cm LA Height 4.5 cm RA Width 1.6 cm RA Height 3.2 cm Aorta at Sinotubular Diameter 2.5 cm M-MODE LV Diastolic Diameter MM 2.6 cm 4.2 - 5.9 / 3.9 - 5.3 cm LV Systolic Diameter MM 2.1 cm LV Ejection Fraction MM Teich 40.0 % IVS Diastolic Thickness MM 1.1 cm 0.6 - 1.0 / 0.6 - 0.9 cm IVS Systolic Thickness MM 1.6 cm LVPW Diastolic Thickness MM 1.4 cm 0.6 - 1.0 / 0.6 - 0.9 cm LVPW Systolic Thickness MM 2.1 cm Aortic Annulus Diameter 3.6 cm LA Ao Ratio MM 1.0 MV E Point Septal Separation 0.6 cm DOPPLER AV Peak Velocity 141.0 cm/s LVOT Peak Velocity 107.0 cm/s AV Area Cont Eq vti 3.0 cm squared AV Area Cont Eq pk 2.4 cm squared MV Area PHT 2.7 cm squared Mitral E to A Ratio 0.8 MV E' Velocity 49.0 cm/s Mitral E to MV E' Ratio 8.4 Mitral E to LV E' Lateral Ratio 8.4 Mitral E to LV E' Septal Ratio 8.3 TR Peak Velocity 119.7 cm/s TR Peak Gradient 5.7 mmHg TV Peak E Velocity 77.0 cm/s Right Atrial Pressure 8.0 mmHg Pulmonary Artery Systolic Pressu 13.7 mmHg FINDINGS Left Ventricle Normal left ventricular size and systolic function, EF 66 %. Mild to moderate left ventricular hypertrophy. No regional wall motion abnormalities. Grade I/IV diastolic dysfunction (abnormal relaxation filling pattern), normal to mildly elevated filling pressures. Right Ventricle The right ventricle is normal in size and function. Right Atrium The right atrium is normal in size. Left Atrium The left atrium is normal in size. Mitral Valve No gross abnormalities noted . Aortic Valve Trace aortic valve regurgitation. Tricuspid Valve No gross abnormalities noted Pulmonic Valve Pulmonic valve not well visualized. Pericardium No pericardial effusion. Aorta Normal ascending aorta dimension. CONCLUSIONS Normal left ventricular size and systolic function, EF 66 %. Mild to moderate left ventricular hypertrophy. No regional wall motion abnormalities. Grade I/IV diastolic dysfunction (abnormal relaxation filling pattern), normal to mildly elevated filling pressures. Trace aortic valve regurgitation. There is no pericardial effusion. There are no intracardiac masses. Compared to the study from 05/31/2020, there is significant improvement of the LV action fraction Dr Michoacano Galo MD FACC (Electronically Signed) Final Date: 16 August 2020 17:39 S
== END 2020-08-16 14:10 | disposition home or self-care (01) ==
PROVIDERS: PCP Nurse Practitioner Family; Visit Provider Internal Medicine Cardiovascular Disease
DX: R07.89 Other chest pain (principal); I43 Cardiomyopathy in diseases classified elsewhere; I35.1 Nonrheumatic aortic (valve) insufficiency
CPT/HCPCS: 93306

== ENCOUNTER → 2020-09-20 13:36 | Outpatient (BNVA) | payer MEDICAID, SELFPAY | PROVIDERS: PCP Nurse Practitioner Family; Referring Provider Nurse Practitioner Family; Visit Provider Orthopaedic Surgery | DX: M25.512 Pain in left shoulder (principal); M19.012 Primary osteoarthritis, left shoulder | CPT/HCPCS: 73030 ==

== ENCOUNTER 2021-10-02 | Emergency (ER) | payer MEDICAID, SELFPAY ==
--- NOTE | 2021-10-02 00:06 | XRR_ITS ---
PROCEDURE INFORMATION: Exam: XR Left Hand Exam date and time: 10/02/2021 12:06 AM Age: 60 years old Clinical indication: Injury or trauma; Fall; Blunt trauma (contusions or hematomas); Wrist; Left; Additional info: Injury w/pain TECHNIQUE: Imaging protocol: XR Left hand. Views: 3 or more views. COMPARISON: CR Hand 3 views, LEFT* [id number] 05/23/2019 5:07 PM FINDINGS: Bones/joints: There is a subtle, oblique, mildly displaced fracture of the proximal aspect of the proximal phalanx of the left 5th finger. About 1 mm of radial displacement of the distal fragment. I suspect that a fracture line extends into the metacarpophalangeal joint surface. No other significant acute bone or joint abnormality. Soft tissues: No significant acute finding. XR/XR hand LT min 3V* [id number] IMPRESSION: 1. Mildly displaced fracture involving the proximal aspect of the proximal phalanx of the left 5th finger. 2. Other details discussed above.
--- NOTE | 2021-10-02 00:06 | XRR_ITS ---
PROCEDURE INFORMATION: Exam: XR Left Wrist Exam date and time: 10/02/2021 12:06 AM Age: 60 years old Clinical indication: Injury or trauma; Fall; Blunt trauma (contusions or hematomas); Wrist; Left; Additional info: Injury w/ pain TECHNIQUE: Imaging protocol: XR Left wrist. Views: 3 or more views. COMPARISON: CR Forearm LEFT [id number] 05/23/2019 5:07 PM FINDINGS: Bones/joints: There is no acute fracture or dislocation of the wrist. If symptoms persist, follow-up imaging in several days may be useful to exclude an occult fracture. Soft tissues: No significant acute finding. XR/XR wrist LT min 3V* [id number] IMPRESSION: No acute fracture or dislocation of the wrist.
[2021-10-02 00:14] VITALS: BP 149/92; PULSE 80; RESP 18; TEMP 36.8; O2SAT 96; BMI 39.1
--- NOTE | 2021-10-02 01:54 | W.ED.EXTPRO ---
HPI - Extremity Problem General: Chief complaint: Extremity Injury, Upper Stated complaint: L wrist an hand injury Time Seen by Provider: 10/02/21 01:31 History of Present Illness: Patient is a 60-year-old female comes to the ED with left hand and left wrist injury. Patient says just prior to arrival she was walking outside and tripped. She fell landing on left arm. Denies any loss of consciousness, headache or head trauma. Since fall she has pain at the base of her fifth digit of the left hand along with some pain and swelling to hand and wrist. She says it hurts whenever she moves her wrist or if she moves her fifth digit. She has not taken any thing for pain before coming to the ED. Associated symptoms: Deny chest pain, fever(s) or rash Review of Systems Const: Denies: fever(s), chills or fatigue Eyes: Denies: change in vision or eye discomfort ENMT: Denies: throat pain, odynophagia, nasal discharge or nasal congestion Card: Denies: chest pain, palpitations, edema, swelling of feet/ankles, dyspnea on exertion or orthopnea Resp: Denies: dyspnea, productive cough or non-productive cough GI: Denies: abdominal pain, nausea, vomiting, diarrhea, constipation or hematochezia : Denies: flank pain, dysuria or hematuria Musc: Reports: extremity pain (left hand and wrist), extremity swelling (left hand and wrist) and limited range of motion (in wrist and 5th digit due to pain); Denies: neck pain or back pain Skin/Breast: Denies: rash or new lesions Neuro: Denies: headache(s) [facility] ED PFSH: Medical History Amoxicillin-induced allergic rash Anaphylaxis Atherosclerotic cardiovascular disease CAD (coronary artery disease) Cardiac arrest Cardiogenic shock Cardiopulmonary arrest with successful resuscitation COPD (chronic obstructive pulmonary disease) GI bleed GI bleed History of ventricular fibrillation Apparently the patient developed ventricular fibrillation with cardiogenic shock, severe LV systolic dysfunction along with the Takotsubo syndrome. Hyperlipemia Hypertension Morbid obesity Septic shock SOB (shortness of breath) COPD SVT (supraventricular tachycardia) Syncope and collapse Surgical History Stented coronary artery PCI right coronary artery 2007 Family History Mother CAD (coronary artery disease) Mother had a coronary artery bypass surgery. Father CAD (coronary artery disease) Cancer Denies family history of Diabetes Clotting disorder Dementia Chronic kidney disease (CKD) Suicide Anesthesia complication Bleeding disorder Lung disease Stroke Social History Smoking and tobacco status: current every day smoker Alcohol intake: never Household members: family Housing: House Physical Exam Const: COMMON NORMALS: no acute distress, patient oriented x3 and alert GENERAL APPEARANCE: cooperative and comfortable NUTRITIONAL APPEARANCE: obese HENMT: COMMON NORMALS: normocephalic HEAD & SCALP: normocephalic MOUTH: Normal oral and palatal mucosa present THROAT: posterior oropharynx normal and uvula midline Neck/C-Spine: COMMON NORMALS: supple GENERAL: Yes normal visual inspection Resp: COMMON NORMALS: normal respiratory effort, No retractions, No use of accessory muscles and clear to auscultation bilaterally AUSCULTATION: clear to auscultation bilaterally Cardio: COMMON NORMALS: regular rate, regular rhythm, S1 normal heart sound present, S2 normal heart sound present, No gallops present (Cardio), No clicks present (Cardio), No murmurs present (Cardio) and Peripheral pulses 2+ throughout RATE: regular rate RHYTHM: regular rhythm HEART SOUNDS: S1 normal heart sound present and S2 normal heart sound present PERIPHERAL PULSES: Peripheral pulses 2+ throughout GI: COMMON NORMALS: Normal to inspection, nondistended, normoactive bowel sounds present, Soft to palpation, non-tender and no masses PALPATION: Yes Soft to palpation : COMMON NORMALS: Yes no CVA tenderness BLADDER/KIDNEY EXAM: Yes no CVA tenderness Back/Pelvis: COMMON NORMALS: no CVA tenderness Extremity: LEFT UPPER EXTREMITY: Yes wrist Left wrist: Yes inspection (mild swelling), Yes palpation (tenderness over ulnar and radial aspect of wrist), Yes ROM (full ROM but with pain) and Yes neurovascular exam (intact) and Yes hand & digits Left hand and digits: Yes inspection (swelling around proximal aspect of 5th digit), Yes palpation (tenderness over proximal aspect of 5th digit), Yes ROM (5th digit due to pain) and Yes neurovascular exam (intact) OTHER: No visible deformity seen on left hand or wrist. Neuro: COMMON NORMALS: patient oriented x3 and moves all extremities SENSORIUM/ORIENTATION: Yes alert Skin: GENERAL SKIN EXAM: dry skin Course Vital Signs: Vital signs: Vital Signs Temperature 98.1 F 10/02/21 01:55 Pulse Rate 74 10/02/21 01:55 Respiratory Rate 17 10/02/21 01:55 Blood Pressure 145/78 10/02/21 01:55 Pulse Oximetry 97 10/02/21 01:55 MDM - Extremity (Nontraumatic) Medical Decision Making Patient is a 60-year-old female who comes to the ED with left wrist and left hand injury. Injury occurred just prior to arrival where she fell landing on left arm. Denies any head trauma or loss of consciousness. Vitals stable. Exam shows a left hand that is neurovascular intact. She has some tenderness at the proximal aspect of fifth digit along with some swelling. She also has some tenderness over her left wrist along with some swelling. No visible deformity seen. X-ray left wrist shows no acute fractures or dislocations. X-ray of left hand shows a mildly displaced fracture involving the proximal aspect of the proximal phalanx of fifth digit. Patient diagnosed with a proximal phalanx fracture left hand and a left wrist sprain. Patient was put in a finger splint and I placed an order with case management for patient be referred to Ortho for follow-up. Patient did not want any narcotic pain meds and was fine with taking Tylenol for pain at home. She was given return to ED precautions and told to limit activity with left hand until cleared by Ortho. Patient understood and agreed with plan. Lab Data Radiology Impressions Hand X-Ray 10/02/21 00:06 IMPRESSION: 1. Mildly displaced fracture involving the proximal aspect of the proximal phalanx of the left 5th finger. 2. Other details discussed above. Wrist X-Ray 10/02/21 00:06 IMPRESSION: No acute fracture or dislocation of the wrist. Discharge Plan Discharge Patient Disposition: Home Clinical Impression: Fracture of proximal phalanx of digit of left hand Qualifiers: Encounter type: initial encounter Fracture type: closed Qualified Code(s): S62.619A - Displaced fracture of proximal phalanx of unspecified finger, initial encounter for closed fracture Left wrist sprain Qualifiers: Encounter type: initial encounter Qualified Code(s): S63.502A - Unspecified sprain of left wrist, initial encounter Condition: Stable Prescriptions: No Action aspirin 81 mg tablet,delayed release (DR/EC) 81 mg PO DAILY 0RF Rx Instructions: (pt unable to verify due to intubation) multivitamin [Multiple Vitamins] Tablet 1 tab PO QAM 0RF Rx Instructions: (pt unable to verify due to intubation) omega-3 acid ethyl esters [Lovaza] 1 gram capsule 1 cap PO DAILY 0RF Rx Instructions: (pt unable to verify due to intubation) ascorbate calcium (vitamin C) 500 mg tablet 500 mg PO DAILY 0RF Lipitor 40 mg tablet 40 mg PO QDAY 0RF Rx Instructions: (pt unable to verify due to intubation-filled at [facility]) nitroglycerin [Nitrostat] 0.4 mg tablet, sublingual 0.4 mg SUBLINGUAL Q5M PRN (Reason: Chest Pain) Qty: 30 3RF Rx Instructions: (pt unable to verify due to intubation) carvedilol 3.125 mg tablet 3.125 mg PO BID Qty: 60 0RF isosorbide mononitrate 30 mg tablet extended release 24 hr 30 mg PO QAM 90 Days Qty: 90 3RF Rx Instructions: (pt unable to verify due to intubation) lisinopril 5 mg tablet 5 mg PO DAILY Qty: 90 3RF Rx Instructions: (pt unable to verify due to intubation-filled at [facility]) pantoprazole 40 mg tablet,delayed release (DR/EC) 40 mg PO BID Qty: 180 0RF Discharge Orders: Discharge ED (Routine); Ordered 10/02/21 Ordered By: Telly Malone Referrals: Maryam Arango, [employer] [Primary Care Provider] - Discharge Diet: Regular Discharge Activity: Limit activity as instructed Patient Instructions: Fractures - Phalanx (Finger), Wrist Injury (ED), Wrist Sprain (ED) Activity Restrictions/Additional Instructions: Follow-up with medical provider as directed. Case management should be contacting you in the next several days to set up an appointment with orthopedic for follow-up. Continue taking all home medications as previously prescribed. Take [id number] Tylenol for pain. Keep splint on and limit activity with left hand until cleared by Ortho. Return to the ER or your medical provider if condition worsens. Please read and understand discharge instructions. Thank you for choosing [facility] for your healthcare needs today. Please realize this is an emergency room and that we are providing you with a medical screening exam and this may not be complete and all inclusive of all the testing and or work up that you may need to determine your ailment or severity of your illness. It is very important that you follow up as instructed or that you return to the Emergency Department should you have concerns or if your condition changes or worsens in any way. 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 of Care Code ED Investigation Division Lieutenant for Herb Fwd Exam Comprehensive
[2021-10-02 01:55] VITALS: BP 145/78; PULSE 74; RESP 17; TEMP 36.7; O2SAT 97
--- NOTE | 2021-10-03 09:35 | DCPLANNER ---
Addendum entered by Virginia George 10/28/21 09:36: Patient had a follow up appointment scheduled for 10.13.[address] Viera at ortho - patient did attend appointment. Addendum entered by Virginia George 10/07/21 13:22: Patient has a follow up appointment scheduled for October at 11:00 at ortho with David ARREDONDO. Clinic will call patient with appointment information. Original Note: analysis manager had message to schedule a follow up appointment for patient with ortho. analysis manager called the ortho clinic, spoke with Lilliana, gave clinic patients information. analysis manager was told that patients information would be printed and reviewed. Clinic will call patient with appointment information.
== END 2021-10-02 02:09 | disposition home or self-care (01) ==
PROVIDERS: Emergency Provider Physician Assistant; PCP Nurse Practitioner Family
DX: S63.502A Unspecified sprain of left wrist, initial encounter (principal); S62.617A Displaced fracture of proximal phalanx of left little finger, initial encounter for closed fracture; Z79.82 Long term (current) use of aspirin; I25.10 Atherosclerotic heart disease of native coronary artery without angina pectoris; J44.9 Chronic obstructive pulmonary disease, unspecified; E78.5 Hyperlipidemia, unspecified; I10 Essential (primary) hypertension; F17.210 Nicotine dependence, cigarettes, uncomplicated; W01.0XXA Fall on same level from slipping, tripping and stumbling without subsequent striking against object, initial encounter
CPT/HCPCS: 73110; 73130; 99283

== ENCOUNTER → 2021-10-13 11:04 | Outpatient (BNVA) | payer MEDICAID, SELFPAY | PROVIDERS: PCP Nurse Practitioner Family; Referring Provider Nurse Practitioner Family; Visit Provider Physician Assistant | DX: S62.619A Displaced fracture of proximal phalanx of unspecified finger, initial encounter for closed fracture (principal); X58.XXXA Exposure to other specified factors, initial encounter | CPT/HCPCS: 73120 ==

== ENCOUNTER → 2021-11-03 10:49 | Outpatient (BNVA) | payer MEDICAID, SELFPAY | PROVIDERS: PCP Nurse Practitioner Family; Visit Provider Physician Assistant | DX: S62.617A Displaced fracture of proximal phalanx of left little finger, initial encounter for closed fracture (principal); X58.XXXA Exposure to other specified factors, initial encounter | CPT/HCPCS: 73130 ==

== ENCOUNTER → 2021-11-08 08:42 | Outpatient (BNVA) | payer MEDICAID, SELFPAY | PROVIDERS: PCP Nurse Practitioner Family; Visit Provider Physician Assistant | DX: M47.897 Other spondylosis, lumbosacral region (principal); M54.50 Low back pain, unspecified | CPT/HCPCS: 72110 ==

== ENCOUNTER → 2022-01-05 11:10 | Outpatient (BNVA) | payer MEDICAID, SELFPAY | PROVIDERS: PCP Nurse Practitioner Family; Visit Provider Internal Medicine Cardiovascular Disease | DX: I25.10 Atherosclerotic heart disease of native coronary artery without angina pectoris (principal); I43 Cardiomyopathy in diseases classified elsewhere; Z86.79 Personal history of other diseases of the circulatory system; E78.2 Mixed hyperlipidemia; F17.200 Nicotine dependence, unspecified, uncomplicated; I10 Essential (primary) hypertension | CPT/HCPCS: 99214 ==

== ENCOUNTER → 2022-01-24 10:57 | Outpatient (BNVA) | payer MEDICAID, SELFPAY | PROVIDERS: PCP Nurse Practitioner Family; Visit Provider Physician Assistant | DX: M53.3 Sacrococcygeal disorders, not elsewhere classified (principal); M47.816 Spondylosis without myelopathy or radiculopathy, lumbar region; M51.37 Other intervertebral disc degeneration, lumbosacral region | CPT/HCPCS: 99213 ==

== ENCOUNTER → 2022-02-07 08:07 | Outpatient (BNVA) | payer MEDICAID, SELFPAY | PROVIDERS: PCP Nurse Practitioner Family; Visit Provider Anesthesiology Pain Medicine | DX: M47.816 Spondylosis without myelopathy or radiculopathy, lumbar region (principal); M51.37 Other intervertebral disc degeneration, lumbosacral region; M53.3 Sacrococcygeal disorders, not elsewhere classified; M79.604 Pain in right leg; M79.605 Pain in left leg; F17.210 Nicotine dependence, cigarettes, uncomplicated | CPT/HCPCS: 99204 ==

== ENCOUNTER → 2022-02-20 14:36 | Outpatient (BNVA) | payer MEDICAID, SELFPAY | PROVIDERS: PCP Nurse Practitioner Family; Visit Provider Anesthesiology Pain Medicine | DX: F17.210 Nicotine dependence, cigarettes, uncomplicated (principal); M54.16 Radiculopathy, lumbar region | CPT/HCPCS: 62323; J1040; J3490 ==

== ENCOUNTER → 2022-03-02 14:06 | Outpatient (BNVA) | payer MEDICAID, SELFPAY | PROVIDERS: PCP Nurse Practitioner Family; Visit Provider Anesthesiology Pain Medicine | DX: M51.17 Intervertebral disc disorders with radiculopathy, lumbosacral region (principal); M53.3 Sacrococcygeal disorders, not elsewhere classified; M47.816 Spondylosis without myelopathy or radiculopathy, lumbar region; M51.37 Other intervertebral disc degeneration, lumbosacral region; M16.0 Bilateral primary osteoarthritis of hip; F17.210 Nicotine dependence, cigarettes, uncomplicated | CPT/HCPCS: 73522; 99214 ==

== ENCOUNTER → 2022-03-30 13:01 | Outpatient (BNVA) | payer MEDICAID, SELFPAY | PROVIDERS: PCP Nurse Practitioner Family; Visit Provider Anesthesiology Pain Medicine | DX: M16.0 Bilateral primary osteoarthritis of hip (principal); F17.210 Nicotine dependence, cigarettes, uncomplicated; M51.17 Intervertebral disc disorders with radiculopathy, lumbosacral region; M53.3 Sacrococcygeal disorders, not elsewhere classified; M47.816 Spondylosis without myelopathy or radiculopathy, lumbar region; M51.37 Other intervertebral disc degeneration, lumbosacral region | CPT/HCPCS: 99214 ==

== ENCOUNTER 2022-04-14 12:56 | Outpatient (CLI) | payer MEDICAID, SELFPAY ==
--- NOTE | 2022-04-14 13:08 | CT_ITS ---
WS: [id number] LDCT LUNG CANCER SCREENING HISTORY: NICOTINE Dependence, cigarettes TECHNIQUE: Axial imaging performed from the apices to 1 cm below the costophrenic angles. Coronal and sagittal reformats are submitted with axial MIP series. All CT scans at [facility] use at least one of these dose optimization techniques: automated exposure control; mA and/or kV adjustment per patient size (includes targeted exams where dose is matched to clinical indication); or iterativ e reconstruction. DLP: 67.93 mGy.cm DIvol: Mean CTDIvol: 1.60 (mGy) COMPARISON: None available. Diagnostic quality: Satisfactory. Mildly limited by patient's body habitus. Lung Nodules: No pulmonary nodule or endobronchial lesion. No pneumonia. Heart: Normal size heart. No pericardial effusion. Scattered calcifications in the LEFT anterior desc ending coronary artery. Other findings: Mildly enlarged thyroid extends substernal. Slightly greater extension on the LEFT. N o mediastinal or hilar adenopathy. CT/CT lung screening [id number] IMPRESSION: LUNG-RADS: 1-Negative FOLLOW UP: 12 Month: Continue annual screening with LDCT OTHER FINDINGS (S MODIFIER): None.
== END 2022-04-14 12:57 | disposition home or self-care (01) ==
PROVIDERS: PCP Nurse Practitioner Family; Visit Provider Nurse Practitioner Family
DX: Z12.2 Encounter for screening for malignant neoplasm of respiratory organs (principal); F17.210 Nicotine dependence, cigarettes, uncomplicated
CPT/HCPCS: 71271

== ENCOUNTER → 2022-04-25 13:36 | Outpatient (BNVA) | payer MEDICAID, SELFPAY | PROVIDERS: PCP Nurse Practitioner Family; Visit Provider Anesthesiology Pain Medicine | DX: F17.210 Nicotine dependence, cigarettes, uncomplicated (principal); M54.16 Radiculopathy, lumbar region | CPT/HCPCS: 62323; J1040; J3490 ==

== ENCOUNTER → 2022-05-10 09:22 | Outpatient (BNVA) | payer MEDICAID, SELFPAY | PROVIDERS: PCP Nurse Practitioner Family; Visit Provider Anesthesiology Pain Medicine | DX: M47.816 Spondylosis without myelopathy or radiculopathy, lumbar region (principal); M51.37 Other intervertebral disc degeneration, lumbosacral region; M53.3 Sacrococcygeal disorders, not elsewhere classified; M16.0 Bilateral primary osteoarthritis of hip; F17.210 Nicotine dependence, cigarettes, uncomplicated | CPT/HCPCS: 99213 ==

== ENCOUNTER 2022-05-22 13:15 | Outpatient (CLI) | payer MEDICAID, SELFPAY ==
--- NOTE | 2022-05-22 13:44 | US_ITS ---
WS: [id number] THYROID ULTRASOUND HISTORY: ENLARGED THYROID COMPARISON: None available. Right lobe: 1.7 cm x 1.5 cm x 3.8 cm (w x ap x l). Volume: 5.2 cm3. Mildly enlarged very heterogeneous thyroid. No discrete mass or increased vascularity. Very coarsened echotexture. No echogenic foci. Left lobe: 2.0 cm x 2.3 cm x 4.0 cm (w x ap x l). Volume: 9.6 cm3. Enlarged heterogeneous gland. There is a low-attenuation nodule measuring 7 x 6 x 7 mm in the inferio r pole. Very nonspecific. No increased vascularity. Isthmus: 0.9 cm. US/US thyroid [id number] IMPRESSION: 1. Heterogeneous mildly enlarged thyroid most consistent with a goiter. 2. There are no suspicious nodules for which biopsy is to be recommended at th is time.
== END 2022-05-22 13:16 | disposition home or self-care (01) ==
LOC: RAD 13:16
PROVIDERS: PCP Nurse Practitioner Family; Visit Provider Nurse Practitioner Family
DX: E04.9 Nontoxic goiter, unspecified (principal)
CPT/HCPCS: 76536

== ENCOUNTER → 2022-07-20 10:41 | Outpatient (BNVA) | payer MEDICAID, SELFPAY | PROVIDERS: PCP Nurse Practitioner Family; Visit Provider Internal Medicine Cardiovascular Disease | DX: I25.10 Atherosclerotic heart disease of native coronary artery without angina pectoris (principal); E78.2 Mixed hyperlipidemia; I10 Essential (primary) hypertension; F17.210 Nicotine dependence, cigarettes, uncomplicated | CPT/HCPCS: 99214 ==

== ENCOUNTER → 2022-08-07 09:24 | Outpatient (BNVA) | payer MEDICAID, SELFPAY | PROVIDERS: PCP Nurse Practitioner Family; Visit Provider Anesthesiology Pain Medicine | DX: M47.816 Spondylosis without myelopathy or radiculopathy, lumbar region (principal); M51.37 Other intervertebral disc degeneration, lumbosacral region; M53.3 Sacrococcygeal disorders, not elsewhere classified; M16.0 Bilateral primary osteoarthritis of hip; M54.12 Radiculopathy, cervical region; M79.604 Pain in right leg; M79.605 Pain in left leg; F17.210 Nicotine dependence, cigarettes, uncomplicated | CPT/HCPCS: 72072; 99214 ==

== ENCOUNTER 2022-08-11 22:11 | Emergency (ER) | payer MEDICAID, SELFPAY ==
[2022-08-11 22:14] VITALS: BP 92/55; PULSE 81; RESP 24; TEMP 36.4; O2SAT 89; BMI 36.2
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
[2022-08-11 22:37] LABS: Basophils # 0.1 10^3/uL (0.0-0.1); Basophils % 0.6 %; Eosinophils # 0.2 10^3/uL (0.0-0.8); Eosinophils % 1.1 %; Hemoglobin 12.6 g/dL (11.5-15.3); Lymphocytes # 3.5 10^3/uL (0.8-4.8); Lymphocytes % 24.3 %; Mean Corpuscular HGB Conc 30.7 g/dL (30.0-36.0); Mean Corpuscular Hemoglobin 29.9 pg (28.0-34.0); Mean Corpuscular Volume 97.4 fl (81-99); Mean Platelet Volume 11.5 fL (7.4-10.4); Monocytes # 0.7 10^3/uL (0.2-0.9); Monocytes % 4.5 %; Neutrophils # 10.04 10^3/uL (1.8-7.7); Neutrophils % 68.9 %; Nucleated Red Blood Cells % 0 %; Platelet Count 302 10^3/cmm (130-400); Red Blood Count 4.21 10^6/uL (4.1-5.3); Red Cell Distribution Width 13.7 % (12.1-15.1); White Blood Count 14.6 10^3/uL (4.0-10.0)
[2022-08-11] MEDS: iohexol 350 mg/mL 500 mL Btl (per mL) IV (22:43)
[2022-08-11 22:53] LABS: INR 0.98 (0.8-1.2)
[2022-08-11 22:55] LABS: Alanine Aminotransferase 25 U/L (0-33); Albumin Level 3.4 g/dL (3.5-5.2); Alkaline Phosphatase 70 U/L (35-105); Anion Gap 15.1 (5-19); Aspartate Amino Transferase 40 U/L (0-32); Blood Urea Nitrogen 14 mg/dL (8-23); Calcium 9.6 mg/dL (8.5-10.5); Carbon Dioxide 26 mmol/L (22-29); Chloride 105 mmol/L (98-107); Globulin 3.1 g/dL (1.3-4.6); Glomerular Filtration Rate 63.7 mL/min (90-130); Glucose 134 mg/dL (65-115); Osmolality Calculated 296 mOsm/kg (285-295); Potassium 4.1 mmol/L (3.5-5.1); Sodium 142 mmol/L (136-145); Total Bilirubin 0.2 mg/dL (0.15-1.2); Total Protein 6.5 g/dL (6.6-8.7)
[2022-08-11 23:09] VITALS: RESP 18
[2022-08-11] MEDS: HYDROmorphone 1 mg/mL INJ 1 mL 0.5 MG IVP (23:09)
[2022-08-11] MEDS: ondansetron 2 mg/ML SDV 2 mL 4 MG IVP (23:10)
[2022-08-11 23:18] VITALS: BP 119/64; PULSE 67; O2SAT 91
[2022-08-11 23:56] VITALS: BP 101/85; PULSE 72; RESP 18; O2SAT 95
--- NOTE | 2022-08-12 00:12 | PC.NURSE ---
pelvic binder using sheet applied prior to transfer to [facility] per Dr. Fall order.
== END 2022-08-11 23:55 | disposition short-term general hospital (02) ==
PROVIDERS: Emergency Provider Emergency Medicine; PCP Nurse Practitioner Family
DX: S30.1XXA Contusion of abdominal wall, initial encounter (principal); S22.42XA Multiple fractures of ribs, left side, initial encounter for closed fracture; S82.51XA Displaced fracture of medial malleolus of right tibia, initial encounter for closed fracture; V89.2XXA Person injured in unspecified motor-vehicle accident, traffic, initial encounter; Y92.410 Unspecified street and highway as the place of occurrence of the external cause; M54.2 Cervicalgia; R09.02 Hypoxemia
CPT/HCPCS: 29515; 70450; 71045; 71260; 72125; 73610; 74177; 80053; 85025; 85610; 96374; 96375; 99285; J1170; J2405; Q9967

== ENCOUNTER → 2023-02-05 13:26 | Outpatient (BNVA) | payer MEDICAID, SELFPAY | PROVIDERS: PCP Nurse Practitioner Family; Visit Provider Anesthesiology Pain Medicine | DX: M47.816 Spondylosis without myelopathy or radiculopathy, lumbar region (principal) | CPT/HCPCS: 64493; 64494; 64495; J3490 ==

== ENCOUNTER → 2023-02-14 13:59 | Outpatient (BNVA) | payer MEDICAID, SELFPAY | PROVIDERS: PCP Nurse Practitioner Family; Visit Provider Orthopaedic Surgery | DX: M25.562 Pain in left knee (principal) | CPT/HCPCS: 73560; 73565; 99203 ==

== ENCOUNTER → 2023-02-16 10:20 | Outpatient (BNVA) | payer MEDICAID, SELFPAY | PROVIDERS: PCP Nurse Practitioner Family; Visit Provider Specialist | DX: I48.91 Unspecified atrial fibrillation (principal); I10 Essential (primary) hypertension; I43 Cardiomyopathy in diseases classified elsewhere; F17.210 Nicotine dependence, cigarettes, uncomplicated | CPT/HCPCS: 93005; 99214 ==

== ENCOUNTER → 2023-02-19 08:40 | Outpatient (BNVA) | payer MEDICAID, SELFPAY | PROVIDERS: PCP Nurse Practitioner Family; Visit Provider Anesthesiology Pain Medicine | DX: Z09 Encounter for follow-up examination after completed treatment for conditions other than malignant neoplasm (principal); M53.3 Sacrococcygeal disorders, not elsewhere classified; M47.816 Spondylosis without myelopathy or radiculopathy, lumbar region; M51.37 Other intervertebral disc degeneration, lumbosacral region; M25.561 Pain in right knee; M25.562 Pain in left knee | CPT/HCPCS: 99214 ==

== ENCOUNTER → 2023-03-19 13:31 | Outpatient (BNVA) | payer MEDICAID, SELFPAY | PROVIDERS: PCP Nurse Practitioner Family; Visit Provider Anesthesiology Pain Medicine | DX: M47.816 Spondylosis without myelopathy or radiculopathy, lumbar region (principal); M53.3 Sacrococcygeal disorders, not elsewhere classified; M51.37 Other intervertebral disc degeneration, lumbosacral region; M16.0 Bilateral primary osteoarthritis of hip | CPT/HCPCS: 64635; 64636; J1030 ==

== ENCOUNTER → 2023-04-05 13:13 | Outpatient (BNVA) | payer MEDICAID, SELFPAY | PROVIDERS: PCP Nurse Practitioner Family; Visit Provider Anesthesiology Pain Medicine | DX: M47.816 Spondylosis without myelopathy or radiculopathy, lumbar region (principal); M53.3 Sacrococcygeal disorders, not elsewhere classified; M51.37 Other intervertebral disc degeneration, lumbosacral region; M16.0 Bilateral primary osteoarthritis of hip | CPT/HCPCS: 64635; 64636; J1030 ==

== ENCOUNTER → 2023-04-16 09:36 | Outpatient (BNVA) | payer MEDICAID, SELFPAY | PROVIDERS: PCP Nurse Practitioner Family; Visit Provider Nurse Practitioner Family | DX: I48.91 Unspecified atrial fibrillation (principal); I10 Essential (primary) hypertension; I51.81 Takotsubo syndrome; I25.10 Atherosclerotic heart disease of native coronary artery without angina pectoris; F17.210 Nicotine dependence, cigarettes, uncomplicated; Z79.01 Long term (current) use of anticoagulants | CPT/HCPCS: 99214 ==

== ENCOUNTER → 2023-04-19 09:56 | Outpatient (BNVA) | payer MEDICAID, SELFPAY | PROVIDERS: PCP Nurse Practitioner Family; Visit Provider Anesthesiology Pain Medicine | DX: M47.816 Spondylosis without myelopathy or radiculopathy, lumbar region (principal); M51.37 Other intervertebral disc degeneration, lumbosacral region; M53.3 Sacrococcygeal disorders, not elsewhere classified; M16.0 Bilateral primary osteoarthritis of hip | CPT/HCPCS: 99214 ==

== ENCOUNTER 2023-05-17 14:03 | Outpatient (CLI) | payer MEDICAID, SELFPAY ==
--- NOTE | 2023-05-17 14:08 | CTR_ITS ---
PROCEDURE INFORMATION: Exam: CT Lumbar Spine Without Contrast Exam date and time: 05/17/2023 2:18 PM Age: 62 years old Clinical indication: Condition or disease; Spondylosis, lumbosacral; Lumbar region; Without myelopathy or radiculopathy; Additional info: M47.816 - spondylosis without myelopathy or radiculopathy. . . TECHNIQUE: Imaging protocol: Computed tomography of the lumbar spine without contrast. Radiation optimization: All CT scans at this facility use at least one of these dose optimization techniques: automated exposure control; mA and/or kV adjustment per patient size (includes targeted exams where dose is matched to clinical indication); or iterative reconstruction. REPORTING DATA: Count of CT and Cardiac NM exams in prior 12 months: This patient has received 3 known CTs and 0 known cardiac nuclear medicine studies in the 12 months prior to the current study. COMPARISON: CR XR lumbar spine min 4V [id number] 11/08/2021 8:49 AM RADIATION DOSE METRICS: Total DLP (mGy-cm): 909.3 FINDINGS: Bones/joints: No acute fracture. Normal alignment. Diffuse bony demineralization. Right facet arthrosis at L1-L2 without severe spinal canal or significant neural foraminal narrowing. Mild disc bulge and bilateral facet arthrosis at L3-L4 without severe spinal canal stenosis or significant neural foraminal narrowing. Mild disc bulge and ocnb-klqcabh-lnxo-right facet arthrosis at L4-L5 results in mild bilateral neural foraminal narrowing. Mild disc bulge with osteophyte formation and robust lohl-fthnvnc-kfxh-right hypertrophic facet arthrosis causes effacement of the left subarticular recess at L5-S1 as well as moderate left and mild right neural foraminal narrowing. Gallbladder and bile ducts: Sludge versus small stones in the visualized gallbladder. Kidneys and ureters: Simple right renal cyst. Vasculature: Moderate systemic atherosclerotic calcification without abdominal aortic aneurysm. Incidental circumaortic left renal vein. Soft tissues: Unremarkable. CT/CT lumbar spine wo con* [id number] IMPRESSION: 1. No acute fracture or traumatic listhesis. 2. Multilevel, multifactorial lumbar spine degenerative changes greatest at L5-S1 with moderate left neural foraminal narrowing and effacement of the left subarticular recess. 3. Additional chronic and incidental findings as above. COMMENTS: Consistent with the [employer]'s Incidental Findings Committee white paper (J Am Bertha Radiol 2018): Any incidental renal lesion less than 1 cm or classified as too small to characterize, or any incidental cystic renal lesion characterized as simple-appearing, is likely benign. No follow-up imaging is recommended for these lesions per consensus recommendations based on imaging criteria.
== END 2023-05-17 14:04 | disposition home or self-care (01) ==
PROVIDERS: PCP Nurse Practitioner Family; Visit Provider Anesthesiology Pain Medicine
DX: M47.817 Spondylosis without myelopathy or radiculopathy, lumbosacral region (principal); M51.37 Other intervertebral disc degeneration, lumbosacral region; M48.07 Spinal stenosis, lumbosacral region
CPT/HCPCS: 72131

== ENCOUNTER → 2023-05-30 09:09 | Outpatient (BNVA) | payer MEDICAID, SELFPAY | PROVIDERS: PCP Nurse Practitioner Family; Visit Provider Anesthesiology Pain Medicine | DX: M54.50 Low back pain, unspecified | CPT/HCPCS: 99214 ==

== ENCOUNTER → 2023-07-10 13:31 | Outpatient (BNVA) | payer MEDICAID, SELFPAY | PROVIDERS: PCP Nurse Practitioner Family; Visit Provider Orthopaedic Surgery | DX: M54.50 Low back pain, unspecified (principal); M54.9 Dorsalgia, unspecified | CPT/HCPCS: 72110; 99204 ==

== ENCOUNTER → 2023-11-20 16:00 | Outpatient (BNVA) | payer MEDICAID, SELFPAY | PROVIDERS: PCP Nurse Practitioner Family; Visit Provider Internal Medicine Cardiovascular Disease | DX: I48.91 Unspecified atrial fibrillation (principal) | CPT/HCPCS: 85610 ==

== ENCOUNTER → 2023-11-29 10:11 | Outpatient (BNVA) | payer MEDICAID, SELFPAY | PROVIDERS: PCP Nurse Practitioner Family; Visit Provider Internal Medicine Cardiovascular Disease | DX: I48.19 Other persistent atrial fibrillation (principal) | CPT/HCPCS: 85610 ==

== ENCOUNTER → 2023-12-26 10:08 | Outpatient (BNVA) | payer MEDICAID, SELFPAY | PROVIDERS: PCP Nurse Practitioner Family; Visit Provider Internal Medicine Cardiovascular Disease | DX: I48.19 Other persistent atrial fibrillation (principal) | CPT/HCPCS: 85610 ==

== ENCOUNTER 2024-01-17 14:03 | Outpatient (CLI) | payer MEDICAID, SELFPAY ==
--- NOTE | 2024-01-17 14:06 | MM_ITS ---
WS: [id number] Bilateral screening 3D tomosynthesis digital mammogram, 01/17/2024 Clinical Data: SCREENING Comparison: 11/27/2018 Findings: The breast parenchymal pattern shows fibroglandular tissue. No spiculated masses or clustered calcifi cations are seen. There are no secondary signs of carcinoma. There are scattered benign calcification s throughout both breasts. MM/[place] [id number] Impression: 1. Negative bilateral mammogram unchanged. 2. Recommend annual screening mammograms. BIRADS: 1-Negative FOLLOW UP: 1 Year Follow-up The CAD clerk checker was used.
== END 2024-01-17 14:04 | disposition home or self-care (01) ==
LOC: RAD 14:03
PROVIDERS: PCP Nurse Practitioner Family; Visit Provider Nurse Practitioner Family
DX: Z12.31 Encounter for screening mammogram for malignant neoplasm of breast (principal)
CPT/HCPCS: 77063; 77067

== ENCOUNTER → 2024-01-23 09:45 | Outpatient (BNVA) | payer MEDICAID, SELFPAY | PROVIDERS: PCP Nurse Practitioner Family; Visit Provider Internal Medicine Cardiovascular Disease | DX: Z86.79 Personal history of other diseases of the circulatory system (principal); I48.19 Other persistent atrial fibrillation | CPT/HCPCS: 85610 ==

== ENCOUNTER → 2024-02-20 10:17 | Outpatient (BNVA) | payer MEDICAID, SELFPAY | PROVIDERS: PCP Nurse Practitioner Family; Visit Provider Internal Medicine Cardiovascular Disease | DX: I48.19 Other persistent atrial fibrillation (principal) | CPT/HCPCS: 85610 ==

== ENCOUNTER → 2024-03-18 11:30 | Outpatient (BNVA) | payer MEDICAID, SELFPAY | PROVIDERS: PCP Nurse Practitioner Family; Visit Provider Internal Medicine Cardiovascular Disease | DX: I48.19 Other persistent atrial fibrillation (principal) | CPT/HCPCS: 85610 ==

== ENCOUNTER 2024-03-21 08:30 | Outpatient (CLI) | payer MEDICAID, SELFPAY ==
--- NOTE | 2024-03-21 09:00 | CT_ITS ---
WS: [id number] CT MYELOGRAM LUMBAR SPINE HISTORY: back pain TECHNIQUE: Contiguous 2.5 mm axial imaging performed from T12 through the mid sacral level. Bone and soft tissue windows reviewed. Sagittal and coronal reformats are submitted and reviewed. DLP: 1045.[address] scans at [facility] use at least one of these dose optimization techniques: automated e xposure control; mA and/or kV adjustment per patient size (includes targeted exams where dose is matc hed to clinical indication); or iterative reconstruction. COMPARISON: CT 05/17/2023 Good injection of contrast into the thecal sac. Posterior vertebral bodies appear normally aligned. M ild disc space narrowing and desiccation at L5-S1. No fractures. No destructive bone process. No pars fractures. L1-L2: Mild osteophytic ridging without a high-grade stenosis. L2-L3: Mild annular disc bulging without stenosis. L3-L4: Very mild disc bulging without stenosis. Mild facet arthritis. L4-L5: Mild diffuse annular disc bulging encroaching upon the ventral thecal sac and the traversing L 5 nerve roots. No significant stenosis. There is very slight subarticular recess stenosis. L5-S1: Mild disc bulging without a focal disc protrusion. Severe bilateral facet joint arthritis, LEF T greater than RIGHT. Facet joint arthropathy on the LEFT is encroaching into the LEFT foramen. Osteo phyte is probably contacting both the LEFT L5 and S1 nerve roots. Moderate to severe LEFT foraminal s tenosis with moderate RIGHT foraminal stenosis. Atherosclerotic plaque within the aorta. CT/CT lumbar spine w con [id number] IMPRESSION: 1. L5-S1: Moderate to severe LEFT and moderate RIGHT foraminal stenosis predom inantly due to hypertrophic bone formation encroaching into the foramina from t he facets. There is encroachment upon the LEFT L5 and S1 nerve roots. 2. L4-5: Mild disc encroachment upon the traversing L5 nerve roots.
--- NOTE | 2024-03-21 09:00 | IR_ITS ---
WS: [id number] LUMBAR MYELOGRAM HISTORY: back pain COMPARISON: None available. FLUOROSCOPY TIME: 2min [id number] # of spot films: 6 Procedure, risks and complications were explained to the patient. Risks including bleeding, infection , headaches, allergic reaction and seizures. Consent has been obtained. With the patient in prone position the skin over the lumbar region is cleansed with ChloraPrep and an esthetized with lidocaine. 22-gauge spinal needle is inserted into the thecal sac at the appropriate level determined by fluoroscopy. Omnipaque 240; 12 ml is injected slowly under fluoroscopy with no co mplications. Needle bevel is perpendicular to the longitudinal fibers of the dura. Stylet is reinsert ed prior to removal of the needle. Patient tolerated the procedure well. Patient will proceed to CT f or further evaluation. IR/IR myelogram sp lumbar [id number] IMPRESSION: Status post lumbar myelogram prior to CT evaluation.
[2024-03-21] MEDS: iohexol 240 mg/mL 50 mL Btl 20 ML INTRATHECA (10:04)
== END 2024-03-21 08:31 | disposition home or self-care (01) ==
LOC: RAD 08:31
PROVIDERS: PCP Nurse Practitioner Family; Visit Provider Orthopaedic Surgery
DX: M48.07 Spinal stenosis, lumbosacral region (principal); M47.816 Spondylosis without myelopathy or radiculopathy, lumbar region; M47.897 Other spondylosis, lumbosacral region; M25.78 Osteophyte, vertebrae; M51.37 Other intervertebral disc degeneration, lumbosacral region; I70.0 Atherosclerosis of aorta; M51.36 Other intervertebral disc degeneration, lumbar region
CPT/HCPCS: 62304; 72132; Q9966

== ENCOUNTER → 2024-04-03 15:26 | Outpatient (BNVA) | payer MEDICAID, SELFPAY | PROVIDERS: PCP Nurse Practitioner Family; Visit Provider Internal Medicine Cardiovascular Disease | DX: I48.19 Other persistent atrial fibrillation (principal) | CPT/HCPCS: 85610 ==

== ENCOUNTER → 2024-04-17 12:37 | Outpatient (BNVA) | payer MEDICAID, SELFPAY | PROVIDERS: PCP Nurse Practitioner Family; Visit Provider Internal Medicine Cardiovascular Disease | DX: I48.19 Other persistent atrial fibrillation (principal) | CPT/HCPCS: 85610 ==

== ENCOUNTER 2024-04-28 16:52 | Emergency (ER) | payer MEDICAID, SELFPAY ==
[2024-04-28 16:55] VITALS: BP 138/81; PULSE 88; RESP 18; TEMP 36.3; O2SAT 96
[2024-04-28 17:20] LABS: Basophils # 0.1 10^3/uL (0.0-0.1); Basophils % 0.7 %; Eosinophils # 0.2 10^3/uL (0.0-0.8); Eosinophils % 1.8 %; Hematocrit 47.5 % (36-47); Lymphocytes # 2.2 10^3/uL (0.8-4.8); Lymphocytes % 25.7 %; Mean Corpuscular HGB Conc 30.9 g/dL (30-55); Mean Corpuscular Hemoglobin 30.2 pg (27-33); Mean Corpuscular Volume 97.7 fl (85-98); Mean Platelet Volume 11.4 fL (7.4-10.4); Monocytes # 0.5 10^3/uL (0.2-0.9); Monocytes % 5.5 %; Neutrophils # 5.76 10^3/uL (1.8-7.7); Neutrophils % 66.1 %; Nucleated Red Blood Cells % 0 %; Platelet Count 254 10^3/cmm (157-399); Red Blood Count 4.86 10^6/uL (3.85-5.65); Red Cell Distribution Width 14.9 % (12.1-15.1); White Blood Count 8.72 10^3/uL (3.29-11.43)
--- NOTE | 2024-04-28 17:34 | W.ED.FEMALGU ---
Documented by User: Calderon Panchal DO 04/28/24 18:20 HPI - Female Genitourinary General: Chief complaint: Urogenital-Female Stated complaint: Lt Flank pain Time Seen by Provider: 04/28/24 17:19 History of Present Illness: 63-year-old female who presents to the emergency room complaining of left flank pain with hematuria. States this is gone on for the last month. She has no known history of previous nephrolithiasis. She has not had any fever sweats or chills until yesterday when she felt like she had subjectively a low-grade fever. She has a little bit of dysuria. She has not noticed any rash in that area no history of any trauma. Patient is on Coumadin for atrial fibrillation Associated symptoms: Deny abdominal pain Related Data Home Medications Medication Instructions Recorded Confirmed multivitamin (Multiple Vitamins 1 tab PO QAM 09/24/19 02/26/24 tablet) omega-3 acid ethyl esters 1 gram 1 cap PO DAILY 09/24/19 02/26/24 capsule (Lovaza) ascorbate calcium (vitamin C) 500 500 mg PO DAILY 07/26/20 02/26/24 mg tablet acetaminophen 500 mg tablet 500 mg PO Q6H PRN 02/07/22 02/26/24 (Tylenol Extra Strength) viamin d3 PO 1XD 02/14/23 02/26/24 Previous Rx's Medication Instructions Recorded atorvastatin 40 mg tablet 40 mg PO QDAY #90 tabs 03/21/22 isosorbide mononitrate 30 mg 30 mg PO QAM #90 tabs 05/29/22 tablet,extended release 24 hr metoprolol succinate 25 mg 12.5 mg (1/2 x 25 mg) PO DAILY #60 08/03/23 tablet,extended release 24 hr tabs warfarin 5 mg tablet 5 mg PO DAILY 7 days #14 tabs 10/11/23 nitroglycerin 0.4 mg sublingual 0.4 mg sublingual Q5M PRN Chest 11/12/23 tablet (Nitrostat) Pain #30 tabs warfarin 6 mg tablet 6 mg PO DIRECTED #90 tabs 11/20/23 warfarin 5 mg tablet 5 mg PO DAILY #30 tabs 03/03/24 oxycodone-acetaminophen 5 mg-325 1 tab PO Q4H PRN pain #20 tabs 04/28/24 mg tablet (Percocet) tamsulosin 0.4 mg capsule (Flomax) 0.4 mg PO DAILY #7 caps 04/28/24 Allergies Allergy/AdvReac Type Severity Reaction Status Date / Time amoxicillin Allergy ALGY-Rash Verified 04/28/24 17:00 codeine Allergy ALGY-Anaphy Verified 04/28/24 17:00 laxis hydrocodone Allergy swells Verified 04/28/24 17:00 shellfish derived Allergy swelling Verified 04/28/24 17:00 watermelon Allergy swelling Verified 04/28/24 17:00 Review of Systems Const: Reports: fever(s) (Subjective began yesterday); Denies: chills Card: Denies: chest pain Resp: Denies: dyspnea GI: Denies: abdominal pain : Reports: flank pain and hematuria; Denies: dysuria, urinary frequency or urinary urgency Musc: Denies: neck pain or back pain Skin/Breast: Denies: rash PFSH ED PFSH: Medical History History of ventricular fibrillation Apparently the patient developed ventricular fibrillation with cardiogenic shock, severe LV systolic dysfunction along with the Takotsubo syndrome. GI bleed GI bleed SVT (supraventricular tachycardia) Septic shock Cardiopulmonary arrest with successful resuscitation Anaphylaxis CAD (coronary artery disease) Cardiac arrest Cardiogenic shock Amoxicillin-induced allergic rash Syncope and collapse SOB (shortness of breath) COPD Atherosclerotic cardiovascular disease Hyperlipemia COPD (chronic obstructive pulmonary disease) Hypertension Morbid obesity Surgical History Stented coronary artery PCI right coronary artery 2007 Family History Mother CAD (coronary artery disease) Mother had a coronary artery bypass surgery. Father CAD (coronary artery disease) Cancer Denies family history of Diabetes Clotting disorder Dementia Chronic kidney disease (CKD) Suicide Anesthesia complication Bleeding disorder Lung disease Stroke Social History Smoking and tobacco/nicotine status: current every day tobacco/nicotine user cigarettes Packs smoked per day: 0.5 Quit status (tobacco/nicotine): has tried quititng Alcohol intake: never Substance/Drug Use: never Household members: family Housing: House Marital status: Current occupational status: retired and disabled Physical Exam Const: GENERAL APPEARANCE: cooperative ORIENTATION/CONSCIOUSNESS: Yes awake, Yes oriented to person, Yes oriented to place and Yes oriented to time HENMT: COMMON NORMALS: normocephalic, atraumatic and hearing grossly normal bilaterally HEAD & SCALP: normocephalic and atraumatic Resp: COMMON NORMALS: normal respiratory effort, No retractions, No use of accessory muscles and clear to auscultation bilaterally AUSCULTATION: clear to auscultation bilaterally Cardio: COMMON NORMALS: regular rate, regular rhythm and No murmurs present (Cardio) RATE: regular rate RHYTHM: regular rhythm GI: COMMON NORMALS: Soft to palpation and No hepatosplenomegaly present AUSCULTATION: Yes normoactive bowel sounds PALPATION: Yes Soft to palpation, No Tenderness to palpation present (GI), No Guarding due to palpation present (GI) and Yes No hepatosplenomegaly present Extremity: COMMON NORMALS: normal to inspection, capillary refill normal, no clubbing, cyanosis or edema, no calf tenderness and no pedal edema Neuro: SENSORIUM/ORIENTATION: Yes oriented to person, Yes oriented to place and Yes oriented to time Skin: COMMON NORMALS: no rashes or lesions noted GENERAL SKIN EXAM: no rashes or lesions noted Course Vital Signs: Vital signs: Vital Signs Temperature 97.4 F L 04/28/24 16:55 Pulse Rate 69 04/28/24 19:09 Respiratory Rate 16 04/28/24 19:09 Blood Pressure 147/93 04/28/24 19:09 Pulse Oximetry 96 04/28/24 19:09 Oxygen Delivery Me thod Room Air 04/28/24 16:55 [facility] - Female Medical Decision Making Care signed out to Dr. White at change of shift. See final notes for diagnosis and disposition. Lab Data 04/28/24 17:08 04/28/24 17:08 Radiology Impressions Abdomen/Pelvis CT 04/28/24 17:48 IMPRESSION: 1. 7 mm left ureteral stone with hydronephrosis 2. A benign renal cyst or cysts have been detected. No further follow-up imaging is required. 3. Cholelithiasis 4. Chronic anterior pelvic wall seroma COMMENTS: Consistent with the [employer]'s Incidental Findings Committee white paper (J Am Bertha Radiol 2018): Any incidental renal lesion less than 1 cm or classified as too small to characterize, or any incidental cystic renal lesion characterized as simple-appearing, is likely benign. No follow-up imaging is recommended for these lesions per consensus recommendations based on imaging criteria. Laboratory Results WBC 8.72 10^3/uL (3.29-11.43) 04/28/24 17:08 RBC 4.86 10^6/uL (3.85-5.65) 04/28/24 17:08 Hgb 14.70 g/dL (11.27-16.99) 04/28/24 17:08 Hct 47.5 % (36-47) H 04/28/24 17:08 MCV 97.7 fl (85-98) 04/28/24 17:08 MCH 30.2 pg (27-33) 04/28/24 17:08 MCHC 30.9 g/dL (30-55) 04/28/24 17:08 RDW 14.9 % (12.1-15.1) 04/28/24 17:08 Plt Count 254 10^3/cmm (157-399) 04/28/24 17:08 MPV 11.4 fL (7.4-10.4) H 04/28/24 17:08 Neut % (Auto) 66.1 % 04/28/24 17:08 Lymph % (Auto) 25.7 % 04/28/24 17:08 Wilkinson % (Auto) 5.5 % 04/28/24 17:08 Eos % (Auto) 1.8 % 04/28/24 17:08 Baso % (Auto) 0.7 % 04/28/24 17:08 Neut # (Auto) 5.76 10^3/uL (1.8-7.7) 04/28/24 17:08 Lymph # (Auto) 2.2 10^3/uL (0.8-4.8) 04/28/24 17:08 Wilkinson # (Auto) 0.5 10^3/uL (0.2-0.9) 04/28/24 17:08 Eos # (Auto) 0.2 10^3/uL (0.0-0.8) 04/28/24 17:08 Baso # (Auto) 0.1 10^3/uL (0.0-0.1) 04/28/24 17:08 Nucleated RBC % (auto) 0 % 04/28/24 17:08 Nucleated RBCs # 0.0 /100WBC 04/28/24 17:08 PT 26.00 SECONDS (12.1-14.9) H 04/28/24 17:08 INR 2.28 (0.8-1.2) H 04/28/24 17:08 Sodium 146 mmol/L (136-145) H 04/28/24 17:08 Potassium 4.0 mmol/L (3.5-5.1) 04/28/24 17:08 Chloride 107 mmol/L (98-107) 04/28/24 17:08 Carbon Dioxide 28 mmol/L (22-29) 04/28/24 17:08 Anion Gap 15.0 (5-19) 04/28/24 17:08 BUN 15 mg/dL (8-23) 04/28/24 17:08 Creatinine 0.7 mg/dL (0.5-0.9) 04/28/24 17:08 GFR Calculation 84.5 mL/min (90-130) L 04/28/24 17:08 Glucose 115 mg/dL (65-115) 04/28/24 17:08 Calculated Osmolality 304 mOsm/kg (285-295) H 04/28/24 17:08 Calcium 9.1 mg/dL (8.5-10.5) 04/28/24 17:08 Total Bilirubin 0.4 mg/dL (0.15-1.2) 04/28/24 17:08 AST 63 U/L (0-32) H 04/28/24 17:08 ALT 40 U/L (0-33) H 04/28/24 17:08 Alkaline Phosphatase 90 U/L (35-105) 04/28/24 17:08 Total Protein 6.9 g/dL (6.6-8.7) 04/28/24 17:08 Albumin 3.7 g/dL (3.5-5.2) 04/28/24 17:08 Globulin 3.2 g/dL (1.3-4.6) 04/28/24 17:08 Lipase 17 U/L (13-60) 04/28/24 17:08 Amorphous Sediment Not Reportable 04/28/24 19:08 Ethyl Alcohol < 10 mg/dL (0-10) 04/28/24 17:08 XR interpretation done by ED provider, pending radiology final review Discharge Plan Discharge Patient Disposition: Home Clinical Impression: Calculus, ureteral Condition: Stable Prescriptions: New Percocet 5-325 mg tablet 1 tab PO Q4H PRN (Reason: pain) Qty: 20 0RF Flomax 0.4 mg capsule 0.4 mg PO DAILY Qty: 7 0RF No Action multivitamin [Multiple Vitamins] Tablet 1 tab PO QAM Rx Instructions: (pt unable to verify due to intubation) omega-3 acid ethyl esters [Lovaza] 1 gram capsule 1 cap PO DAILY Rx Instructions: (pt unable to verify due to intubation) ascorbate calcium (vitamin C) 500 mg tablet 500 mg PO DAILY warfarin 5 mg tablet 5 mg PO DAILY 7 Days Qty: 14 0RF Protocol: Dose Management Condition: Sunday Dose/Route: 6 mg Instruction: 1 x 6 mg tablet Condition: Sunday Dose/Route: 6 mg Instruction: 1 x 6 mg tablet Condition: Sunday Dose/Route: 5 mg Instruction: 1 x 5 mg tablet Condition: Sunday Dose/Route: 6 mg Instruction: 1 x 6 mg tablet Condition: Dose/Route: 6 mg Instruction: 1 x 6 mg tablet Condition: Sunday Dose/Route: 6 mg Instruction: 1 x 6 mg tablet Condition: Sunday Dose/Route: 6 mg Instruction: 1 x 6 mg tablet Protocol Text: Adjustment Start Date: 04/17/24 INR Value: 26.4 Seconds INR Date: 04/17/24 Recheck Date: 05/14/24 Rx Instructions: Take 5 mg daily for 7 days. Recheck INR at the clinic nitroglycerin [Nitrostat] 0.4 mg tablet, sublingual 0.4 mg SUBLINGUAL Q5M PRN (Reason: Chest Pain) Qty: 30 3RF Rx Instructions: (pt unable to verify due to intubation) warfarin 6 mg tablet 6 mg PO DIRECTED Qty: 90 2RF Protocol: Dose Management Condition: Sunday Dose/Route: 6 mg Instruction: 1 x 6 mg tablet Condition: Sunday Dose/Route: 6 mg Instruction: 1 x 6 mg tablet Condition: Sunday Dose/Route: 5 mg Instruction: 1 x 5 mg tablet Condition: Sunday Dose/Route: 6 mg Instruction: 1 x 6 mg tablet Condition: Dose/Route: 6 mg Instruction: 1 x 6 mg tablet Condition: Sunday Dose/Route: 6 mg Instruction: 1 x 6 mg tablet Condition: Sunday Dose/Route: 6 mg Instruction: 1 x 6 mg tablet Protocol Text: Adjustment Start Date: 04/17/24 INR Value: 26.4 Seconds INR Date: 04/17/24 Recheck Date: 05/14/24 Rx Instructions: take 1 tab on Sun, Sun, Sun, Sat, and Sun acetaminophen [Tylenol Extra Strength] 500 mg tablet 500 mg PO Q6H PRN bupivacaine (PF) 0.25 % (2.5 mg/mL) solution 2 ml Infiltration ONCE Qty: 1 0RF viamin d3 PO 1XD atorvastatin 40 mg tablet 40 mg PO QDAY Qty: 90 3RF Rx Instructions: Unable to tolerate larger dose - liver isosorbide mononitrate 30 mg tablet extended release 24 hr 30 mg PO QAM Qty: 90 3RF metoprolol succinate 25 mg tablet extended release 24 hr 12.5 mg PO DAILY Qty: 60 2RF warfarin 5 mg tablet 5 mg PO DAILY Qty: 30 1RF Protocol: Dose Management Condition: Sunday Dose/Route: 6 mg Instruction: 1 x 6 mg tablet Condition: Sunday Dose/Route: 6 mg Instruction: 1 x 6 mg tablet Condition: Sunday Dose/Route: 5 mg Instruction: 1 x 5 mg tablet Condition: Sunday Dose/Route: 6 mg Instruction: 1 x 6 mg tablet Condition: Dose/Route: 6 mg Instruction: 1 x 6 mg tablet Condition: Sunday Dose/Route: 6 mg Instruction: 1 x 6 mg tablet Condition: Sunday Dose/Route: 6 mg Instruction: 1 x 6 mg tablet Protocol Text: Adjustment Start Date: 04/17/24 INR Value: 26.4 Seconds INR Date: 04/17/24 Recheck Date: 05/14/24 Discharge Orders: Discharge ED (Routine); Ordered 04/28/24 Ordered By: Dhruv White Referrals: Maryam Arango FNP [Primary Care Provider] - Patient Instructions: Opioid Safety, Pain Management 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 of Care Code ED Sap Bw Bi Developer for Chg Fwd Documented by User: Dhruv White MD 04/28/24 19:43 HPI - Female Genitourinary General: Chief complaint: Urogenital-Female Stated complaint: Lt Flank pain Time Seen by Provider: 04/28/24 17:19 Related Data Home Medications Medication Instructions Recorded Confirmed multivitamin (Multiple Vitamins 1 tab PO QAM 09/24/19 02/26/24 tablet) omega-3 acid ethyl esters 1 gram 1 cap PO DAILY 09/24/19 02/26/24 capsule (Lovaza) ascorbate calcium (vitamin C) 500 500 mg PO DAILY 07/26/20 02/26/24 mg tablet acetaminophen 500 mg tablet 500 mg PO Q6H PRN 02/07/22 02/26/24 (Tylenol Extra Strength) viamin d3 PO 1XD 02/14/23 02/26/24 Previous Rx's Medication Instructions Recorded atorvastatin 40 mg tablet 40 mg PO QDAY #90 tabs 03/21/22 isosorbide mononitrate 30 mg 30 mg PO QAM #90 tabs 05/29/22 tablet,extended release 24 hr metoprolol succinate 25 mg 12.5 mg (1/2 x 25 mg) PO DAILY #60 08/03/23 tablet,extended release 24 hr tabs warfarin 5 mg tablet 5 mg PO DAILY 7 days #14 tabs 10/11/23 nitroglycerin 0.4 mg sublingual 0.4 mg sublingual Q5M PRN Chest 11/12/23 tablet (Nitrostat) Pain #30 tabs warfarin 6 mg tablet 6 mg PO DIRECTED #90 tabs 11/20/23 warfarin 5 mg tablet 5 mg PO DAILY #30 tabs 03/03/24 oxycodone-acetaminophen 5 mg-325 1 tab PO Q4H PRN pain #20 tabs 04/28/24 mg tablet (Percocet) tamsulosin 0.4 mg capsule (Flomax) 0.4 mg PO DAILY #7 caps 04/28/24 Allergies Allergy/AdvReac Type Severity Reaction Status Date / Time amoxicillin Allergy ALGY-Rash Verified 04/28/24 17:00 codeine Allergy ALGY-Anaphy Verified 04/28/24 17:00 laxis hydrocodone Allergy swells Verified 04/28/24 17:00 shellfish derived Allergy swelling Verified 04/28/24 17:00 watermelon Allergy swelling Verified 04/28/24 17:00 [facility] ED PFSH: Medical History History of ventricular fibrillation Apparently the patient developed ventricular fibrillation with cardiogenic shock, severe LV systolic dysfunction along with the Takotsubo syndrome. GI bleed GI bleed SVT (supraventricular tachycardia) Septic shock Cardiopulmonary arrest with successful resuscitation Anaphylaxis CAD (coronary artery disease) Cardiac arrest Cardiogenic shock Amoxicillin-induced allergic rash Syncope and collapse SOB (shortness of breath) COPD Atherosclerotic cardiovascular disease Hyperlipemia COPD (chronic obstructive pulmonary disease) Hypertension Morbid obesity Surgical History Stented coronary artery PCI right coronary artery 2007 Family History Mother CAD (coronary artery disease) Mother had a coronary artery bypass surgery. Father CAD (coronary artery disease) Cancer Denies family history of Diabetes Clotting disorder Dementia Chronic kidney disease (CKD) Suicide Anesthesia complication Bleeding disorder Lung disease Stroke Social History Smoking and tobacco/nicotine status: current every day tobacco/nicotine user cigarettes Packs smoked per day: 0.5 Quit status (tobacco/nicotine): has tried quititng Alcohol intake: never Substance/Drug Use: never Household members: family Housing: House Marital status: Current occupational status: retired and disabled Course Vital Signs: Vital signs: Vital Signs Temperature 97.4 F L 04/28/24 16:55 Pulse Rate 69 04/28/24 19:09 Respiratory Rate 16 04/28/24 19:09 Blood Pressure 147/93 04/28/24 19:09 Pulse Oximetry 96 04/28/24 19:09 Oxygen Delivery Me thod Room Air 04/28/24 16:55 MDM - Female Medical Decision Making Care signed out to Dr. White at change of shift. See final notes for diagnosis and disposition. I assumed care of this patient at shift change. I did interview the patient and examined the patient. Patient has had hematuria for 1 month. She developed left flank pain this morning. Kidney stone workup was initiated. I did review all of the labs. CBC, CMP and lipase were normal. INR was 2.3. Urine analysis reveals many red blood cells. CT scan of the abdomen pelvis reveals a 7 mm ureteral stone causing moderate hydronephrosis. This was read by the radiologist. Patient was given 1 Percocet tablet in the emergency department. We also gave her 1 Flomax tablet. Patient discharged in stable condition with prescription for Percocet and Flomax. I recommended she follow-up with her primary care provider in 2 to 3 days if the pain has not resolved. At that time she may need referral to urology. Differential Diagnosis Likely calculus of kidney Lab Data 04/28/24 17:08 04/28/24 17:08 Radiology Impressions Abdomen/Pelvis CT 04/28/24 17:48 IMPRESSION: 1. 7 mm left ureteral stone with hydronephrosis 2. A benign renal cyst or cysts have been detected. No further follow-up imaging is required. 3. Cholelithiasis 4. Chronic anterior pelvic wall seroma COMMENTS: Consistent with the [place] [employer]'s Incidental Findings Committee white paper (J Am Bertha Radiol 2018): Any incidental renal lesion less than 1 cm or classified as too small to characterize, or any incidental cystic renal lesion characterized as simple-appearing, is likely benign. No follow-up imaging is recommended for these lesions per consensus recommendations based on imaging criteria. Laboratory Results WBC 8.72 10^3/uL (3.29-11.43) 04/28/24 17:08 RBC 4.86 10^6/uL (3.85-5.65) 04/28/24 17:08 Hgb 14.70 g/dL (11.27-16.99) 04/28/24 17:08 Hct 47.5 % (36-47) H 04/28/24 17:08 MCV 97.7 fl (85-98) 04/28/24 17:08 MCH 30.2 pg (27-33) 04/28/24 17:08 MCHC 30.9 g/dL (30-55) 04/28/24 17:08 RDW 14.9 % (12.1-15.1) 04/28/24 17:08 Plt Count 254 10^3/cmm (157-399) 04/28/24 17:08 MPV 11.4 fL (7.4-10.4) H 04/28/24 17:08 Neut % (Auto) 66.1 % 04/28/24 17:08 Lymph % (Auto) 25.7 % 04/28/24 17:08 Wilkinson % (Auto) 5.5 % 04/28/24 17:08 Eos % (Auto) 1.8 % 04/28/24 17:08 Baso % (Auto) 0.7 % 04/28/24 17:08 Neut # (Auto) 5.76 10^3/uL (1.8-7.7) 04/28/24 17:08 Lymph # (Auto) 2.2 10^3/uL (0.8-4.8) 04/28/24 17:08 Wilkinson # (Auto) 0.5 10^3/uL (0.2-0.9) 04/28/24 17:08 Eos # (Auto) 0.2 10^3/uL (0.0-0.8) 04/28/24 17:08 Baso # (Auto) 0.1 10^3/uL (0.0-0.1) 04/28/24 17:08 Nucleated RBC % (auto) 0 % 04/28/24 17:08 Nucleated RBCs # 0.0 /100WBC 04/28/24 17:08 PT 26.00 SECONDS (12.1-14.9) H 04/28/24 17:08 INR 2.28 (0.8-1.2) H 04/28/24 17:08 Sodium 146 mmol/L (136-145) H 04/28/24 17:08 Potassium 4.0 mmol/L (3.5-5.1) 04/28/24 17:08 Chloride 107 mmol/L (98-107) 04/28/24 17:08 Carbon Dioxide 28 mmol/L (22-29) 04/28/24 17:08 Anion Gap 15.0 (5-19) 04/28/24 17:08 BUN 15 mg/dL (8-23) 04/28/24 17:08 Creatinine 0.7 mg/dL (0.5-0.9) 04/28/24 17:08 GFR Calculation 84.5 mL/min (90-130) L 04/28/24 17:08 Glucose 115 mg/dL (65-115) 04/28/24 17:08 Calculated Osmolality 304 mOsm/kg (285-295) H 04/28/24 17:08 Calcium 9.1 mg/dL (8.5-10.5) 04/28/24 17:08 Total Bilirubin 0.4 mg/dL (0.15-1.2) 04/28/24 17:08 AST 63 U/L (0-32) H 04/28/24 17:08 ALT 40 U/L (0-33) H 04/28/24 17:08 Alkaline Phosphatase 90 U/L (35-105) 04/28/24 17:08 Total Protein 6.9 g/dL (6.6-8.7) 04/28/24 17:08 Albumin 3.7 g/dL (3.5-5.2) 04/28/24 17:08 Globulin 3.2 g/dL (1.3-4.6) 04/28/24 17:08 Lipase 17 U/L (13-60) 04/28/24 17:08 Amorphous Sediment Not Reportable 04/28/24 19:08 Ethyl Alcohol < 10 mg/dL (0-10) 04/28/24 17:08 Discharge Plan Discharge Patient Disposition: Home Clinical Impression: Calculus, ureteral Condition: Stable Prescriptions: New Percocet 5-325 mg tablet 1 tab PO Q4H PRN (Reason: pain) Qty: 20 0RF Flomax 0.4 mg capsule 0.4 mg PO DAILY Qty: 7 0RF No Action multivitamin [Multiple Vitamins] Tablet 1 tab PO QAM Rx Instructions: (pt unable to verify due to intubation) omega-3 acid ethyl esters [Lovaza] 1 gram capsule 1 cap PO DAILY Rx Instructions: (pt unable to verify due to intubation) ascorbate calcium (vitamin C) 500 mg tablet 500 mg PO DAILY warfarin 5 mg tablet 5 mg PO DAILY 7 Days Qty: 14 0RF Protocol: Dose Management Condition: Sunday Dose/Route: 6 mg Instruction: 1 x 6 mg tablet Condition: Sunday Dose/Route: 6 mg Instruction: 1 x 6 mg tablet Condition: Sunday Dose/Route: 5 mg Instruction: 1 x 5 mg tablet Condition: Sunday Dose/Route: 6 mg Instruction: 1 x 6 mg tablet Condition: Dose/Route: 6 mg Instruction: 1 x 6 mg tablet Condition: Sunday Dose/Route: 6 mg Instruction: 1 x 6 mg tablet Condition: Sunday Dose/Route: 6 mg Instruction: 1 x 6 mg tablet Protocol Text: Adjustment Start Date: 04/17/24 INR Value: 26.4 Seconds INR Date: 04/17/24 Recheck Date: 05/14/24 Rx Instructions: Take 5 mg daily for 7 days. Recheck INR at the clinic nitroglycerin [Nitrostat] 0.4 mg tablet, sublingual 0.4 mg SUBLINGUAL Q5M PRN (Reason: Chest Pain) Qty: 30 3RF Rx Instructions: (pt unable to verify due to intubation) warfarin 6 mg tablet 6 mg PO DIRECTED Qty: 90 2RF Protocol: Dose Management Condition: Sunday Dose/Route: 6 mg Instruction: 1 x 6 mg tablet Condition: Sunday Dose/Route: 6 mg Instruction: 1 x 6 mg tablet Condition: Sunday Dose/Route: 5 mg Instruction: 1 x 5 mg tablet Condition: Sunday Dose/Route: 6 mg Instruction: 1 x 6 mg tablet Condition: Dose/Route: 6 mg Instruction: 1 x 6 mg tablet Condition: Sunday Dose/Route: 6 mg Instruction: 1 x 6 mg tablet Condition: Sunday Dose/Route: 6 mg Instruction: 1 x 6 mg tablet Protocol Text: Adjustment Start Date: 04/17/24 INR Value: 26.4 Seconds INR Date: 04/17/24 Recheck Date: 05/14/24 Rx Instructions: take 1 tab on Sun, Sun, Sun, Sat, and Sun acetaminophen [Tylenol Extra Strength] 500 mg tablet 500 mg PO Q6H PRN bupivacaine (PF) 0.25 % (2.5 mg/mL) solution 2 ml Infiltration ONCE Qty: 1 0RF viamin d3 PO 1XD atorvastatin 40 mg tablet 40 mg PO QDAY Qty: 90 3RF Rx Instructions: Unable to tolerate larger dose - liver isosorbide mononitrate 30 mg tablet extended release 24 hr 30 mg PO QAM Qty: 90 3RF metoprolol succinate 25 mg tablet extended release 24 hr 12.5 mg PO DAILY Qty: 60 2RF warfarin 5 mg tablet 5 mg PO DAILY Qty: 30 1RF Protocol: Dose Management Condition: Sunday Dose/Route: 6 mg Instruction: 1 x 6 mg tablet Condition: Sunday Dose/Route: 6 mg Instruction: 1 x 6 mg tablet Condition: Sunday Dose/Route: 5 mg Instruction: 1 x 5 mg tablet Condition: Sunday Dose/Route: 6 mg Instruction: 1 x 6 mg tablet Condition: Dose/Route: 6 mg Instruction: 1 x 6 mg tablet Condition: Sunday Dose/Route: 6 mg Instruction: 1 x 6 mg tablet Condition: Sunday Dose/Route: 6 mg Instruction: 1 x 6 mg tablet Protocol Text: Adjustment Start Date: 04/17/24 INR Value: 26.4 Seconds INR Date: 04/17/24 Recheck Date: 05/14/24 Discharge Orders: Discharge ED (Routine); Ordered 04/28/24 Ordered By: Dhruv White Referrals: Maryam Arango COMPUTER [employer]ID[employer] DESIGN DRAFTER [Primary Care Provider] - Patient Instructions: Opioid Safety, Pain Management 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 of Care Code ED Sap Bw Bi Developer for [employer]
[2024-04-28 17:41] LABS: Alanine Aminotransferase 40 U/L (0-33); Albumin Level 3.7 g/dL (3.5-5.2); Alkaline Phosphatase 90 U/L (35-105); Aspartate Amino Transferase 63 U/L (0-32); Blood Urea Nitrogen 15 mg/dL (8-23); Calcium 9.1 mg/dL (8.5-10.5); Carbon Dioxide 28 mmol/L (22-29); Chloride 107 mmol/L (98-107); Creatinine Clr Calc Pharmacy 96.2479; Globulin 3.2 g/dL (1.3-4.6); Glomerular Filtration Rate 84.5 mL/min (90-130); Glucose 115 mg/dL (65-115); Osmolality Calculated 304 mOsm/kg (285-295); Sodium 146 mmol/L (136-145); Total Bilirubin 0.4 mg/dL (0.15-1.2); Total Protein 6.9 g/dL (6.6-8.7)
--- NOTE | 2024-04-28 17:48 | CTR_ITS ---
PROCEDURE INFORMATION: Exam: CT Abdomen And Pelvis Without Contrast Exam date and time: 04/28/2024 6:06 PM Age: 63 years old Clinical indication: Abdominal pain; Flank; Left; Additional info: Flank pain TECHNIQUE: Imaging protocol: Computed tomography of the abdomen and pelvis without contrast. Radiation optimization: All CT scans at this facility use at least one of these dose optimization techniques: automated exposure control; mA and/or kV adjustment per patient size (includes targeted exams where dose is matched to clinical indication); or iterative reconstruction. COMPARISON: CT chest abdpel w/*[id number] 08/11/2022 10:47 PM RADIATION DOSE METRICS: Total DLP (mGy-cm): 995 FINDINGS: Lungs: Lung bases are clear. No pleural effusion. Liver: Normal. No mass. Gallbladder and biliary ducts: Multiple gallstones are noted in the gallbladder but the gallbladder does not appear inflamed and demonstrates normal wall thickness. Pancreas: Normal. No ductal dilation. Spleen: Normal. No splenomegaly. Adrenal glands: Normal. No mass. Kidneys and ureters: There is a 7 mm stone located in the upper portion of the left ureter causing mild left-sided hydronephrosis. A 6.9 cm cyst involves the left kidney and a 6 cm cyst involves the right kidney. An additional 3.4 cm cyst involves the right kidney. Stomach and bowel: Unremarkable. No obstruction. No mucosal thickening. Appendix: No evidence of appendicitis. Intraperitoneal space: Unremarkable. No free air. No significant fluid collection. Vasculature: Unremarkable. No abdominal aortic aneurysm. Lymph nodes: Unremarkable. No enlarged lymph nodes. Urinary bladder: Unremarkable as visualized. Reproductive: Unremarkable as visualized. Bones/joints: Unremarkable. No acute fracture. Soft tissues: There is a large chronic seroma with surrounding scarring involving the left anterior pelvic wall. The seroma measures [address]/CT kidney stone [id number] IMPRESSION: 1. 7 mm left ureteral stone with hydronephrosis 2. A benign renal cyst or cysts have been detected. No further follow-up imaging is required. 3. Cholelithiasis 4. Chronic anterior pelvic wall seroma COMMENTS: Consistent with the [employer]'s Incidental Findings Committee white paper (J Am Bertha Radiol 2018): Any incidental renal lesion less than 1 cm or classified as too small to characterize, or any incidental cystic renal lesion characterized as simple-appearing, is likely benign. No follow-up imaging is recommended for these lesions per consensus recommendations based on imaging criteria.
[2024-04-28 18:17] LABS: Lipase 17 U/L (13-60)
[2024-04-28 18:25] LABS: Alcohol Level < 10 mg/dL (0-10)
[2024-04-28 18:44] LABS: INR 2.28 (0.8-1.2)
[2024-04-28 19:09] VITALS: BP 147/93; PULSE 69; RESP 16; O2SAT 96
[2024-04-28 19:21] LABS: Charge for UA Resulting for Rev
[2024-04-28 19:31] LABS: Bilirubin Urine Negative (Negative); Blood Urine 3+ (Negative); Glucose Urine UA Negative (Normal); Ketones Urine Negative (Negative); Leukocyte Esterase Urine 1+ (Negative); Nitrate Urine Negative (Negative); Protein Urine 1+ (Negative); Specific Gravity, Urine 1.022 (1.005-1.030); Urine Appearance Turbid (CLEAR)
[2024-04-28 19:36] LABS: Bacteria Urine 2+ /hpf; RBC Urine >100 /hpf (0-2); Squamous Epithelial Cell Urine 21-50 /hpf (0-5)
[2024-04-28] MEDS: tamsulosin 0.4 mg Capsule PO (19:39)
[2024-04-28 19:47] VITALS: BP 147/93; PULSE 62; RESP 16; O2SAT 92
[2024-04-28 19:52] LABS: Urine Color Red (Yellow)
[2024-04-28 19:57] LABS: Add Urine Culture? Yes
[2024-04-28 19:58] VITALS: BP 147/93; PULSE 64; RESP 16; O2SAT 92
== END 2024-04-28 20:03 | disposition home or self-care (01) ==
PROVIDERS: Family Medicine; Physician Assistant; Emergency Provider Emergency Medicine; PCP Nurse Practitioner Family
DX: N13.2 Hydronephrosis with renal and ureteral calculous obstruction (principal); Z79.01 Long term (current) use of anticoagulants; F17.210 Nicotine dependence, cigarettes, uncomplicated; I25.10 Atherosclerotic heart disease of native coronary artery without angina pectoris; J44.9 Chronic obstructive pulmonary disease, unspecified; E78.5 Hyperlipidemia, unspecified; I10 Essential (primary) hypertension
CPT/HCPCS: 36415; 74176; 80053; 80307; 81003; 81015; 83690; 85025; 85610; 87086; 99284

== ENCOUNTER → 2024-05-14 10:48 | Outpatient (BNVA) | payer MEDICAID, SELFPAY | PROVIDERS: PCP Nurse Practitioner Family; Visit Provider Internal Medicine Cardiovascular Disease | DX: I48.19 Other persistent atrial fibrillation (principal) | CPT/HCPCS: 85610 ==

== ENCOUNTER → 2024-06-10 08:14 | Outpatient (BNVA) | payer MEDICAID, SELFPAY | PROVIDERS: PCP Nurse Practitioner Family; Visit Provider Family Medicine | DX: Z01.818 Encounter for other preprocedural examination (principal) | CPT/HCPCS: 80053; 81003; 85025; 93005 ==

== ENCOUNTER → 2024-06-11 11:27 | Outpatient (BNVA) | payer MEDICAID, SELFPAY | PROVIDERS: PCP Nurse Practitioner Family; Visit Provider Internal Medicine Cardiovascular Disease | DX: I48.19 Other persistent atrial fibrillation (principal); Z79.01 Long term (current) use of anticoagulants | CPT/HCPCS: 85610 ==

== ENCOUNTER 2024-06-26 10:00 | Outpatient (CLI) | payer MEDICAID, SELFPAY ==
--- NOTE | 2024-06-26 10:00 | USCV_ITS ---
Viridiana Corral Age: 63 Gender: F : 1960 Exam Date: 06/26/2024 10:30 Ordering Phys: Diana Cotton MD Technologist: THERESE Exam Location: [facility] [place] Indication: pre op development of lbbb BP: / HR: 82 Rhythm: Sinus Technical Quality: Adequate MEASUREMENTS (Male / Female) Normal Values 2D ECHO LV Diastolic Diameter PLAX 2.8 cm 4.2 - 5.9 / 3.9 - 5.3 cm IVS Diastolic Thickness 1.1 cm 0.6 - 1.0 / 0.6 - 0.9 cm IVS Systolic Thickness 1.5 cm LVPW Diastolic Thickness 1.5 cm 0.6 - 1.0 / 0.6 - 0.9 cm LVPW Systolic Thickness 1.8 cm LVOT Diameter 2.0 cm LV Ejection Fraction 2D Teich 51.6 % LV Ejection Fraction MOD 4C 53.2 % LV Ejection Fraction MOD 2C 50.0 % LV Ejection Fraction 2C AL 50.5 % LA Diameter 3.3 cm RA Systolic Volume 4C AL 14.6 ml RA Systolic Volume 4C MOD 14.4 ml LA Sys Volume AL 22.2 cm cubed LA Sys Volume Index AL 10.2 cm cubed/m squared Aorta at Sinotubular Diameter 3.2 cm IVC Diameter 2.3 cm M-MODE LA Ao Ratio MM 1.2 AV Cusp Separation MM 1.7 cm DOPPLER AV Peak Velocity 113.0 cm/s LVOT Peak Velocity 75.0 cm/s AV Area Cont Eq vti 2.4 cm squared AV Area Cont Eq pk 2.2 cm squared MV Area PHT 6.4 cm squared Mitral E to A Ratio 0.3 TV Peak Velocity 183.5 cm/s TR Peak Velocity 168.0 cm/s TR Peak Gradient 11.3 mmHg TR Mean Velocity 151.0 cm/s TR Mean Gradient 11.4 mmHg TR Velocity Time Integral 46.9 cm TV Peak E Velocity 66.0 cm/s Right Atrial Pressure 3.0 mmHg Pulmonary Artery Systolic Pressu 14.3 mmHg FINDINGS Left Ventricle Normal LV size with borderline low ejection fraction of 50 to 55%.abnormal septal motion consistent with conduction abnormality. Mild left ventricular hypertrophy. Right Ventricle The right ventricle is normal in size and function. Right Atrium The right atrium is normal in size. Left Atrium The left atrium is normal in size. Mitral Valve No gross morphologic abnormalities noted Aortic Valve No gross morphologic abnormalities noted Tricuspid Valve No gross morphologic abnormalities noted Pulmonic Valve Pulmonic valve not well visualized. Pericardium Normal pericardium without effusion. Aorta Normal ascending aorta dimension. IVC Inferior vena cava not visualized. CONCLUSIONS Normal LV size with borderline low ejection fraction of 50 to 55%.abnormal septal motion consistent with conduction abnormality. Mild left ventricular hypertrophy. There is no significant pericardial effusion. There are no intracardiac masses. Compared to the study from 08/16/2020, there is slight drop in the LV ejection fraction. Dr Michoacano Galo MD FACC (Electronically Signed) Final Date: 28 June 2024 15:36 S
== END 2024-06-26 10:16 | disposition home or self-care (01) ==
PROVIDERS: PCP Nurse Practitioner Family; Visit Provider Family Medicine
DX: I44.7 Left bundle-branch block, unspecified (principal); R93.1 Abnormal findings on diagnostic imaging of heart and coronary circulation
CPT/HCPCS: 93306

== ENCOUNTER → 2024-07-02 10:59 | Outpatient (BNVA) | payer MEDICAID, SELFPAY | PROVIDERS: PCP Nurse Practitioner Family; Visit Provider Internal Medicine Cardiovascular Disease | DX: I48.19 Other persistent atrial fibrillation (principal) | CPT/HCPCS: 85610 ==

== ENCOUNTER 2024-07-16 13:15 | Observation (INO) | payer MEDICAID, SELFPAY ==
[2024-07-16] VITALS (21 sets, daily range): BP systolic 94–136; BP diastolic 53–92; PULSE 57–90; RESP 17–22; TEMP 36.2–36.9; O2SAT 90–98; BMI 36.6
--- NOTE | 2024-07-16 | XR_ITS ---
WS: [id number] Lumbar spine, C-arm fluoroscopy views, 07/16/2024 Clinical Data: LAURO PICS Comparison: Lumbar spine, 07/10/2023 Findings: Dr. Valentine performed a posterior lumbosacral fusion. XR/XR lumbar spine 2-3V* [id number] Impression: Posterior lumbosacral fusion.
--- NOTE | 2024-07-16 09:04 | ANES.PREANE2 ---
Pre-Anesthetic Assessment Height/Weight: Height 5 ft 5 in Weight 220 lb Temp Pulse Resp BP Pulse Ox O2 Del Method 97.4 F L 90 18 114/82 92 Room Air 07/16/24 08:16 07/16/24 08:16 07/16/24 08:16 07/16/24 08:16 07/16/24 08:16 07/16/24 08:29 Preop Diagnosis: Lumbar stenosis with neurogenic claudication Operation Date: 07/16/24 09:45 Proposed Procedures p Spinal Fusion PSF(Not Applicable) - Chance Valetnine DO s Posterior Lumbar Interbody Fusion PLIF(Not Applicable) - Chance Valentine DO Was Beta Mg taken within 24 hours: Yes Was Clonidine taken within 24 hours: N/A Last intake: Intake Last Liquid Date 07/15/24 Last Liquid Time 22:30 Last Solid Date 07/15/24 Last Solid Time 18:00 Social Tobacco and No alcohol Exam alert, oriented x 3 and regular rate & rhythm Decreased breath sounds bilaterally Airway Submandibular: within normal limits Cervical ROM: within normal limits Mallampati: Class III Dentition: full Comments: Comments: Denies any loose teeth Anesthetic Plan Other: No prior issues with anesthesia NPO since yesterday evening Patient has lumbar spondylosis, CAD, echo showing EF 50 to 55% with abnormal septal motion consistent with conduction abnormality EKG sinus rhythm with LBBB History of A-fib on chronic warfarin. Has not taken warfarin since June Patient has a history of Takotsubo cardiomyopathy in 2019 Cardiac clearance received Metoprolol taken today Warfarin last taken 07/09/2024 Plan for GETA with possible A-line post induction Medications/Allergies Home Medications Medication Instructions Recorded Confirmed Last Taken Type multivitamin (Multiple Vitamins 1 tab PO QAM 09/24/19 07/15/24 07/15/24 History tablet) omega-3 acid ethyl esters 1 gram 1 cap PO DAILY 09/24/19 07/15/24 07/03/24 History capsule (Lovaza) ascorbate calcium (vitamin C) 500 500 mg PO DAILY 07/26/20 07/15/24 07/15/24 History mg tablet acetaminophen 500 mg tablet 500 mg PO Q6H PRN Pain 02/07/22 07/15/24 Unknown History (Tylenol Extra Strength) nitroglycerin 0.4 mg sublingual 0.4 mg sublingual Q5M PRN Chest 11/12/23 07/15/24 Unknown Rx tablet (Nitrostat) Pain #30 tabs atorvastatin 40 mg tablet 40 mg PO QDAY #90 tabs 05/14/24 07/15/24 07/14/24 Rx isosorbide mononitrate 30 mg 30 mg PO QAM #90 tabs 05/14/24 07/15/24 07/15/24 Rx tablet,extended release 24 hr warfarin 6 mg tablet 6 mg PO DIRECTED #90 tabs 05/14/24 07/15/24 07/09/24 Rx Bone Growth Stimulator #1 ea 06/09/24 07/10/24 Unknown Rx metoprolol succinate 25 mg 12.5 mg (1/2 x 25 mg) PO DAILY #90 07/09/24 07/15/24 07/16/24 Rx tablet,extended release 24 hr tabs warfarin 5 mg tablet 5 mg PO DAILY #30 tabs 07/09/24 07/15/24 07/09/24 Rx Bone Growth Stimulator #1 ea 07/14/24 Unknown Rx Allergies Allergy/AdvReac Type Severity Reaction Status Date / Time amoxicillin Allergy ALGY-Rash Verified 07/15/24 14:48 codeine Allergy ALGY-Anaphy Verified 07/15/24 14:48 laxis hydrocodone Allergy swells Verified 07/15/24 14:48 shellfish derived Allergy swelling Verified 07/15/24 14:48 watermelon Allergy swelling Verified 07/15/24 14:48 [facility] Anesthesia Medical History Warfarin anticoagulation Atrial fibrillation History of ventricular fibrillation Apparently the patient developed ventricular fibrillation with cardiogenic shock, severe LV systolic dysfunction along with the Takotsubo syndrome. GI bleed GI bleed SVT (supraventricular tachycardia) Septic shock Cardiopulmonary arrest with successful resuscitation Anaphylaxis CAD (coronary artery disease) Cardiac arrest Cardiogenic shock Amoxicillin-induced allergic rash Syncope and collapse SOB (shortness of breath) COPD Atherosclerotic cardiovascular disease Hyperlipemia COPD (chronic obstructive pulmonary disease) Hypertension Morbid obesity Surgical History Stented coronary artery PCI right coronary artery 2007 Family History Mother CAD (coronary artery disease) Mother had a coronary artery bypass surgery. Father CAD (coronary artery disease) Cancer Denies family history of Diabetes Clotting disorder Dementia Chronic kidney disease (CKD) Suicide Anesthesia complication Bleeding disorder Lung disease Stroke Social History Smoking and tobacco/nicotine status: current every day tobacco/nicotine user cigarettes Packs smoked per day: 0.5 Quit status (tobacco/nicotine): has tried quititng Alcohol intake: never Substance/Drug Use: never Household members: family Housing: House Marital status: Current occupational status: retired and disabled Data Anesthesia Cardiac Studies: Echocardiogram 06/26/24 Echocardiogram Limited Views 05/31/20 Echocardiogram Ultrasound 08/16/20
[2024-07-16] MEDS: sodium chloride 0.9% 1,000 ML 30 ML IV (09:13)
--- NOTE | 2024-07-16 09:45 | W.PM.OPSFHP ---
Same Day Surgery H&P Indication for Procedure/HPI DATE OF PROCEDURE: July 16, 2024 CHIEF COMPLAINT/INDICATIONFOR SURGICAL PROCEDURE: Back and leg pain PREOP DIAGNOSIS: Lumbar stenosis with neurogenic claudication PLANNED PROCEDURE: Operation Date: 07/16/24 09:45 Proposed Procedures p Spinal Fusion PSF(Not Applicable) - Chance Valentine DO s Posterior Lumbar Interbody Fusion PLIF(Not Applicable) - Chance Valentine DO Medications/Allergies* Home Medications Medication Instructions Recorded Confirmed Type multivitamin (Multiple Vitamins 1 tab PO QAM 09/24/19 07/15/24 History tablet) omega-3 acid ethyl esters 1 gram 1 cap PO DAILY 09/24/19 07/15/24 History capsule (Lovaza) ascorbate calcium (vitamin C) 500 500 mg PO DAILY 07/26/20 07/15/24 History mg tablet acetaminophen 500 mg tablet 500 mg PO Q6H PRN Pain 02/07/22 07/15/24 History (Tylenol Extra Strength) Allergies/Adverse Reactions Allergy/AdvReac Type Severity Reaction Status Date / Time amoxicillin Allergy ALGY-Rash Verified 07/15/24 14:48 codeine Allergy ALGY-Anaphy Verified 07/15/24 14:48 laxis hydrocodone Allergy swells Verified 07/15/24 14:48 shellfish derived Allergy swelling Verified 07/15/24 14:48 watermelon Allergy swelling Verified 07/15/24 14:48 Current Medications: Generic Name Dose Route Start Last Admin Trade Name Freq PRN Reason Stop Dose Admin Sodium Chloride 1,000 mls @ 30 mls/hr 07/16/24 08:15 07/16/24 09:13 Sodium Chloride 0.9% IV 07/17/24 08:14 30 mls/hr .Q24H DESTINY Administration Pertinent History/Comorbid Conditions* Medical History (Updated 06/12/24 @ 09:57 by Diana Cotton MD) Warfarin anticoagulation Atrial fibrillation History of ventricular fibrillation Apparently the patient developed ventricular fibrillation with cardiogenic shock, severe LV systolic dysfunction along with the Takotsubo syndrome. GI bleed GI bleed SVT (supraventricular tachycardia) Septic shock Cardiopulmonary arrest with successful resuscitation Anaphylaxis CAD (coronary artery disease) Cardiac arrest Cardiogenic shock Amoxicillin-induced allergic rash Syncope and collapse SOB (shortness of breath) COPD Atherosclerotic cardiovascular disease Hyperlipemia COPD (chronic obstructive pulmonary disease) Hypertension Morbid obesity Surgical History (Updated 05/27/20 @ 01:30 by Myra Carrion MD) Stented coronary artery PCI right coronary artery 2007 Family History (Updated 01/04/21 @ 11:26 by Vivi Monaco RN) CAD (coronary artery disease) Mother Mother had a coronary artery bypass surgery. Father Cancer Father Denies family history of Diabetes Clotting disorder Dementia Chronic kidney disease (CKD) Suicide Anesthesia complication Bleeding disorder Lung disease Stroke Social History Smoking and tobacco/nicotine status: current every day tobacco/nicotine user cigarettes Packs smoked per day: 0.5 Quit status (tobacco/nicotine): has tried quititng Alcohol intake: never Substance/Drug Use: never Household members: family Housing: House Marital status: Current occupational status: retired and disabled Pertinent Exam Findings alert, oriented x 3 and procedure specific exam findings Recommendations Surgery/Procedure today 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 of Care Code Acute Code for Chg Fwd
[2024-07-16 10:01] LABS: INR 0.98 (0.8-1.2)
[2024-07-16] MEDS: ceFAZolin 2,000 mg SDV 2000 MG IVP ×2 (10:43→17:20)
[2024-07-16] MEDS: heparin, porcine 1,000 unit/mL INJ 10 mL 10000 UNIT XX (11:55)
[2024-07-16] MEDS: lidocaine-epi 1% 20 mL INJ INJECTION (12:01)
[2024-07-16] MEDS: VANCOMYCIN ADD-Vantage 1,000 MG VIAL 1000 MG XX (12:02)
--- NOTE | 2024-07-16 13:17 | P.OP_ITS ---
Operative Report Date of procedure: July 16, 2024 Pre-op diagnosis: Lumbar stenosis with neurogenic claudication Post-op diagnosis: same Procedure done: 1. L5-S1 posterior spinal fusion 2. L5-S1 posterior spine instrumentation 3. L5-S1 laminectomy with facetectomies 4. Use of computer navigation stereotactic for spine 5. Use of allograft bone graft which is ostial amp 6. Use of autograft from same incision. 7. Bone marrow aspirate from right iliac crest. Surgeon: Chance Valentine DO Estimated blood loss (mL): 200 Procedure: 1. L5-S1 posterior spinal fusion 2. L5-S1 posterior spine instrumentation 3. L5-S1 laminectomy with facetectomies 4. Use of computer navigation stereotactic for spine 5. Use of allograft bone graft which is ostial amp 6. Use of autograft from same incision. 7. Bone marrow aspirate from right iliac crest. Patient brought to the operative suite after going anesthesia patient was placed in the prone position. All areas impingement well-padded. Patient was prepped draped normal sterile fashion. Skin incisions made over the L5-S1 level. S ubperiosteal dissection was made out to the transverse processes of L5 bilaterally and the sacral ala bilaterally. Next attention was brought to getting Suzanne aspirate. This was done by placing the bone marrow aspiration kit needle into the right iliac crest. Bone marrow was aspirated out. This was then placed with the bone graft. Next. Navigation was used. This was done by placing 2 pins into the right iliac crest. Then the fiducial was attached to this. And then the C-arm was brought in and spun around the patient. Once the serum was spent on the patient the information from the C-arm was then loaded the computer later used for the computer navigation aspect of the case. Next tension was brought to placing the pedicle screws with computer navigation. This was done by using the gearshift. There was lengthy computer navigation creating the pathway for the pedicle screw. Followed by the ball probe. Followed by placing the pedicle screw under computer navigation. This was done at L5 bilaterally and S1 bilaterally. Next tension was brought to decompressing the L5 and S1 nerves. This was done by taking a rongeur and taking down the spinous process. And then using a high- speed bur to take down the lamina. Laminectomy was then performed with a Kerrison rongeur. And then tension was brought to the facets bilaterally. High-speed bur was used to thin out the facet and then Kerrison rongeur was used to finish out taking the facets. The L5 nerve was traced bilaterally out the L5-S1 foramen. In the S1 nerve was traced around the S1 pedicle. It was felt to be completely decompressed. Next attention was brought to placing the rods. The rods were placed in the tulips at L5 and S1 bilaterally. The screws were then torqued down with the caps. And then wounds were irrigated. A high-speed bur was then used to decorticate the transverse processes of L5 and ala. This was done bilaterally. And bone graft was placed placed this was both the allograft that was taken from the laminectomy as well as the ostial amp bone graft. Vancomycin powder was placed deep drain was placed and wound was closed in layered fashion with 0 Vicryl 2-0 Vicryl and Monocryl suture. Sterile dressings were applied and patient transferred to the PACU in stable condition.
[2024-07-16] MEDS: ipratropium-albuterol 3 mL Neb (13:35)
[2024-07-16] MEDS: fentaNYL 50 mcg/mL INJ 2mL IVP (13:38)
[2024-07-16] MEDS: lactated ringers 1,000 ML 90 ML IV (15:06)
[2024-07-16] MEDS: ketorolac 30 mg/mL INJ IVP (15:06)
[2024-07-16] MEDS: docusate sodium 100 mg Capsule PO (17:20)
[2024-07-16] MEDS: atorvastatin 40 mg Tablet PO (17:20)
--- NOTE | 2024-07-16 17:21 | ANE.PACU2 ---
Inpatient post-anesthesia follow up: Airway intact: Yes Vital signs: Temperature 97.7 F Pulse Rate 63 Respiratory Rate 20 Blood Pressure 101/53 Pulse Oximetry 93 Oxygen Delivery Me thod Nasal Cannula Oxygen Flow Rate 3 Fraction of Inspir ed Oxygen Hydration adequate: Yes Nausea and vomiting: No Pain level: 1 Mental status: Baseline
[2024-07-16] MEDS: oxyCODONE-APAP 5-325 mg Tablet 1 TAB PO (21:48)
[2024-07-17] MEDS: lactated ringers 1,000 ML 90 ML IV (01:12)
[2024-07-17] MEDS: ceFAZolin 2,000 mg SDV 2000 MG IVP (02:01)
--- NOTE | 2024-07-17 03:01 | PC.RESP ---
Pt refusing IS therapy. Pt states she knows the need and why she should do it. Still refuses
[2024-07-17 04:00] VITALS: BP 104/67; PULSE 63; RESP 19; TEMP 36.6; O2SAT 94
[2024-07-17 05:17] VITALS: PULSE 57
[2024-07-17] MEDS: isosorbide mononitrate ER 30 mg Tablet PO (05:29)
[2024-07-17] MEDS: multivitamin therapeutic Tablet 1 TAB PO (05:29)
[2024-07-17 07:33] VITALS: BP 119/82; PULSE 55; RESP 18; TEMP 36.5; O2SAT 92
--- NOTE | 2024-07-17 08:28 | PM.DCS ---
Discharge Providers Date of Admission: 07/16/24 13:15 Date of Discharge: July 17, 2024 Attending Provider at Admission: Chance Valentine DO Attending Provider at Discharge: Chance Valentine DO Primary Care Provider: Maryam Arango Reason for Visit Reason for Visit: M48.062 Physical Exam Narrative: Patient pain controlled in bed. At this point she has not been up with physical therapy. Will hold discharge until she to see how she does with physical therapy if she does okay with physical therapy we can discharge her. Urinary Catheter Management: Gandhi Latex: Cath Placed During This Visit: yes, but has since been removed by the nurse Reason for Continuing Indwelling Catheter: Decision to DC Catheter Urinary Catheter Date of Insertion: 07/16/24 Urinary Catheter Time of Insertion: 11:10 Date Urinary Catheter Removed: 07/17/24 Time Urinary Catheter Discontinued: 06:08 Discharge Data Studies Completed and Pending Pending at discharge Category Date Time Status C-arm Fluoroscopy 03184 Routine Exams 07/16/24 08:05 Taken Laboratory Results PT 13.30 SECONDS (12.1-14.9) 07/16/24 09:24 INR 0.98 (0.8-1.2) 07/16/24 09:24 Blood Type A Positive 07/16/24 08:55 Rho(D) Type Rh positive 07/16/24 08:55 Antibody Screen Negative 07/16/24 08:55 Vitals Last Vital Signs Temp 97.8 F 07/17/24 04:00 Pulse 57 L 07/17/24 05:17 Resp 19 H 07/17/24 04:00 BP 104/67 07/17/24 04:00 Pulse Ox 94 07/17/24 04:00 O2 Del Method Nasal Cannula 07/17/24 04:00 O2 Flow Rate 3 07/16/24 21:42 Discharge Plan Discharge Prescriptions: New hydrocodone-acetaminophen 5-325 mg tablet 1 - 2 tab PO .Q4-6H Qty: 40 0RF Continued multivitamin [Multiple Vitamins] Tablet 1 tab PO QAM Rx Instructions: (pt unable to verify due to intubation) omega-3 acid ethyl esters [Lovaza] 1 gram capsule 1 cap PO DAILY Rx Instructions: (pt unable to verify due to intubation) ascorbate calcium (vitamin C) 500 mg tablet 500 mg PO DAILY nitroglycerin [Nitrostat] 0.4 mg tablet, sublingual 0.4 mg SUBLINGUAL Q5M PRN (Reason: Chest Pain) Qty: 30 3RF Rx Instructions: (pt unable to verify due to intubation) atorvastatin 40 mg tablet 40 mg PO QDAY Qty: 90 3RF Rx Instructions: Unable to tolerate larger dose - liver isosorbide mononitrate 30 mg tablet extended release 24 hr 30 mg PO QAM Qty: 90 3RF metoprolol succinate 25 mg tablet extended release 24 hr 12.5 mg PO DAILY Qty: 90 3RF acetaminophen [Tylenol Extra Strength] 500 mg tablet 500 mg PO Q6H PRN (Reason: Pain) (DME) Bone Growth Stimulator See Rx Instructions .Route .MEDSUPPLY Qty: 1 0RF Rx Instructions: As directed (DME) Bone Growth Stimulator See Rx Instructions .Route .MEDSUPPLY Qty: 1 0RF Rx Instructions: As directed Held warfarin 6 mg tablet 6 mg PO DIRECTED Qty: 90 2RF Hold Instructions: Resume on 07/19/24. Protocol: Dose Management Condition: Sunday Dose/Route: 6 mg Instruction: 1 x 6 mg tablet Condition: Sunday Dose/Route: 6 mg Instruction: 1 x 6 mg tablet Condition: Sunday Dose/Route: 5 mg Instruction: 1 x 5 mg tablet Condition: Sunday Dose/Route: 6 mg Instruction: 1 x 6 mg tablet Condition: Dose/Route: 5 mg Instruction: 1 x 5 mg tablet Condition: Sunday Dose/Route: 6 mg Instruction: 1 x 6 mg tablet Condition: Sunday Dose/Route: 6 mg Instruction: 1 x 6 mg tablet Protocol Text: Adjustment Start Date: Sunday07/02/24 INR Value: 27.7 Seconds INR Date: 07/02/24 Recheck Date: 07/30/24 Rx Instructions: take 1 tab on Sun, Sun, Sun, Sat, and Sun warfarin 5 mg tablet 5 mg PO DAILY Qty: 30 6RF Hold Instructions: Resume on 07/19/24. Protocol: Dose Management Condition: Sunday Dose/Route: 6 mg Instruction: 1 x 6 mg tablet Condition: Sunday Dose/Route: 6 mg Instruction: 1 x 6 mg tablet Condition: Sunday Dose/Route: 5 mg Instruction: 1 x 5 mg tablet Condition: Sunday Dose/Route: 6 mg Instruction: 1 x 6 mg tablet Condition: Dose/Route: 5 mg Instruction: 1 x 5 mg tablet Condition: Sunday Dose/Route: 6 mg Instruction: 1 x 6 mg tablet Condition: Sunday Dose/Route: 6 mg Instruction: 1 x 6 mg tablet Protocol Text: Adjustment Start Date: Sunday07/02/24 INR Value: 27.7 Seconds INR Date: 07/02/24 Recheck Date: 07/30/24 Discharge Orders: Discharge Order (Routine); Ordered 07/17/24 Ordered By: Chance Valentine Discharge Diet: Advance as tolerated Discharge Activity: Limit activity as instructed Patient Instructions: Acute Wound Care (DC), Opioid Safety, Post Anesthesia Care Activity Restrictions/Additional Instructions: Thank you for [facility] for your care! The following is a list of instructions, from your provider, to follow upon your discharge to ensure you have the optimal recovery from your recent injury orsurgery. Follow-up care is a cano part of your treatment and safety. Be sure to make and go to all appointments, and call your doctor if you are having problems. If you do not already have a follow-up appointment made, call Dr. Valentine office in the next 1-3 days to make follow up appointment for 1 weeks at [phone]. It is also a good idea to know your test results and keep a list of the medicines you take. Medications will be prescribed for you at your provider's discretion. These medications are to be used as instructed; if they are taken more often that prescribed they will not be refilled early and in most cases will not be refilled at all. > When a refill is needed,you should contact stephani avila 2-3 business days before your prescription runs out. Medications will NOT be refilled by precision honing machine operator providers after hours! > Many pain medications contain Tylenol (Acetaminophen). Do not consume more than 4,000 mg of Tylenol per day in total with any combination ofmedications. > Pain medications can cause constipation. Please use an over the counter stool softener as directed, while taking pain medications. Consulty our local pharmacist with questions or recommendations on stool softeners. If constipation persists, contact our office or your primary care provider. > While under our care,you are not to receive pain medications or other controlled substances from any other provider unless our office is notified and approves. Any attempts to do so will result in refusal to prescribe any further pain medications and possible dismissal from our practice. ? Keep dressing on for 1 week we will change it in the clinic. ? Showering is permitted, however we ask that you do not take a bath, sit in a whirlpool / Jacuzzi, or go swimming for 1 month. For only the first 2 days after surgery, lt wilt be necessary for you to cover your wound/dressing with plastic and tape to keep it dry. ? Walking is essential for the healing process after surgery. We would like you to slowly advance your walking. This should be done on relatively flat clear ground (inside or out) or can be done on a treadmill. Remember this goal does not have to happen all at once, slowly increase your distance and duration. This can be broken into more more than one walk per day as tolerated. Patients who walk as directed after surgery rarely require Physical Therapy. In the unlikely event this issue arises your provider will direct hospital staff to make the appropriate arrangements. ? No lifting over 5 pounds {a gallon of milk) or bending/twisting until further notice. Each of these activities places an unnecessary amount of stress onto the body and can impede the delicate healing process. > Instead of bending at the waist, keep your back straight and bend at the knees. > Instead of twisting your torso, keep your back straight and turn your entire body with your feet. ? You may sleep in any position which makes you comfortable. Many patients find comfort sleeping in a reclining chair. It is not abnormal to have difficulty sleeping for the first several weeks following your surgery. We recommend trying Benadry! or Tylenol PM as directed to help with your sleeping difficulties. Both medications are over the counter and available withoutprescription. ? NO SMOKING!!! Smoking dramatically increases the probability of developing postoperative wound infections. ? Common complaints after lumbar and/or thoracic spine surgery include, but are not limited to: numbness and/or tingling in the legs, pain around the incision and surrounding tissues, muscle spasms, or stiffness of the middle to low back. Contact our office if these symptoms persist or if an acute change occurs. ? No driving for the first 3-5days, and not while taking narcotics until seen at your follow-up appointment and cleared. There are no restrictions for riding on short trips, however if you take a longer trip, arrangements should be made to make regular stops to get out of the vehicle and stretch . ? Swelling is an unfortunate event that will take place with any surgery and is the primary source of your postoperative discomfort. While walking and regular approved activities helps control inflammation, there are additional steps you can take to minimizeswelling. > Place ice over the surgical site and surrounding tissue for twenty minutes, followed by applying a low/medium heat (heating pad) for an additional twenty minutes every 1-2 hours as needed for painrelief. > You may use of over the counter anti-inflammatory medications (Ibuprofen, Motrin, Aleve, Advil, etc) as directed on the package label. These types of medicines wm significantly reduce the amount of discomfort you experience after surgery from swelling. It should be noted that if you have and allergy to any of these medications, or a history of ulcers or kidney disease you should consult you primary care provider prior to starting these medications. Discharge Attestations Time Spent in Discharge Care*: less than 30 min Quality Metrics Clinical Quality Measures [ No reported AMI, CVA or VTE this stay] 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 of Care Code Acute Code for Chg Fwd
[2024-07-17 08:50] VITALS: O2SAT 94
[2024-07-17] MEDS: docusate sodium 100 mg Capsule PO (09:21)
[2024-07-17] MEDS: omega-3 fatty acids 1,000 mg Capsule 1000 MG PO (09:21)
[2024-07-17] MEDS: metoprolol succinate ER (24 HR) 25 mg Tablet 12.5 MG PO (09:21)
[2024-07-17] MEDS: ascorbic acid 500 mg Tablet PO (09:21)
--- NOTE | 2024-07-17 09:35 | PC.NURSE ---
Notified Dr. Valentine that pt is allergic to Hydrocodone and it was ordered for discharge. Dr. Valentine verbalizes that he will send in another medication to pharmacy.
[2024-07-17 11:42] VITALS: BP 119/82; PULSE 60; RESP 18; TEMP 36.5; O2SAT 95
--- NOTE | 2024-07-17 11:42 | PC.NURSE ---
Hemovac removed by Leyda Rojas RN and nursing students. Tolerated well.
== END 2024-07-17 11:43 | disposition home or self-care (01) ==
LOC: MEDSURG 13:16
PROVIDERS: Student in an Organized Health Care Education/Training Program; Admitting Provider Orthopaedic Surgery; PCP Nurse Practitioner Family; Visit Provider Orthopaedic Surgery
PROC: (CPT 22612; principal; 2024-07-16 09:25)
PROC: (CPT 22612; 2024-07-16 09:25)
DX: M48.062 Spinal stenosis, lumbar region with neurogenic claudication (principal); Z79.01 Long term (current) use of anticoagulants; I48.91 Unspecified atrial fibrillation; I25.10 Atherosclerotic heart disease of native coronary artery without angina pectoris; E78.5 Hyperlipidemia, unspecified; I10 Essential (primary) hypertension; E66.01 Morbid (severe) obesity due to excess calories; Z68.38 Body mass index [BMI] 38.0-38.9, adult; F17.210 Nicotine dependence, cigarettes, uncomplicated
CPT/HCPCS: 22612; 20930; 20936; 20939; 22614; 61783; 63047; 36415; 51702; 72100; 76000; 85610; 86850; 86900; 97116; 97161; A7003; C1713; G0378; J0131; J0330; J0690; J1100; J1644; J1885; J2405; J2704; J3010; J3370; J3490; J7030; J7120; P9045

== ENCOUNTER 2024-07-30 10:38 | Emergency (ER) | payer MEDICAID, SELFPAY ==
[2024-07-30 10:50] VITALS: BP 100/68; PULSE 93; RESP 16; TEMP 36.7; O2SAT 95; BMI 36.6
[2024-07-30 10:53] VITALS: BP 100/68; PULSE 93; RESP 16; TEMP 36.7; O2SAT 95
--- NOTE | 2024-07-30 11:10 | ED_ITS ---
HPI - Back Pain/Injury 2 General: Chief Complaint: Back Pain/Injury Stated Complaint: low bp, high pulse, back incision drainage Time Seen by Provider: 07/30/24 10:59 History of Present Illness: Patient presents with back pain and drainage from her surgical site. Patient had surgery with Dr. Valentine on 1113 states the dressing is soaked with drainage. This is original dressing. Patient also states has been having low blood pressure. However patient is on blood pressure medication. Patient said it was 90s over 70s at home. Upon arrival is 100/68. Patient denies any fever or chills. Patient has an appointment coming up with Dr. Valentine in about a week. Related Data Home Medications Medication Instructions Recorded Confirmed multivitamin (Multiple Vitamins 1 tab PO QAM 09/24/19 07/30/24 tablet) omega-3 acid ethyl esters 1 gram 1 cap PO DAILY 09/24/19 07/30/24 capsule (Lovaza) ascorbate calcium (vitamin C) 500 500 mg PO DAILY 07/26/20 07/30/24 mg tablet acetaminophen 500 mg tablet 500 mg PO Q6H PRN Pain 02/07/22 07/30/24 (Tylenol Extra Strength) warfarin 5 mg tablet See Rx Instructions .Route .COMPLEX 07/30/24 07/30/24 warfarin 6 mg tablet See Rx Instructions .Route .COMPLEX 07/30/24 07/30/24 Previous Rx's Medication Instructions Recorded nitroglycerin 0.4 mg sublingual 0.4 mg sublingual Q5M PRN Chest 11/12/23 tablet (Nitrostat) Pain #30 tabs atorvastatin 40 mg tablet 40 mg PO QDAY #90 tabs 05/14/24 isosorbide mononitrate 30 mg 30 mg PO QAM #90 tabs 05/14/24 tablet,extended release 24 hr Bone Growth Stimulator #1 ea 06/09/24 metoprolol succinate 25 mg 12.5 mg (1/2 x 25 mg) PO DAILY #90 07/09/24 tablet,extended release 24 hr tabs Bone Growth Stimulator #1 ea 07/14/24 Allergies Allergy/AdvReac Type Severity Reaction Status Date / Time amoxicillin Allergy ALGY-Rash Verified 07/15/24 14:48 codeine Allergy ALGY-Anaphy Verified 07/15/24 14:48 laxis hydrocodone Allergy swells Verified 07/15/24 14:48 shellfish derived Allergy swelling Verified 07/15/24 14:48 watermelon Allergy swelling Verified 07/15/24 14:48 Review of Systems 2 General: Reports: 10 or more systems reviewed and unremarkable except in HPI and below PFSH ED 2 PFSH: Medical History Warfarin anticoagulation Atrial fibrillation History of ventricular fibrillation Apparently the patient developed ventricular fibrillation with cardiogenic shock, severe LV systolic dysfunction along with the Takotsubo syndrome. GI bleed GI bleed SVT (supraventricular tachycardia) Septic shock Cardiopulmonary arrest with successful resuscitation Anaphylaxis CAD (coronary artery disease) Cardiac arrest Cardiogenic shock Amoxicillin-induced allergic rash Syncope and collapse SOB (shortness of breath) COPD Atherosclerotic cardiovascular disease Hyperlipemia COPD (chronic obstructive pulmonary disease) Hypertension Morbid obesity Surgical History Stented coronary artery PCI right coronary artery 2007 Family History Mother CAD (coronary artery disease) Mother had a coronary artery bypass surgery. Father CAD (coronary artery disease) Cancer Denies family history of Diabetes Clotting disorder Dementia Chronic kidney disease (CKD) Suicide Anesthesia complication Bleeding disorder Lung disease Stroke Social History Smoking and tobacco/nicotine status: current every day tobacco/nicotine user cigarettes Packs smoked per day: 0.5 Quit status (tobacco/nicotine): has tried quititng Alcohol intake: never Substance/Drug Use: never Household members: family Housing: House Marital status: Current occupational status: retired and disabled Physical Exam 2 Const: COMMON NORMALS: no acute distress, average body habitus, patient oriented x3, no limitations, healthy appearing, alert and well nourished HENMT: COMMON NORMALS: normocephalic, atraumatic, hearing grossly normal bilaterally, external ears normal, Normal external nose present and moist oral mucous membranes HEAD & SCALP: normocephalic and atraumatic NOSE: Normal external nose present EXTERNAL EAR: Yes external ears normal Neck/C-Spine: COMMON NORMALS: no JVD Chest: COMMONS NORMALS: normal inspection of the chest and normal palpation of entire chest wall Resp: COMMON NORMALS: normal respiratory effort, No retractions, No use of accessory muscles and clear to auscultation bilaterally AUSCULTATION: clear to auscultation bilaterally Cardio: COMMON NORMALS: no JVD, regular rate, regular rhythm, S1 normal heart sound present, S2 normal heart sound present, No gallops present (Cardio), No clicks present (Cardio), No murmurs present (Cardio) and No rub (Cardio) R ATE: regular rate RHYTHM: regular rhythm HEART SOUNDS: S1 normal heart sound present and S2 normal heart sound present GI: COMMON NORMALS: Normal to inspection, nondistended, normoactive bowel sounds present, Soft to palpation, non-tender, No hepatosplenomegaly present and no masses PALPATION: Yes Soft to palpation and Yes No hepatosplenomegaly present Back/Pelvis: OTHER: Dressing intact has drainage dry noted. Steri-Strips still intact, no purulent drainage no odor. Erythema. Neuro: COMMON NORMALS: patient oriented x3 SENSORIUM/ORIENTATION: Yes alert Course 2 Vital Signs: Vital signs: Vital Signs Temperature 98.1 F 07/30/24 10:53 Pulse Rate 89 07/30/24 12:46 Respiratory Rate 16 07/30/24 10:53 Blood Pressure 126/80 07/30/24 12:46 Pulse Oximetry 96 07/30/24 12:46 Oxygen Delivery Me thod Room Air 07/30/24 12:46 MDM - Back Pain/Injury Medical Decision Making Wound was checked and shows no signs of infection, lab work was obtained which is unremarkable for infection. Patient be discharged home and should follow-up with her surgeon as previously scheduled. Medical Records I reviewed the patient's medical records. Labs I reviewed the patient's lab results. 07/30/24 13:14 07/30/24 13:14 Laboratory Results WBC 11.33 10^3/uL (3.29-11.43) 07/30/24 13:14 Corrected WBC Cancelled 07/30/24 12:06 RBC 4.32 10^6/uL (3.85-5.65) 07/30/24 13:14 Hgb 13.10 g/dL (11.27-16.99) 07/30/24 13:14 Hct 43.8 % (36-47) 07/30/24 13:14 MCV 101.4 fl (85-98) H 07/30/24 13:14 MCH 30.3 pg (27-33) 07/30/24 13:14 MCHC 29.9 g/dL (30-55) L 07/30/24 13:14 RDW 15.1 % (12.1-15.1) 07/30/24 13:14 Plt Count 429 10^3/cmm (157-399) H 07/30/24 13:14 MPV 11.2 fL (7.4-10.4) H 07/30/24 13:14 Gran % Cancelled 07/30/24 12:06 Neut % (Auto) 78.2 % 07/30/24 13:14 Lymph % (Auto) 14.2 % 07/30/24 13:14 [place] % (Auto) 4.9 % 07/30/24 13:14 Eos % (Auto) 1.6 % 07/30/24 13:14 Baso % (Auto) 0.7 % 07/30/24 13:14 Neut # (Auto) 8.86 10^3/uL (1.8-7.7) H 07/30/24 13:14 Lymph # (Auto) 1.6 10^3/uL (0.8-4.8) 07/30/24 13:14 [place] # (Auto) 0.6 10^3/uL (0.2-0.9) 07/30/24 13:14 Eos # (Auto) 0.2 10^3/uL (0.0-0.8) 07/30/24 13:14 Baso # (Auto) 0.1 10^3/uL (0.0-0.1) 07/30/24 13:14 Absolute Gran (auto) Cancelled 07/30/24 12:06 Nucleated RBC % (auto) 0 % 07/30/24 13:14 Nucleated RBCs # 0.0 /100WBC 07/30/24 13:14 Sodium 140 mmol/L (136-145) 07/30/24 13:14 Potassium 4.5 mmol/L (3.5-5.1) 07/30/24 13:14 Chloride 103 mmol/L (98-107) 07/30/24 13:14 Carbon Dioxide 24 mmol/L (22-29) 07/30/24 13:14 Anion Gap 17.5 (5-19) 07/30/24 13:14 BUN 11 mg/dL (8-23) 07/30/24 13:14 Creatinine 0.8 mg/dL (0.5-0.9) 07/30/24 13:14 GFR Calculation 72.4 mL/min (90-130) L 07/30/24 13:14 Glucose 142 mg/dL (65-115) H 07/30/24 13:14 Calculated Osmolality 292 mOsm/kg (285-295) 07/30/24 13:14 Calcium 9.7 mg/dL (8.5-10.5) 07/30/24 13:14 Total Bilirubin 0.3 mg/dL (0.15-1.2) 07/30/24 13:14 AST 98 U/L (0-32) H 07/30/24 13:14 ALT 47 U/L (0-33) H 07/30/24 13:14 Alkaline Phosphatase 108 U/L (35-105) H 07/30/24 13:14 Total Protein 7.1 g/dL (6.6-8.7) 07/30/24 13:14 Albumin 3.3 g/dL (3.5-5.2) L 07/30/24 13:14 Globulin 3.8 g/dL (1.3-4.6) 07/30/24 13:14 Procalcitonin 0.06 ng/mL (0-0.5) 07/30/24 13:14 All radiology interpretation(s) finalized by discharge Discharge Plan Discharge Patient Disposition: Home Clinical Impression: Encounter for wound re-check Condition: Stable Prescriptions: No Action multivitamin [Multiple Vitamins] Tablet 1 tab PO QAM omega-3 acid ethyl esters [Lovaza] 1 gram capsule 1 cap PO DAILY ascorbate calcium (vitamin C) 500 mg tablet 500 mg PO DAILY nitroglycerin [Nitrostat] 0.4 mg tablet, sublingual 0.4 mg SUBLINGUAL Q5M PRN (Reason: Chest Pain) Qty: 30 3RF atorvastatin 40 mg tablet 40 mg PO QDAY Qty: 90 3RF Rx Instructions: Unable to tolerate larger dose - liver isosorbide mononitrate 30 mg tablet extended release 24 hr 30 mg PO QAM Qty: 90 3RF metoprolol succinate 25 mg tablet extended release 24 hr 12.5 mg PO DAILY Qty: 90 3RF acetaminophen [Tylenol Extra Strength] 500 mg tablet 500 mg PO Q6H PRN (Reason: Pain) (DME) Bone Growth Stimulator See Rx Instructions .Route .MEDSUPPLY Qty: 1 0RF Rx Instructions: As directed (DME) Bone Growth Stimulator See Rx Instructions .Route .MEDSUPPLY Qty: 1 0RF Rx Instructions: As directed warfarin 6 mg tablet See Rx Instructions .ROUTE .COMPLEX Rx Instructions: Take 6mg by mouth daily on Sunday , Sunday , Sunday , Sunday , And Sunday warfarin 5 mg tablet See Rx Instructions .ROUTE .COMPLEX Rx Instructions: 5 mg ;Take 5mg by mouth on Sunday and . Discharge Orders: Discharge ED (Routine); Ordered 07/30/24 Ordered By: Armaan Solis Referrals: Maryam Arango, [facility] [Primary Care Provider] - Patient Instructions: Wound Care (General) Activity Restrictions/Additional Instructions: The physical exam performed in ER as well as your blood work did not show any signs of infection. Please keep the wound clean and dry change dressing as needed. Please keep your follow-up appointment with your surgeon as previously scheduled. 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
[2024-07-30 12:46] VITALS: BP 126/80; PULSE 89; O2SAT 96
[2024-07-30 13:31] LABS: Basophils # 0.1 10^3/uL (0.0-0.1); Basophils % 0.7 %; Eosinophils # 0.2 10^3/uL (0.0-0.8); Eosinophils % 1.6 %; Hematocrit 43.8 % (36-47); Lymphocytes # 1.6 10^3/uL (0.8-4.8); Lymphocytes % 14.2 %; Mean Corpuscular HGB Conc 29.9 g/dL (30-55); Mean Corpuscular Hemoglobin 30.3 pg (27-33); Mean Corpuscular Volume 101.4 fl (85-98); Mean Platelet Volume 11.2 fL (7.4-10.4); Monocytes # 0.6 10^3/uL (0.2-0.9); Monocytes % 4.9 %; Neutrophils # 8.86 10^3/uL (1.8-7.7); Neutrophils % 78.2 %; Nucleated Red Blood Cells % 0 %; Platelet Count 429 10^3/cmm (157-399); Red Blood Count 4.32 10^6/uL (3.85-5.65); Red Cell Distribution Width 15.1 % (12.1-15.1); White Blood Count 11.33 10^3/uL (3.29-11.43)
[2024-07-30 13:57] LABS: Alanine Aminotransferase 47 U/L (0-33); Albumin Level 3.3 g/dL (3.5-5.2); Alkaline Phosphatase 108 U/L (35-105); Aspartate Amino Transferase 98 U/L (0-32); Blood Urea Nitrogen 11 mg/dL (8-23); Calcium 9.7 mg/dL (8.5-10.5); Carbon Dioxide 24 mmol/L (22-29); Chloride 103 mmol/L (98-107); Creatinine Clr Calc Pharmacy 84.2169; Globulin 3.8 g/dL (1.3-4.6); Glomerular Filtration Rate 72.4 mL/min (90-130); Glucose 142 mg/dL (65-115); Osmolality Calculated 292 mOsm/kg (285-295); Sodium 140 mmol/L (136-145); Total Bilirubin 0.3 mg/dL (0.15-1.2); Total Protein 7.1 g/dL (6.6-8.7)
[2024-07-30 13:59] LABS: Anion Gap 17.5 (5-19); Potassium 4.5 mmol/L (3.5-5.1)
[2024-07-30 14:04] LABS: Procalcitonin 0.06 ng/mL (0-0.5)
[2024-07-30 14:18] VITALS: BP 131/82; PULSE 87; RESP 16; O2SAT 91
== END 2024-07-30 14:18 | disposition home or self-care (01) ==
PROVIDERS: Emergency Provider Emergency Medicine; PCP Nurse Practitioner Family
DX: Z48.00 Encounter for change or removal of nonsurgical wound dressing (principal); Z79.01 Long term (current) use of anticoagulants; F17.210 Nicotine dependence, cigarettes, uncomplicated; J44.9 Chronic obstructive pulmonary disease, unspecified; I10 Essential (primary) hypertension; I25.10 Atherosclerotic heart disease of native coronary artery without angina pectoris; E78.5 Hyperlipidemia, unspecified
CPT/HCPCS: 36415; 80053; 84145; 85025; 85610; 99283

== ENCOUNTER → 2024-08-05 13:56 | Outpatient (BNVA) | payer MEDICAID, SELFPAY | PROVIDERS: PCP Nurse Practitioner Family; Visit Provider Internal Medicine Cardiovascular Disease | DX: I48.19 Other persistent atrial fibrillation (principal) | CPT/HCPCS: 85610 ==

== ENCOUNTER → 2024-09-09 13:58 | Outpatient (BNVA) | payer MEDICAID, SELFPAY | PROVIDERS: PCP Nurse Practitioner Family; Visit Provider Orthopaedic Surgery | DX: Z98.1 Arthrodesis status (principal) | CPT/HCPCS: 72100; 85610 ==

== ENCOUNTER → 2024-09-16 13:36 | Outpatient (BNVA) | payer MEDICAID, SELFPAY | PROVIDERS: PCP Nurse Practitioner Family; Visit Provider Internal Medicine Cardiovascular Disease | DX: I48.19 Other persistent atrial fibrillation (principal) | CPT/HCPCS: 85610 ==

== ENCOUNTER → 2024-10-14 13:44 | Outpatient (BNVA) | payer MEDICAID, SELFPAY | PROVIDERS: PCP Nurse Practitioner Family; Visit Provider Internal Medicine Cardiovascular Disease | DX: I48.19 Other persistent atrial fibrillation (principal) | CPT/HCPCS: 85610 ==

== ENCOUNTER → 2024-10-23 13:49 | Outpatient (BNVA) | payer MEDICAID, SELFPAY | PROVIDERS: PCP Nurse Practitioner Family; Visit Provider Orthopaedic Surgery | DX: Z98.1 Arthrodesis status (principal) | CPT/HCPCS: 72100 ==

== ENCOUNTER → 2024-11-25 10:40 | Outpatient (BNVA) | payer MEDICAID, SELFPAY | PROVIDERS: PCP Nurse Practitioner Family; Visit Provider Internal Medicine Cardiovascular Disease | DX: I48.19 Other persistent atrial fibrillation (principal) | CPT/HCPCS: 85610 ==

== ENCOUNTER → 2024-12-22 09:29 | Outpatient (BNVA) | payer MEDICAID, SELFPAY | PROVIDERS: PCP Nurse Practitioner Family; Visit Provider Internal Medicine Cardiovascular Disease | DX: I48.19 Other persistent atrial fibrillation (principal) | CPT/HCPCS: 85610 ==

== ENCOUNTER → 2025-01-19 08:58 | Outpatient (BNVA) | payer MEDICAID, SELFPAY | PROVIDERS: PCP Nurse Practitioner Family; Visit Provider Internal Medicine Cardiovascular Disease | DX: I48.19 Other persistent atrial fibrillation (principal) | CPT/HCPCS: 85610 ==

== ENCOUNTER → 2025-01-27 14:13 | Outpatient (BNVA) | payer MEDICAID, SELFPAY | PROVIDERS: PCP Nurse Practitioner Family; Visit Provider Orthopaedic Surgery | DX: Z98.1 Arthrodesis status (principal) | CPT/HCPCS: 72100 ==

== ENCOUNTER → 2025-02-02 11:32 | Outpatient (BNVA) | payer MEDICAID, SELFPAY | PROVIDERS: PCP Nurse Practitioner Family; Visit Provider Internal Medicine Cardiovascular Disease | DX: I48.19 Other persistent atrial fibrillation (principal) | CPT/HCPCS: 85610 ==

== ENCOUNTER → 2025-03-02 10:16 | Outpatient (BNVA) | payer MEDICAID, SELFPAY | PROVIDERS: PCP Nurse Practitioner Family; Visit Provider Internal Medicine Cardiovascular Disease | DX: I48.19 Other persistent atrial fibrillation (principal) | CPT/HCPCS: 85610 ==

== ENCOUNTER → 2025-03-16 10:47 | Outpatient (BNVA) | payer MEDICAID, SELFPAY | PROVIDERS: PCP Nurse Practitioner Family; Visit Provider Internal Medicine Cardiovascular Disease | DX: I48.19 Other persistent atrial fibrillation (principal) | CPT/HCPCS: 85610 ==

== ENCOUNTER → 2025-04-13 11:24 | Outpatient (BNVA) | payer MEDICAID, SELFPAY | PROVIDERS: PCP Nurse Practitioner Family; Visit Provider Internal Medicine Cardiovascular Disease | DX: I48.19 Other persistent atrial fibrillation (principal) | CPT/HCPCS: 85610 ==

== ENCOUNTER → 2025-04-20 10:52 | Outpatient (BNVA) | payer MEDICAID, SELFPAY | PROVIDERS: PCP Nurse Practitioner Family; Visit Provider Internal Medicine Cardiovascular Disease | DX: I48.19 Other persistent atrial fibrillation (principal) | CPT/HCPCS: 85610 ==

== ENCOUNTER → 2025-06-01 12:14 | Outpatient (BNVA) | payer MEDICAID, SELFPAY | PROVIDERS: PCP Nurse Practitioner Family; Visit Provider Internal Medicine Cardiovascular Disease | DX: I48.19 Other persistent atrial fibrillation (principal) | CPT/HCPCS: 85610 ==

== ENCOUNTER → 2025-06-29 10:20 | Outpatient (BNVA) | payer MEDICAID, SELFPAY | PROVIDERS: PCP Nurse Practitioner Family; Visit Provider Internal Medicine Cardiovascular Disease | DX: Z79.01 Long term (current) use of anticoagulants (principal); I48.19 Other persistent atrial fibrillation | CPT/HCPCS: 85610 ==

== ENCOUNTER → 2025-07-21 09:27 | Outpatient (BNVA) | payer MEDICAID, SELFPAY | PROVIDERS: PCP Nurse Practitioner Family; Visit Provider Internal Medicine Cardiovascular Disease | DX: I48.19 Other persistent atrial fibrillation (principal) | CPT/HCPCS: 85610 ==

== ENCOUNTER → 2025-07-28 12:45 | Outpatient (BNVA) | payer MEDICAID, SELFPAY | PROVIDERS: PCP Nurse Practitioner Family; Visit Provider Orthopaedic Surgery | DX: Z47.89 Encounter for other orthopedic aftercare (principal); Z98.1 Arthrodesis status; M48.061 Spinal stenosis, lumbar region without neurogenic claudication | CPT/HCPCS: 72100 ==

== ENCOUNTER → 2025-08-18 10:15 | Outpatient (BNVA) | payer MEDICAID, SELFPAY | PROVIDERS: PCP Nurse Practitioner Family; Visit Provider Internal Medicine Cardiovascular Disease | DX: I48.19 Other persistent atrial fibrillation (principal) | CPT/HCPCS: 85610 ==